=== PATIENT | female | born 1995 | race Caucasian/White ===

== ENCOUNTER 2020-06-01 17:34 | Emergency (ER) | payer OTHER, SELFPAY ==
[2020-06-01 18:10] VITALS: BP 134/75; PULSE 92; RESP 16; TEMP 36.8; O2SAT 99; BMI 36.0
--- NOTE | 2020-06-01 19:58 | ED.GENADULT ---
HPI - General Adult General Chief complaint: General Medical Stated complaint: Sore throat Time Seen by Provider: 06/01/20 19:58 Source: patient Mode of arrival: ambulatory Limitations: no limitations History of Present Illness HPI narrative: States sore/scratchy throat for the past 1 day also mild nasal congestion. Patient is 20 weeks gestation has no -related complaints. No abdominal pain nausea vomiting or diarrhea. No sick contacts recent travel. States she has overall had healthy and no related complaints. Onset (ago): day(s) Location: face Severity: mild Treatments prior to arrival: none Related Data Allergies Allergy/AdvReac Type Severity Reaction Status Date / Time guaifenesin Allergy Intermediate RASH Unverified 04/09/20 16:24 [From ROBITUSSIN A-C] aripiprazole [Abilify] Allergy Unknown extraz Verified 01/23/19 00:00 pyramidal symptoms lorazepam [From ATIVAN] AdvReac Intermediate AGITATION Unverified 04/09/20 16:24 prazosin [PRAZOSIN] AdvReac Intermediate DEPRESSION, Unverified 04/09/20 16:24 hypotension benztropine [Cogentin] AdvReac Unknown extrapyramidal Verified 05/16/19 00:00 symptoms methylprednisolone AdvReac Unknown tctile and Unverified 04/09/20 16:24 [From MEDROL] visual hakkucinations quetiapine [Seroquel] AdvReac Unknown extrapyramidal Verified 05/16/19 00:00 symptoms sertraline [Zoloft] AdvReac Unknown hallucinati Verified 05/16/19 00:00 ons From ROBITUSSIN A-C Allergy Intermediate RASH Uncoded 04/09/20 16:24 Robitussin Chest Congestion Allergy Unknown rash Uncoded 05/16/19 00:00 Robitussin Cold/Congestion Allergy Unknown rash Uncoded 01/23/19 00:00 From COGENTIN AdvReac Intermediate HALLUCINATI Uncoded 04/09/20 16:24 ONS From SEROQUEL AdvReac Intermediate PARANOIA Uncoded 04/09/20 16:24 From ZOLOFT AdvReac Intermediate HALLUCINATI Uncoded 04/09/20 16:24 ONS Medrol (Efrem) AdvReac Unknown hallucinati Uncoded 05/16/19 00:00 ons/depress ion Review of Systems Review of Systems: Constitutional: No Weight loss, No Fever, No Chills, No Night Sweats, No Fatigue, No Malaise ENT/Mouth: No Hearing loss, No Ear Pain, + Nasal Congestion, No Sinus Pain, No Hoarseness, + sore throat, + Rhinorrhea, No Swallowing Difficulty Eyes: No Eye Pain, No Swelling, No Redness, No Foreign Body, No Discharge, No Vision Changes Cardiovascular: No Chest Pain, No SOB, No Dyspnea on Exertion, No Orthopnea, No Edema, No Palpitations Respiratory: No Cough, No Sputum, No Wheezing, No Smoke Exposure, No Dyspnea Gastrointestinal: No Nausea, No Vomiting, No Diarrhea, No Constipation, No abdominal Pain, No Hematochezia, No Melena Genitourinary: no irregular bleeding, No Dysuria, No Urinary Frequency, No Hematuria, No Urinary Incontinence, No Urgency, No Flank Pain, No Urinary Flow Changes, No Hesitancy Musculoskeletal: No joint pain, No Myalgias, No Joint Swelling Skin: No Skin Lesions, No rash Neuro: No Weakness, No Numbness, No Paresthesias, No Loss of Consciousness, No Dizziness, No Headache Psych: No Anxiety Heme/Lymph: No Bruising, No Bleeding,No Lymphadenopathy Endocrine: No Polyuria, No Polydipsia, No Temperature Intolerance Yes all other systems are reviewed and are negative [facility] Past Medical History Attestation statement: The following information was validated with the patient. Social History Social History Advance Directives: No Advance Directives Information Provided: No Physical Exam Vital Signs: Vital Signs: Last Vital Signs Temp 98.3 F 06/01/20 18:10 Pulse 92 06/01/20 18:10 Resp 16 06/01/20 18:10 BP 134/75 06/01/20 18:10 Pulse Ox 99 06/01/20 18:10 Body Mass Index 36.0 Reviewed Const: General: cooperative and healthy appearing; No acute distress or intoxicated appearing Nutritional Appearance: average body habitus Orientation/consciousness: patient oriented x3 HENMT: Head: Yes normal to inspection Ears: hearing grossly normal bilaterally Eyes: General: appearance normal, both eyes and all related structures Visual Kowalski: normal visual kowalski by confrontation Neck: Neck: Yes normal visual inspection and No tender Thyroid: Thyroid normal Chest: Chest palpation & inspection: normal inspection of the chest Resp: Effort & Inspection: normal respiratory effort Cardio: Jugular venous distension: no JVD GI: Inspection: Yes normal to inspection Percussion: Yes normal to percussion Auscultation: normal bowel sounds : General: Yes no CVA tenderness Back/Spine/Pelvis: Back: no CVA tenderness Skin: General skin exam: no rashes or lesions noted Neuro: General: patient oriented x3 Extrem: General: Yes normal to inspection Course Course Course Narrative: AP consistent with mild viral URI rapid strep negative. Sent for culture. COVID-19 done will discharge home with clear precaution return instructions. heart tone 152. No related complaints. Patient will be discharged home with outpatient follow-up. Aware to avoid NSAIDs and cold medicine only acetaminophen for fever. Discharge Plan Discharge Clinical Impression: Acute nasopharyngitis Patient Disposition: Home, Self-Care Instructions: Viral Syndrome (ED) Additional Instructions: Salt water gargle Drink plenty fluids Your rapid strep test was negative COVID-19 is pending Follow home care instructions reviewed Return if any concerns or worsening symptoms otherwise follow up as instructed Thank you Referrals: Physician,None [Primary Care Provider] - 1 week (Your primary care doctor for phone visit)
== END 2020-06-01 20:19 | disposition home or self-care (01) ==
PROVIDERS: Nurse Practitioner Primary Care; Emergency Provider Emergency Medicine
DX: O26.92 Pregnancy related conditions, unspecified, second trimester (principal); J02.9 Acute pharyngitis, unspecified; Z3A.20 20 weeks gestation of pregnancy; Z20.828 Contact with and (suspected) exposure to other viral communicable diseases
CPT/HCPCS: 87071; 87880; 99283; 99284; U0003

== ENCOUNTER 2020-11-16 15:04 | Outpatient (REF) | payer OTHER, SELFPAY ==
--- NOTE | ~2020-11-16 | XR_ITS ---
EXAMINATION: XR FOOT, LEFT CLINICAL INFORMATION: Puncture wound. COMPARISON: None TECHNIQUE: AP, lateral, and oblique views of the left foot. FINDINGS: Marker positioned along the lateral/plantar aspect of the foot at the level of the proximal 5th metatarsal shaft. In this region, in the plantar soft tissues, is a faint tiny density measuring 0.07 cm. A tiny foreign body cannot be excluded. No visible acute fracture or dislocation. XR/XR foot LT min 3V IMPRESSION: Faint tiny density in the plantar soft tissues of the midfoot. This could represent a small foreign body.
== END 2020-11-16 15:05 | disposition home or self-care (01) ==
LOC: HO.HMGCX 15:04
PROVIDERS: PCP Nurse Practitioner Family; Visit Provider Nurse Practitioner Family
DX: S91.332A Puncture wound without foreign body, left foot, initial encounter (principal)
CPT/HCPCS: 73630

== ENCOUNTER 2021-01-25 12:00 | Emergency (ER) | payer OTHER, SELFPAY ==
--- NOTE | ~2021-01-25 | XR_ITS ---
EXAMINATION: XR CHEST CLINICAL INFORMATION: Cough COMPARISON: Chest x-ray on 01/23/2015 TECHNIQUE: 2 views of the chest were obtained. FINDINGS: The cardiac silhouette is normal. There is mild diffuse bronchial wall thickening. There are no areas of consolidation. There are no pleural effusions or pneumothoraces. The bones and soft tissues are unremarkable for the patient's age. XR/XR chest 2V IMPRESSION: Bronchial wall thickening may be infectious and/or inflammatory in etiology.
[2021-01-25 12:18] VITALS: BP 137/70; PULSE 97; RESP 16; TEMP 37.1; O2SAT 97; BMI 37.8
[2021-01-25] MEDS: Albuterol/Iprat 2.5/0.5MG 3 ML AMPUL.NEB INHALE (14:35)
[2021-01-25 14:41] VITALS: PULSE 88
[2021-01-25] MEDS: predniSONE 20 MG TABLET 60 MG PO (14:55)
--- NOTE | 2021-01-25 15:28 | ED_ITS ---
HPI - URI/Sore Throat General Chief Complaint: Upper Respiratory Symptoms Stated Complaint: SOB, Cough Time Seen by Provider: 01/25/21 14:18 History of Present Illness HPI Narrative: patient complains of cough, mild sore throat and chest tightness wheezing and shortness of breath for 3 days, no chest pain no palpitations no fainting no feeling faint Related Data Previous Rx's Medication Instructions Recorded amoxicillin 875 mg-potassium 1 tab PO BID 7 Days #14 tab 11/16/20 clavulanate 125 mg tablet albuterol sulfate 2 inh INHALATION Q4H PRN #1 ea 01/25/21 azithromycin [Zithromax Z-Efrem] See Rx Instructions .ROUTE 01/25/21 .COMPLEX #6 tab prednisone 60 mg PO DAILY 4 Days #12 tab 01/25/21 albuterol sulfate 2 puff INHALATION Q4-6H PRN #8.5 g 01/29/21 dextromethorphan HBr 15 mg PO Q8H PRN #118 ml 01/29/21 doxycycline hyclate 100 mg PO DAILY #14 cap 01/29/21 Allergies Allergy/AdvReac Type Severity Reaction Status Date / Time guaifenesin Allergy Intermediate RASH Verified 09/10/20 13:08 [From ROBITUSSIN A-C] aripiprazole [Abilify] Allergy Unknown extraz Verified 01/23/19 00:00 pyramidal symptoms lorazepam [From ATIVAN] AdvReac Intermediate AGITATION Unverified 04/09/20 16:24 prazosin [PRAZOSIN] AdvReac Intermediate DEPRESSION, Verified 09/10/20 13:08 hypotension benztropine [Cogentin] AdvReac Unknown extrapyramidal Verified 09/10/20 13:08 symptoms methylprednisolone AdvReac Unknown tctile and Verified 09/10/20 13:08 [From MEDROL] visual hakkucinations quetiapine [Seroquel] AdvReac Unknown extrapyramidal Verified 09/10/20 13:08 symptoms sertraline [Zoloft] AdvReac Unknown hallucinati Verified 09/10/20 13:08 ons From SEROQUEL AdvReac Intermediate PARANOIA Uncoded 04/09/20 16:24 From ZOLOFT AdvReac Intermediate HALLUCINATI Uncoded 04/09/20 16:24 ONS Review of Systems Review of Systems: Positive for cough sore throat and chest tightness Negatives are no fever no chills no dizziness no weakness no fainting no feeling faint no headache no difficulty swallowing no chest pain no palpitations no abdominal pain no nausea vomiting or diarrhea no dysuria no skin rash no calf swelling no calf pain no leg swelling PMFSH Past Medical History Source: nursing notes reviewed Medical History Anxiety disorder PMDD (premenstrual dysphoric disorder) Purulent drainage of both ears through ear tube Supraventricular tachycardia Surgical History History of History of placement of ear tubes Hx of prior ablation treatment [place] teeth extracted Family History Family History (Updated 09/07/20 @ 10:57 by CAMERON Watson) Mother Hypertension Diabetes Maternal Grandfather Colon cancer Maternal Grandmother Spinal stenosis Diabetes Hypertension Social History Social History Alcohol intake: unknown Patient Tobacco Use Status: Never used Tobacco Physical Exam Vital Signs: Vital Signs: Last Vital Signs Temp 98.5 F 01/25/21 15:54 Pulse 97 01/25/21 15:54 Resp 16 01/25/21 15:54 BP 126/80 01/25/21 15:54 Pulse Ox 98 01/25/21 15:54 Body Mass Index 37.8 General appearance no acute distress The ears are clear with normal tympanic membranes and no swelling of the canals Sinuses no tenderness The pharynx is clear with moist mucous membranes and no redness swelling or exudate Neck is supple Chest had wheezing bilaterally with good air entry no respiratory distress Abdomen soft nontender Extremities no edema no calf tenderness or swelling Skin no rash Course Course Course Narrative: patient's wheezing was relieved with a treatment here in the ER and lung sounds only showed minimal residual wheezing patient had no shortness of breath with speaking full sentences and felt very improved Patient is treated with prednisone and given a script for inhaler Prescription for antibiotic for bronchitis and is discharged home with negative COVID test and well-appearing MDM - URI/Sore Throat Lab Data Labs: Lab Results 01/25/21 Range/Units 14:30 COVID-19 (VANITA) Negative (Negative) COVID-19 Clin Com See Note Discharge Plan Discharge Clinical Impression: Asthma, Bronchitis Patient Disposition: Home, Self-Care Additional Instructions: COVID test was negative Chest x-ray did not show any obvious pneumonia As her having a bad cough we are treating with antibiotic for bronchitis For asthma we are doing prednisone which reduces inflammation which can cause wheezing and a script for albuterol inhaler to use as needed Follow with primary doctor Return any time for difficulty breathing, any worse condition any concerns Prescriptions: New azithromycin [Zithromax Z-Efrem] 250 mg tablet See Rx Instructions .ROUTE .COMPLEX Qty: 6 RF: 0 albuterol sulfate 90 mcg/actuation aerosol powdr breath activated 2 inh inhalation Q4H PRN (Reason: shortness of breath or wheezing) Qty: 1 RF: 0 prednisone 20 mg tablet 60 mg PO DAILY 4 Days Qty: 12 RF: 0 No Action doxycycline hyclate 100 mg capsule 100 mg PO DAILY Qty: 14 RF: 0 albuterol sulfate 90 mcg/actuation HFA aerosol inhaler 2 puff inhalation Q4-6H PRN (Reason: shortness of breath or wheezing) Qty: 8.5 RF: 1 dextromethorphan HBr 15 mg/5 mL liquid 15 mg PO Q8H PRN (Reason: cough) Qty: 118 RF: 0 amoxicillin-pot clavulanate 875-125 mg tablet 1 tab PO BID 7 Days Qty: 14 RF: 0 Interventions: ED Discharge Assessment Last Done: 01/25/21 15:55 Discharge Date/Time: 01/25/21 15:56
[2021-01-25 15:32] LABS: COVID-19 Test Negative (Negative)
[2021-01-25 15:54] VITALS: BP 126/80; PULSE 97; RESP 16; TEMP 36.9; O2SAT 98
== END 2021-01-25 15:56 | disposition home or self-care (01) ==
PROVIDERS: Physician Assistant Medical; Emergency Provider Emergency Medicine; PCP Nurse Practitioner Family
DX: J40 Bronchitis, not specified as acute or chronic (principal); J45.909 Unspecified asthma, uncomplicated; Z79.899 Other long term (current) drug therapy; Z20.822 Contact with and (suspected) exposure to COVID-19
CPT/HCPCS: 36415; 71046; 87635; 94640; 99284

== ENCOUNTER 2021-01-29 06:30 | Emergency (ER) | payer OTHER, SELFPAY ==
--- NOTE | ~2021-01-29 | XR_ITS ---
EXAMINATION: XR CHEST CLINICAL INFORMATION: Cough, shortness of breath COMPARISON: 01/25/2021, 01/23/2015 TECHNIQUE: Portable upright AP view of the chest was obtained. FINDINGS: The lungs are clear and there is no airspace consolidation or groundglass opacity or effusion. No pneumothorax or pleural reaction. The heart is normal in size. The hilar and mediastinal contours and visualized bony structures are unremarkable. XR/XR chest 1V IMPRESSION: Unremarkable examination.
[2021-01-29 06:49] VITALS: BP 141/102; PULSE 72; RESP 16; TEMP 36.7; O2SAT 97; BMI 37.8
--- NOTE | 2021-01-29 06:55 | ED.URI ---
HPI - URI/Sore Throat General Chief Complaint: Upper Respiratory Symptoms Stated Complaint: Bronchitis Time Seen by Provider: 01/29/21 06:35 Source: patient Mode of arrival: ambulatory Limitations: no limitations History of Present Illness HPI Narrative: Patient comes emergency room complaining of cough and shortness of breath. Patient was seen in the emergency room on January 25, diagnosed with bronchitis. Patient states that she has been wheezing quite a bit. Patient has history of childhood asthma, but has not been wheezing until recently. Patient was given a prescription for Z-Efrem, prednisone and albuterol, but patient is not feeling any better. Patient denies fever but is complaining of chills, and ongoing cough with sputum production. Related Data Previous Rx's Medication Instructions Recorded amoxicillin 875 mg-potassium 1 tab PO BID 7 Days #14 tab 11/16/20 clavulanate 125 mg tablet albuterol sulfate 2 inh INHALATION Q4H PRN #1 ea 01/25/21 azithromycin [Zithromax Z-Efrem] See Rx Instructions .ROUTE 01/25/21 .COMPLEX #6 tab prednisone 60 mg PO DAILY 4 Days #12 tab 01/25/21 albuterol sulfate 2 puff INHALATION Q4-6H PRN #8.5 g 01/29/21 dextromethorphan HBr 15 mg PO Q8H PRN #118 ml 01/29/21 doxycycline hyclate 100 mg PO DAILY #14 cap 01/29/21 Allergies Allergy/AdvReac Type Severity Reaction Status Date / Time guaifenesin Allergy Intermediate RASH Verified 09/10/20 13:08 [From ROBITUSSIN A-C] aripiprazole [Abilify] Allergy Unknown extraz Verified 01/23/19 00:00 pyramidal symptoms lorazepam [From ATIVAN] AdvReac Intermediate AGITATION Unverified 04/09/20 16:24 prazosin [PRAZOSIN] AdvReac Intermediate DEPRESSION, Verified 09/10/20 13:08 hypotension benztropine [Cogentin] AdvReac Unknown extrapyramidal Verified 09/10/20 13:08 symptoms methylprednisolone AdvReac Unknown tctile and Verified 09/10/20 13:08 [From MEDROL] visual hakkucinations quetiapine [Seroquel] AdvReac Unknown extrapyramidal Verified 09/10/20 13:08 symptoms sertraline [Zoloft] AdvReac Unknown hallucinati Verified 09/10/20 13:08 ons From SEROQUEL AdvReac Intermediate PARANOIA Uncoded 04/09/20 16:24 From ZOLOFT AdvReac Intermediate HALLUCINATI Uncoded 04/09/20 16:24 ONS Review of Systems Review of Systems: Constitutional : No Weight loss, No Fever, Complaining of Chills, No Night Sweats, No Fatigue, No Malaise ENT/Mouth : No Hearing loss, No Ear Pain, No Nasal Congestion, No Sinus Pain, No Hoarseness, No sore throat, No Rhinorrhea, No Swallowing Difficulty Eyes: No Eye Pain, No Swelling, No Redness, No Foreign Body, No Discharge, No Vision Changes Cardiovascular : No Chest Pain, No SOB, No Dyspnea on Exertion, No Orthopnea, No Edema, No Palpitations Respiratory : complaining of cough with green sputum production, complaining of wheezing not responding well to albuterol treatments, No Smoke Exposure Gastrointestinal : No Nausea, No Vomiting, No Diarrhea, No Constipation, No abdominal Pain, No Hematochezia, No Melena Genitourinary : no irregular bleeding, No Dysuria, No Urinary Frequency, No Hematuria, No Urinary Incontinence, No Urgency, No Flank Pain, No Urinary Flow Changes, No Hesitancy Musculoskeletal : No joint pain, No Myalgias, No Joint Swelling Skin : No Skin Lesions, No rash Neuro : No Weakness, No Numbness, No Paresthesias, No Loss of Consciousness, No Dizziness, No Headache Psych : No Anxiety/Panic, No Depression, No SI/HI/AH/VH, No Social Issues, Heme/Lymph: No Bruising, No Bleeding,No Lymphadenopathy Endocrine : No Polyuria, No Polydipsia, No Temperature Intolerance [facility] Past Medical History Medical History Anxiety disorder PMDD (premenstrual dysphoric disorder) Purulent drainage of both ears through ear tube Supraventricular tachycardia Surgical History History of History of placement of ear tubes Hx of prior ablation treatment [place] teeth extracted Family History Family History (Updated 09/07/20 @ 10:57 by Erica Martins [facility]) Mother Hypertension Diabetes Maternal Grandfather Colon cancer Maternal Grandmother Spinal stenosis Diabetes Hypertension Social History Social History Alcohol intake: unknown Patient Tobacco Use Status: Never used Tobacco Use of substances other than those prescribed or required for medical reasons: No Advance Directives: No Advance Directives Information Provided: No Patient : No Physical Exam Vital Signs: Vital Signs: Last Vital Signs Temp 98.1 F 01/29/21 06:49 Pulse 72 01/29/21 08:40 Resp 18 01/29/21 08:40 BP 112/65 01/29/21 08:40 Pulse Ox 94 01/29/21 08:40 Body Mass Index 37.8 Appearance: Alert. Oriented X3. No acute distress. Eyes: Pupils equal, round and reactive to light. ENT: Pharynx mildly erythematous, no exudates, no abscess Neck: Normal inspection. Neck supple. No lymph nodes noted. No crepitus CVS: Normal heart rate and rhythm. Pulses normal. Normal S1 and S2 Respiratory: No respiratory distress diffuse rhonchi and wheezing, good air movement, oxygen saturation 98% on room air Abdomen: Soft and nontender. No rigidity. No distention. good BS x4 Skin: Skin warm and dry. Normal skin color. Normal skin turgor. Extremities: No lower extremity edema. No lower extremity edema. No Lacerations. No Rash Neuro: Oriented X 3. No motor deficit. No sensory deficit. Moving all extermities. No slurred speech. Course Course Course Narrative: patient states that she finished a course of antibiotics and prednisone. However, at this time patient is requesting not to be given Solu-Medrol or more prednisone, as it worsens her depression. Patient is agreeable to breathing treatments. patient received 1 treatment with DuoNeb, patient continues wheezing. Patient getting IV magnesium and an hour long nebulization treatment. Chest x-ray pending patient's chest x-ray looks improved when compared to the x-ray of January 25. Patient's leukocytosis is likely secondary to steroid use patient no longer wheezing, patient walked around the emergency room, oxygen saturation remained at 95% on room air. Patient declined prednisone. Patient will be given a 2nd dose of antibiotics and albuterol. I discussed with the patient that the cough may last up to 6 weeks MDM - URI/Sore Throat Lab Data Result diagrams: 01/29/21 07:16 01/29/21 07:16 Labs: Lab Results 01/29/21 01/29/21 Range/Units 07:16 07:16 WBC 11.5 H (4.8-10.8) X10*3/uL RBC 4.39 (4.20-5.50) X10*6/uL Hgb 12.8 (12.0-16.0) g/dl Hct 38.9 (37-47) % MCV 88.6 (80-98) fL MCH 29.2 (27.0-33.0) pg MCHC 32.9 (31.0-35.0) g/dl RDW 13.2 (11.0-16.0) % Plt Count 374 (160-400) X10*3/uL MPV 9.8 (9.4-12.3) fL Immature Gran % (Auto) 0.7 H (0.0-0.4) % Neut % (Auto) 47.4 (45-73) % Lymph % (Auto) 42.0 H (20-40) % [place] % (Auto) 7.1 (2-11) % Eos % (Auto) 1.8 (0-4) % Baso % (Auto) 1.0 (0-2) % Lymph # (Auto) 4.8 (1.2-4.9) X10*3/uL [place] # (Auto) 0.8 (0.1-1.2) X10*3/uL Eos # (Auto) 0.2 (0.0-0.4) X10*3/uL Baso # (Auto) 0.1 (0.0-0.2) X10*3/uL Abs Immat Gran (auto) 0.08 H (0.00-0.03) X10*3/uL Absolute Neuts (auto) 5.4 (2.0-8.3) X10*3/uL Absolute Nucleated RBC 0.000 (0.0-0.012) X10*3/uL Nucleated RBC % (auto) 0.0 (0.0-0.2) /100WBC Sodium 140 (135-145) mmol/L Potassium 3.4 (3.3-5.1) mmol/L Chloride 108 (96-108) mmol/L Carbon Dioxide 23 (22-29) mmol/L Anion Gap 12 (12-20) BUN 12 (9-16) mg/dL Creatinine 1.00 (0.5-1.4) mg/dL Estim Creat Clear Calc 98.7 Estimated GFR > 60 Random Glucose 90 (60-115) mg/dL Calcium 9.0 (8.4-10.2) mg/dL Imaging Data Chest x-ray: Radiologist's impression: FINDINGS: The lungs are clear and there is no airspace consolidation or groundglass opacity or effusion. No pneumothorax or pleural reaction. The heart is normal in size. The hilar and mediastinal contours and visualized bony structures are unremarkable. XR/XR chest 1V IMPRESSION: Unremarkable examination. Discharge Plan Discharge Clinical Impression: Bronchitis Patient Disposition: Home, Self-Care Instructions: Acute Bronchitis (ED) Additional Instructions: Please follow-up with your primary care physician tomorrow. If you have any worsening or new symptoms, please return to the emergency room or call 911 Prescriptions: New doxycycline hyclate 100 mg capsule 100 mg PO DAILY Qty: 14 RF: 0 albuterol sulfate 90 mcg/actuation HFA aerosol inhaler 2 puff inhalation Q4-6H PRN (Reason: shortness of breath or wheezing) Qty: 8.5 RF: 1 dextromethorphan HBr 15 mg/5 mL liquid 15 mg PO Q8H PRN (Reason: cough) Qty: 118 RF: 0 No Action azithromycin [Zithromax Z-Erfem] 250 mg tablet See Rx Instructions .ROUTE .COMPLEX Qty: 6 RF: 0 albuterol sulfate 90 mcg/actuation aerosol powdr breath activated 2 inh inhalation Q4H PRN (Reason: shortness of breath or wheezing) Qty: 1 RF: 0 prednisone 20 mg tablet 60 mg PO DAILY 4 Days Qty: 12 RF: 0 amoxicillin-pot clavulanate 875-125 mg tablet 1 tab PO BID 7 Days Qty: 14 RF: 0
[2021-01-29 07:17] VITALS: PULSE 70; O2SAT 97
[2021-01-29 07:20] LABS: MANUAL DIFF FLAG NO
--- NOTE | 2021-01-29 07:20 | PC.NURSE ---
Unresolved cough and SOB after steroids and ABX. Pt states congested cough for green phelgm and mild 3/10 rib pain. Skin pwd. Speaking full sentences. Sat 97% on RA. LS tight/coarse. Labs drawn by tech, awaiting xray. RT at bedside for updraft
[2021-01-29] MEDS: Albuterol/Iprat 2.5/0.5MG 3 ML AMPUL.NEB INHALE (07:21)
[2021-01-29 07:22] VITALS: PULSE 87; O2SAT 97
[2021-01-29 07:23] LABS: Basophils Absolute Auto 0.1 X10*3/uL (0.0-0.2); Eosinophils Absolute Auto 0.2 X10*3/uL (0.0-0.4); Eosinophils Percent Auto 1.8 % (0-4); Hematocrit 38.9 % (37-47); Hemoglobin 12.8 g/dl (12.0-16.0); Imm Gran Abs Auto 0.08 X10*3/uL (0.00-0.03); Imm Gran Pct Auto 0.7 % (0.0-0.4); Lymphocytes Absolute Auto 4.8 X10*3/uL (1.2-4.9); Mean Corpuscular HGB Conc 32.9 g/dl (31.0-35.0); Mean Corpuscular Hemoglobin 29.2 pg (27.0-33.0); Mean Corpuscular Volume 88.6 fL (80-98); Mean Platelet Volume 9.8 fL (9.4-12.3); Monocytes Absolute Auto 0.8 X10*3/uL (0.1-1.2); Monocytes Percent Auto 7.1 % (2-11); Neutrophils Absolute Auto 5.4 X10*3/uL (2.0-8.3); Neutrophils Percent Auto 47.4 % (45-73); Platelet Count 374 X10*3/uL (160-400); Red Blood Count 4.39 X10*6/uL (4.20-5.50); Red Cell Distribution Width 13.2 % (11.0-16.0); White Blood Count 11.5 X10*3/uL (4.8-10.8)
[2021-01-29 07:47] LABS: Anion Gap 12 (12-20); Blood Urea Nitrogen 12 mg/dL (9-16); Carbon Dioxide 23 mmol/L (22-29); Chloride 108 mmol/L (96-108); Creatinine Clr Calc Pharmacy 98.7; Estimated Glomerular Filt Rate > 60; Glucose Random 90 mg/dL (60-115); Potassium 3.4 mmol/L (3.3-5.1); Sodium 140 mmol/L (135-145)
[2021-01-29] MEDS: Magnesium Sulfate/H2O 2 GM/50 ML PIGGYBACK IV (08:23)
[2021-01-29 08:28] VITALS: PULSE 70; O2SAT 96
[2021-01-29] MEDS: Albuterol Sulfate (0.083%) 2.5 MG/3 ML VIAL.NEB 10 MG INHALE (08:28)
[2021-01-29 08:40] VITALS: BP 112/65; PULSE 72; RESP 18; O2SAT 94
--- NOTE | 2021-01-29 08:40 | PC.NURSE ---
Minimal improvement s/p updraft, IV placed and Mag started. Pt on 1 hour long u/d at this time. Breathing is unlabored and LS improved since initial assessment NSR on tele rate 80s
--- NOTE | 2021-01-29 09:49 | PC.NURSE ---
Ambulatory pulse ox with this RN, sat remained 95-97%, with minimal SOB with exertion that resolved with rest, Dr Fox aware, plan d/c home
== END 2021-01-29 10:02 | disposition home or self-care (01) ==
PROVIDERS: Emergency Provider Emergency Medicine; PCP Nurse Practitioner Family
DX: J40 Bronchitis, not specified as acute or chronic (principal); Z79.899 Other long term (current) drug therapy
CPT/HCPCS: 36415; 71045; 80048; 85025; 94640; 94644; 96360; 99284; 99285; J3475

== ENCOUNTER 2021-02-23 08:14 | Outpatient (REF) | payer OTHER, SELFPAY ==
[2021-02-23 11:20] LABS: Glucose Urine UA NEG (NEG); Leukocyte Esterase Urine NEG (NEG); Nitrite Urine NEG (NEG); Specific Gravity - Urine 1.025 (1.005-1.025); UACC Culture Trigger NO; Urine Blood 2+ (NEG); Urine Ketones NEG (NEG); Urine Protein NEG (NEG-TRACE)
[2021-02-23 11:23] LABS: Appearance Urine CLEAR; Color Urine YELLOW
[2021-02-23 11:29] LABS: Bacteria Urine TRACE /LPF; Squamous Epithelial Cell Urine 1+ /LPF; WBC Urine 0 /HPF (0-4)
[2021-02-23 11:51] LABS: Alanine Aminotransferase 23 U/L (0-31); Albumin Level 4.5 g/dL (3.5-5.0); Alkaline Phosphatase 109 U/L (39-117); Anion Gap 14 (12-20); Aspartate Amino Transferase 26 U/L (5-31); Bilirubin Total 0.3 mg/dL (0.0-1.0); Blood Urea Nitrogen 12 mg/dL (9-16); Calcium 9.8 mg/dL (8.4-10.2); Carbon Dioxide 22 mmol/L (22-29); Chloride 108 mmol/L (96-108); Cholesterol 223 mg/dL; Estimated Glomerular Filt Rate > 60; Glucose Fasting 117 mg/dL (60-99); HDL Cholesterol 33 mg/dL; LDL Cholesterol Calculated 147 mg/dl; Potassium 4.6 mmol/L (3.3-5.1); Sodium 139 mmol/L (135-145); Total Protein 7.4 g/dL (6.5-8.0); Triglycerides 217 mg/dL
== END 2021-02-23 08:15 | disposition home or self-care (01) ==
LOC: HO.HMGCLDS 08:14
PROVIDERS: PCP Nurse Practitioner Family; Visit Provider Nurse Practitioner Family
DX: F32.9 Major depressive disorder, single episode, unspecified (principal); F41.9 Anxiety disorder, unspecified; R06.2 Wheezing
CPT/HCPCS: 36415; 80053; 80061; 81001; 84443

== ENCOUNTER 2021-03-23 09:06 | Outpatient (REF) | payer OTHER, SELFPAY ==
[2021-03-23 10:58] LABS: MANUAL DIFF FLAG NO
[2021-03-23 11:06] LABS: Basophils Absolute Auto 0.1 X10*3/uL (0.0-0.2); Basophils Percent Auto 1.2 % (0-2); Eosinophils Absolute Auto 1.7 X10*3/uL (0.0-0.4); Eosinophils Percent Auto 18.4 % (0-4); Hematocrit 45.1 % (37-47); Hemoglobin 14.9 g/dl (12.0-16.0); Imm Gran Abs Auto 0.02 X10*3/uL (0.00-0.03); Imm Gran Pct Auto 0.2 % (0.0-0.4); Lymphocytes Percent Auto 32.8 % (20-40); Mean Corpuscular Volume 87.9 fL (80-98); Mean Platelet Volume 10.7 fL (9.4-12.3); Monocytes Absolute Auto 0.5 X10*3/uL (0.1-1.2); Monocytes Percent Auto 5.2 % (2-11); Neutrophils Absolute Auto 3.8 X10*3/uL (2.0-8.3); Neutrophils Percent Auto 42.2 % (45-73); Platelet Count 347 X10*3/uL (160-400); Red Blood Count 5.13 X10*6/uL (4.20-5.50); Red Cell Distribution Width 12.3 % (11.0-16.0)
[2021-03-23 12:06] LABS: Erythrocyte Sedimentation Rate 10 MM/HR (0-20)
[2021-03-24 14:07] LABS: IgA 208 mg/dL (47-310); IgG 1107 mg/dL (600-1640); IgM 145 mg/dL (50-300)
== END 2021-03-23 09:07 | disposition home or self-care (01) ==
LOC: HO.LAB 09:06
PROVIDERS: PCP Nurse Practitioner Family; Visit Provider Hospitalist
DX: J45.909 Unspecified asthma, uncomplicated (principal); D72.10 Eosinophilia, unspecified; F41.9 Anxiety disorder, unspecified; F32.9 Major depressive disorder, single episode, unspecified; Z79.899 Other long term (current) drug therapy
CPT/HCPCS: 36415; 82784; 82785; 85025; 85652; 86003; 99202

== ENCOUNTER 2021-04-13 09:57 | Outpatient (REF) | payer OTHER, SELFPAY ==
--- NOTE | 2021-04-13 17:44 | PFT_ITS ---
Forced vital capacity, FEV1, [id number], and MVV are all normal. Post bronchodilator therapy, there is no significant change. Total lung capacity and residual volume are also normal. Diffusion capacity normal. CONCLUSION: Normal pulmonary function test. No evidence of obstructive or restrictive pulmonary disorder. Megan Daly MD MSB/MODL / [id number]
== END 2021-04-13 09:58 | disposition home or self-care (01) ==
LOC: HO.RESP 09:57
PROVIDERS: PCP Nurse Practitioner Family; Visit Provider Hospitalist
DX: J45.909 Unspecified asthma, uncomplicated (principal)
CPT/HCPCS: 94060; 94727; 94729

== ENCOUNTER 2021-06-10 10:13 | Outpatient (REF) | payer OTHER, SELFPAY | END 2021-06-10 10:14 | disposition home or self-care (01) | LOC: HO.LAB 10:13 | PROVIDERS: PCP Nurse Practitioner Family; Visit Provider Internal Medicine | DX: Z20.822 Contact with and (suspected) exposure to COVID-19 (principal) | CPT/HCPCS: C9803; U0003; U0005 ==

== ENCOUNTER 2021-06-30 14:27 | Emergency (ER) | payer OTHER, SELFPAY ==
--- NOTE | 2021-06-30 | ECG_ITS ---
Test Reason : GENERAL MEDICAL Blood Pressure : / mmHG Vent. Rate : 082 BPM Atrial Rate : 082 BPM P-R Int : 164 ms QRS Dur : 088 ms QT Int : 376 ms P-R-T Axes : 050 053 027 degrees QTc Int : 439 ms Normal sinus rhythm Normal ECG When compared with ECG of 05-OCT-2018 14:11, No significant change was found Referred By: Generic ED Physician Electronically Signed By:Vazquez Lacey
--- NOTE | ~2021-06-30 | CT_ITS ---
EXAMINATION: CT ANGIOGRAM OF THE CHEST WITH AND WITHOUT CONTRAST (CT PULMONARY ANGIOGRAM FOR PE) CLINICAL INFORMATION: Reason for Exam Chest pain with hemoptysis, rule out PE COMPARISON: None TECHNIQUE: Prior to contrast administration, noncontrast localization images were obtained. Subsequently, multidetector volumetric imaging was performed from the thoracic inlet to below the diaphragms following the administration of 80 mL Omnipaque 350 intravenous contrast. No contrast reaction reported Sagittal, coronal, and MIP oblique sagittal reformatted images were obtained on the CT workstation, uploaded to PACS, and reviewed. This CT examination was performed using dose optimization techniques as appropriate, variously including the following: *Automated exposure control *Adjustment of mA and/or kV according to patient size (this includes techniques or standardized protocols for targeted exams where dose is matched to indication/reason for exam; i.e. extremities or head) *Use of iterative reconstruction technique Total exam dose-length product 528 mGy-cm FINDINGS: QUALITY OF STUDY/CONTRAST BOLUS: Unsatisfactory. There is nearly equal contrast in the pulmonary artery as the aorta PULMONARY ARTERIES: There is certainly no evidence of a central embolism but given the late acquisition of the bolus I cannot exclude a peripheral thrombus though none is visualized here. THORACIC AORTA: No aneurysm or dissection. LUNG: Right lung; There is no infiltrate or effusion. Left lung; There is no infiltrate or effusion. PLEURA: No pleural effusion or pneumothorax. MEDIASTINUM: No bulky adenopathy. Probable residual thymus. Some mild hilar adenopathy. No evidence of septal bowing or right heart strain. CHEST WALL/AXILLA: No axillary or internal mammary lymphadenopathy. OSSEOUS STRUCTURES: No acute or suspicious osseous abnormality. UPPER ABDOMEN: Unremarkable. No reflux of contrast into the hepatic veins to suggest elevated right heart pressures. CT/CT angio chest PE protocol IMPRESSION: Exam is somewhat indeterminate due to late bolus acquisition. Certainly there is no evidence of central embolism but given the stage of contrast enhancement a peripheral embolism cannot be completely excluded here. Correlation recommended clinically. Consider extremity venous Dopplers and/or VQ scan if clinically indicated There is no significant infiltrate or effusion. VTE: indeterminate
--- NOTE | ~2021-06-30 | CT_ITS ---
EXAMINATION: CT HEAD WITHOUT CONTRAST CLINICAL INFORMATION: Headache for one month. COMPARISON: CT head 04/08/2017 TECHNIQUE: Contiguous axial imaging was performed from the skull base to vertex without intravenous administration of contrast. Coronal and sagittal reformatted images are performed at the CT scanner This CT examination was performed using dose optimization techniques as appropriate, variously including the following: *Automated exposure control *Adjustment of mA and/or kV according to patient size (this includes techniques or standardized protocols for targeted exams where dose is matched to indication/reason for exam; i.e. extremities or head) *Use of iterative reconstruction technique DLP: 1347 mGy-cm FINDINGS: There is no evidence of acute intracranial hemorrhage or territorial infarction. No abnormal mass effect or midline shift is seen. Maurice to white matter differentiation is well preserved. No extra-axial fluid collections are identified. The ventricles are normal in size. There is no abnormal attenuation within the brain parenchyma. The osseous structures and soft tissues are normal. The mastoid air cells and visualized portions of the paranasal sinuses are well aerated. CT/CT head/brain wo con IMPRESSION: No acute intracranial pathology.
--- NOTE | ~2021-06-30 | XR_ITS ---
EXAMINATION: XR CHEST CLINICAL INFORMATION: Chest tightness. Cough. COMPARISON: 01/29/2021 TECHNIQUE: Frontal view of the chest was obtained. FINDINGS: The lungs are well expanded. There is no focal consolidation, edema, or effusion. No pneumothorax. The cardiomediastinal silhouette is within normal limits. No acute osseous abnormality. XR/XR chest 1V IMPRESSION: Clear lungs.
[2021-06-30 14:46] VITALS: BP 135/74; PULSE 86; RESP 17; TEMP 36.8; O2SAT 96; BMI 39.4
--- NOTE | 2021-06-30 15:48 | ED_ITS ---
HPI - General Adult General Chief complaint: General Medical Stated complaint: coughing up blood Time Seen by Provider: 06/30/21 15:26 Source: patient and family (Mother, Iva) Mode of arrival: ambulatory Limitations: no limitations History of Present Illness HPI narrative: 25-year-old female who presents emergency department for evaluation of multiple complaints. The patient states that over the past month she has been coughing up pink thick sputum. She states coughs up this stuff once or twice a day. She states that today, she coughed up a larger amount than usual and the sputum was dark red. She states that she had a similar cough 2 months prior and was diagnosed with asthma and has been treated by our air conditioning specialist . Dr. Osuna she states that the treatment did improve the productive cough but now it has returned and has persisted which is made her concerned. She states that she does have chest tightness with the cough. She has [id number] dyspnea on exertion and shortness of breath. She states that she used her albuterol and her nebulizer today with improvement of her chest tightness and shortness of breath Patient also states that she has a history of migraines but she has had a different headache over the past month. She points to the frontal area of her head when asked to localize the pain. She states the pain is a dull ache which seems to be worse in the morning gets better in the afternoon. She states that the pain will last hours. She states the pain is 5/10 at its worst. She denied numbness, weakness, loss of bowel or bladder control. She states she does have a pins and needle sensation in her hands and feet that are new over the past month. She also states that she has been sweating more over the past month. She also states she is having difficulty with her memory. She states that her can tell her something and she will quickly forget what he said. She has had these symptoms for 1 month and believes that they are getting worse. Sh e states that she has had increased fatigue and increased tiredness and seems to be falling asleep at unusual times. Related Data Home Medications Medication Instructions Recorded Confirmed aripiprazole 2 mg tablet 2 mg PO QAM 02/22/21 02/22/21 bupropion HCl 450 mg 24 hr tablet, 450 mg PO QAM 02/22/21 02/22/21 extended release (Forfivo XL) fluoxetine 10 mg capsule 0 mg PO 02/22/21 02/22/21 fluoxetine 20 mg capsule 40 mg PO QAM 02/22/21 02/22/21 cholecalciferol (vitamin D3) 50 50 mcg PO DAILY 03/23/21 mcg (2,000 unit) capsule trazodone 100 mg tablet 50 mg PO BEDTIME PRN 03/23/21 Previous Rx's Medication Instructions Recorded albuterol sulfate 90 mcg/actuation 2 inh INHALATION Q4H PRN #1 ea 01/25/21 breath activated powder inhaler albuterol sulfate 90 mcg/actuation 2 puff INHALATION Q4-6H PRN #8.5 g 01/29/21 aerosol inhaler albuterol sulfate 2.5 mg (3 mL) INHALATION Q6H PRN 03/23/21 30 Days #360 ml montelukast 10 mg tablet 10 mg PO DAILY 30 Days #30 tab 03/23/21 tiotropium bromide 2.5 2 puff INHALATION DAILY 30 Days #1 03/23/21 mcg/actuation mist for inhalation ea (Spiriva Respimat) sulfamethoxazole 800 1 tab PO BID 3 Days #6 tab 04/16/21 mg-trimethoprim 160 mg tablet (Bactrim DS) fluticasone propionate 115 2 puff INHALATION BID 30 Days #12 g 04/18/21 mcg-salmeterol 21 mcg/actuation HFA inhaler (Advair HFA) Allergies Allergy/AdvReac Type Severity Reaction Status Date / Time aripiprazole [Abilify] Allergy Severe extraz Verified 06/30/21 14:46 pyramidal symptoms guaifenesin Allergy Intermediate RASH Verified 06/30/21 14:46 [From ROBITUSSIN A-C] lorazepam [From ATIVAN] AdvReac Intermediate AGITATION Verified 06/30/21 14:46 prazosin [PRAZOSIN] AdvReac Intermediate DEPRESSION, Verified 06/30/21 14:46 hypotension benztropine [Cogentin] AdvReac Unknown extrapyramidal Verified 06/30/21 14:46 symptoms methylprednisolone AdvReac Unknown tctile and Verified 06/30/21 14:46 [From MEDROL] visual hakkucinations quetiapine [Seroquel] AdvReac Unknown extrapyramidal Verified 06/30/21 14:46 symptoms sertraline [Zoloft] AdvReac Unknown hallucinati Verified 06/30/21 14:46 ons From SEROQUEL AdvReac Intermediate PARANOIA Uncoded 03/23/21 09:19 From ZOLOFT AdvReac Intermediate HALLUCINATI Uncoded 03/23/21 09:19 ONS Review of Systems Review of Systems: Yes all other systems are reviewed and are negative [facility] Past Medical History [facility] Narrative: Social history: She denies tobacco, alcohol use. She states she smokes marijuana 2 to 3 times a week. Medical History Anxiety disorder Asthma Eosinophilia PMDD (premenstrual dysphoric disorder) Purulent drainage of both ears through ear tube Supraventricular tachycardia Surgical History History of History of placement of ear tubes Hx of prior ablation treatment Abell teeth extracted Family History Family History Mother Hypertension Diabetes Maternal Grandfather Colon cancer Maternal Grandmother Spinal stenosis Diabetes Hypertension Other Mental health disorder Substance use disorder Social History Social History Housing: House Alcohol intake: unknown Patient Tobacco Use Status: Never used Tobacco Advance Directives: No Advance Directives Information Provided: No Patient : No Current occupational status: disabled Physical Exam Vital Signs: Vital Signs: Last Vital Signs Temp 98.3 F 06/30/21 14:46 Pulse 86 06/30/21 14:46 Resp 17 06/30/21 14:46 BP 135/74 06/30/21 14:46 Pulse Ox 96 06/30/21 14:46 BMI result Body Mass Index 39.4 Const: Other: Very pleasant and cooperative female patient, she does not appear to be in distress, she answers all questions appropriately. HENMT: Head: Yes normal to inspection, Yes normocephalic and Yes atraumatic Ears: external ears normal General nose exam: Normal external nose present Face and sinus: Yes normal facial exam Mouth: Normal oral and palatal mucos a present Throat: Yes posterior oropharynx normal Eyes: General: appearance normal, both eyes and all related structures Pupils: Equal, round and reactive pupils present Neck: Neck: Yes normal visual inspection, Yes no lymphadenopathy, Yes trachea midline and Yes supple Chest: Chest palpation & inspection: normal inspection of the chest and normal palpation of entire chest wall Resp: Effort & Inspection: normal respiratory effort and able to speak in complete sentences Auscultation: no crackles, no rales, no rhonchi and wheezes (Diffuse wheezing at the end of expiration, good inspiratory/ expiratory glory) Cardio: Rate: regular rate Rhythm: regular rhythm Heart sounds: S1 normal heart sound present, S2 normal heart sound present and no murmurs GI: Inspection: Yes normal to inspection Palpation (GI): Soft to palpation, nontender and no guarding Auscultation: normal bowel sounds : General: Yes no CVA tenderness Back/Spine/Pelvis: Back: no CVA tenderness Skin: General skin exam: no rashes or lesions noted Neuro: Cranial nerves: Yes CN's II-XII intact bilaterally and Yes Equal, round and reactive pupils present Cognition (Neuro): normal cognition Motor exam (neuro): 5/5 motor strength present throughout Extrem: General: Yes normal to inspection Psych: Appearance: grossly normal Speech and movement: Normal speech and movement present Affect: normal affect Attitude: cooperative Thought process: Normal thought process present Thought content: Normal thought content present Course Course Course Narrative: 25-year-old female who presents emergency department for eval uation of multiple complaints over the past month, these complaints include cough productive of pain to red thick sputum, shortness of breath, chest tightness, headache, increased fatigue, diaphoresis and memory deficits. The patient states she was recently diagnosed with asthma 2 months prior and initially she had a similar cough which resolved after treatment of her asthma but then returned over the past month. Initial vital signs were unremarkable. Physical examination did reveal end-expiratory wheezing otherwise was unremarkable. I ordered a CBC, CMP, D-dimer, test, lipase, PT/INR/, PTT, troponin, TSH with reflex T4. I will obtain a CT scan of the patient's head and a CT pulmonary angiogram PE protocol. 1821: Laboratory evaluation: Patient's CT scan of the brain was unremarkable. CT scan of the chest PE protocol revealed no PE and no other significant abnormalities of the patient's lungs. CBC was unremarkable except for eosinophilia at 12%. CMP was unremarkable. TSH was normal. test was negative. COVID-19 was negative. I did discuss these findings with the patient this time I do not have a clear etiology for all of her symptoms but I suspect the cough which is productive is probably cough variant asthma and she does not require ant ibiotics. She was advised to continue taking her asthma medications as prescribed by her air conditioning specialist to follow up with air conditioning specialist for further evaluation and to follow-up with her PCP for further evaluation as well. Medical Decision Making Lab Data Result diagrams: 06/30/21 16:02 06/30/21 16:02 Labs: Lab Results 06/30/21 06/30/21 06/30/21 Range/Units 16:02 16:02 16:02 WBC 11.0 H (4.8-10.8) X10*3/uL RBC 4.71 (4.20-5.50) X10*6/uL Hgb 13.8 (12.0-16.0) g/dl Hct 40.8 (37.0-47.0) % MCV 86.6 (80.0-98.0) fL MCH 29.3 (27.0-33.0) pg MCHC 33.8 (31.0-35.0) g/dl RDW 12.5 (11.0-16.0) % Plt Count 339 (160-400) X10*3/uL MPV 10.2 (9.4-12.3) fL Immature Gran % (Auto) 0.5 H (0.0-0.4) % Neut % (Auto) 56.5 (45-73) % Lymph % (Auto) 23.8 (20-40) % [place] % (Auto) 5.4 (2-11) % Eos % (Auto) 12.8 H (0-4) % Baso % (Auto) 1.0 (0-2) % Lymph # (Auto) 2.6 (1.2-4.9) X10*3/uL [place] # (Auto) 0.6 (0.1-1.2) X10*3/uL Eos # (Auto) 1.4 H (0.0-0.4) X10*3/uL Baso # (Auto) 0.1 (0.0-0.2) X10*3/uL Abs Immat Gran (auto) 0.05 H (0.00-0.03) X10*3/uL Absolute Neuts (auto) 6.2 (2.0-8.3) x10*3/uL Absolute Nucleated RBC 0.000 (0.0-0.012) X10*3/uL Nucleated RBC % (auto) 0.0 (0.0-0.2) /100WBC PT (9.9-13.0) SEC INR (0.9-1.1) APTT (24.1-38.0) SEC D-Dimer High Sensitivty NG/ML Sodium 139 (135-145) mmol/L Potassium 4.1 (3.3-5.1) mmol/L Chloride 107 (96-108) mmol/L Carbon Dioxide 23 (22-29) mmol/L Anion Gap 13 (12-20) BUN 12 (9-16) mg/dL Creatinine 0.86 (0.5-1.4) mg/dL Estim Creat Clear Calc 117.6 Estimated GFR > 60 Random Glucose 112 (60-115) mg/dL Calcium 9.9 (8.4-10.2) mg/dL Total Bilirubin < 0.2 (0.0-1.0) mg/dL AST 28 (5-31) U/L ALT 34 H (0-31) U/L Alkaline Phosphatase 108 (39-117) U/L Troponin I High Sens (<3.5-17.0) ng/L Total Protein 7.4 (6.5-8.0) g/dL Albumin 4.4 (3.5-5.0) g/dL Lipase 40 (8-78) U/L TSH (0.32-4.0) uIU/mL Beta HCG, Quant mIU/mL COVID-19 (VANITA) Negative (Negative) COVID-19 Clin Com See Note 06/30/21 06/30/21 06/30/21 Range/Units 16:02 16:02 16:02 WBC (4.8-10.8) X10*3/uL RBC (4.20-5.50) X10*6/uL Hgb (12.0-16.0) g/dl Hct (37.0-47.0) % MCV (80.0-98.0) fL MCH (27.0-33.0) pg MCHC (31.0-35.0) g/dl RDW (11.0-16.0) % Plt Count (160-400) X10*3/uL MPV (9.4-12.3) fL Immature Gran % (Auto) (0.0-0.4) % Neut % (Auto) (45-73) % Lymph % (Auto) (20-40) % [place] % (Auto) (2-11) % Eos % (Auto) (0-4) % Baso % (Auto) (0-2) % Lymph # (Auto) (1.2-4.9) X10*3/uL [place] # (Auto) (0.1-1.2) X10*3/uL Eos # (Auto) (0.0-0.4) X10*3/uL Baso # (Auto) (0.0-0.2) X10*3/uL Abs Immat Gran (auto) (0.00-0.03) X10*3/uL Absolute Neuts (auto) (2.0-8.3) x10*3/uL Absolute Nucleated RBC (0.0-0.012) X10*3/uL Nucleated RBC % (auto) (0.0-0.2) /100WBC PT 10.5 (9.9-13.0) SEC INR 0.9 (0.9-1.1) APTT 35.8 (24.1-38.0) SEC D-Dimer High Sensitivty < 150 NG/ML Sodium (135-145) mmol/L Potassium (3.3-5.1) mmol/L Chloride (96-108) mmol/L Carbon Dioxide (22-29) mmol/L Anion Gap (12-20) BUN (9-16) mg/dL Creatinine (0.5-1.4) mg/dL Estim Creat Clear Calc Estimated GFR Random Glucose (60-115) mg/dL Calcium (8.4-10.2) mg/dL Total Bilirubin (0.0-1.0) mg/dL AST (5-31) U/L ALT (0-31) U/L Alkaline Phosphatase (39-117) U/L Troponin I High Sens < 3.5 (<3.5-17.0) ng/L Total Protein (6.5-8.0) g/dL Albumin (3.5-5.0) g/dL Lipase (8-78) U/L TSH 1.23 (0.32-4.0) uIU/mL Beta HCG, Quant < 2 mIU/mL COVID-19 (VANITA) (Negative) COVID-19 Clin Com Discharge Plan Discharge Clinical Impression: Fatigue Asthma exacerbation Qualifiers: Asthma severity: moderate Headache Qualifiers: Headache type: unspecified Headache chronicity pattern: acute headache Patient Disposition: Home, Self-Care Instructions: Asthma (ED) Additional Instructions: The CT scan of your brain was normal. The CT pulmonary angiogram of your chest did not reveal any blood clots in your lungs or any other abnormalities of your lungs. Your thyroid test was normal. Your test was negative. Your COVID-19 test was negative. Your blood work was unremarkable except do have a slightly high eosinophil count of 12%. We can sometimes see this in people with asthma therefore I think working on your asthma with your air conditioning specialist should improve your cough and possibly improve your other symptoms. Follow-up with your doctor in 2 days. Please return to the emergency department if your symptoms get worse or if you develop any symptoms that are concerning to you. Prescriptions: No Action Advair HFA 115-21 mcg/actuation HFA aerosol inhaler 2 puff inhalation BID 30 Days Qty: 12 RF: 0 albuterol sulfate 90 mcg/actuation HFA aerosol inhaler 2 puff inhalation Q4-6H PRN (Reason: shortness of breath or wheezing) Qty: 8.5 RF: 1 albuterol sulfate 90 mcg/actuation aerosol powdr breath activated 2 inh inhalation Q4H PRN (Reason: shortness of breath or wheezing) Qty: 1 RF: 0 fluoxetine 20 mg capsule 40 mg PO QAM RF: 0 fluoxetine 10 mg capsule 0 mg PO RF: 0 aripiprazole 2 mg tablet 2 mg PO QAM RF: 0 bupropion HCl [Forfivo XL] 450 mg tablet extended release 24 hr 450 mg PO QAM RF: 0 sulfamethoxazole-trimethoprim [Bactrim DS] 800-160 mg tablet 1 tab PO BID 3 Days Qty: 6 RF: 0 trazodone 100 mg tablet 50 mg PO BEDTIME PRN (Reason: insomnia) RF: 0 cholecalciferol (vitamin D3) 50 mcg (2,000 unit) capsule 50 mcg PO DAILY RF: 0 albuterol sulfate 2.5 mg /3 mL (0.083 %) solution for nebulization 2.5 mg inhalation Q6H PRN (Reason: shortness of breath or wheezing) 30 Days Qty: 360 RF: 11 Spiriva Respimat 2.5 mcg/actuation mist 2 puff inhalation DAILY 30 Days Qty: 1 RF: 11 montelukast 10 mg tablet 10 mg PO DAILY 30 Days Qty: 30 RF: 11
[2021-06-30 16:09] LABS: MANUAL DIFF FLAG NO
[2021-06-30 16:11] LABS: Basophils Absolute Auto 0.1 X10*3/uL (0.0-0.2); Eosinophils Absolute Auto 1.4 X10*3/uL (0.0-0.4); Eosinophils Percent Auto 12.8 % (0-4); Hematocrit 40.8 % (37.0-47.0); Hemoglobin 13.8 g/dl (12.0-16.0); Imm Gran Abs Auto 0.05 X10*3/uL (0.00-0.03); Imm Gran Pct Auto 0.5 % (0.0-0.4); Lymphocytes Absolute Auto 2.6 X10*3/uL (1.2-4.9); Lymphocytes Percent Auto 23.8 % (20-40); Mean Corpuscular HGB Conc 33.8 g/dl (31.0-35.0); Mean Corpuscular Hemoglobin 29.3 pg (27.0-33.0); Mean Corpuscular Volume 86.6 fL (80.0-98.0); Mean Platelet Volume 10.2 fL (9.4-12.3); Monocytes Absolute Auto 0.6 X10*3/uL (0.1-1.2); Monocytes Percent Auto 5.4 % (2-11); Neutrophils Absolute Auto 6.2 x10*3/uL (2.0-8.3); Neutrophils Percent Auto 56.5 % (45-73); Platelet Count 339 X10*3/uL (160-400); Red Blood Count 4.71 X10*6/uL (4.20-5.50); Red Cell Distribution Width 12.5 % (11.0-16.0)
[2021-06-30 16:20] LABS: INTERNATIONAL NORM RATIO 0.9 (0.9-1.1); Prothrombin Time 10.5 SEC (9.9-13.0)
[2021-06-30 16:22] LABS: Partial Thromboplastin Time 35.8 SEC (24.1-38.0)
[2021-06-30 16:23] LABS: D Dimer High Sensitivity < 150 NG/ML
[2021-06-30 16:26] LABS: COVID-19 Test Negative (Negative); IDNOW Serial# 9DD0AD1C
[2021-06-30 16:30] LABS: Troponin-I High Sensitivity < 3.5 ng/L (<3.5-17.0)
[2021-06-30 16:31] LABS: Alanine Aminotransferase 34 U/L (0-31); Albumin Level 4.4 g/dL (3.5-5.0); Alkaline Phosphatase 108 U/L (39-117); Anion Gap 13 (12-20); Aspartate Amino Transferase 28 U/L (5-31); Bilirubin Total < 0.2 mg/dL (0.0-1.0); Blood Urea Nitrogen 12 mg/dL (9-16); Calcium 9.9 mg/dL (8.4-10.2); Carbon Dioxide 23 mmol/L (22-29); Chloride 107 mmol/L (96-108); Creatinine Clr Calc Pharmacy 117.6; Estimated Glomerular Filt Rate > 60; Glucose Random 112 mg/dL (60-115); Lipase 40 U/L (8-78); Potassium 4.1 mmol/L (3.3-5.1); Sodium 139 mmol/L (135-145); Total Protein 7.4 g/dL (6.5-8.0)
[2021-06-30 16:47] LABS: HCG Quantitative < 2 mIU/mL; TSH reflex Free T4 1.23 uIU/mL (0.32-4.0)
[2021-06-30] MEDS: iohexoL 350 MG/ML 100 ML INFUS..BTL IV (17:12)
== END 2021-06-30 18:43 | disposition home or self-care (01) ==
PROVIDERS: Emergency Provider Emergency Medicine Emergency Medical Services; PCP Nurse Practitioner Family
DX: J45.901 Unspecified asthma with (acute) exacerbation (principal); R51.9 Headache, unspecified; R53.83 Other fatigue; Z79.899 Other long term (current) drug therapy; Z20.822 Contact with and (suspected) exposure to COVID-19
CPT/HCPCS: 36415; 70450; 71045; 71275; 80053; 83690; 84443; 84484; 84702; 85025; 85379; 85610; 85730; 87635; 93005; 99284; Q9967

== ENCOUNTER → 2021-07-02 13:09 | Outpatient (BNVA) | payer OTHER, SELFPAY | PROVIDERS: PCP Nurse Practitioner Family; Visit Provider Hospitalist | DX: J45.51 Severe persistent asthma with (acute) exacerbation (principal); D72.10 Eosinophilia, unspecified; F41.9 Anxiety disorder, unspecified; F32.9 Major depressive disorder, single episode, unspecified; Z23 Encounter for immunization | CPT/HCPCS: 90471; 90686; 99212 ==

== ENCOUNTER 2021-08-03 07:36 | Outpatient (REF) | payer OTHER, SELFPAY | END 2021-08-03 07:37 | disposition home or self-care (01) | LOC: HO.MDS 07:36 | PROVIDERS: PCP Nurse Practitioner Family; Visit Provider Hospitalist | DX: J45.50 Severe persistent asthma, uncomplicated (principal) | CPT/HCPCS: 96372; J2182 ==

== ENCOUNTER → 2021-08-10 10:56 | Outpatient (BNVA) | payer OTHER, SELFPAY | PROVIDERS: PCP Nurse Practitioner Family; Visit Provider Hospitalist | DX: J45.50 Severe persistent asthma, uncomplicated (principal); D72.10 Eosinophilia, unspecified; F41.9 Anxiety disorder, unspecified; F32.9 Major depressive disorder, single episode, unspecified | CPT/HCPCS: 99212 ==

== ENCOUNTER 2021-08-31 07:21 | Outpatient (REF) | payer OTHER, SELFPAY | END 2021-08-31 07:22 | disposition home or self-care (01) | LOC: HO.MDS 07:21 | PROVIDERS: PCP Nurse Practitioner Family; Visit Provider Hospitalist | DX: J45.50 Severe persistent asthma, uncomplicated (principal) | CPT/HCPCS: 96372; J2182 ==

== ENCOUNTER 2021-11-22 11:18 | Outpatient (REF) | payer OTHER, SELFPAY ==
[2021-11-22 15:12] LABS: CT PCR NOT DETECTED (Not Detect.); NG PCR NOT DETECTED (Not Detect.)
[2021-11-23 10:51] LABS: BV Int Neg Control Negative (Negative); BV Int Pos Control Positive (Positive)
== END 2021-11-22 11:19 | disposition home or self-care (01) ==
LOC: HO.LNP 11:18
PROVIDERS: Visit Provider Emergency Medicine
DX: N89.8 Other specified noninflammatory disorders of vagina (principal); R30.0 Dysuria; Z11.3 Encounter for screening for infections with a predominantly sexual mode of transmission; Z11.8 Encounter for screening for other infectious and parasitic diseases
CPT/HCPCS: 87480; 87491; 87510; 87591; 87660

== ENCOUNTER 2021-11-22 11:57 | Outpatient (REF) | payer OTHER, SELFPAY | END 2021-11-22 11:58 | disposition home or self-care (01) | LOC: HO.MDS 11:57 | PROVIDERS: Visit Provider Hospitalist | DX: J45.50 Severe persistent asthma, uncomplicated (principal) | CPT/HCPCS: 96372; J2182 ==

== ENCOUNTER 2022-01-28 14:27 | Outpatient (REF) | payer OTHER, SELFPAY ==
[2022-01-28 14:54] LABS: Binax Internal Control QC Valid; Binax Now Covid-19 Ag Negative (Negative)
== END 2022-01-28 14:28 | disposition home or self-care (01) ==
LOC: HO.HMGCLDS 14:27
PROVIDERS: PCP Nurse Practitioner Family
DX: R05.9 Cough, unspecified (principal); Z20.822 Contact with and (suspected) exposure to COVID-19
CPT/HCPCS: 87811; C9803

== ENCOUNTER 2022-02-03 07:51 | Outpatient (REF) | payer OTHER, SELFPAY | END 2022-02-03 07:52 | disposition home or self-care (01) | LOC: HO.MDS 07:51 | PROVIDERS: Visit Provider Hospitalist | DX: J45.50 Severe persistent asthma, uncomplicated (principal) | CPT/HCPCS: 96372; J2182 ==

== ENCOUNTER → 2022-02-14 08:38 | Outpatient (BNVA) | payer OTHER, SELFPAY | PROVIDERS: PCP Nurse Practitioner Family; Visit Provider Hospitalist | DX: J45.50 Severe persistent asthma, uncomplicated (principal); G47.33 Obstructive sleep apnea (adult) (pediatric); J44.9 Chronic obstructive pulmonary disease, unspecified; D72.10 Eosinophilia, unspecified; F41.9 Anxiety disorder, unspecified; F32.9 Major depressive disorder, single episode, unspecified | CPT/HCPCS: 99212 ==

== ENCOUNTER → 2022-03-02 13:35 | Outpatient (REF) | payer OTHER, SELFPAY | LOC: HO.SL 13:35 | PROVIDERS: PCP Nurse Practitioner Family; Visit Provider Hospitalist | DX: Z13.89 Encounter for screening for other disorder (principal) ==

== ENCOUNTER 2022-03-09 15:00 | Outpatient (RCR) | payer OTHER, SELFPAY ==
--- NOTE | 2022-02-23 10:31 | MHC.PT.EP ---
[facility] [place] [facility] [place] [facility] [place] [facility] [address] Greer Blackmon [address] [phone] F: [phone] F: [phone] F: [phone] F: [phone] Physical Therapy Plan of Care Date of Evaluation: Date of Surgery: Diagnosis: This is a 26 yo female presenting to skilled PT with a script for diastasis recti. Assessment: This is a 26 yo female presenting to skilled PT with a script for diastasis recti. Symptoms have been ongoing since she gave to her two children. She has had 2 C-sections and this has been ongoing since the first. She has two children born in 2019 and 2020. In terms of symptoms, patient reporting ongoing numbness at lower abdomen (that is constant, feels like this is incisional). She also reports low back weakness/tightness since giving . She has occasional achiness that runs down BLE laterally to about the knees. Back pain increases with lifting her kids, housework (laundry, cooking and cleaning etc). Sleeping is not disturbed. She is also seeing a urologist next month due to leaking, incontinence. Assessment reveals pain that ranges up to a 3/10. She demos decreased hip ROM, decreased hip and core strength, impaired joint mobility with tenderness to palpation at the sacrum and lower lumbar spine. Functionally, she is limited with lifting, bending and positional changes. She is a good candidate for skilled PT 2x/wk for 5wks. We discussed her urinary weakness and pelvic floor weakness and talked about pelvic floor PT being beneficial as well. Frequency and Duration: The patient will be seen 2x/wk for 5wks Short Term Goals: Demo proper core stab without cues from PT I in HEP Transition to core stab in standing without increase in pain [place] Goals: Demos functional ROM and strength Improve oswestry by at least 3 points Improve pain at the worst to no more than 1/10 Demo proper lifting techniques without increase in pain or radiating symptoms Transition to pelvic floor PT if patient wishes to Treatment Plan: Modalities to reduce pain, spasms and effusion. Manual therapy to restore motion and function. Therapeutic exercise to improve strength and flexibility. Neuromuscular re-education for posture and balance. Therapeutic activities to return to functional activities of daily living. Electronically signed by: Elsie Blandon PT Please sign and return to therapist. Thank you for your referral.
--- NOTE | 2022-04-11 10:57 | MHC.PT.DC ---
[facility] [place] [facility] [place] [facility] [place] [facility] [address] Greer Blackmon [address] [phone] F: [phone] F: [phone] F: [phone] F: [phone] Physical Therapy Discharge Report Diagnosis: This is a 26 yo female presenting to skilled PT with a script for diastasis recti. Date of Surgery: Date of Evaluation: 02/23/22 Date of Discharge: 04/11/22 Treatments to Date: 4 Cancellations to Date: 0 No Shows to Date: 0 Discharge Status: Visit Non-compliance Discharge Summary: Patient DC'd due to poor compliance with scheduled appointments and facility policy. Electronically signed by: Elsie Blandon PT Please sign and return to therapist. Thank you for your referral.
== END 2022-04-11 10:58 | disposition home or self-care (01) ==
LOC: HO.PTCHIC 15:00
PROVIDERS: PCP Nurse Practitioner Family; Visit Provider Nurse Practitioner Family
DX: M62.08 Separation of muscle (nontraumatic), other site (principal)
CPT/HCPCS: 97110; 97162

== ENCOUNTER 2022-05-20 08:10 | Outpatient (REF) | payer OTHER, SELFPAY | END 2022-05-20 08:11 | disposition home or self-care (01) | LOC: HO.MDS 08:10 | PROVIDERS: Visit Provider Hospitalist | DX: J45.50 Severe persistent asthma, uncomplicated (principal) | CPT/HCPCS: 96372; J2182 ==

== ENCOUNTER 2022-07-15 11:19 | Outpatient (REF) | payer OTHER, SELFPAY | END 2022-07-15 11:20 | disposition home or self-care (01) | LOC: HO.MDS 11:19 | PROVIDERS: Visit Provider Hospitalist | DX: Z53.8 Procedure and treatment not carried out for other reasons (principal); J45.50 Severe persistent asthma, uncomplicated | CPT/HCPCS: 96372 ==

== ENCOUNTER → 2022-08-09 15:33 | Outpatient (BNVA) | payer OTHER, SELFPAY | PROVIDERS: PCP Nurse Practitioner Family; Visit Provider Hospitalist | DX: J45.50 Severe persistent asthma, uncomplicated (principal); D72.10 Eosinophilia, unspecified; F41.9 Anxiety disorder, unspecified; F32.9 Major depressive disorder, single episode, unspecified; G47.33 Obstructive sleep apnea (adult) (pediatric) | CPT/HCPCS: 99212 ==

== ENCOUNTER 2022-08-30 11:59 | Outpatient (REF) | payer OTHER, SELFPAY | END 2022-08-30 12:00 | disposition home or self-care (01) | LOC: HO.MDS 11:59 | PROVIDERS: Visit Provider Hospitalist | DX: J45.50 Severe persistent asthma, uncomplicated (principal) | CPT/HCPCS: 96372 ==

== ENCOUNTER 2022-11-17 12:24 | Outpatient (REF) | payer OTHER, SELFPAY | END 2022-11-17 12:25 | disposition home or self-care (01) | LOC: HO.LNP 12:24 | PROVIDERS: Visit Provider Internal Medicine | DX: N30.90 Cystitis, unspecified without hematuria (principal) | CPT/HCPCS: 87086; 87088; 87186 ==

== ENCOUNTER 2022-11-18 08:45 | Outpatient (REF) | payer OTHER, SELFPAY | END 2022-11-18 08:46 | disposition home or self-care (01) | LOC: HO.MDS 08:45 | PROVIDERS: Visit Provider Hospitalist | DX: J45.50 Severe persistent asthma, uncomplicated (principal) | CPT/HCPCS: 96372 ==

== ENCOUNTER 2022-12-16 11:23 | Outpatient (REF) | payer OTHER, SELFPAY | END 2022-12-16 11:24 | disposition home or self-care (01) | LOC: HO.MDS 11:23 | PROVIDERS: Visit Provider Hospitalist | DX: J45.50 Severe persistent asthma, uncomplicated (principal) | CPT/HCPCS: 96372 ==

== ENCOUNTER 2023-01-13 10:39 | Outpatient (REF) | payer OTHER, SELFPAY | END 2023-01-13 10:40 | disposition home or self-care (01) | LOC: HO.MDS 10:39 | PROVIDERS: Visit Provider Hospitalist | DX: J45.50 Severe persistent asthma, uncomplicated (principal) | CPT/HCPCS: 96372 ==

== ENCOUNTER 2023-02-06 08:43 | Outpatient (REF) | payer OTHER, SELFPAY | END 2023-02-06 08:44 | disposition home or self-care (01) | LOC: HO.MDS 08:43 | PROVIDERS: Visit Provider Hospitalist | DX: J45.50 Severe persistent asthma, uncomplicated (principal) | CPT/HCPCS: 96372; J2182 ==

== ENCOUNTER 2023-03-06 08:56 | Outpatient (REF) | payer OTHER, SELFPAY | END 2023-03-06 08:57 | disposition home or self-care (01) | LOC: HO.MDS 08:56 | PROVIDERS: Visit Provider Hospitalist | DX: J45.50 Severe persistent asthma, uncomplicated (principal) | CPT/HCPCS: 96372 ==

== ENCOUNTER 2023-04-04 09:04 | Outpatient (AMB) | payer OTHER, SELFPAY ==
[2023-04-04 10:27] VITALS: BP 120/78; PULSE 80; O2SAT 97; BMI 36.2
--- NOTE | 2023-04-04 10:27 | MHC.OFFWIV ---
Intake Vital Signs 04/04/23 10:27 Height 5 ft 3 in Weight 204 lb 4 oz BMI 36.2 BP 120/78 Blood Pressure Location Rt brachial Position Sitting Pulse 80 Pulse Source Pulse Oximeter Pulse Oximetry (%) 97 Oxygen Delivery Method Room Air Intake Visit Reasons: EP, UTI? STD check? Intake Note: pt is here for c/o possible uti and wants STD check Patient Tobacco Use Status: Never used Tobacco Allergies guaifenesin [From ROBITUSSIN A-C] Allergy (Intermediate, Verified 04/04/23 10:57) RASH lorazepam [From ATIVAN] Adverse Reaction (Intermediate, Verified 04/04/23 10:57) AGITATION prazosin [PRAZOSIN] Adverse Reaction (Intermediate, Verified 04/04/23 10:57) DEPRESSION, hypotension benztropine [Cogentin] Adverse Reaction (Unknown, Verified 04/04/23 10:57) extrapyramidal symptoms methylprednisolone [From MEDROL] Adverse Reaction (Unknown, Verified 04/04/23 10:57) tctile and visual hakkucinations From SEROQUEL Adverse Reaction (Intermediate, Uncoded 04/04/23 10:57) PARANOIA From ZOLOFT Adverse Reaction (Intermediate, Uncoded 04/04/23 10:57) HALLUCINATIONS Medication List - Last Reconciled 04/04/23 by Rohith Segal MD albuterol sulfate 2.5 mg (3 mL) inhalation Q6H PRN 30 days albuterol sulfate 90 mcg/actuation 2 puffs inhalation Q4-6H PRN 30 days budesonide-formoterol 160-4.5 mcg/actuation 2 puffs inhalation BID 30 days NS bupropion HCl (Forfivo XL) 450 mg PO QAM cariprazine (Vraylar) 3 mg PO DAILY cariprazine (Vraylar) 1.5 mg PO QAM clotrimazole 1% 1 appful vaginal BEDTIME clotrimazole-betamethasone 1-0.05 % 1 appl topical ONCE 7 days fluoxetine 60 mg PO QAM ibuprofen 800 mg PO Q8H PRN mepolizumab (Nucala) 100 mg subcut Q4W 30 days methylphenidate HCl ER 18 mg PO QAM montelukast 10 mg PO DAILY Do you need a note to return to daycare/school/sports/work: Yes HPI EP, UTI? STD check? HPI Details Patient presents for a sick visit. Reports symptoms of increased frequency of urination, burning on urination and discomfort in the suprapubic area. Symptoms started in the past few days. No fevers or chills. No nausea or vomiting. Patient would like an STD testing done too. [facility] Medical History Anxiety disorder Asthma Eosinophilia PMDD (premenstrual dysphoric disorder) Purulent drainage of both ears through ear tube Supraventricular tachycardia Surgical History History of History of placement of ear tubes Hx of prior ablation treatment [place] teeth extracted Family History Mother Hypertension Diabetes Maternal Grandfather Colon cancer Maternal Grandmother Spinal stenosis Diabetes Hypertension Other Mental health disorder Substance use disorder Social History Housing: House Alcohol intake: unknown Patient Tobacco Use Status: Never used Tobacco Current occupational status: disabled Physical Exam Vital Signs: Last Vital Signs Pulse 80 04/04/23 10:27 BP 120/78 04/04/23 10:27 Pulse Ox 97 04/04/23 10:27 Oxygen Delivery Method Room Air 04/04/23 10:27 BMI result Body Mass Index 36.2 General: Yes bladder normal to palpation and Yes no CVA tenderness Bimanual exam- vagina & uterus: bladder normal to palpation Back/Spine/Pelvis Back: no CVA tenderness Results AMB Urinalysis, Automated UA Leukoctes 500 Agnieszka/uL Last Edit by Monica Pickering CMA on 04/04/23 10:35 UA Nitrite Positive Last Edit by Monica Pickering CMA on 04/04/23 10:35 UA Urobilinogen 0.2 mg/dL Last Edit by Monica Pickering CMA on 04/04/23 10:35 UA Protein 15 mg/dL Last Edit by Monica Pickering CMA on 04/04/23 10:35 UA pH 6.0 Last Edit by Monica Pickering CMA on 04/04/23 10:35 UA Blood 80 Fuad/uL Last Edit by Monica Pickering CMA on 04/04/23 10:35 UA Specific [place] 1.020 Last Edit by Monica Pickering CMA on 04/04/23 10:35 UA Ketone Negative Last Edit by Monica Pickering CMA on 04/04/23 10:35 UA Bilirubin 0 mg/dL Last Edit by Monica Pickering, SERAFIN on 04/04/23 10:35 UA Glucose 0 mg/dL Last Edit by Monica Pickering CMA on 04/04/23 10:35 Results Reviewed Results Reviewed: Laboratory Last Values Urine pH (Auto) 6.0 04/04/23 10:34 Specific [place] (Auto) 1.020 04/04/23 10:34 Urine Protein (Auto) 15 mg/dL 04/04/23 10:34 Glucose (UA)(Auto) 0 mg/dL 04/04/23 10:34 Urine Ketones (Auto) Negative 04/04/23 10:34 Urine Blood (Auto) 80 Fuad/uL 04/04/23 10:34 Urine Nitrite (Auto) Positive 04/04/23 10:34 Urine Bilirubin (Auto) 0 mg/dL 04/04/23 10:34 Urine Urobilinogen (Auto) 0.2 mg/dL 04/04/23 10:34 Leukocyte Esterase (Auto) 500 Agnieszka/uL 04/04/23 10:34 Assessment & Plan Assessment & Plan (1) STD exposure: Code(s): Z20.2 - Contact with and (suspected) exposure to infections with a predominantly sexual mode of transmission Plan: Urinalysis positive for infection. Antibiotics and Pyridium called in. If symptoms do not improve to follow-up here. Orders: Orders AMB Urinalysis Automated Today Z13.9 - Encounter for screening, unspecified CT NG by PCR Today Z20.2 - Contact with and (suspected) exposure to infections with a predominantly sexual mode of transmission Coding Level of Care Code Est Pt Level 3 (48308) Diagnoses STD exposure Z20.2
== END 2023-04-04 11:33 | disposition home or self-care (01) ==
PROVIDERS: PCP Nurse Practitioner Family; Visit Provider Internal Medicine
DX: R35.0 Frequency of micturition (principal); Z20.2 Contact with and (suspected) exposure to infections with a predominantly sexual mode of transmission
CPT/HCPCS: 81003; 99213

== ENCOUNTER 2023-04-04 14:01 | Outpatient (REF) | payer OTHER, SELFPAY ==
[2023-04-04 16:23] LABS: CT PCR NOT DETECTED (Not Detect.); NG PCR NOT DETECTED (Not Detect.)
== END 2023-04-04 14:02 | disposition home or self-care (01) ==
LOC: HO.LNP 14:01
PROVIDERS: Visit Provider Internal Medicine
DX: Z20.2 Contact with and (suspected) exposure to infections with a predominantly sexual mode of transmission (principal)
CPT/HCPCS: 0353U

== ENCOUNTER 2023-04-11 09:04 | Outpatient (AMB) | payer OTHER, SELFPAY ==
--- NOTE | 2023-04-11 09:08 | AM.OFFWIN_ITS ---
Intake Vital Signs 04/11/23 09:15 Weight 204 lb BP 104/64 Blood Pressure Location Rt brachial Position Sitting Pulse 80 Pulse Source Pulse Oximeter Pulse Oximetry (%) 98 Oxygen Delivery Method Room Air Intake Visit Reasons: EP, UTI? Yeast infection? Intake Note: Patient here because she was here last week for a UTI and never went away. she states none of the sx subsided while taking antibiotics. she also believes she may have a yeast infection from antibiotics. Patient Tobacco Use Status: Never used Tobacco Allergies guaifenesin [From ROBITUSSIN A-C] Allergy (Intermediate, Verified 04/11/23 09:16) RASH lorazepam [From ATIVAN] Adverse Reaction (Intermediate, Verified 04/11/23 09:16) AGITATION prazosin [PRAZOSIN] Adverse Reaction (Intermediate, Verified 04/11/23 09:16) DEPRESSION, hypotension benztropine [Cogentin] Adverse Reaction (Unknown, Verified 04/11/23 09:16) extrapyramidal symptoms methylprednisolone [From MEDROL] Adverse Reaction (Unknown, Verified 04/11/23 09:16) tctile and visual hakkucinations From SEROQUEL Adverse Reaction (Intermediate, Uncoded 04/11/23 09:16) PARANOIA From ZOLOFT Adverse Reaction (Intermediate, Uncoded 04/11/23 09:16) HALLUCINATIONS Do you need a note to return to daycare/school/sports/work: No HPI EP, UTI? Yeast infection? HPI Details 27-year-old female presents to the [facility] for a sick visit. She was seen for urinary tract infection last week. Patient now believes she has yeast infection. Reports symptoms of whitish discharge with itching in the vaginal area. [facility] Medical History Anxiety disorder Asthma Eosinophilia PMDD (premenstrual dysphoric disorder) Purulent drainage of both ears through ear tube Supraventricular tachycardia Surgical History History of History of placement of ear tubes Hx of prior ablation treatment [place] teeth extracted Family History Mother Hypertension Diabetes Maternal Grandfather Colon cancer Maternal Grandmother Spinal stenosis Diabetes Hypertension Other Mental health disorder Substance use disorder Social History Housing: House Alcohol intake: unknown Patient Tobacco Use Status: Never used Tobacco Current occupational status: disabled Physical Exam Vital Signs: Last Vital Signs Pulse 80 04/11/23 09:15 BP 104/64 04/11/23 09:15 Pulse Ox 98 04/11/23 09:15 Oxygen Delivery Method Room Air 04/11/23 09:15 Results AMB Urinalysis, Automated UA Leukoctes 125 Agnieszka/uL Last Edit by Humera Mosquera [facility] on 04/11/23 09: 22 UA Nitrite Negative Last Edit by Humera Mosquera [facility] on 04/11/23 09:22 UA Urobilinogen 0.2 mg/dL Last Edit by Humera Mosquera [facility] on 04/11/23 09:22 UA Protein 30 mg/dL Last Edit by Humera Mosquera [facility] on 04/11/23 09:22 UA pH 6.0 Last Edit by Humera Mosquera [facility] on 04/11/23 09:22 UA Blood 200 Fuad/uL Last Edit by Humera Mosquera [facility] on 04/11/23 09:22 UA Specific [place] 1.030 Last Edit by Humera Mosquera [facility] on 04/11/23 09:22 UA Ketone Negative Last Edit by Humera Mosquera [facility] on 04/11/23 09:22 UA Bilirubin 0 mg/dL Last Edit by Humera Mosquera [facility] on 04/11/23 09:22 UA Glucose 0 mg/dL Last Edit by Humera Mosquera [facility] on 04/11/23 09:22 Results Reviewed Results Reviewed: Laboratory Last Values Urine pH (Auto) 6.0 04/11/23 09:21 Specific [place] (Auto) 1.030 04/11/23 09:21 Urine Protein (Auto) 30 mg/dL 04/11/23 09:21 Glucose (UA)(Auto) 0 mg/dL 04/11/23 09:21 Urine Ketones (Auto) Negative 04/11/23 09:21 Urine Blood (Auto) 200 Fuad/uL 04/11/23 09:21 Urine Nitrite (Auto) Negative 04/11/23 09:21 Urine Bilirubin (Auto) 0 mg/dL 04/11/23 09:21 Urine Urobilinogen (Auto) 0.2 mg/dL 04/11/23 09:21 Leukocyte Esterase (Auto) 125 Agnieszka/uL 04/11/23 09:21 Assessment & Plan Assessment & Plan (1) Vaginal candidiasis: Code(s): B37.31 - Acute candidiasis of vulva and vagina Plan: empiric treatment with Diflucan started. Orders: Orders AMB Urinalysis Automated 04/11/23 Z13.9 - Encounter for screening, unspecified Medications: New fluconazole (Diflucan) 150 mg PO Q3D 2 tabs 0RF 2 doses Refilled sulfamethoxazole-trimethoprim 800-160 mg (Bactrim DS) 1 tab PO BID 5 days 10 tabs 0RF sulfamethoxazole-trimethoprim 800-160 mg (Bactrim DS) 1 tab PO BID 10 tabs 0RF 5 days Coding Level of Care Code Est Pt Level 3 (63021) Diagnoses Vaginal candidiasis B37.31
[2023-04-11 09:15] VITALS: BP 104/64; PULSE 80; O2SAT 98
== END 2023-04-11 10:04 | disposition home or self-care (01) ==
PROVIDERS: PCP Nurse Practitioner Family; Visit Provider Internal Medicine
DX: B37.31 Acute candidiasis of vulva and vagina (principal)
CPT/HCPCS: 81003; 99213

== ENCOUNTER 2023-04-17 08:41 | Outpatient (AMB) | payer OTHER, SELFPAY ==
--- NOTE | 2023-04-17 08:54 | AM.OFFWIN_ITS ---
Intake Vital Signs 04/17/23 08:55 Height 5 ft 3 in Weight 93.61 kg BMI 36.6 BP 110/70 Blood Pressure Location Rt brachial Position Sitting Pulse 80 Pulse Source Pulse Oximeter Temp 97.6 F Temp Source Temporal Artery Scan Pulse Oximetry (%) 98 Intake Visit Reasons: EP, bump on right breast Intake Note: pt is here for c/o 2 bumps on right breast that are paninful 4x days Patient Tobacco Use Status: Never used Tobacco Allergies guaifenesin [From ROBITUSSIN A-C] Allergy (Intermediate, Verified 04/17/23 08:56) RASH lorazepam [From ATIVAN] Adverse Reaction (Intermediate, Verified 04/17/23 08:56) AGITATION prazosin [PRAZOSIN] Adverse Reaction (Intermediate, Verified 04/17/23 08:56) DEPRESSION, hypotension benztropine [Cogentin] Adverse Reaction (Unknown, Verified 04/17/23 08:56) extrapyramidal symptoms methylprednisolone [From MEDROL] Adverse Reaction (Unknown, Verified 04/17/23 08:56) tctile and visual hakkucinations From SEROQUEL Adverse Reaction (Intermediate, Uncoded 04/11/23 09:16) PARANOIA From ZOLOFT Adverse Reaction (Intermediate, Uncoded 04/11/23 09:16) HALLUCINATIONS Do you need a note to return to daycare/school/sports/work: Yes HPI EP, bump on right breast HPI Details Patient presents with bruising and 2 firm tender non mobile masses of the right medial breast. She notes they have been present for 2-3 days. She does have a piercing in place which is not new. She denies drainage or bleeding from piercing site or discharge from either breast. No history of breast masses or family history of breast cancer she is aware of. She does note some body aches and chills. She is not nursing. [facility] Medical History Anxiety disorder Asthma Eosinophilia PMDD (premenstrual dysphoric disorder) Purulent drainage of both ears through ear tube Supraventricular tachycardia Surgical History History of History of placement of ear tubes Hx of prior ablation treatment [place] teeth extracted Family History Mother Hypertension Diabetes Maternal Grandfather Colon cancer Maternal Grandmother Spinal stenosis Diabetes Hypertension Other Mental health disorder Substance use disorder Social History Housing: House Alcohol intake: unknown Patient Tobacco Use Status: Never used Tobacco Current occupational status: disabled Review of Systems Const Reports as per HPI and Reports no additional complaints Card Reports as per HPI and Reports no additional complaints Resp Reports as per HPI and Reports no additional complaints Skin/Breast Denies lesions Physical Exam Vital Signs: Last Vital Signs Temp 97.6 F 04/17/23 08:55 Pulse 80 04/17/23 08:55 BP 110/70 04/17/23 08:55 Pulse Ox 98 04/17/23 08:55 BMI result Body Mass Index 36.6 Const General: cooperative, comfortable and no acute distress Orientation/consciousness: patient oriented x3 Chest Breast/axilla inspection: normal inspection of the axillae and abnormal inspection of the breast right normal nipple (With piercing in place), normal areola and other (Too firm tender mass is at 2 and 3 o'clock position approximately 1-2 cm in size 2-3 cm from areola); no edema (There is resolving ecchymosis encompassing most of the medial breast from the 1 o'clock position down to the 6 o'clock position), no nipple discharge and retraction present Breast/axilla palpation: no axillary lymphadenopathy Resp Effort & Inspection: normal respiratory effort Auscultation: clear to auscultation bilaterally Cardio Rate: regular rate Rhythm: regular rhythm Heart sounds: S1 normal heart sound present and S2 normal heart sound present Neuro General: patient oriented x3 Assessment & Plan Assessment & Plan (1) Breast mass, right: Code(s): N63.10 - Unspecified lump in the right breast, unspecified quadrant Qualifiers: Breast mass location: upper inner quadrant Qualified Code(s): N63.12 - Unspecified lump in the right breast, upper inner quadrant Plan: Will treat for mastitis given piercing in place which could certainly be a nidus for infection. Will also order a diagnostic mammogram to rule out other cause for these masses. Follow-up here with PCP p.r.n.. Orders: Orders MM diagnostic mammo BI Today N63.10 - Unspecified lump in the right breast, unspecified quadrant Medications: New dicloxacillin 500 mg PO QID 7 days 28 caps 0RF Coding Level of Care Code Est Pt Level 4 (43138) Diagnoses Mass of upper inner quadrant of right breast N63.12 Breast mass location: upper inner quadrant
[2023-04-17 08:55] VITALS: BP 110/70; PULSE 80; TEMP 36.4; O2SAT 98; BMI 36.6
== END 2023-04-17 09:41 | disposition home or self-care (01) ==
PROVIDERS: PCP Nurse Practitioner Family; Visit Provider Physician Assistant
DX: N63.12 Unspecified lump in the right breast, upper inner quadrant (principal)
CPT/HCPCS: 99214

== ENCOUNTER 2023-04-18 17:33 | Emergency (ER) | payer OTHER, SELFPAY ==
--- NOTE | ~2023-04-18 | US_ITS ---
EXAMINATION: US DIAGNOSTIC ULTRASOUND BREAST, RIGHT CLINICAL INFORMATION: Painful lump. COMPARISON: None available. TECHNIQUE: Ultrasound of the breast is performed with real-time schmidt scale imaging and color Doppler. FINDINGS: Targeted imaging of the area of pain at the 2:00 to 5:00 position right breast. Slightly hypoechoic/isoechoic area in the right breast Without increased vascularity at the 2:00 position 2 cm from the nipple. Slightly inferior to this area there is edema without abscess or drainable fluid collection. Results are discussed with the patient at time of visit. US/US breast RT limited IMPRESSION: Slightly hypoechoic/isoechoic circumscribed ovoid lesion without increased vascularity at the 2:00 position 2 cm from the nipple. Slightly inferior to this area there is edema without abscess or drainable fluid collection. ASSESSMENT: BI-RADS 2: Benign RECOMMENDATION: 1. Patient should be managed based on the clinical impression. Decision to proceed with biopsy should be based on clinical grounds and degree of clinical concern. 2. Otherwise, routine annual screening mammography beginning at age 40. This patient's information was entered into a reminder system with a target due date for their next mammogram.
[2023-04-18 17:35] VITALS: BP 154/81; PULSE 83; RESP 18; TEMP 36.8; O2SAT 99; BMI 33.7
--- NOTE | 2023-04-18 17:36 | ED.GENADULT ---
HPI - General Adult General Chief complaint: General Medical Stated complaint: Mastitis right breast, antibiotics not helping Time Seen by Provider: 04/18/23 19:22 Source: patient Mode of arrival: ambulatory Limitations: no limitations History of Present Illness HPI narrative: Patient is a 27-year-old female who presents emergency department for evaluation of a painful mass to the right breast. This was first noticed approximately 5-6 days ago while she was showering she felt slight pain that has since become increasingly worse. Patient states that she was seen in urgent care yesterday for evaluation and received prescription for dicloxacillin for treatment of mastitis and was referred for outpatient mammogram which is scheduled but she has not yet received. She reports that she is having increasing pain, subjective chills without known fever, and feels as though the discoloration is enlarging. Denies any personal or family history of breast cancer. Denies any trauma or injury to the breast. There has been no drainage from the nipple, she is not currently lactating nor she been recently. She did have a piercing in place that was not new, this has since been removed. Related Data Home Medications Medication Instructions Recorded Confirmed bupropion HCl 450 mg 24 hr tablet, 450 mg PO QAM 02/22/21 04/04/23 extended release (Forfivo XL) fluoxetine 20 mg capsule 60 mg PO QAM 07/02/21 04/04/23 cariprazine 1.5 mg capsule 1.5 mg PO QAM 08/09/22 04/04/23 (Vraylar) ibuprofen 800 mg tablet 800 mg PO Q8H PRN 08/09/22 04/04/23 cariprazine 3 mg capsule (Vraylar) 3 mg PO DAILY 11/17/22 04/04/23 methylphenidate HCl 18 mg 18 mg PO QAM 04/04/23 04/04/23 tablet,extended release 24 hr Previous Rx's Medication Instructions Recorded clotrimazole 1 % vaginal cream 1 appful vaginal BEDTIME #45 grams 11/22/21 mepolizumab 100 mg/mL subcutaneous 100 mg subcut Q4W 30 days #2 mL 08/03/22 syringe (Nucala) albuterol sulfate 2.5 mg/3 mL 2.5 mg (3 mL) inhalation Q6H PRN 08/09/22 (0.083 %) solution for nebulization shortness of breath or wheezing 30 days #180 mL albuterol sulfate 90 mcg/actuation 2 puff inhalation Q4-6H PRN 08/09/22 aerosol inhaler shortness of breath or wheezing 30 days #8.5 grams budesonide-formoterol HFA 160 2 puff inhalation BID 30 days 08/09/22 mcg-4.5 mcg/actuation aerosol #10.2 grams inhaler montelukast 10 mg tablet 10 mg PO DAILY #90 tabs 08/09/22 clotrimazole-betamethasone 1 1 appl topical ONCE 7 days #15 09/01/22 %-0.05 % topical cream grams phenazopyridine 200 mg tablet 200 mg PO TID 3 days #9 tabs 04/04/23 (Pyridium) fluconazole 150 mg tablet 150 mg PO Q3D 2 doses #2 tabs 04/11/23 (Diflucan) sulfamethoxazole 800 1 tab PO BID 5 days #10 tabs 04/11/23 mg-trimethoprim 160 mg tablet (Bactrim DS) dicloxacillin 500 mg capsule 500 mg PO QID 7 days #28 caps 04/17/23 Allergies Allergy/AdvReac Type Severity Reaction Status Date / Time guaifenesin Allergy Intermediate RASH Verified 04/17/23 08:56 [From ROBITUSSIN A-C] lorazepam [From ATIVAN] AdvReac Intermediate AGITATION Verified 04/17/23 08:56 prazosin [PRAZOSIN] AdvReac Intermediate DEPRESSION, Verified 04/17/23 08:56 hypotension benztropine [Cogentin] AdvReac Unknown extrapyramidal Verified 04/17/23 08:56 symptoms methylprednisolone AdvReac Unknown tctile and Verified 04/17/23 08:56 [From MEDROL] visual hakkucinations From SEROQUEL AdvReac Intermediate PARANOIA Uncoded 04/11/23 09:16 From ZOLOFT AdvReac Intermediate HALLUCINATI Uncoded 04/11/23 09:16 ONS Review of Systems Review of Systems: Yes all other systems are reviewed and are negative [facility] Past Medical History Attestation statement: The following information was validated with the patient. Source: old records reviewed Medical History Eosinophilia Asthma Anxiety disorder Supraventricular tachycardia Purulent drainage of both ears through ear tube PMDD (premenstrual dysphoric disorder) Surgical History History of placement of ear tubes [place] teeth extracted Hx of prior ablation treatment History of Family History Family History Mother Hypertension Diabetes Maternal Grandfather Colon cancer Maternal Grandmother Spinal stenosis Diabetes Hypertension Other Mental health disorder Substance use disorder Social History Social History Housing: House Alcohol intake: unknown Patient Tobacco Use Status: Never used Tobacco Advance Directives: No Advance Directives Information Provided: No Current occupational status: disabled Physical Exam ED Vital Signs: Vital Signs - 24 hr 04/18/23 17:35 04/18/23 20:20 Temperature 98.3 F 98.6 F Pulse Rate 83 70 Respiratory Rate 18 18 Blood Pressure 154/81 H 141/67 H Pulse Oximetry 99 99 Oxygen Delivery Method Room Air Room Air BMI result Body Mass Index 33.7 Appearance: Alert.?Oriented to person, place and time. No acute distress.?Normal affect. Neck: Normal inspection.? Neck supple.?? CVS: Heart sounds normal. Normal heart rate and rhythm.? Pulses normal.?? Breast: Normal left breast. Right breast with discoloration and ecchymosis from 01:00 o'clock-07:00 o'clock and a palpable tender lump at approximately 03:00 o'clock just medial to the nipple/areola. No axillary lymphadenopathy Respiratory: No respiratory distress.? Lung sounds clear to auscultation bilaterally?? Abdomen: Soft and non-tender. Normoactive bowel sounds. Skin: Skin warm and dry.? Normal skin color Neuro: Moves all extremities spontaneously. Sensation intact bilaterally. Ambulates with normal steady gait. Course Course Course Narrative: This is an RME: Additional HPI, ROS, PE not included below will be deferred to primary provider. 27 y o female presenting for evaluation of R breast, seen at an 2 days ago when sxs started and was given 2 antibiotics, dicloxacillin and an unknown abx. States the antibiotics are not helping. Also endorsing chills. Denies chest pain, shortness of breath, dizziness, abdominal pain. Plan -- [facility] Reevaluation(s) Reevaluation #1: Ultrasound revealing a hypoechoic/isoechoic ovoid lesion with increased vascularity without abscess or drainable fluid collection to this region. These results were discussed with patient. Advised outpatient follow-up with primary care provider/possible referral to breast Center for further evaluation and possible biopsy. All questions were answered. Stable for discharge. Time: 22:35 Medical Decision Making Medical Decision Making [facility] Narrative: Patient is a 27-year-old female who presents emergency department for evaluation of a breast lump as per HPI. She is overall well-appearing. Nontoxic and afebrile. Examination reveals a tender mass approximately 1-2 cm in size without over edema or erythema or warmth. No active discharge or retraction of the nipple. Appears to have resolving ecchymosis surrounding the area. Plan to obtain ultrasound to evaluate for possible abscess. Reviewed serum labs obtained prior to my assessment she does have a leukocytosis of 14.5 and unremarkable CMP. Differential Diagnosis Differential Diagnoses: The differential diagnosis associated with the presentation includes (Mastitis, abscess, breast mass) Lab Data [facility] Lab Attestation statement: I reviewed the patient's lab results. (As per narrative above) 04/18/23 18:06 04/18/23 18:06 Labs: Lab Results 04/18/23 Range/Units 18:06 WBC 14.5 H (4.8-10.8) X10*3/uL RBC 4.74 (4.20-5.50) X10*6/uL Hgb 14.0 (12.0-16.0) g/dl Hct 41.3 (37.0-47.0) % MCV 87.1 (80.0-98.0) fL MCH 29.5 (27.0-33.0) pg MCHC 33.9 (31.0-35.0) g/dl RDW 12.1 (11.0-16.0) % Plt Count 363 (160-400) X10*3/uL MPV 9.8 (9.4-12.3) fL Immature Gran % (Auto) 0.3 (0.0-0.4) % Neut % (Auto) 70.3 (45-73) % Lymph % (Auto) 22.4 (20-40) % Crenshaw % (Auto) 5.0 (2-11) % Eos % (Auto) 1.4 (0-4) % Baso % (Auto) 0.6 (0-2) % Lymph # (Auto) 3.2 (1.2-4.9) X10*3/uL [place] # (Auto) 0.7 (0.1-1.2) X10*3/uL Eos # (Auto) 0.2 (0.0-0.4) X10*3/uL Baso # (Auto) 0.1 (0.0-0.2) X10*3/uL Abs Immat Gran (auto) 0.05 H (0.00-0.03) X10*3/uL Absolute Neuts (auto) 10.2 H (2.0-8.3) x10*3/uL Absolute Nucleated RBC 0.000 (0.0-0.012) X10*3/uL Nucleated RBC % (auto) 0.0 (0.0-0.2) /100WBC Sodium 139 (135-145) mmol/L Potassium 4.1 (3.3-5.1) mmol/L Chloride 107 (96-108) mmol/L Carbon Dioxide 23 (22-29) mmol/L Anion Gap 13 (12-20) BUN 10 (9-16) mg/dL Creatinine 1.10 (0.5-1.4) mg/dL Estim Creat Clear Calc 79.9 Estimated GFR 60 Random Glucose 87 (60-115) mg/dL Calcium 9.7 (8.4-10.2) mg/dL Total Bilirubin 0.3 (0.0-1.0) mg/dL AST 18 (5-31) U/L ALT 10 (0-31) U/L Alkaline Phosphatase 97 (39-117) U/L Total Protein 7.8 (6.5-8.0) g/dL Albumin 4.6 (3.5-5.0) g/dL Radiology Impression Discussion of test interpretation with radiology: I have reviewed the radiologist's reading. Radiologist Impression: US/US breast RT limited IMPRESSION: Slightly hypoechoic/isoechoic circumscribed ovoid lesion without increased vascularity at the 2:00 position 2 cm from the nipple. Slightly inferior to this area there is edema without abscess or drainable fluid collection. ASSESSMENT: BI-RADS 2: Benign RECOMMENDATION: 1. Patient should be managed based on the clinical impression. Decision to proceed with biopsy should be based on clinical grounds and degree of clinical concern. 2. Otherwise, routine annual screening mammography beginning at age 40. External Record Review External record reviewed: Outpatient record Discharge Plan Discharge Clinical Impression: Lump of breast, right Patient Disposition: Home, Self-Care Additional Instructions: As discussed, please contact your primary care provider to arrange for a follow-up visit for further evaluation. You may complete the entire course of antibiotics as prescribed, in the event that this is potentially infectious in nature. You can take ibuprofen 200 mg, 3 tablets (600mg) every 6-8 hours as needed for pain, in addition to Tylenol 500 mg, 2 tablets (1,000mg) every 4-6 hours as needed for pain, but not to exceed 3 doses daily (3,000mg).? You may return back to emergency department any new or worsening symptoms or concerns. Prescriptions: No Action Nucala 100 mg/mL syringe 100 mg subcut Q4W 30 Days Qty: 2 11RF bupropion HCl [Forfivo XL] 450 mg tablet extended release 24 hr 450 mg PO QAM fluoxetine 20 mg capsule 60 mg PO QAM clotrimazole 1 % cream 1 appful vaginal BEDTIME Qty: 45 0RF clotrimazole-betamethasone 1-0.05 % cream 1 appl topical ONCE 7 Days Qty: 15 0RF fluconazole [Diflucan] 150 mg tablet 150 mg PO Q3D 0 Days Qty: 2 0RF sulfamethoxazole-trimethoprim [Bactrim DS] 800-160 mg tablet 1 tab PO BID 5 Days Qty: 10 0RF dicloxacillin 500 mg capsule 500 mg PO QID 7 Days Qty: 28 0RF Vraylar 3 mg capsule 3 mg PO DAILY methylphenidate HCl 18 mg tablet extended release 24hr 18 mg PO QAM phenazopyridine [Pyridium] 200 mg tablet 200 mg PO TID 3 Days Qty: 9 0RF Vraylar 1.5 mg capsule 1.5 mg PO QAM budesonide-formoterol 160-4.5 mcg/actuation HFA aerosol inhaler 2 puff inhalation BID 30 Days Qty: 10.2 11RF montelukast 10 mg tablet 10 mg PO DAILY Qty: 90 3RF albuterol sulfate 2.5 mg /3 mL (0.083 %) solution for nebulization 2.5 mg inhalation Q6H PRN (Reason: shortness of breath or wheezing) 30 Days Qty: 180 11RF albuterol sulfate 90 mcg/actuation HFA aerosol inhaler 2 puff inhalation Q4-6H PRN (Reason: shortness of breath or wheezing) 30 Days Qty: 8.5 11RF ibuprofen 800 mg tablet 800 mg PO Q8H PRN Referrals: Israel Antony, [employer] INSTALLER-BC [Primary Care Provider] -
[2023-04-18 18:10] LABS: MANUAL DIFF FLAG NO
[2023-04-18 18:11] LABS: Basophils Absolute Auto 0.1 X10*3/uL (0.0-0.2); Basophils Percent Auto 0.6 % (0-2); Eosinophils Absolute Auto 0.2 X10*3/uL (0.0-0.4); Eosinophils Percent Auto 1.4 % (0-4); Hematocrit 41.3 % (37.0-47.0); Imm Gran Abs Auto 0.05 X10*3/uL (0.00-0.03); Imm Gran Pct Auto 0.3 % (0.0-0.4); Lymphocytes Absolute Auto 3.2 X10*3/uL (1.2-4.9); Lymphocytes Percent Auto 22.4 % (20-40); Mean Corpuscular HGB Conc 33.9 g/dl (31.0-35.0); Mean Corpuscular Hemoglobin 29.5 pg (27.0-33.0); Mean Corpuscular Volume 87.1 fL (80.0-98.0); Mean Platelet Volume 9.8 fL (9.4-12.3); Monocytes Absolute Auto 0.7 X10*3/uL (0.1-1.2); Neutrophils Absolute Auto 10.2 x10*3/uL (2.0-8.3); Neutrophils Percent Auto 70.3 % (45-73); Platelet Count 363 X10*3/uL (160-400); Red Blood Count 4.74 X10*6/uL (4.20-5.50); Red Cell Distribution Width 12.1 % (11.0-16.0); White Blood Count 14.5 X10*3/uL (4.8-10.8)
[2023-04-18 18:25] LABS: Alanine Aminotransferase 10 U/L (0-31); Albumin Level 4.6 g/dL (3.5-5.0); Alkaline Phosphatase 97 U/L (39-117); Anion Gap 13 (12-20); Aspartate Amino Transferase 18 U/L (5-31); Bilirubin Total 0.3 mg/dL (0.0-1.0); Blood Urea Nitrogen 10 mg/dL (9-16); Calcium 9.7 mg/dL (8.4-10.2); Carbon Dioxide 23 mmol/L (22-29); Chloride 107 mmol/L (96-108); Creatinine Clr Calc Pharmacy 79.9; Estimated Glomerular Filt Rate 60; Glucose Random 87 mg/dL (60-115); Potassium 4.1 mmol/L (3.3-5.1); Sodium 139 mmol/L (135-145); Total Protein 7.8 g/dL (6.5-8.0)
[2023-04-18 20:20] VITALS: BP 141/67; PULSE 70; RESP 18; TEMP 37; O2SAT 99
== END 2023-04-18 22:47 | disposition home or self-care (01) ==
PROVIDERS: Physician Assistant; Emergency Provider Emergency Medicine; PCP Nurse Practitioner Family
DX: N63.10 Unspecified lump in the right breast, unspecified quadrant (principal); Z79.899 Other long term (current) drug therapy
CPT/HCPCS: 36415; 76642; 80053; 85025; 99283; 99284

== ENCOUNTER 2023-04-24 07:55 | Outpatient (AMB) | payer OTHER, SELFPAY ==
--- NOTE | 2023-04-24 07:22 | A.OFFPC_ITS ---
Intake Visit Reasons: follow ER/breast issues Allergies guaifenesin [From ROBITUSSIN A-C] Allergy (Intermediate, Verified 04/17/23 08:56) RASH lorazepam [From ATIVAN] Adverse Reaction (Intermediate, Verified 04/17/23 08:56) AGITATION prazosin [PRAZOSIN] Adverse Reaction (Intermediate, Verified 04/17/23 08:56) DEPRESSION, hypotension benztropine [Cogentin] Adverse Reaction (Unknown, Verified 04/17/23 08:56) extrapyramidal symptoms methylprednisolone [From MEDROL] Adverse Reaction (Unknown, Verified 04/17/23 08:56) tctile and visual hakkucinations From SEROQUEL Adverse Reaction (Intermediate, Uncoded 04/11/23 09:16) PARANOIA From ZOLOFT Adverse Reaction (Intermediate, Uncoded 04/11/23 09:16) HALLUCINATIONS Medication List - Last Reconciled 04/24/23 by Israel Antony, COMMUNITY HEALTH SPECIALIST- albuterol sulfate 2.5 mg (3 mL) inhalation Q6H PRN 30 days albuterol sulfate 90 mcg/actuation 2 puffs inhalation Q4-6H PRN 30 days amoxicillin-pot clavulanate 875-125 mg 1 tab PO BID 10 days budesonide-formoterol 160-4.5 mcg/actuation 2 puffs inhalation BID 30 days NS bupropion HCl (Forfivo XL) 450 mg PO QAM cariprazine (Vraylar) 3 mg PO DAILY cariprazine (Vraylar) 1.5 mg PO QAM clotrimazole 1% 1 appful vaginal BEDTIME clotrimazole-betamethasone 1-0.05 % 1 appl topical ONCE 7 days dicloxacillin 500 mg PO QID 7 days fluconazole (Diflucan) 150 mg PO Q3D 2 doses fluoxetine 60 mg PO QAM ibuprofen 800 mg PO Q8H PRN mepolizumab (Nucala) 100 mg subcut Q4W 30 days methylphenidate HCl ER 18 mg PO QAM montelukast 10 mg PO DAILY phenazopyridine (Pyridium) 200 mg PO TID 3 days sulfamethoxazole-trimethoprim 800-160 mg (Bactrim DS) 1 tab PO BID 5 days HPI follow ER/breast issues HPI Details Pt was seen in the ER on 9/26 c/o a painful mass of her right breast. She was seen in the walk-in previously and given antibiotics for ? mastitis which did not help. Mammogram was ordered, this is scheduled for 05/11. US showed hypoechoic/isoechoic ovoid lesion with increased vascularity without abscess or drainable fluid collection to this region. Pt reports that the mass is more tender and she has more induration to the area. She reports that the lesion is close to the surface of her breast and is visible. Will send augmentin. Will also refer to general surgery for possible lancing. I am unable to see the lesion today. Will repeat CBC. Denies fever, chills, and dizziness. [facility] Medical History Eosinophilia Asthma Anxiety disorder Supraventricular tachycardia Purulent drainage of both ears through ear tube PMDD (premenstrual dysphoric disorder) Surgical History History of placement of ear tubes [place] teeth extracted Hx of prior ablation treatment History of Family History Mother Hypertension Diabetes Maternal Grandfather Colon cancer Maternal Grandmother Spinal stenosis Diabetes Hypertension Other Mental health disorder Substance use disorder Social History Housing: House Alcohol intake: unknown Patient Tobacco Use Status: Never used Tobacco Current occupational status: disabled Questionnaire Thrive Questionnaire Date Thrive assessed: 02/22/21 Review of Systems Const Reports as per HPI Physical exam (Primary Care) Tobacco/Smoking Status: Tobacco use Status Patient Tobacco Use Status Never used Tobacco 04/24/23 07:31 Thrive Assessment: Date of Thrive Assessment Date Thrive assessed 02/22/21 04/24/23 07:31 Const General: cooperative Orientation/consciousness: patient oriented x3 Neuro General: patient oriented x3 Psych Appearance: grossly normal Mental Status: mental status grossly normal Speech and movement: Clear speech present Affect: normal affect Attitude: cooperative Thought process: Normal thought process present Thought content: Normal thought content present Insight: Good insight present (Psych) Judgement: Good judgement present (Psych) Assessment and Plan Assessment & Plan (1) Breast abscess: Code(s): N61.1 - Abscess of the breast and nipple Plan: Referred to general surgery, augmentin sent, labs ordered Plan The patient agreed to the use of a medical management trainer for this encounter. Scribed for SHANE Hernandez- by Paty Robert medical management trainer, on 04/24/2023 at 07:25 EST Orders: Orders Complete Blood Count Auto Diff Today N61.1 - Abscess of the breast and nipple Comprehensive Met. Panel Today N61.1 - Abscess of the breast and nipple Referrals General Surgery Referral N61.1 - Abscess of the breast and nipple Medications: New amoxicillin-pot clavulanate 875-125 mg 1 tab PO BID 20 tabs 0RF 10 days Coding Level of Care Code Tele Est Pt Level 3 (58037) Diagnoses Breast abscess N61.1
== END 2023-04-24 13:57 | disposition home or self-care (01) ==
PROVIDERS: PCP Nurse Practitioner Family; Visit Provider Nurse Practitioner Family
DX: N61.1 Abscess of the breast and nipple (principal)
CPT/HCPCS: 99213

== ENCOUNTER 2023-04-24 08:50 | Outpatient (REF) | payer OTHER, SELFPAY ==
[2023-04-24 11:21] LABS: MANUAL DIFF FLAG NO
[2023-04-24 11:30] LABS: Appearance Urine Turbid; Color Urine Yellow; Glucose Urine UA Negative (Negative); Leukocyte Esterase Urine Small (1+) (Negative); Nitrite Urine Positive (Negative); UMIC TRIGGER UACC YES; Urine Blood Negative (Negative); Urine Ketones Trace mg/dL (Negative); Urine Protein Negative (Neg-Trace)
[2023-04-24 11:47] LABS: Bacteria Urine 4+ (None Seen); Calcium Oxalate Crystals Urine Present; Hyaline Casts Urine 0-2 /LPF (0-2); UACC Culture Trigger YES
[2023-04-24 11:51] LABS: Basophils Absolute Auto 0.1 X10*3/uL (0.0-0.2); Basophils Percent Auto 1.5 % (0-2); Eosinophils Absolute Auto 0.2 X10*3/uL (0.0-0.4); Eosinophils Percent Auto 4.4 % (0-4); Hematocrit 39.2 % (37.0-47.0); Hemoglobin 12.7 g/dl (12.0-16.0); Imm Gran Abs Auto 0.01 X10*3/uL (0.00-0.03); Imm Gran Pct Auto 0.2 % (0.0-0.4); Lymphocytes Absolute Auto 2.1 X10*3/uL (1.2-4.9); Lymphocytes Percent Auto 38.3 % (20-40); Mean Corpuscular HGB Conc 32.4 g/dl (31.0-35.0); Mean Corpuscular Hemoglobin 29.5 pg (27.0-33.0); Mean Corpuscular Volume 91.2 fL (80.0-98.0); Mean Platelet Volume 11.2 fL (9.4-12.3); Monocytes Absolute Auto 0.4 X10*3/uL (0.1-1.2); Monocytes Percent Auto 7.8 % (2-11); Neutrophils Absolute Auto 2.6 x10*3/uL (2.0-8.3); Neutrophils Percent Auto 47.8 % (45-73); Platelet Count 335 X10*3/uL (160-400); Red Cell Distribution Width 12.4 % (11.0-16.0); White Blood Count 5.5 X10*3/uL (4.8-10.8)
[2023-04-24 12:19] LABS: Alanine Aminotransferase 12 U/L (0-31); Albumin Level 4.1 g/dL (3.5-5.0); Alkaline Phosphatase 91 U/L (39-117); Anion Gap 11 (12-20); Aspartate Amino Transferase 22 U/L (5-31); Bilirubin Total 0.2 mg/dL (0.0-1.0); Blood Urea Nitrogen 7 mg/dL (9-16); Calcium 8.9 mg/dL (8.4-10.2); Carbon Dioxide 23 mmol/L (22-29); Chloride 108 mmol/L (96-108); Estimated Glomerular Filt Rate > 60; Glucose Random 86 mg/dL (60-115); Sodium 138 mmol/L (135-145); Total Protein 6.9 g/dL (6.5-8.0)
[2023-04-24 12:20] LABS: HBS Num1 0.06 mIU/mL (0-7.99); HIV AB/AG Nonreactive (Nonreactive); HIV Num 1 0.07 S/CO (0.00-0.99); ~HepC Num1 8.14 S/CO (0.00-0.79); ~Hepatitis B Surface Antibody NONREACTIVE (Nonreactive); ~Hepatitis C Antibody Reactive (Nonreactive)
[2023-04-24 12:21] LABS: Syphilis Screen Nonreactive (Nonreactive)
[2023-04-26 02:04] LABS: Herpes Simplex Type 1 IgG <0.90 index; Herpes Simplex Type 2 IgG <0.90 index
== END 2023-04-24 08:51 | disposition home or self-care (01) ==
LOC: HO.HMGCLDS 08:50
PROVIDERS: Internal Medicine; PCP Nurse Practitioner Family; Visit Provider Nurse Practitioner Family
DX: N61.1 Abscess of the breast and nipple (principal); Z20.2 Contact with and (suspected) exposure to infections with a predominantly sexual mode of transmission; N30.90 Cystitis, unspecified without hematuria
CPT/HCPCS: 36415; 80053; 81001; 85025; 86695; 86696; 86706; 86780; 86803; 87086; 87088; 87186; 87389

== ENCOUNTER 2023-04-25 12:37 | Outpatient (AMB) | payer OTHER, SELFPAY ==
--- NOTE | 2023-04-25 12:50 | MHC.OFFVIS ---
Intake Vital Signs 04/25/23 12:53 Height 5 ft 3 in Weight 206 lb BMI 36.5 BP 143/82 H Blood Pressure Location Rt brachial Position Sitting Pulse 104 H Intake Visit Reasons: abscess of breast and nipple *urgent appt req* Intake Note: Patient referred for Rt breast abscess X 2wks. C/o tenderness to touch. Skin around it is discolored. Around nipple gets itchy. Denies oozing. Burr Machine Operator Required: No Accompanied by: sonGriffin Allergies guaifenesin [From ROBITUSSIN A-C] Allergy (Intermediate, Verified 04/25/23 12:55) RASH lorazepam [From ATIVAN] Adverse Reaction (Intermediate, Verified 04/25/23 12:55) AGITATION prazosin [PRAZOSIN] Adverse Reaction (Intermediate, Verified 04/25/23 12:55) DEPRESSION, hypotension benztropine [Cogentin] Adverse Reaction (Unknown, Verified 04/25/23 12:55) extrapyramidal symptoms methylprednisolone [From MEDROL] Adverse Reaction (Unknown, Verified 04/25/23 12:55) tctile and visual hakkucinations From SEROQUEL Adverse Reaction (Intermediate, Uncoded 04/25/23 12:55) PARANOIA From ZOLOFT Adverse Reaction (Intermediate, Uncoded 04/25/23 12:55) HALLUCINATIONS HPI HPI Comments History of Present Illness Details Patient presents for evaluation of a right breast mass. She noticed this approximately 3-4 weeks ago of doing self exam. She has no other masses elsewhere. She has no other symptoms of pain, discharge, or skin changes. No significant family history of breast cancer. Patient had a workup including sonogram which was reviewed, is consistent with a benign process.. Chart was reviewed patient evaluated [facility] Medical History Eosinophilia Asthma Anxiety disorder Supraventricular tachycardia Purulent drainage of both ears through ear tube PMDD (premenstrual dysphoric disorder) Surgical History History of placement of ear tubes [place] teeth extracted Hx of prior ablation treatment History of Family History Mother Hypertension Diabetes Maternal Grandfather Colon cancer Maternal Grandmother Spinal stenosis Diabetes Hypertension Other Mental health disorder Substance use disorder Social History Housing: House Alcohol intake: unknown Patient Tobacco Use Status: Never used Tobacco Current occupational status: disabled Physical Exam Vital Signs: Last Vital Signs Pulse 104 H 04/25/23 12:53 BP 143/82 H 04/25/23 12:53 BMI result Body Mass Index 36.5 Chest Other: Chest breath sounds bilaterally, HS 1 and 2. Breast exam demonstrates approximately 3 x 2 cm right breast 3 o'clock position lobular mass highly suggestive of either fibrocystic disease or fibroadenoma. No evidence of periclavicular cervical or axillary adenopathy bilaterally. Left breast exam negative. No evidence of any mass, discharge, adenopathy or skin changes. GI Other: Abdomen soft, corpulent, benign, nontender. No organomegaly. Assessment & Plan Assessment & Plan (1) Mass of right breast: Code(s): N63.10 - Unspecified lump in the right breast, unspecified quadrant Plan Discussed with the patient therapeutic options which include observation, fine-needle aspiration/biopsy, or excision. Because of the patient's age, it is quite unlikely that this is a neoplastic/malignant process. The patient wishes to undergo excision of this mass. She does not wish to have this inner breast. Risks, benefits, alternatives of excision of this process were reviewed the patient and included but not limited to bleeding, infection, recurrence, numbness, pain, scarring the patient was to proceed. All questions were answered. Arrangements were made for this. Coding Level of Care Code New Pt Level 5 (59934) Diagnoses Mass of right breast N63.10
[2023-04-25 12:53] VITALS: BP 143/82; PULSE 104; BMI 36.5
== END 2023-04-25 13:01 | disposition home or self-care (01) ==
PROVIDERS: PCP Nurse Practitioner Family; Visit Provider Surgery
DX: N63.10 Unspecified lump in the right breast, unspecified quadrant (principal)
CPT/HCPCS: 99204

== ENCOUNTER → 2023-04-25 12:37 | Outpatient (BNVA) | payer OTHER, SELFPAY | PROVIDERS: PCP Nurse Practitioner Family; Visit Provider Surgery ==

== ENCOUNTER 2023-05-11 12:57 | Outpatient (REF) | payer OTHER, SELFPAY ==
--- NOTE | ~2023-05-11 | US_ITS ---
EXAMINATION: US DIAGNOSTIC ULTRASOUND BREAST, RIGHT CLINICAL INFORMATION: Right breast pain x1 month with the area of medial discoloration. Additional history patient seen in the emergency department 03/29/2023 for same complaint, of which paperwork says mastitis with antibiotics not helping. COMPARISON: 04/21/2023 from Emergency Department. TECHNIQUE: Ultrasound of the right breast is performed with real-time schmidt scale imaging and color Doppler. Attention to the medial 2:00 to 5:00 axis was given. FINDINGS: Scanning was performed 2:00 to 5:00 axis. There is no focal suspicious finding. There is no solid mass, architectural abnormality, duct ectasia, or edema in the soft tissue planes. Previously seen mildly hyperechoic and thickened fat lobules in this region have improved significantly, there is no fluid collection. Findings likely represent continued resolution of mastitis. US/US breast RT limited mamm only IMPRESSION: Improvement of findings in the medial right breast, likely related to improving mastitis. No fluid collection or abscess. No edema present. No findings suspicious for malignancy. Recommend continued clinical management. ASSESSMENT: BI-RADS 2: Benign RECOMMENDATION: 1. Patient should be managed based on the clinical impression.
== END 2023-05-11 12:58 | disposition home or self-care (01) ==
LOC: HO.MAMMO 12:57
PROVIDERS: PCP Nurse Practitioner Family; Visit Provider Physician Assistant
DX: N63.15 Unspecified lump in the right breast, overlapping quadrants (principal)
CPT/HCPCS: 76642

== ENCOUNTER → 2023-05-11 13:30 | Outpatient (BNV) | payer OTHER, SELFPAY | PROVIDERS: PCP Nurse Practitioner Family; Visit Provider Radiology Diagnostic Radiology | DX: N61.0 Mastitis without abscess (principal) | CPT/HCPCS: 76642 ==

== ENCOUNTER 2023-05-15 12:07 | Emergency (ER) | payer OTHER, SELFPAY ==
[2023-05-15] VITALS (7 sets, daily range): BP systolic 130–150; BP diastolic 56–99; PULSE 101–115; RESP 14–31; TEMP 36.8–37.4; O2SAT 96–98; BMI 34.3
--- NOTE | ~2023-05-15 | XR_ITS ---
EXAMINATION: XR CHEST CLINICAL INFORMATION: Shortness of breath COMPARISON: 06/30/2021 TECHNIQUE: 2 views of the chest were obtained. FINDINGS: Lungs are well-inflated and clear. Trachea is midline in position. No evidence of interstitial disease, consolidation or mass. No pleural effusion or pneumothorax. Cardiac silhouette and pulmonary vessels are normal in size. The mediastinum and blank have normal contour. The visualized bones and upper abdomen are unremarkable. XR/XR chest 2V IMPRESSION: No acute cardiopulmonary abnormality.
--- NOTE | 2023-05-15 12:08 | ED.GENADULT ---
HPI - General Adult General Chief complaint: Dyspnea Stated complaint: asthma diff breathing Time Seen by Provider: 05/15/23 12:28 Source: patient and RN notes reviewed Mode of arrival: ambulatory Limitations: no limitations History of Present Illness HPI narrative: This is a 27-year-old female, with a past medical history of asthma, SVT (treated with ablation in 2013) and major depression, presenting to the emergency department with complaints of chest tightness, shortness breath since yesterday. Patient states that her son is currently sick home with similar symptoms. Patient states that she sees Dr. Osuna to manage her asthma and states that she gets a monthly injection for management however missed her last injection. She has an appointment with Dr. Osuna on . Patient reports that she also has had some nasal congestion, runny nose, sore throat, and a slight cough which started yesterday. No fevers or chills. No other complaints or concerns at this time. MD complaint: Asthma attack Relieving factors: none Exacerbating factors: none Associated symptoms: denies other symptoms Treatments prior to arrival: other (albuterol inhaler) Related Data Home Medications Medication Instructions Recorded Confirmed bupropion HCl 450 mg 24 hr tablet, 450 mg PO QAM 02/22/21 04/24/23 extended release (Forfivo XL) fluoxetine 20 mg capsule 60 mg PO QAM 07/02/21 04/24/23 cariprazine 1.5 mg capsule 1.5 mg PO QAM 08/09/22 04/24/23 (Vraylar) ibuprofen 800 mg tablet 800 mg PO Q8H PRN 08/09/22 04/24/23 cariprazine 3 mg capsule (Vraylar) 3 mg PO DAILY 11/17/22 04/24/23 methylphenidate HCl 18 mg 18 mg PO QAM 04/04/23 04/24/23 tablet,extended release 24 hr Previous Rx's Medication Instructions Recorded clotrimazole 1 % vaginal cream 1 appful vaginal BEDTIME #45 grams 11/22/21 mepolizumab 100 mg/mL subcutaneous 100 mg subcut Q4W 30 days #2 mL 08/03/22 syringe (Nucala) albuterol sulfate 2.5 mg/3 mL 2.5 mg (3 mL) inhalation Q6H PRN 08/09/22 (0.083 %) solution for nebulization shortness of breath or wheezing 30 days #180 mL albuterol sulfate 90 mcg/actuation 2 puff inhalation Q4-6H PRN 08/09/22 aerosol inhaler shortness of breath or wheezing 30 days #8.5 grams budesonide-formoterol HFA 160 2 puff inhalation BID 30 days 08/09/22 mcg-4.5 mcg/actuation aerosol #10.2 grams inhaler montelukast 10 mg tablet 10 mg PO DAILY #90 tabs 08/09/22 clotrimazole-betamethasone 1 1 appl topical ONCE 7 days #15 09/01/22 %-0.05 % topical cream grams phenazopyridine 200 mg tablet 200 mg PO TID 3 days #9 tabs 04/04/23 (Pyridium) fluconazole 150 mg tablet 150 mg PO Q3D 2 doses #2 tabs 04/11/23 (Diflucan) dicloxacillin 500 mg capsule 500 mg PO QID 7 days #28 caps 04/17/23 amoxicillin 875 mg-potassium 1 tab PO BID 10 days #20 tabs 04/24/23 clavulanate 125 mg tablet nitrofurantoin macrocrystal 100 mg 100 mg PO BID 5 days #10 caps 04/24/23 capsule prednisone 20 mg tablet 40 mg (2 x 20 mg) PO DAILY 3 days 05/15/23 #6 tabs Allergies Allergy/AdvReac Type Severity Reaction Status Date / Time guaifenesin Allergy Intermediate RASH Verified 05/15/23 12:13 [From ROBITUSSIN A-C] lorazepam [From ATIVAN] AdvReac Intermediate AGITATION Verified 05/15/23 12:13 prazosin [PRAZOSIN] AdvReac Intermediate DEPRESSION, Verified 05/15/23 12:13 hypotension benztropine [Cogentin] AdvReac Unknown extrapyramidal Verified 05/15/23 12:13 symptoms methylprednisolone AdvReac Unknown tctile and Verified 05/15/23 12:13 [From MEDROL] visual hakkucinations From SEROQUEL AdvReac Intermediate PARANOIA Uncoded 04/25/23 12:55 From ZOLOFT AdvReac Intermediate HALLUCINATI Uncoded 04/25/23 12:55 ONS Review of Systems Review of Systems: Yes all other systems are reviewed and are negative Constitutional: Constitutional: Reports as per [facility] Past Medical History Attestation statement: The following information was validated with the patient. Medical History Eosinophilia Asthma Anxiety disorder Supraventricular tachycardia Purulent drainage of both ears through ear tube PMDD (premenstrual dysphoric disorder) Surgical History History of placement of ear tubes [place] teeth extracted Hx of prior ablation treatment History of Family History Family History Mother Hypertension Diabetes Maternal Grandfather Colon cancer Maternal Grandmother Spinal stenosis Diabetes Hypertension Other Mental health disorder Substance use disorder Social History Social History Housing: House Alcohol intake: current Alcohol intake frequency: does not drink Patient Tobacco Use Status: Never used Tobacco Smoked in Last 30 Days: No Substance Use Type: Marijuana Substance Use Frequency: Monthly Last Used Substance: Days (ago) Any prior treatment program specific to substance use: No Advance Directives: No Advance Directives Information Provided: No Current occupational status: disabled Physical Exam ED Vital Signs: Vital Signs - 24 hr 05/15/23 12:09 05/15/23 12:27 05/15/23 12:39 Temperature 98.2 F Pulse Rate 115 H 107 H 110 H Respiratory Rate 24 H 31 H 14 Blood Pressure 150/99 H Pulse Oximetry 96 96 Oxygen Delivery Method Room Air Room Air 05/15/23 14:10 05/15/23 14:22 05/15/23 16:05 Temperature 99.3 F Pulse Rate 114 H 101 H 111 H Respiratory Rate 16 24 H 20 Blood Pressure 130/75 134/56 L Pulse Oximetry 97 96 Oxygen Delivery Method Room Air Room Air BMI result Body Mass Index 34.3 Const General: cooperative, comfortable and no acute distress Orientation/consciousness: patient oriented x3 Limitations: no limitations HENMT Other: Oropharynx is mildly erythematous, no tonsillar hypertrophy or exudates. Uvula is midline. No trismus, drooling, or dysphonia. Head: Yes normal to inspection, Yes normocephalic and Yes atraumatic Ears: hearing grossly normal bilaterally General nose exam: Normal external nose present Face and sinus: Yes normal facial exam Mouth: Normal oral and palatal mucosa present, oropharynx normal and moist mucous membranes Throat: Yes posterior oropharynx normal Eyes General: appearance normal, both eyes and all related structures Eyelids: Yes eyelids normal Conjunctivae: conjunctivae normal Sclerae: sclerae normal Pupils: Equal, round and reactive pupils present EOM: EOMs intact bilaterally Neck Neck: Yes normal visual inspection, Yes full ROM and Yes no lymphadenopathy Lymphatic: no lymphadenopathy noted Chest Chest palpation & inspection: normal inspection of the chest Resp Other: Expiratory wheeze noted throughout all lung kowalski. Coarse lung sounds heard at bilateral lung bases Effort & Inspection: normal respiratory effort and able to speak in complete sentences Auscultation: clear to auscultation bilaterally, no crackles, no rales and no rhonchi Cardio Rate: regular rate Rhythm: regular rhythm Heart sounds: S1 normal heart sound present and S2 normal heart sound present GI Inspection: Yes normal to inspection Skin General skin exam: no rashes or lesions noted Trauma: no lacerations or abrasions Wounds: no wounds Neuro General: patient oriented x3 and moves all extremities Cranial nerves: Yes Equal, round and reactive pupils present Extrem General: Yes normal to inspection Right upper extremity: normal to inspection Left upper extremity: normal to inspection Right lower extremity: normal to inspection Left lower extremity: normal to inspection Course Course Course Narrative: RME performed by Jordana Brunson PA-C. Patient is a 27 year old assigned female at presenting to the emergency department with shortness of breath / asthma exacerbation. Labs, imaging, and swabs ordered. Patient placed back in the waiting room pending room availability and results. Reevaluation(s) Reevaluation #1: Patient feeling much better after receiving updraft and muscle prednisolone 60 mg IV push. Patient tested negative for COVID, RSV and flu. Chest x-ray unremarkable. Strep testing still pending. Lung sounds with expiratory wheezes noted throughout, worse in BL lung bases. Oxygen saturation 99% on room air, patient is tachycardic in the 140s. Patient states that she feels as though her heart is racing and does not feel comfortable with discharge at this time. Given tachycardia, will administer 1 L of IV fluids. Time: 13:45 Reevaluation #2: Will try magnesium 2 g IV to see if this helps her symptoms. Patient states that she has received this in the past with good relief. Given sign out to my colleague, DAGOBERTO Hedrick Reevaluation #3: Patient received magnesium IV, she reports significant improvement in her symptoms. She was able to ambulate to the restroom without shortness of breath or difficulty breathing. No hypoxia upon return back to the room. She feels comfortable at this time with discharge home. She speaking clear full sentences. She has albuterol inhaler at home, was provided with spacer from the ED, and a prescription for prednisone was sent to her pharmacy. Reviewed worrisome signs and symptoms that would warrant re-evaluation in the emergency department. All questions answered. Stable for discharge. Time: 17:39 Medications Administered Generic Name Dose Route Start Last Admin Trade Name Freq PRN Reason Stop Dose Admin Magnesium Sulfate 2 gm in 50 mls @ 25 mls/hr 05/15/23 16:05 05/15/23 17:01 Magnesium Sulfate/H2o IV 05/15/23 18:04 25 mls/hr ONCE ONE Administration Discontinued Medications Generic Name Dose Route Start Last Admin Trade Name Freq PRN Reason Stop Dose Admin Albuterol Sulfate 5 mg/ 7.5 mg 05/15/23 12:19 05/15/23 12:24 Albuterol Sulfate 2.5 mg INHALE 05/15/23 12:20 7.5 mg ONCE ONE Administration Albuterol Sulfate 5 mg/ 7.5 mg 05/15/23 14:16 05/15/23 14:21 Albuterol Sulfate 2.5 mg INHALE 05/15/23 14:17 7.5 mg ONCE ONE Administration Sodium Chloride 1,000 mls @ 999 mls/hr 05/15/23 15:12 05/15/23 15:38 Ns IV 05/15/23 16:12 999 mls/hr .Q1H1M ONE Administration Methylprednisolone Sodium Succinate 60 mg 05/15/23 12:09 05/15/23 12:26 Methylprednisolone Sod Succ 125 Mg/2 Ml Vial IVPUSH 05/15/23 12:10 Not Given ONCE ONE Methylprednisolone Sodium Succinate 60 mg 05/15/23 12:34 05/15/23 12:38 Methylprednisolone Sod Succ 125 Mg/2 Ml Vial IVPUSH 05/15/23 12:35 60 mg ONCE ONE Administration Medical Decision Making Medical Decision Making MDM Narrative: This is a 27-year-old female, with a past medical history of asthma, presenting to the emergency department complaints of shortness of breath and chest tightness. On arrival, blood pressure 150/99, pulse tachycardic at 115bpm, respirations 24. Patient is PERC negative. Tachycardia likely due to albuterol updrafts. Oxygen saturation 96 % on room air. E.d. bronch protocol, viral swabs, basic labs, and chest x-ray were ordered out triage. Upon my 1st assessment of patient, patient currently receiving updraft. Patient reporting adverse side effect to prolonged use of steroids however given short term, she does not have side effects. She is agreeable to taking IV steroids in the department today. Differential Diagnosis Differential Diagnoses: The differential diagnosis associated with the presentation includes Asthma exacerbation, viral syndrome, bronchitis, pneumonia Admission/Observation Consideration of admission/observation: Escalation of care including admission/observation considered Patient would have been admitted to the hospital had her work up had any findings where hospital admission was appropriate and her clinical presentation warranted hospital admission. Lab Data MDM Lab Attestation statement: I reviewed the patient's lab results. 05/15/23 12:22 05/15/23 12:22 Labs: Lab Results 05/15/23 05/15/23 Range/Units 12:22 14:43 WBC 11.7 H (4.8-10.8) X10*3/uL RBC 4.94 (4.20-5.50) X10*6/uL Hgb 14.6 (12.0-16.0) g/dl Hct 43.8 (37.0-47.0) % MCV 88.7 (80.0-98.0) fL MCH 29.6 (27.0-33.0) pg MCHC 33.3 (31.0-35.0) g/dl RDW 12.4 (11.0-16.0) % Plt Count 399 (160-400) X10*3/uL MPV 10.3 (9.4-12.3) fL Immature Gran % (Auto) 0.3 (0.0-0.4) % Neut % (Auto) 58.9 (45-73) % Lymph % (Auto) 18.7 L (20-40) % Henderson % (Auto) 8.6 (2-11) % Eos % (Auto) 12.2 H (0-4) % Baso % (Auto) 1.3 (0-2) % Lymph # (Auto) 2.2 (1.2-4.9) X10*3/uL Henderson # (Auto) 1.0 (0.1-1.2) X10*3/uL Eos # (Auto) 1.4 H (0.0-0.4) X10*3/uL Baso # (Auto) 0.2 (0.0-0.2) X10*3/uL Abs Immat Gran (auto) 0.04 H (0.00-0.03) X10*3/uL Absolute Neuts (auto) 6.9 (2.0-8.3) x10*3/uL Absolute Nucleated RBC 0.000 (0.0-0.012) X10*3/uL Nucleated RBC % (auto) 0.0 (0.0-0.2) /100WBC Sodium 141 (135-145) mmol/L Potassium 3.9 (3.3-5.1) mmol/L Chloride 109 H (96-108) mmol/L Carbon Dioxide 22 (22-29) mmol/L Anion Gap 14 (12-20) BUN 10 (9-16) mg/dL Creatinine 0.88 (0.5-1.4) mg/dL Estim Creat Clear Calc 104.7 Estimated GFR > 60 Random Glucose 95 (60-115) mg/dL Calcium 10.0 D (8.4-10.2) mg/dL Magnesium 2.0 (1.6-2.6) mg/dL Total Bilirubin 0.3 (0.0-1.0) mg/dL AST 26 (5-31) U/L ALT 19 (0-31) U/L Alkaline Phosphatase 111 (39-117) U/L Total Protein 8.3 H (6.5-8.0) g/dL Albumin 4.9 (3.5-5.0) g/dL Influenza Type A (PCR) NEGATIVE (Negative) Influenza Type B (PCR) NEGATIVE (Negative) RSV RNA Qual (PCR) NEGATIVE (Negative) SARS-CoV-2 RNA (RT-PCR) NEGATIVE (Negative) S. pyogenes GrpA AGUSTIN Negative (Negative) Radiology Impression Discussion of test interpretation with radiology: I have reviewed the radiologist's reading. Radiologist Impression: EXAMINATION: XR CHEST CLINICAL INFORMATION: Shortness of breath COMPARISON: 06/30/2021 TECHNIQUE: 2 views of the chest were obtained. FINDINGS: Lungs are well-inflated and clear. Trachea is midline in position. No evidence of interstitial disease, consolidation or mass. No pleural effusion or pneumothorax. Cardiac silhouette and pulmonary vessels are normal in size. The mediastinum and blank have normal contour. The visualized bones and upper abdomen are unremarkable. XR/XR chest 2V IMPRESSION: No acute cardiopulmonary abnormality. Dictated By: Dean Huber MD Discharge Plan Discharge Clinical Impression: Asthma exacerbation, URI (upper respiratory infection) Patient Disposition: Home, Self-Care Instructions: Asthma (ED), Upper Respiratory Infection (ED), How Your Lungs Work (ED) Additional Instructions: You presented to the emergency department today for worsening asthma. You received an updraft with methylprednisolone and your symptoms improved afterwards. You also received 1 L of IV fluids and IV magnesium. This provided you with some relief. I am also prescribing you prednisone, take your 1st dose of this medication tomorrow (05/16/2023) as you already received a dose of steroids today. Your chest x-ray did not show pneumonia. Your labs are reassuring. Please continue using albuterol inhalers and nebulizer as directed as needed for symptoms. 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 If any new or worsening symptoms occur, including but not limited to, worsening shortness breath, wheezing, chest pain please return for re-evaluation. Prescriptions: New prednisone 20 mg tablet 40 mg PO DAILY 3 Days Qty: 6 0RF No Action Nucala 100 mg/mL syringe 100 mg subcut Q4W 30 Days Qty: 2 11RF nitrofurantoin macrocrystal 100 mg capsule 100 mg PO BID 5 Days Qty: 10 0RF Rx Instructions: must administer with a meal/food bupropion HCl [Forfivo XL] 450 mg tablet extended release 24 hr 450 mg PO QAM fluoxetine 20 mg capsule 60 mg PO QAM clotrimazole 1 % cream 1 appful vaginal BEDTIME Qty: 45 0RF clotrimazole-betamethasone 1-0.05 % cream 1 appl topical ONCE 7 Days Qty: 15 0RF fluconazole [Diflucan] 150 mg tablet 150 mg PO Q3D 0 Days Qty: 2 0RF dicloxacillin 500 mg capsule 500 mg PO QID 7 Days Qty: 28 0RF amoxicillin-pot clavulanate 875-125 mg tablet 1 tab PO BID 10 Days Qty: 20 0RF Vraylar 3 mg capsule 3 mg PO DAILY methylphenidate HCl 18 mg tablet extended release 24hr 18 mg PO QAM phenazopyridine [Pyridium] 200 mg tablet 200 mg PO TID 3 Days Qty: 9 0RF Vraylar 1.5 mg capsule 1.5 mg PO QAM budesonide-formoterol 160-4.5 mcg/actuation HFA aerosol inhaler 2 puff inhalation BID 30 Days Qty: 10.2 11RF montelukast 10 mg tablet 10 mg PO DAILY Qty: 90 3RF albuterol sulfate 2.5 mg /3 mL (0.083 %) solution for nebulization 2.5 mg inhalation Q6H PRN (Reason: shortness of breath or wheezing) 30 Days Qty: 180 11RF albuterol sulfate 90 mcg/actuation HFA aerosol inhaler 2 puff inhalation Q4-6H PRN (Reason: shortness of breath or wheezing) 30 Days Qty: 8.5 11RF ibuprofen 800 mg tablet 800 mg PO Q8H PRN
[2023-05-15] MEDS: Albuterol Sulfate 5 MG, Albuterol Sulfate (0.083%) 2.5 MG 7.5 MG INHALE ×2 (12:24→14:21)
[2023-05-15 12:26] LABS: MANUAL DIFF FLAG NO
[2023-05-15 12:29] LABS: Basophils Absolute Auto 0.2 X10*3/uL (0.0-0.2); Basophils Percent Auto 1.3 % (0-2); Eosinophils Absolute Auto 1.4 X10*3/uL (0.0-0.4); Eosinophils Percent Auto 12.2 % (0-4); Hematocrit 43.8 % (37.0-47.0); Hemoglobin 14.6 g/dl (12.0-16.0); Imm Gran Abs Auto 0.04 X10*3/uL (0.00-0.03); Imm Gran Pct Auto 0.3 % (0.0-0.4); Lymphocytes Absolute Auto 2.2 X10*3/uL (1.2-4.9); Lymphocytes Percent Auto 18.7 % (20-40); Mean Corpuscular HGB Conc 33.3 g/dl (31.0-35.0); Mean Corpuscular Hemoglobin 29.6 pg (27.0-33.0); Mean Corpuscular Volume 88.7 fL (80.0-98.0); Mean Platelet Volume 10.3 fL (9.4-12.3); Monocytes Percent Auto 8.6 % (2-11); Neutrophils Absolute Auto 6.9 x10*3/uL (2.0-8.3); Neutrophils Percent Auto 58.9 % (45-73); Platelet Count 399 X10*3/uL (160-400); Red Blood Count 4.94 X10*6/uL (4.20-5.50); Red Cell Distribution Width 12.4 % (11.0-16.0); White Blood Count 11.7 X10*3/uL (4.8-10.8)
[2023-05-15] MEDS: methylPREDNISolone Sod Succ 125 MG/2 ML VIAL 60 MG IVPUSH (12:38)
[2023-05-15 12:42] LABS: Alanine Aminotransferase 19 U/L (0-31); Albumin Level 4.9 g/dL (3.5-5.0); Alkaline Phosphatase 111 U/L (39-117); Anion Gap 14 (12-20); Aspartate Amino Transferase 26 U/L (5-31); Bilirubin Total 0.3 mg/dL (0.0-1.0); Blood Urea Nitrogen 10 mg/dL (9-16); Carbon Dioxide 22 mmol/L (22-29); Chloride 109 mmol/L (96-108); Creatinine Clr Calc Pharmacy 104.7; Estimated Glomerular Filt Rate > 60; Glucose Random 95 mg/dL (60-115); Potassium 3.9 mmol/L (3.3-5.1); Sodium 141 mmol/L (135-145); Total Protein 8.3 g/dL (6.5-8.0)
[2023-05-15 13:05] LABS: Influenza A PCR NEGATIVE (Negative); Influenza B PCR NEGATIVE (Negative); Resp Syncy Virus RNA Qual PCR NEGATIVE (Negative); SARS COV2 PCR INHOUSE NEGATIVE (Negative)
[2023-05-15 14:57] LABS: IDNOW Serial# 08D9AD1C; Strep A Nucleic Acid Negative (Negative)
[2023-05-15] MEDS: 0.9 % Sodium Chloride 1,000 ML 999 ML IV (15:38)
[2023-05-15] MEDS: Magnesium Sulfate/H2O 2 GM/50 ML PIGGYBACK IV (17:01)
== END 2023-05-15 18:46 | disposition home or self-care (01) ==
PROVIDERS: Physician Assistant Medical; Emergency Provider Emergency Medicine; PCP Nurse Practitioner Family
DX: J45.901 Unspecified asthma with (acute) exacerbation (principal); J06.9 Acute upper respiratory infection, unspecified; R06.02 Shortness of breath; F33.1 Major depressive disorder, recurrent, moderate; R00.0 Tachycardia, unspecified; R07.89 Other chest pain; Z20.822 Contact with and (suspected) exposure to COVID-19; Z20.828 Contact with and (suspected) exposure to other viral communicable diseases; Z79.899 Other long term (current) drug therapy
CPT/HCPCS: 0241U; 71046; 80053; 83735; 85025; 87651; 94640; 96361; 96365; 96366; 96375; 99284; 99285; J2930; J3475

== ENCOUNTER 2023-05-18 09:59 | Outpatient (REF) | payer OTHER, SELFPAY | END 2023-05-18 10:00 | disposition home or self-care (01) | LOC: HO.MDS 09:59 | PROVIDERS: Visit Provider Hospitalist | DX: J45.50 Severe persistent asthma, uncomplicated (principal) | CPT/HCPCS: 96372 ==

== ENCOUNTER 2023-05-19 12:18 | Outpatient (AMB) | payer OTHER, SELFPAY ==
--- NOTE | 2023-05-19 12:24 | MHC.OFFWIV ---
Intake Vital Signs 05/19/23 12:28 Height 5 ft 3 in Weight 198 lb BMI 35.1 BP 120/70 Blood Pressure Location Rt brachial Position Sitting Pulse 94 Pulse Source Pulse Oximeter Temp 97.1 F Temp Source Temporal Artery Scan Pulse Oximetry (%) 95 Oxygen Delivery Method Room Air Intake Visit Reasons: EP, Right ear pain Intake Note: pt is here today for right ear pain Patient Tobacco Use Status: Never used Tobacco Allergies guaifenesin [From ROBITUSSIN A-C] Allergy (Intermediate, Verified 05/19/23 12:26) RASH lorazepam [From ATIVAN] Adverse Reaction (Intermediate, Verified 05/19/23 12:26) AGITATION prazosin [PRAZOSIN] Adverse Reaction (Intermediate, Verified 05/19/23 12:26) DEPRESSION, hypotension benztropine [Cogentin] Adverse Reaction (Unknown, Verified 05/19/23 12:26) extrapyramidal symptoms methylprednisolone [From MEDROL] Adverse Reaction (Unknown, Verified 05/19/23 12:26) tctile and visual hakkucinations From SEROQUEL Adverse Reaction (Intermediate, Uncoded 04/25/23 12:55) PARANOIA From ZOLOFT Adverse Reaction (Intermediate, Uncoded 04/25/23 12:55) HALLUCINATIONS HPI HPI Comments History of Present Illness Details This is a 27-year-old female who presents to the office today for sick visit. Patient complaining of right ear pain and right-sided sinus congestion x2 days. She denies any fevers or chills. She denies any sore throat. She reports her children are sick with the same symptoms. She is otherwise feeling well. [facility] Medical History Eosinophilia Asthma Anxiety disorder Supraventricular tachycardia Purulent drainage of both ears through ear tube PMDD (premenstrual dysphoric disorder) Surgical History History of placement of ear tubes [place] teeth extracted Hx of prior ablation treatment History of Family History Mother Hypertension Diabetes Maternal Grandfather Colon cancer Maternal Grandmother Spinal stenosis Diabetes Hypertension Other Mental health disorder Substance use disorder Social History (Reviewed 05/15/23 @ 14:12 by JAN Aleman Housing: House Alcohol intake: current Alcohol intake frequency: does not drink Patient Tobacco Use Status: Never used Tobacco Substance Use Type: Marijuana Current occupational status: disabled Review of Systems Const All systems reviewed & are unremarkable except as noted in HPI and below Reports no additional complaints Eyes Reports no additional complaints ENT Reports no additional complaints Card Reports no additional complaints Resp Reports no additional complaints GI Reports no additional complaints Reports no additional complaints Musc Reports no additional complaints Skin/Breast Reports system reviewed and no additional complaints, except as documented Neuro Reports no additional complaints Psych Reports no additional complaints Endo Reports no additional complaints Roderick/Lymph Reports no additional complaints Aller/Immun Reports no additional complaints Physical Exam Const Other: Vital signs reviewed. Constitutional: Non-toxic appearing. No acute distress. Well-developed and well-nourished. HEENT: Normocephalic and atraumatic. Right tympanic membrane is erythematous, edematous, and bulging. Left tympanic membrane is within normal limits. No postauricular tenderness, swelling, or erythema. Moist mucous membranes. Skin: Warm and dry. No rashes or lesions noted. Neck: Full and painless range of motion. No cervical lymphadenopathy. Cardio: Regular rate. No lower extremity edema. No JVD. Pulmonary: No respiratory distress. No accessory muscle usage. Gastrointestinal: Soft, nontender, and nondistended in all 4 quadrants. Normoactive bowel sounds in all 4 quadrants. Genitourinary: No CVA tenderness. Musculoskeletal: Normal range of motion in joints throughout the body. No deformity or other signs of injury. Neuro: Alert and oriented x4. Cranial nerves 2-12 grossly intact. No focal deficits appreciated. Psych: Normal mood and affect. Assessment & Plan Assessment & Plan (1) Acute suppurative otitis media of right ear: Code(s): H66.001 - Acute suppurative otitis media without spontaneous rupture of ear drum, right ear Plan: This is a 27-year-old female presenting to the office complaining of right ear pain and right-sided sinus congestion x2 days. On physical examination, her right tympanic membrane is erythematous, edematous, and bulging. There is no postauricular swelling, tenderness, or erythema to suggest mastoiditis. Her vital signs are stable, her physical exam is otherwise benign, and she is overall nontoxic appearing. History and physical most consistent with acute otitis media of the right ear. Patient sent home on p.o. amoxicillin clavulanate twice daily times 10 days. Recommended symptomatic management including rest, increased fluids, advil/tylenol for pain/fever, and over the counter throat decongestants. Patient advised to follow up here or go to the emergency room for worsening/persistent symptoms. Patient verbalized understanding and is agreeable with the plan. Medications: New amoxicillin-pot clavulanate 875-125 mg 1 tab PO BID 20 tabs 0RF Coding Level of Care Code Est Pt Level 3 (83628) Diagnoses Acute suppurative otitis media of right ear H66.001
[2023-05-19 12:28] VITALS: BP 120/70; PULSE 94; TEMP 36.2; O2SAT 95; BMI 35.1
== END 2023-05-19 12:42 | disposition home or self-care (01) ==
PROVIDERS: PCP Nurse Practitioner Family; Visit Provider Physician Assistant Medical
DX: H66.001 Acute suppurative otitis media without spontaneous rupture of ear drum, right ear (principal)
CPT/HCPCS: 99213

== ENCOUNTER 2023-05-30 07:58 | Outpatient (REF) | payer OTHER, SELFPAY ==
[2023-05-30 11:44] LABS: HCG Quantitative < 2 mIU/mL
== END 2023-05-30 07:59 | disposition home or self-care (01) ==
LOC: HO.HMGCLDS 07:58
PROVIDERS: PCP Nurse Practitioner Family; Visit Provider Nurse Practitioner Family
DX: N92.6 Irregular menstruation, unspecified (principal)
CPT/HCPCS: 36415; 84702

== ENCOUNTER 2023-06-06 09:54 | Outpatient (REF) | payer OTHER, SELFPAY ==
[2023-06-06 14:23] LABS: HCG Quantitative < 2 mIU/mL
== END 2023-06-06 09:55 | disposition home or self-care (01) ==
LOC: HO.HMGCLDS 09:54
PROVIDERS: PCP Nurse Practitioner Family; Visit Provider Nurse Practitioner Family
DX: N92.6 Irregular menstruation, unspecified (principal)
CPT/HCPCS: 36415; 84702

== ENCOUNTER 2023-06-17 09:16 | Outpatient (AMB) | payer OTHER, SELFPAY ==
--- NOTE | 2023-06-17 09:41 | MHC.OFFWIV ---
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 Denies anyone in the home being sick. Patient Tobacco Use Status: Never used Tobacco Allergies guaifenesin [From ROBITUSSIN A-C] Allergy (Intermediate, Verified 06/17/23 09:44) RASH lorazepam [From ATIVAN] Adverse Reaction (Intermediate, Verified 06/17/23 09:44) AGITATION prazosin [PRAZOSIN] Adverse Reaction (Intermediate, Verified 06/17/23 09:44) DEPRESSION, hypotension benztropine [Cogentin] Adverse Reaction (Unknown, Verified 06/17/23 09:44) extrapyramidal symptoms methylprednisolone [From MEDROL] Adverse Reaction (Unknown, Verified 06/17/23 09:44) tctile and visual hakkucinations From SEROQUEL Adverse Reaction (Intermediate, Uncoded 06/17/23 09:44) PARANOIA From ZOLOFT Adverse Reaction (Intermediate, Uncoded 06/17/23 09:44) HALLUCINATIONS Do you need a note to return to daycare/school/sports/work: No HPI HPI Comments History of Present Illness Details 27-year-old female presents for upper respiratory symptoms. [facility] Medical History Eosinophilia Asthma Anxiety disorder Supraventricular tachycardia Purulent drainage of both ears through ear tube PMDD (premenstrual dysphoric disorder) Surgical History History of placement of ear tubes [place] teeth extracted Hx of prior ablation treatment History of Family History Mother Hypertension Diabetes Maternal Grandfather Colon cancer Maternal Grandmother Spinal stenosis Diabetes Hypertension Other Mental health disorder Substance use disorder Housing: House Alcohol intake: current Alcohol intake frequency: does not drink Patient Tobacco Use Status: Never used Tobacco Substance Use Type: Marijuana Current occupational status: disabled Review of Systems Const Details: Constitutional: Positive Fever, positive Chills ENT/Mouth: Positive Ear Pain, positive Hoarseness, positive sore throat Eyes: No Eye Pain, No Swelling, No Redness, No Foreign Body Cardiovascular: No Chest Pain, No SOB Respiratory: Positive Cough, No Dyspnea Gastrointestinal: No Nausea, No Vomiting, No Diarrhea, No abdominal Pain Genitourinary: No Dysuria, No Hematuria Musculoskeletal: No joint pain, No Myalgias, No Joint Swelling Skin: No Skin lacerations, No rash Neuro: No Weakness, No Numbness, No Dizziness, No Headache All systems reviewed & are unremarkable except as noted in HPI and below Physical Exam Vital Signs: Last Vital Signs Temp 96.8 F 06/17/23 09:42 Pulse 87 06/17/23 09:42 BP 110/70 06/17/23 09:42 Pulse Ox 97 06/17/23 09:42 Oxygen Delivery Method Room Air 06/17/23 09:42 BMI result Body Mass Index 36.0 Appearance: Alert. Oriented X3. No acute distress. Eyes: Pupils equal, round and reactive to light. ENT: Pharynx erythematous, bilateral tonsillar swelling. Centor scale 3. bilateral tympanic membranes erythematous bulging with effusions, prior scarring from myringotomy tubes. No mastoid tenderness. Neck: Normal inspection. Neck supple. No cervical lymphadenopathy. No meningeal signs. CVS: Normal heart rate and rhythm. Pulses normal. Respiratory: No respiratory distress. Breath sounds normal. Skin: Skin warm and dry. Normal skin color. Normal skin turgor. Neuro: No motor deficit. No sensory deficit. Assessment & Plan Assessment & Plan (1) Bilateral otitis media: Code(s): H66.93 - Otitis media, unspecified, bilateral (2) Pharyngitis: Code(s): J02.9 - Acute pharyngitis, unspecified Plan 27-year-old female presents with upper respiratory symptoms consistent with bilateral otitis media and pharyngitis. Patient does have a history of asthma, and states that her is well controlled at this. After my physical exam, I feel that antibiotics are warranted for this patient due to bilateral otitis media as well as pharyngitis. Patient has had recurrent ear infections in the past and has had a history of myringotomy tubes, and has significant scarring to the tympanic membranes. Will treat with Augmentin 875 mg every 12 hours for the next 10 days. Patient verbalized understanding of discharge instructions. Verbalized understandings of signs and symptoms indicating need for emergent intervention. Orders: Orders SARS-CoV2/FLU/RSV Today R09.89 - Other specified symptoms and signs involving the circulatory and respiratory systems Medications: New amoxicillin-pot clavulanate 875-125 mg 1 tab PO Q12H 20 tabs 0RF 10 days Patient Instructions: You were evaluated for upper respiratory symptoms consistent with bilateral otitis media and pharyngitis. We are treating you with Augmentin 875 mg every 12 hours for the next 10 days. Drink plenty of fluids. Alternate Tylenol 650 mg every 6 hours and Motrin 600 mg every 6 hours as needed for pain and fever management. Consider taking these medications 3 hours apart so you have pain and fever management every 3 hours. Write down what time you take these medications to prevent accidental overdose. Motrin is the same medication as Advil and ibuprofen. Tylenol is the same medication as acetaminophen. Thank you for choosing this urgent care for evaluation. Please follow-up with primary care physician as needed. Return to the emergency department for any new, concerning, or worsening symptoms. Coding Level of Care Code Est Pt Level 3 (59899) Diagnoses Bilateral otitis media H66.93 Pharyngitis J02.9
[2023-06-17 09:42] VITALS: BP 110/70; PULSE 87; TEMP 36; O2SAT 97; BMI 36.0
== END 2023-06-17 10:14 | disposition home or self-care (01) ==
PROVIDERS: PCP Nurse Practitioner Family; Visit Provider Nurse Practitioner Family
DX: H66.93 Otitis media, unspecified, bilateral (principal); J02.9 Acute pharyngitis, unspecified
CPT/HCPCS: 99213

== ENCOUNTER 2023-06-17 11:08 | Outpatient (REF) | payer OTHER, SELFPAY ==
[2023-06-17 12:01] LABS: Influenza A PCR NEGATIVE (Negative); Influenza B PCR NEGATIVE (Negative); Resp Syncy Virus RNA Qual PCR NEGATIVE (Negative); SARS COV2 PCR INHOUSE NEGATIVE (Negative)
== END 2023-06-17 11:09 | disposition home or self-care (01) ==
LOC: HO.LNP 11:08
PROVIDERS: Visit Provider Nurse Practitioner Family
DX: Z11.52 Encounter for screening for COVID-19 (principal); R09.89 Other specified symptoms and signs involving the circulatory and respiratory systems; Z20.822 Contact with and (suspected) exposure to COVID-19
CPT/HCPCS: 0241U

== ENCOUNTER 2023-08-09 19:00 | Emergency (ER) | payer OTHER, SELFPAY ==
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
[2023-08-09 19:07] VITALS: BP 134/91; PULSE 91; RESP 18; TEMP 36.8; O2SAT 95; BMI 36.5
== END 2023-08-09 20:53 | disposition home or self-care (01) ==
LOC: HO.ED 20:44
PROVIDERS: Emergency Provider Internal Medicine; PCP Nurse Practitioner Family
DX: Z04.3 Encounter for examination and observation following other accident (principal); J34.89 Other specified disorders of nose and nasal sinuses
CPT/HCPCS: 70486; 99283; 99284

== ENCOUNTER 2023-09-12 11:51 | Emergency (ER) | payer OTHER, SELFPAY ==
[2023-09-12 12:31] VITALS: BP 143/100; PULSE 85; RESP 17; TEMP 36.6; O2SAT 99; BMI 33.5
--- NOTE | 2023-09-12 12:35 | ED.GENADULT ---
HPI - General Adult General Chief complaint: GI Bleed Stated complaint: Rectal Bleed History of Present Illness HPI narrative: Left without complete of treatment by ED provider. Related Data Home Medications Medication Instructions Recorded Confirmed bupropion HCl 450 mg 24 hr tablet, 450 mg PO QAM 02/22/21 04/24/23 extended release (Forfivo XL) fluoxetine 20 mg capsule 60 mg PO QAM 07/02/21 04/24/23 ibuprofen 800 mg tablet 800 mg PO Q8H PRN 08/09/22 04/24/23 cariprazine 3 mg capsule (Vraylar) 3 mg PO DAILY 11/17/22 04/24/23 Previous Rx's Medication Instructions Recorded clotrimazole 1 % vaginal cream 1 appful vaginal BEDTIME #45 grams 11/22/21 mepolizumab 100 mg/mL subcutaneous 100 mg subcut Q4W 30 days #2 mL 08/03/22 syringe (Nucala) albuterol sulfate 2.5 mg/3 mL 2.5 mg (3 mL) inhalation Q6H PRN 08/09/22 (0.083 %) solution for nebulization shortness of breath or wheezing 30 days #180 mL montelukast 10 mg tablet 10 mg PO DAILY #90 tabs 08/09/22 clotrimazole-betamethasone 1 1 appl topical ONCE 7 days #15 09/01/22 %-0.05 % topical cream grams amoxicillin 875 mg-potassium 1 tab PO Q12H 10 days #20 tabs 06/17/23 clavulanate 125 mg tablet albuterol sulfate 90 mcg/actuation 2 puff inhalation Q4-6H PRN 08/17/23 aerosol inhaler shortness of breath or wheezing 30 days #8.5 grams Allergies Allergy/AdvReac Type Severity Reaction Status Date / Time guaifenesin Allergy Intermediate RASH Verified 09/12/23 12:31 [From ROBITUSSIN A-C] lorazepam [From ATIVAN] AdvReac Intermediate AGITATION Verified 09/12/23 12:31 prazosin [PRAZOSIN] AdvReac Intermediate DEPRESSION, Verified 09/12/23 12:31 hypotension benztropine [Cogentin] AdvReac Unknown extrapyramidal Verified 09/12/23 12:31 symptoms methylprednisolone AdvReac Unknown tctile and Verified 09/12/23 12:31 [From MEDROL] visual hakkucinations From SEROQUEL AdvReac Intermediate PARANOIA Uncoded 09/12/23 12:31 From ZOLOFT AdvReac Intermediate HALLUCINATI Uncoded 09/12/23 12:31 ONS [facility] Past Medical History Medical History Eosinophilia Asthma Anxiety disorder Supraventricular tachycardia Purulent drainage of both ears through ear tube PMDD (premenstrual dysphoric disorder) Surgical History History of placement of ear tubes [place] teeth extracted Hx of prior ablation treatment History of Family History Family History Mother Hypertension Diabetes Maternal Grandfather Colon cancer Maternal Grandmother Spinal stenosis Diabetes Hypertension Other Mental health disorder Substance use disorder Social History Social History Housing: House Alcohol intake: current Alcohol intake frequency: holidays/special occasions only Patient Tobacco Use Status: Never used Tobacco Substance Use Type: Marijuana Advance Directives: No Advance Directives Information Provided: No Current occupational status: disabled Physical Exam ED Vital Signs: Vital Signs - 24 hr 09/12/23 12:31 Temperature 98 F Pulse Rate 85 Respiratory Rate 17 Blood Pressure 143/100 H Pulse Oximetry 99 BMI result Body Mass Index 33.5 Course Course Course Narrative: RME: 27 yold female with pmh of hemmhroids presents to the ED for 5 days of rectal bleeding during bowels, rectal pain, and abdominal pain with nausea. labs ordereed Medical Decision Making Lab Data 09/12/23 13:26 09/12/23 13:26 Labs: Lab Results 09/12/23 Range/Units 13:26 WBC 12.0 H (4.8-10.8) X10*3/uL RBC 5.48 (4.20-5.50) X10*6/uL Hgb 15.8 (12.0-16.0) g/dl Hct 46.8 (37.0-47.0) % MCV 85.4 (80.0-98.0) fL MCH 28.8 (27.0-33.0) pg MCHC 33.8 (31.0-35.0) g/dl RDW 11.9 (11.0-16.0) % Plt Count 373 (160-400) X10*3/uL MPV 10.1 (9.4-12.3) fL Immature Gran % (Auto) 0.3 (0.0-0.4) % Neut % (Auto) 47.3 (45-73) % Lymph % (Auto) 32.1 (20-40) % [place] % (Auto) 6.4 (2-11) % Eos % (Auto) 12.5 H (0-4) % Baso % (Auto) 1.4 (0-2) % Lymph # (Auto) 3.8 (1.2-4.9) X10*3/uL [place] # (Auto) 0.8 (0.1-1.2) X10*3/uL Eos # (Auto) 1.5 H (0.0-0.4) X10*3/uL Baso # (Auto) 0.2 (0.0-0.2) X10*3/uL Abs Immat Gran (auto) 0.03 (0.00-0.03) X10*3/uL Absolute Neuts (auto) 5.7 (2.0-8.3) x10*3/uL Absolute Nucleated RBC 0.000 (0.0-0.012) X10*3/uL Nucleated RBC % (auto) 0.0 (0.0-0.2) /100WBC PT 11.8 (11.1-13.3) SEC INR 1.0 (0.9-1.1) APTT 35.1 (26.0-36.8) SEC Sodium 140 (135-145) mmol/L Potassium 4.1 (3.3-5.1) mmol/L Chloride 104 (96-108) mmol/L Carbon Dioxide 27 (22-29) mmol/L Anion Gap 13 (12-20) BUN 11 (9-16) mg/dL Creatinine 1.00 (0.5-1.4) mg/dL Estim Creat Clear Calc 91.0 Estimated GFR > 60 Random Glucose 82 (60-115) mg/dL Calcium 10.4 H (8.4-10.2) mg/dL Total Bilirubin 0.4 (0.0-1.0) mg/dL AST 23 (5-31) U/L ALT 16 (0-31) U/L Alkaline Phosphatase 97 (39-117) U/L Total Protein 8.2 H (6.5-8.0) g/dL Albumin 4.8 (3.5-5.0) g/dL Beta HCG, Quant < 2 mIU/mL Discharge Plan Discharge Clinical Impression: Abdominal pain Patient Disposition: Left W/O Completing Treatment Prescriptions: No Action Nucala 100 mg/mL syringe 100 mg subcut Q4W 30 Days Qty: 2 11RF albuterol sulfate 90 mcg/actuation HFA aerosol inhaler 2 puff inhalation Q4-6H PRN (Reason: shortness of breath or wheezing) 30 Days Qty: 8.5 0RF bupropion HCl [Forfivo XL] 450 mg tablet extended release 24 hr 450 mg PO QAM fluoxetine 20 mg capsule 60 mg PO QAM clotrimazole 1 % cream 1 appful vaginal BEDTIME Qty: 45 0RF clotrimazole-betamethasone 1-0.05 % cream 1 appl topical ONCE 7 Days Qty: 15 0RF Vraylar 3 mg capsule 3 mg PO DAILY amoxicillin-pot clavulanate 875-125 mg tablet 1 tab PO Q12H 10 Days Qty: 20 0RF montelukast 10 mg tablet 10 mg PO DAILY Qty: 90 3RF albuterol sulfate 2.5 mg /3 mL (0.083 %) solution for nebulization 2.5 mg inhalation Q6H PRN (Reason: shortness of breath or wheezing) 30 Days Qty: 180 11RF ibuprofen 800 mg tablet 800 mg PO Q8H PRN Discharge Date/Time: 09/12/23 18:24
[2023-09-12 13:30] LABS: MANUAL DIFF FLAG NO
[2023-09-12 13:31] LABS: Basophils Absolute Auto 0.2 X10*3/uL (0.0-0.2); Basophils Percent Auto 1.4 % (0-2); Eosinophils Absolute Auto 1.5 X10*3/uL (0.0-0.4); Eosinophils Percent Auto 12.5 % (0-4); Hematocrit 46.8 % (37.0-47.0); Hemoglobin 15.8 g/dl (12.0-16.0); Imm Gran Abs Auto 0.03 X10*3/uL (0.00-0.03); Imm Gran Pct Auto 0.3 % (0.0-0.4); Lymphocytes Absolute Auto 3.8 X10*3/uL (1.2-4.9); Lymphocytes Percent Auto 32.1 % (20-40); Mean Corpuscular HGB Conc 33.8 g/dl (31.0-35.0); Mean Corpuscular Hemoglobin 28.8 pg (27.0-33.0); Mean Corpuscular Volume 85.4 fL (80.0-98.0); Mean Platelet Volume 10.1 fL (9.4-12.3); Monocytes Absolute Auto 0.8 X10*3/uL (0.1-1.2); Monocytes Percent Auto 6.4 % (2-11); Neutrophils Absolute Auto 5.7 x10*3/uL (2.0-8.3); Neutrophils Percent Auto 47.3 % (45-73); Platelet Count 373 X10*3/uL (160-400); Red Blood Count 5.48 X10*6/uL (4.20-5.50); Red Cell Distribution Width 11.9 % (11.0-16.0)
[2023-09-12 13:38] LABS: Prothrombin Time 11.8 SEC (11.1-13.3)
[2023-09-12 13:41] LABS: Partial Thromboplastin Time 35.1 SEC (26.0-36.8)
[2023-09-12 13:54] LABS: Alanine Aminotransferase 16 U/L (0-31); Albumin Level 4.8 g/dL (3.5-5.0); Alkaline Phosphatase 97 U/L (39-117); Anion Gap 13 (12-20); Aspartate Amino Transferase 23 U/L (5-31); Bilirubin Total 0.4 mg/dL (0.0-1.0); Blood Urea Nitrogen 11 mg/dL (9-16); Calcium 10.4 mg/dL (8.4-10.2); Carbon Dioxide 27 mmol/L (22-29); Chloride 104 mmol/L (96-108); Estimated Glomerular Filt Rate > 60; Glucose Random 82 mg/dL (60-115); Potassium 4.1 mmol/L (3.3-5.1); Sodium 140 mmol/L (135-145); Total Protein 8.2 g/dL (6.5-8.0)
[2023-09-12 13:57] LABS: HCG Quantitative < 2 mIU/mL
--- NOTE | 2023-09-12 17:27 | PC.NURSE ---
called x 3 to triage for imaging. No answer. LWCT
== END 2023-09-12 18:24 | disposition left against medical advice (07) ==
PROVIDERS: Physician Assistant; Emergency Provider Emergency Medicine; PCP Nurse Practitioner Family
DX: K62.5 Hemorrhage of anus and rectum (principal); Z79.899 Other long term (current) drug therapy
CPT/HCPCS: 36415; 80053; 84702; 85025; 85610; 85730; 99281; 99283

== ENCOUNTER 2023-09-18 09:57 | Outpatient (AMB) | payer OTHER, SELFPAY ==
[2023-09-18 10:22] VITALS: PULSE 72; O2SAT 95; BMI 33.5
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
== END 2023-09-18 11:00 | disposition home or self-care (01) ==
PROVIDERS: PCP Nurse Practitioner Family; Visit Provider Hospitalist
DX: J45.50 Severe persistent asthma, uncomplicated (principal); D72.10 Eosinophilia, unspecified; F41.9 Anxiety disorder, unspecified; F32.9 Major depressive disorder, single episode, unspecified; G47.33 Obstructive sleep apnea (adult) (pediatric)
CPT/HCPCS: 99214

== ENCOUNTER → 2023-09-18 09:57 | Outpatient (BNVA) | payer OTHER, SELFPAY | PROVIDERS: PCP Nurse Practitioner Family; Visit Provider Hospitalist | DX: J45.50 Severe persistent asthma, uncomplicated (principal); D72.10 Eosinophilia, unspecified; F41.9 Anxiety disorder, unspecified; F32.9 Major depressive disorder, single episode, unspecified; G47.33 Obstructive sleep apnea (adult) (pediatric) | CPT/HCPCS: 99212 ==

== ENCOUNTER 2023-09-24 09:57 | Emergency (ER) | payer OTHER, SELFPAY ==
--- NOTE | ~2023-09-24 | XR_ITS ---
EXAMINATION: XR WRIST, RIGHT CLINICAL INFORMATION: Wrist pain, injury COMPARISON: None available. TECHNIQUE: PA, lateral, and oblique views of the right wrist. FINDINGS: The bones and soft tissues are normal. No fracture. Alignment is anatomic with normal joint spaces. No erosions or abnormal soft tissue calcifications. XR/XR wrist RT min 3V IMPRESSION: No acute fracture or subluxation of the right wrist.
--- NOTE | ~2023-09-24 | XR_ITS ---
EXAMINATION: XR FOREARM, RIGHT CLINICAL INFORMATION: Pain and trauma COMPARISON: None available. TECHNIQUE: AP and lateral views of the right forearm were obtained. FINDINGS: The bones and soft tissues are normal. No fracture. Imaged portions of the elbow and wrist are unremarkable. XR/XR forearm RT 2V IMPRESSION: Normal right forearm.
[2023-09-24 10:08] VITALS: BP 149/81; PULSE 66; RESP 16; TEMP 37.3; O2SAT 98; BMI 34.3
--- NOTE | 2023-09-24 10:16 | ED_ITS ---
HPI - Extremity Problem General Chief complaint: Extremity Injury, Upper Stated complaint: Fell down stairs - arm injury Time Seen by Provider: 09/24/23 10:16 Source: patient Mode of arrival: ambulatory Limitations: no limitations History of Present Illness HPI Narrative: Patient is a 27 year old assigned female at with a history of asthma presenting to the emergency department today with right forearm pain. Patient states that she tripped and fell down 5 stairs today and used her right arm wrapped around the railing to catch herself. Patient denies any head strike or loss of consciousness, dizziness, lightheadedness, abdominal pain, nausea, vomiting, fever, chills, blurry vision, double vision, loss of vision, chest pain, difficulty breathing, shortness of breath, back pain, night sweats, pain with urination, increased urinary frequency, increased urinary urgency, blood in her urine or stool, syncope or a near syncopal episode, bowel incontinence, bladder incontinence, bowel retention, bladder retention, or any other complaints at this time. MD Complaint: extremity pain Onset (ago): minute(s) Pain Consistency: constant Location: right and upper extremity Severity scale (1-10): 3 Quality: aching and dull Radiation: none Relieving factors: nothing Exacerbating factors: nothing Associated symptoms: denies other symptoms Related Data Home Medications Medication Instructions Recorded Confirmed bupropion HCl 450 mg 24 hr tablet, 450 mg PO QAM 02/22/21 04/24/23 extended release (Forfivo XL) fluoxetine 20 mg capsule 60 mg PO QAM 07/02/21 04/24/23 ibuprofen 800 mg tablet 800 mg PO Q8H PRN 08/09/22 04/24/23 cariprazine 3 mg capsule (Vraylar) 3 mg PO DAILY 11/17/22 04/24/23 nebulizers 09/18/23 Previous Rx's Medication Instructions Recorded clotrimazole 1 % vaginal cream 1 appful vaginal BEDTIME #45 grams 11/22/21 mepolizumab 100 mg/mL subcutaneous 100 mg subcut Q4W 30 days #2 mL 08/03/22 syringe (Nucala) montelukast 10 mg tablet 10 mg PO DAILY #90 tabs 08/09/22 clotrimazole-betamethasone 1 1 appl topical ONCE 7 days #15 09/01/22 %-0.05 % topical cream grams albuterol sulfate 90 mcg/actuation 2 puff inhalation Q4-6H PRN 08/17/23 aerosol inhaler shortness of breath or wheezing 30 days #8.5 grams albuterol sulfate 2.5 mg/3 mL 2.5 mg (3 mL) inhalation Q6H PRN 09/18/23 (0.083 %) solution for nebulization shortness of breath or wheezing 30 days #180 mL tiotropium bromide 2.5 2 puff inhalation DAILY 30 days #1 09/18/23 mcg/actuation mist for inhalation ea (Spiriva Respimat) Allergies Allergy/AdvReac Type Severity Reaction Status Date / Time guaifenesin Allergy Intermediate RASH Verified 09/18/23 10:24 [From ROBITUSSIN A-C] lorazepam [From ATIVAN] AdvReac Intermediate AGITATION Verified 09/18/23 10:24 prazosin [PRAZOSIN] AdvReac Intermediate DEPRESSION, Verified 09/18/23 10:24 hypotension benztropine [Cogentin] AdvReac Unknown extrapyramidal Verified 09/18/23 10:24 symptoms methylprednisolone AdvReac Unknown tctile and Verified 09/18/23 10:24 [From MEDROL] visual hakkucinations From SEROQUEL AdvReac Intermediate PARANOIA Uncoded 09/18/23 10:24 From ZOLOFT AdvReac Intermediate HALLUCINATI Uncoded 09/18/23 10:24 ONS Review of Systems Constitutional: Constitutional: Reports no additional constitutional c omplaints, Denies chills, Denies fever(s) and Denies night sweats Eyes: Eyes: Reports no additional eye complaints, Denies blurry vision, Denies change in vision, Denies diplopia, Denies eye discharge, Denies loss of vision and Denies eye pain ENT: Denies dizziness Cardiovascular: Cardiovascular: Reports no additional cardiovascular complaints, Denies chest pain, Denies lightheadedness, Denies Loss of Consciousness and Denies dyspnea Respiratory: Respiratory: Reports no additional respiratory complaints and Denies dyspnea Gastrointestinal: Gastrointestinal: Reports no additional gastrointestinal complaints, Denies abdominal pain, Denies melena, Denies hematochezia, Denies change in bowel habits and Denies change in stool character Genitourinary: Genitourinary: Denies hematuria, Denies urinary frequency, Denies dysuria, Denies urinary incontinence, Denies urinary hesitancy and Denies urinary urgency Musculoskeletal: Musculoskeletal: Reports no additional musculoskeletal complaints, Denies numbness and Denies tingling Comments: right forearm pain Neurologic: Denies dizziness, Denies loss of vision, Denies numbness and Denies tingling Psychiatric: Psychiatric: Reports no additional psychiatric complaints Endocrine: Endocrine: Reports no additional endocrine complaints Hematologic/Lymphatic: Hematologic/Lymphatic: Reports no additional hematologic/lymphatic complaints Allergic/Immunologic: Allergic/Immunologic: Reports no additional allergic/immunologic complaints [facility] Past Medical History Attestation statement: The following information was validated with the patient. Source: old records reviewed and nursing notes reviewed Medical History Pharyngitis Bilateral otitis media Missed period Breast abscess Vaginal candidiasis Otitis media Sinusitis STD exposure Cystitis Rash Yeast infection Vaginal discharge Sprain of left knee Dysuria Elevated fasting blood sugar Puncture wound of foot Eosinophilia Asthma Anxiety disorder Supraventricular tachycardia Purulent drainage of both ears through ear tube PMDD (premenstrual dysphoric disorder) Surgical History Mass of right breast History of placement of ear tubes [place] teeth extracted Hx of prior ablation treatment History of Family History Family History Mother Hypertension Diabetes Maternal Grandfather Colon cancer Maternal Grandmother Spinal stenosis Diabetes Hypertension Other Mental health disorder Substance use disorder Social History Social History Housing: House Alcohol intake: current Alcohol intake frequency: holidays/special occasions only Patient Tobacco Use Status: Never used Tobacco Smoked in Last 30 Days: No Substance Use Type: Marijuana Substance Use Frequency: Occasionally Advance Directives: No Advance Directives Information Provided: No Patient : Yes Current occupational status: disabled Physical Exam Vital Signs: Vital Signs: Last Vital Signs Temp 97.6 F 09/24/23 11:44 Pulse 69 09/24/23 11:44 Resp 18 09/24/23 11:44 BP 118/82 09/24/23 11:44 Pulse Ox 98 09/24/23 11:44 O2 Del Method Room Air 09/24/23 11:44 BMI result Body Mass Index 34.3 Const: General: cooperative, no acute distress, alert and awake Nutritional Appearance: well nourished Orientation/consciousness: patient oriented x3 Limitations: no limitations HEENT: Head: Yes normal to inspection and Yes atraumatic Ears: hearing grossly normal bilaterally and external ears normal General nose exam: Normal external nose present, no nasal discharge noted and no epistaxis Face and sinus: Yes normal facial exam, No abrasion and No laceration Mouth: Normal oral and palatal mucosa present, no drooling and no muffled voice Eyes: General: appearance normal, both eyes and all related structures Periorbital: periorbital findings normal Eyelids: Yes eyelids normal Conjunctivae: conjunctivae normal Pupils: Equal, round and reactive pupils present EOM: EOMs intact bilaterally Neck: Neck: Yes normal visual inspection, Yes full ROM and Yes no lymphadenop athy Chest: Chest palpation & inspection: normal inspection of the chest Resp: Effort & Inspection: normal respiratory effort and able to speak in complete sentences GI: Inspection: Yes normal to inspection Neuro: General: patient oriented x3 and moves all extremities Cranial nerves: Yes Equal, round and reactive pupils present Cognition (Neuro): normal cognition Motor exam (neuro): 5/5 motor strength present throughout Sensory Exam: Normal double simultaneous stimulation for sensation Coordination: [id number]-[id number] test normal Extrem: General: Yes normal to inspection, Yes full ROM and Yes capillary refill normal Psych: Appearance: grossly normal Mental Status: mental status grossly normal Affect: normal affect Attitude: cooperative Thought process: Normal thought process present Thought content: Normal thought content present Insight: Good insight present (Psych) Medications Administered Discontinued Medications Generic Name Dose Route Start Last Admin Trade Name Mark PRN Reason Stop Dose Admin Acetaminophen 650 mg 09/24/23 10:21 09/24/23 10:25 Acetaminophen 325 Mg Tablet PO 09/24/23 10:22 650 mg ONCE ONE Administration Ketorolac Tromethamine 15 mg 09/24/23 10:20 09/24/23 10:22 Ketorolac Tromethamine 15 Mg/Ml Vial IM 09/24/23 10:21 Not Given ONCE ONE Medical Decision Making Medical Decision Making [facility] Narrative: Patient is a 27 year old assigned female at with a history of asthma presenting to the emergency department today with right forearm pain. Patient's physical exam was unremarkable. Patient's right forearm and right wrist x-rays showed no acute process. I explained my physical exam findings as well as all test results to the patient. I answered all questions asked by the patient. I stressed the importance of the patient taking her medication as prescribed. I stressed the importance of the patient following up with her primary care provider. I stressed the importance of the patient returning to the emergency department immediately if her symptoms were to worsen or if she were to develop any dizziness, shortness of breath, difficulty breathing, chest pain, blurry vision, loss of vision, nausea, vomiting, abdominal pain, fever, chills, back p ain, or any other complaints. Patient verbalized agreement and understanding with this treatment plan and discharge. Differential Diagnosis Differential Diagnoses: The differential diagnosis associated with the presentation includes Right forearm fracture Right forearm pain Right wrist fracture Right wrist pain Admission/Observation Consideration of admission/observation: Escalation of care including admission/observation considered Patient would have been admitted to the hospital had her work up had any findings where hospital admission was appropriate and her clinical presentation warranted hospital admission. Independent Interpretation I performed an independent interpretation of an: Plain X-Ray Interpretation: My interpretation is in agreement with the radiologist's impression of this imaging study. EXAMINATION: XR WRIST, RIGHT CLINICAL INFORMATION: Wrist pain, injury COMPARISON: None available. TECHNIQUE: PA, lateral, and oblique views of the right wrist. FINDINGS: The bones and soft tissues are normal. No fracture. Alignment is anatomic with normal joint spaces. No erosions or abnormal soft tissue calcifications. XR/XR wrist RT min 3V IMPRESSION: No acute fracture or subluxation of the right wrist. Dictated By: Kelechi Johnson MD Signed By: Electronically signed by Kelechi Johnson MD 09/24/23 1122 EXAMINATION: XR FOREARM, RIGHT CLINICAL INFORMATION: Pain and trauma COMPARISON: None available. TECHNIQUE: AP and lateral views of the right forearm were obtained. FINDINGS: The bones and soft tissues are normal. No fracture. Imaged portions of the elbow and wrist are unremarkable. XR/XR forearm RT 2V IMPRESSION: Normal right forearm. Dictated By: Kelechi Johnson MD Signed By: Electronically signed by Kelechi Johnson MD 09/24/23 1122 Radiology Impression Discussion of test interpretation with radiology: I have reviewed the radiologist's reading. Discharge Plan Discharge Clinical Impression: Forearm pain Patient Disposition: Home, Self-Care Instructions: Arm Pain (ED) Additional Instructions: Follow up with your primary care provider. Return to the emergency department immediately if your symptoms worsen or if you develop any dizziness, shortness of breath, difficulty breathing, chest pain, blurry vision, loss of vision, nausea, vomiting, abdominal pain, fever, chills, back pain, or any other complaints. Prescriptions: No Action Nucala 100 mg/mL syringe 100 mg subcut Q4W 30 Days Qty: 2 11RF albuterol sulfate 90 mcg/actuation HFA aerosol inhaler 2 puff inhalation Q4-6H PRN (Reason: shortness of breath or wheezing) 30 Days Qty: 8.5 0RF bupropion HCl [Forfivo XL] 450 mg tablet extended release 24 hr 450 mg PO QAM fluoxetine 20 mg capsule 60 mg PO QAM clotrimazole 1 % cream 1 appful vaginal BEDTIME Qty: 45 0RF clotrimazole-betamethasone 1-0.05 % cream 1 appl topical ONCE 7 Days Qty: 15 0RF Vraylar 3 mg capsule 3 mg PO DAILY montelukast 10 mg tablet 10 mg PO DAILY Qty: 90 3RF ibuprofen 800 mg tablet 800 mg PO Q8H PRN (DME) nebulizers Misc See Rx Instructions .ROUTE Rx Instructions: As directed Spiriva Respimat 2.5 mcg/actuation mist 2 puff inhalation DAILY 30 Days Qty: 1 11RF albuterol sulfate 2.5 mg /3 mL (0.083 %) solution for nebulization 2.5 mg inhalation Q6H PRN (Reason: shortness of breath or wheezing) 30 Days Qty: 180 11RF Referrals: Israel Antony, [employer] [Primary Care Provider] - Interventions: ED Discharge Assessment Last Done: 09/24/23 11:48 Discharge Date/Time: 09/24/23 11:48 Print Language: Luxembourgish
[2023-09-24] MEDS: Acetaminophen 325 MG TABLET 650 MG PO (10:25)
[2023-09-24 11:44] VITALS: BP 118/82; PULSE 69; RESP 18; TEMP 36.4; O2SAT 98
== END 2023-09-24 11:48 | disposition home or self-care (01) ==
PROVIDERS: Emergency Provider Student in an Organized Health Care Education/Training Program; PCP Nurse Practitioner Family
DX: S59.911A Unspecified injury of right forearm, initial encounter (principal); M79.631 Pain in right forearm; W10.9XXA Fall (on) (from) unspecified stairs and steps, initial encounter; Y93.9 Activity, unspecified; Y92.9 Unspecified place or not applicable; Y99.8 Other external cause status; Z79.899 Other long term (current) drug therapy
CPT/HCPCS: 73090; 73110; 99283; 99284

== ENCOUNTER 2023-10-17 07:57 | Outpatient (AMB) | payer OTHER, SELFPAY ==
--- NOTE | 2023-10-17 08:05 | AM.OFFWIN_ITS ---
Intake Vital Signs 10/17/23 08:06 Height 5 ft 4 in Weight 197 lb 6 oz BMI 33.9 BP 110/62 Blood Pressure Location Rt brachial Position Sitting Pulse 113 H Pulse Source Pulse Oximeter Temp 98.5 F Temp Source Oral Pulse Oximetry (%) 96 Oxygen Delivery Method Room Air Intake Visit Reasons: Fever, body aches diarrhea [phone] Intake Note: pt is here for fever and body aches and diarrhea, sore throat for the past 2 days Patient Tobacco Use Status: Never used Tobacco Allergies guaifenesin [From ROBITUSSIN A-C] Allergy (Intermediate, Verified 10/17/23 08:21) RASH lorazepam [From ATIVAN] Adverse Reaction (Intermediate, Verified 10/17/23 08:21) AGITATION prazosin [PRAZOSIN] Adverse Reaction (Intermediate, Verified 10/17/23 08:21) DEPRESSION, hypotension benztropine [Cogentin] Adverse Reaction (Unknown, Verified 10/17/23 08:21) extrapyramidal symptoms methylprednisolone [From MEDROL] Adverse Reaction (Unknown, Verified 10/17/23 08:21) tctile and visual hakkucinations From SEROQUEL Adverse Reaction (Intermediate, Uncoded 10/17/23 08:21) PARANOIA From ZOLOFT Adverse Reaction (Intermediate, Uncoded 10/17/23 08:21) HALLUCINATIONS Medication List - Last Reconciled 10/17/23 by Rohith Segal MD albuterol sulfate 90 mcg/actuation 2 puffs inhalation Q4-6H PRN 30 days albuterol sulfate 2.5 mg (3 mL) inhalation Q6H PRN 30 days bupropion HCl (Forfivo XL) 450 mg PO QAM cariprazine (Vraylar) 3 mg PO DAILY fluoxetine 60 mg PO QAM ibuprofen 800 mg PO Q8H PRN montelukast 10 mg PO DAILY nebulizers As directed Do you need a note to return to daycare/school/sports/work: No HPI Fever, body aches diarrhea [phone] HPI Details Patient presents for a sick visit. Reporting symptoms of sinus congestion, sore throat and difficulty swallowing. Low-grade fever. No family member is sick. No recent travel. Patient reports symptoms of malaise and fatigue. [facility] Medical History Pharyngitis Bilateral otitis media Missed period Breast abscess Vaginal candidiasis Otitis media Sinusitis STD exposure Cystitis Rash Yeast infection Vaginal discharge Sprain of left knee Dysuria Elevated fasting blood sugar Puncture wound of foot Eosinophilia Asthma Anxiety disorder Supraventricular tachycardia Purulent drainage of both ears through ear tube PMDD (premenstrual dysphoric disorder) Surgical History Mass of right breast History of placement of ear tubes [place] teeth extracted Hx of prior ablation treatment History of Family History Mother Hypertension Diabetes Maternal Grandfather Colon cancer Maternal Grandmother Spinal stenosis Diabetes Hypertension Other Mental health disorder Substance use disorder Social History Housing: House Alcohol intake: current Alcohol intake frequency: holidays/special occasions only Patient Tobacco Use Status: Never used Tobacco Substance Use Type: Marijuana Current occupational status: disabled Physical Exam Vital Signs: Last Vital Signs Temp 98.5 F 10/17/23 08:06 Pulse 113 H 10/17/23 08:06 BP 110/62 10/17/23 08:06 Pulse Ox 96 10/17/23 08:06 Oxygen Delivery Method Room Air 10/17/23 08:06 BMI result Body Mass Index 33.9 Const General: cooperative and healthy appearing Nutritional Appearance: well nourished Orientation/consciousness: patient oriented x3 Limitations: no limitations HEENT Other: Throat: Pharyngeal wall congestion. Head: Yes normal to inspection Eyes General: appearance normal, both eyes and all related structures Neck Neck: Yes normal visual inspection Chest Chest palpation & inspection: normal palpation of entire chest wall Resp Effort & Inspection: normal respiratory effort Neuro General: patient oriented x3 Results AMB Rapid Strep AMB Rapid Strep Positive Last Edit by Madina Jack CMA on 10/17/23 08 :23 Assessment & Plan Assessment & Plan (1) Acute pharyngitis: Code(s): J02.9 - Acute pharyngitis, unspecified Plan Antibiotics ordered. Increase fluid intake. Tylenol for aches and pains. If symptoms worsen, follow-up here for a recheck. Orders: Orders AMB Rapid Strep Screen Today Z13.9 - Encounter for screening, unspecified Coding Level of Care Code Est Pt Level 3 (45955) Diagnoses Acute pharyngitis J02.9
[2023-10-17 08:06] VITALS: BP 110/62; PULSE 113; TEMP 36.9; O2SAT 96; BMI 33.9
== END 2023-10-17 09:00 | disposition home or self-care (01) ==
PROVIDERS: PCP Nurse Practitioner Family; Visit Provider Internal Medicine
DX: Z13.9 Encounter for screening, unspecified (principal); J02.9 Acute pharyngitis, unspecified
CPT/HCPCS: 87880; 99213

== ENCOUNTER 2024-01-16 08:39 | Emergency (ER) | payer OTHER, SELFPAY ==
--- NOTE | ~2024-01-16 | XR_ITS ---
EXAMINATION: XR THORACIC SPINE CLINICAL INFORMATION: Pain after head injury COMPARISON: 05/15/2023 chest radiograph and 06/30/[address] TECHNIQUE: 3 views of the thoracic spine were obtained. FINDINGS: Mild anterior wedge deformity of T9, not seen previously. No focal paravertebral soft tissue swelling. Alignment is maintained. Pedicles and visualized ribs are within normal limits. Heart, mediastinum and visualized lung kowalski are unremarkable. XR/XR thoracic spine 3V IMPRESSION: Mild anterior wedging of T9, not previously recognized. Correlate with physical examination, follow-up CT may be warranted.
--- NOTE | ~2024-01-16 | CT_ITS ---
STUDY: Unenhanced CT of the head and cervical spine INDICATION: Headache, neck pain after head strike COMPARISON: 06/30/[address] TECHNIQUE: Continuous helical imaging obtained through the head and cervical spine without IV contrast. Reconstructed images performed in the coronal and sagittal planes. This CT examination was performed using dose optimization techniques as appropriate, variously including the following: *Automated exposure control *Adjustment of mA and/or kV according to patient size (this includes techniques or standardized protocols for targeted exams where dose is matched to indication/reason for exam; i.e. extremities or head) *Use of iterative reconstruction technique TOTAL EXAM DLP: 683+439 mGy-cm, head and neck respectively. FINDINGS: Head: Ventricles and sulci within normal limits. Maurice-white matter differentiation is preserved. No intracranial hemorrhage, extra-axial fluid collections, fractures or soft tissue hematomas identified following trauma. No evolving infarct, mass lesion, mass effect or midline shift seen. Intraorbital structures are unremarkable. Sinuses and mastoids are free of disease. Cervical spine: Reversal of cervical lordosis. Vertebral bodies and disc spaces are maintained in height. Odontoid is intact, posterior elements are aligned and no prevertebral soft tissue swelling, fracture or traumatic subluxation recognized. No spinal canal or neuroforaminal narrowings. Left sided facet hypertrophic changes. Soft tissues without focal abnormality. Parotid, submandibular and thyroid glands are unremarkable. Nonspecific cervical lymph nodes. Lung apices are clear. CT/CT cervical spine wo IV con IMPRESSION: No acute intracranial or cervical spine pathology following trauma. Cervical lordotic reversal likely related to spasm.
--- NOTE | ~2024-01-16 | CT_ITS ---
STUDY: Unenhanced CT of the head and cervical spine INDICATION: Headache, neck pain after head strike COMPARISON: 06/30/[address] TECHNIQUE: Continuous helical imaging obtained through the head and cervical spine without IV contrast. Reconstructed images performed in the coronal and sagittal planes. This CT examination was performed using dose optimization techniques as appropriate, variously including the following: *Automated exposure control *Adjustment of mA and/or kV according to patient size (this includes techniques or standardized protocols for targeted exams where dose is matched to indication/reason for exam; i.e. extremities or head) *Use of iterative reconstruction technique TOTAL EXAM DLP: 683+439 mGy-cm, head and neck respectively. FINDINGS: Head: Ventricles and sulci within normal limits. Maurice-white matter differentiation is preserved. No intracranial hemorrhage, extra-axial fluid collections, fractures or soft tissue hematomas identified following trauma. No evolving infarct, mass lesion, mass effect or midline shift seen. Intraorbital structures are unremarkable. Sinuses and mastoids are free of disease. Cervical spine: Reversal of cervical lordosis. Vertebral bodies and disc spaces are maintained in height. Odontoid is intact, posterior elements are aligned and no prevertebral soft tissue swelling, fracture or traumatic subluxation recognized. No spinal canal or neuroforaminal narrowings. Left sided facet hypertrophic changes. Soft tissues without focal abnormality. Parotid, submandibular and thyroid glands are unremarkable. Nonspecific cervical lymph nodes. Lung apices are clear. CT/CT head/brain wo IV con IMPRESSION: No acute intracranial or cervical spine pathology following trauma. Cervical lordotic reversal likely related to spasm.
[2024-01-16 08:55] VITALS: BP 130/84; PULSE 92; RESP 20; TEMP 36.6; O2SAT 95; BMI 35.4
--- NOTE | 2024-01-16 09:11 | ED_ITS ---
HPI - Neuro Symptoms/Deficit General Chief Complaint: Neuro Symptoms/Deficit Stated Complaint: Head/neck injury 01/14/24 Time Seen by Provider: 01/16/24 09:11 Source: patient and RN notes reviewed Mode of arrival: ambulatory Limitations: no limitations History of Present Illness ED Provider: Ariela Manley PA-C HPI Narrative: This is a 28-year-old female, with a history of asthma, SUPA, and depression, who presents emergency department with complaints of headache, nausea, vomiting, photophobia, and phonophobia status post head injury which occurred 2 days ago. Patient states that while she was cleaning at her home when she accidentally walked into a part of her deck. She denies loss of consciousness. She states that she has had a severe headache ever since. She has been taking ibuprofen and Tylenol without any relief. She denies any numbness, tingling or weakness. Denies any chest pain or shortness of breath. No other complaints or concerns at this time. Relieving factors: none Exacerbating factors: none Context: sudden onset On Anticoagulants: No Related Data Home Medications ?Medication ?Instructions ?Recorded ?Confirmed bupropion HCl 450 mg 24 hr tablet, 450 mg PO QAM 02/22/21 10/17/23 extended release (Forfivo XL) fluoxetine 20 mg capsule 60 mg PO QAM 07/02/21 10/17/23 ibuprofen 800 mg tablet 800 mg PO Q8H PRN 08/09/22 10/17/23 cariprazine 3 mg capsule (Vraylar) 3 mg PO DAILY 11/17/22 10/17/23 nebulizers 09/18/23 10/17/23 Previous Rx's ?Medication ?Instructions ?Recorded albuterol sulfate 2.5 mg/3 mL 2.5 mg (3 mL) inhalation Q6H PRN 09/18/23 (0.083 %) solution for nebulization shortness of breath or wheezing 30 days #180 mL azithromycin 250 mg tablet See Rx Instructions PO .COMPLEX #6 10/17/23 tabs montelukast 10 mg tablet 10 mg PO DAILY #90 tabs 10/30/23 albuterol sulfate 90 mcg/actuation 2 puff PO Q4-6H PRN for wheezing 11/13/23 aerosol inhaler #8.5 grams ondansetron 4 mg disintegrating 4 mg PO Q6H #10 tabs 01/16/24 tablet Allergies Allergy/AdvReac Type Severity Reaction Status Date / Time guaifenesin Allergy Intermediate RASH Verified 01/16/24 09:05 [From ROBITUSSIN A-C] lorazepam [From ATIVAN] AdvReac Intermediate AGITATION Verified 01/16/24 09:05 prazosin [PRAZOSIN] AdvReac Intermediate DEPRESSION, Verified 01/16/24 09:05 hypotension benztropine [Cogentin] AdvReac Unknown extrapyramidal Verified 01/16/24 09:05 symptoms methylprednisolone AdvReac Unknown tctile and Verified 01/16/24 09:05 [From MEDROL] visual hakkucinations From SEROQUEL AdvReac Intermediate PARANOIA Uncoded 10/17/23 08:21 From ZOLOFT AdvReac Intermediate HALLUCINATI Uncoded 10/17/23 08:21 ONS Review of Systems Review of Systems: Yes all other systems are reviewed and are negative Constitutional: Constitutional: Reports as per HPI [facility] Past Medical History Medical History Pharyngitis Bilateral otitis media Missed period Breast abscess Vaginal candidiasis Otitis media Sinusitis STD exposure Cystitis Rash Yeast infection Vaginal discharge Sprain of left knee Dysuria Elevated fasting blood sugar Puncture wound of foot Eosinophilia Asthma Anxiety disorder Supraventricular tachycardia Purulent drainage of both ears through ear tube PMDD (premenstrual dysphoric disorder) Surgical History Mass of right breast History of placement of ear tubes [place] teeth extracted Hx of prior ablation treatment History of Family History Family History Mother Hypertension Diabetes Maternal Grandfather Colon cancer Maternal Grandmother Spinal stenosis Diabetes Hypertension Other Mental health disorder Substance use disorder Social History Social History Housing: House Alcohol intake: current Alcohol intake frequency: holidays/special occasions only Patient Tobacco Use Status: Never used Tobacco Smoked in Last 30 Days: No Use of substances other than those prescribed or required for medical reasons: Yes Substance Use Type: Marijuana Advance Directives: No Advance Directives Information Provided: Yes Do you have a plan to hurt others: No Plan Patient : No Current occupational status: disabled Physical Exam Vital Signs: Vital Signs: Last Vital Signs Temp 98 F 01/16/24 08:55 Pulse 90 01/16/24 10:37 Resp 16 01/16/24 10:37 BP 126/73 01/16/24 10:37 Pulse Ox 92 01/16/24 10:37 O2 Del Method Room Air 01/16/24 10:37 BMI result Body Mass Index 35.4 Const: General: cooperative, comfortable and no acute distress Orientation/consciousness: patient oriented x3 Limitations: no limitations HEENT: Head: Yes normal to inspection, Yes normocephalic and Yes atraumatic Ears: hearing grossly normal bilaterally General nose exam: Normal external nose present Face and sinus: Yes normal facial exam Mouth: Normal oral and palatal mucosa present, oropharynx normal and moist mucous membranes Throat: Yes posterior oropharynx normal Eyes: General: appearance normal, both eyes and all related structures Eyelids: Yes eyelids normal Conjunctivae: conjunctivae normal Sclerae: sclerae normal Pupils: Equal, round and reactive pupils present EOM: EOMs intact bilaterally Neck: Neck: Yes normal visual inspection, Yes full ROM and Yes no lymphadenopathy Lymphatic: no lymphadenopathy noted Chest: Chest palpation & inspection: normal inspection of the chest Resp: Effort & Inspection: normal respiratory effort and able to speak in complete sentences Auscultation: clear to auscultation bilaterally, no crackles, no rales, no rhonchi and no wheezes Cardio: Rate: regular rate Rhythm: regular rhythm Heart sounds: S1 normal heart sound present and S2 normal heart sound present GI: Inspection: Yes normal to inspection Back/Spine/Pelvis: Other: Mild tenderness palpation along the midline cervical spine, as well as paraspinous muscles with spasm noted. Decreased range of motion secondary to pain. Skin: General skin exam: no rashes or lesions noted Trauma: no lacerations or abrasions Wounds: no wounds Neuro: General: patient oriented x3 and moves all extremities Cranial nerves: Yes CN's II-XII intact bilaterally and Yes Equal, round and reactive pupils present Motor exam (neuro): 5/5 motor strength present throughout and Pronator motor function not present Extrem: General: Yes normal to inspection Right upper extremity: normal to inspection Left upper extremity: normal to inspection Right lower extremity: normal to inspection Left lower extremity: normal to inspection Course Reevaluation(s) Reevaluation #1: Patient feeling much better after receiving morphine 15 mg, she no longer has a headache. Her nausea has improved. Discussed negative CT head and neck with patient. She does have evidence of a cervical muscle spasm. She also has a T9 anterior wedge, mild, unlikely due to mechanism of injury, given spine referral as well as follow-up with PCP. Discussed the importance of drinking plenty of fluids, getting plenty of rest, and given strict return precautions. She understands and agrees with plan. Patient stable for discharge. Time: 11:40 Medications Administered Discontinued Medications Generic Name Dose Route Start Last Admin Trade Name Kunq PRN Reason Stop Dose Admin Morphine Sulfate 15 mg 01/16/24 10:34 01/16/24 10:44 Morphine Sulfate Immed Release 15 Mg Tablet PO 01/16/24 10:35 15 mg ONCE ONE Administration Ondansetron HCl 4 mg 01/16/24 09:44 01/16/24 09:49 Ondansetron Odt 4 Mg Tab.Rapdis TRANSLINGU 01/16/24 09:45 4 mg ONCE ONE Administration Medical Decision Making Medical Decision Making [facility] Narrative: This is a 20-year-old female who presents emergency department with complaints photophobia, phonophobia, headaches, nausea and vomiting status post head strike 2 days ago. On arrival, vital signs within normal limits. She is alert and oriented x4. She has no neurologic focal deficits on examination. Given head strike with symptoms x2 days, will obtain CT head and neck to rule out intracranial process as well as fracture. Will treat nausea with Zofran 4 mg and pain with morphine 15 mg p.o. as she already took Tylenol this morning. Differential Diagnosis Differential Diagnoses: The differential diagnosis associated with the presentation includes ICH, SDH, intracranial mass-unlikely, cervical sprain, strain, fracture Admission/Observation Consideration of admission/observation: Escalation of care including admission/observation considered Lab Data [facility] Lab Attestation statement: I reviewed the patient's lab results. Radiology Impression Discussion of test interpretation with radiology: I have reviewed the radiologist's reading. Radiologist Impression: XR/XR thoracic spine 3V IMPRESSION: Mild anterior wedging of T9, not previously recognized. Correlate with physical examination, follow-up CT may be warranted. Dictated By: Mercy Swan MD CT/CT head/brain wo IV con IMPRESSION: No acute intracranial or cervical spine pathology following trauma. Cervical lordotic reversal likely related to spasm. Dictated By: Mercy Swan MD CT/CT cervical spine wo IV con IMPRESSION: No acute intracranial or cervical spine pathology following trauma. Cervical lordotic reversal likely related to spasm. Dictated By: Mercy Swan MD External Record Review External record reviewed: Inpatient record, Office record, Outpatient record, Prior outpatient labs, Prior outpatient radiology, Primary care record and Outside ED record Discharge Plan Discharge Clinical Impression: Headache Closed head injury Qualifiers: Encounter type: initial encounter Qualified Code(s): S09.90XA - Unspecified injury of head, initial encounter Patient Disposition: Home, Self-Care Instructions: Head Injury (ED), Acute Headache (ED) Additional Instructions: You were seen in the emergency department after hitting your head. Your CT scan of your head and neck show evidence of a muscle spasm in your neck otherwise is normal. Drink plenty of fluids and get plenty of rest. Take Zofran as needed for nausea. Quiet dark rooms, avoid prolonged screen time. Mental and physical rest can help heal your brain faster. If any new or worsening symptoms occur including but not limited to severe headache, dizziness, chest pain, shortness of breath, weakness, numbness, tingling, please return for re-evaluation. You do have a T9 anterior wedge, this could be chronic for you however I am giving your referral to the personal injury law specialist, you may also follow-up with the primary care physician regarding this finding. Prescriptions: New ondansetron 4 mg tablet,disintegrating 4 mg PO Q6H Qty: 10 0RF No Action montelukast 10 mg tablet 10 mg PO DAILY Qty: 90 3RF albuterol sulfate 90 mcg/actuation HFA aerosol inhaler 2 puff PO Q4-6H PRN (Reason: for wheezing) Qty: 8.5 0RF bupropion HCl [Forfivo XL] 450 mg tablet extended release 24 hr 450 mg PO QAM fluoxetine 20 mg capsule 60 mg PO QAM azithromycin 250 mg tablet See Rx Instructions PO .COMPLEX Qty: 6 0RF Rx Instructions: take 500 mg today (day 1), then 250 mg for 4 days (days 2-5) PO Vraylar 3 mg capsule 3 mg PO DAILY ibuprofen 800 mg tablet 800 mg PO Q8H PRN (DME) nebulizers Misc See Rx Instructions .Route Rx Instructions: As directed albuterol sulfate 2.5 mg /3 mL (0.083 %) solution for nebulization 2.5 mg inhalation Q6H PRN (Reason: shortness of breath or wheezing) 30 Days Qty: 180 11RF Referrals: [facility] [Provider Group] Print Language: Portuguese
[2024-01-16] MEDS: Ondansetron ODT 4 MG TAB.RAPDIS TRANSLINGU (09:49)
[2024-01-16 10:37] VITALS: BP 126/73; PULSE 90; RESP 16; O2SAT 92
[2024-01-16] MEDS: Morphine Sulfate Immed Release 15 MG TABLET PO (10:44)
--- NOTE | 2024-01-16 10:45 | PC.NURSE ---
patient medicated for pain per order
[2024-01-16 12:22] VITALS: BP 126/73; PULSE 90; RESP 16; TEMP -17.7; TEMP 0; O2SAT 92
== END 2024-01-16 12:23 | disposition home or self-care (01) ==
PROVIDERS: Emergency Provider Emergency Medicine; PCP Nurse Practitioner Family
DX: S09.90XA Unspecified injury of head, initial encounter (principal); R51.9 Headache, unspecified; M54.6 Pain in thoracic spine; M54.2 Cervicalgia; R11.0 Nausea; W01.10XA Fall on same level from slipping, tripping and stumbling with subsequent striking against unspecified object, initial encounter; Y93.9 Activity, unspecified; Y92.007 Garden or yard of unspecified non-institutional (private) residence as the place of occurrence of the external cause; Y99.8 Other external cause status
CPT/HCPCS: 70450; 72072; 72125; 99284

== ENCOUNTER 2024-01-19 10:10 | Outpatient (AMB) | payer OTHER, SELFPAY ==
--- NOTE | 2024-01-19 10:57 | MHC.OFFWIV ---
Intake Vital Signs 01/19/24 11:02 Height 5 ft 3 in Weight 198 lb BMI 35.1 BP 142/90 H Blood Pressure Location Lt brachial Position Sitting Pulse 100 Pulse Source Pulse Oximeter Temp 99.2 F Temp Source Oral Pulse Oximetry (%) 94 Oxygen Delivery Method Room Air Intake Visit Reasons: EP cough, fever, Sore throat Intake Note: pt is here c/o fever,cough,sore throat. Started Monday Patient Tobacco Use Status: Never used Tobacco Allergies guaifenesin [From ROBITUSSIN A-C] Allergy (Intermediate, Verified 01/19/24 10:57) RASH lorazepam [From ATIVAN] Adverse Reaction (Intermediate, Verified 01/19/24 10:57) AGITATION prazosin [PRAZOSIN] Adverse Reaction (Intermediate, Verified 01/19/24 10:57) DEPRESSION, hypotension benztropine [Cogentin] Adverse Reaction (Unknown, Verified 01/19/24 10:57) extrapyramidal symptoms methylprednisolone [From MEDROL] Adverse Reaction (Unknown, Verified 01/19/24 10:57) tctile and visual hakkucinations From SEROQUEL Adverse Reaction (Intermediate, Uncoded 01/19/24 10:57) PARANOIA From ZOLOFT Adverse Reaction (Intermediate, Uncoded 01/19/24 10:57) HALLUCINATIONS Do you need a note to return to daycare/school/sports/work: Yes HPI HPI Comments History of Present Illness Details Patient is a 28-year-old female complaining of 5 days a junky cough with green sputum, head congestion, bilateral ear pain and fevers up to 102 degrees F. She states the fevers do come down when she takes Tylenol, she last took Tylenol 3 hours ago. She states that her son is in daycare and strep just transfer his daycare. She states he was not symptomatic. Her other son was sick and continues to be sick but has not been tested for strep. She denies any shortness of breath, chest pain, nausea vomiting or diarrhea. She states she does have a history of tubes in her ears twice when she was younger. [facility] Medical History Pharyngitis Bilateral otitis media Missed period Breast abscess Vaginal candidiasis Otitis media Sinusitis STD exposure Cystitis Rash Yeast infection Vaginal discharge Sprain of left knee Dysuria Elevated fasting blood sugar Puncture wound of foot Eosinophilia Asthma Anxiety disorder Supraventricular tachycardia Purulent drainage of both ears through ear tube PMDD (premenstrual dysphoric disorder) Surgical History Mass of right breast History of placement of ear tubes [place] teeth extracted Hx of prior ablation treatment History of Family History Mother Hypertension Diabetes Maternal Grandfather Colon cancer Maternal Grandmother Spinal stenosis Diabetes Hypertension Other Mental health disorder Substance use disorder Social History Housing: House Alcohol intake: current Alcohol intake frequency: holidays/special occasions only Patient Tobacco Use Status: Never used Tobacco Substance Use Type: Marijuana Current occupational status: disabled Review of Systems Const All systems reviewed & are unremarkable except as noted in HPI and below Physical Exam Vital Signs: Last Vital Signs Temp 99.2 F 01/19/24 11:02 Pulse 100 01/19/24 11:02 BP 142/90 H 01/19/24 11:02 Pulse Ox 94 01/19/24 11:02 Oxygen Delivery Method Room Air 01/19/24 11:02 BMI result Body Mass Index 35.1 Const General: cooperative, healthy appearing, comfortable and no acute distress Orientation/consciousness: patient oriented x3 Limitations: no limitations HEENT Head: Yes normal to inspection Ears: external ears normal and TM abnormal (bilateral) wth effusion, erythematous and scarred bilateral General nose exam: Normal external nose present, Normal nares present and No nasal discharge present Face and sinus: Yes normal facial exam and Yes sinuses nontender Mouth: Normal oral and palatal mucosa present and moist mucous membranes Throat: Yes uvula midline, Yes abnormal tonsil (Enlarged and erythematous) and Yes posterior oropharynx abnormal (Erythematous) Eyes General: appearance normal, both eyes and all related structures Neck Neck: Yes normal visual inspection Resp Effort & Inspection: normal respiratory effort, able to speak in complete sentences, Actively coughing, no respiratory distress and not tachypneic Skin General skin exam: no rashes or lesions noted Neuro General: patient oriented x3 Extrem General: Yes normal to inspection and Yes no clubbing, cyanosis or edema Results AMB Rapid Strep AMB Rapid Strep Negative Last Edit by Jai Malcolm CMA on 01/19/24 11:14 Results Reviewed Results Reviewed: strep - Assessment & Plan Assessment & Plan (1) Strep pharyngitis: Code(s): J02.0 - Streptococcal pharyngitis Plan Rapid strep negative however patient son to have brought strep home to her, with all of her symptoms, will treat for strep throat, [facility] Criteria 3. Orders: Orders AMB Rapid Strep Screen Today Z13.9 - Encounter for screening, unspecified Medications: New amoxicillin-pot clavulanate 875-125 mg 1 tab PO Q12H 10 tabs 0RF Coding Level of Care Code Est Pt Level 3 (20541) Diagnoses Strep pharyngitis J02.0
[2024-01-19 11:02] VITALS: BP 142/90; PULSE 100; TEMP 37.3; O2SAT 94; BMI 35.1
== END 2024-01-19 11:24 | disposition home or self-care (01) ==
PROVIDERS: PCP Nurse Practitioner Family; Visit Provider Physician Assistant
DX: J02.0 Streptococcal pharyngitis (principal)
CPT/HCPCS: 87880; 99213

== ENCOUNTER 2024-01-20 15:37 | Inpatient (IN) | payer OTHER, SELFPAY ==
[2024-01-20] VITALS (9 sets, daily range): BP systolic 110–138; BP diastolic 63–77; PULSE 91–122; RESP 17–26; TEMP 36.5–36.9; O2SAT 95–98; BMI 35.0
--- NOTE | ~2024-01-20 | XR_ITS ---
EXAMINATION: XR chest 2V CLINICAL INFORMATION: Reason for Exam wheezing COMPARISON: Prior chest x-ray 05/15/2023 TECHNIQUE: XR chest 2V, 2 Views Lungs and [place]: Both lungs are clear. Pleura: Normal. Costophrenic angles are sharp. No pneumothorax. Heart: The heart is normal in size. Mediastinum: The mediastinum is within normal limits.. Bones: Skeletal structures included are normal for patient's age. XR/XR chest 2V IMPRESSION: No radiographic evidence of acute cardiopulmonary disease
--- NOTE | 2024-01-20 15:42 | ED_ITS ---
HPI - General Adult General Chief complaint: Upper Respiratory Symptoms Stated complaint: Asthma Time Seen by Provider: 01/20/24 16:14 Source: patient and RN notes reviewed Mode of arrival: ambulatory Limitations: no limitations History of Present Illness ED Provider: Ariela Manley PA-C HPI narrative: This is a 28-year-old female, with a history of asthma, who presents emergency department with complaints of wheezing, and shortness breath x2 days. Patient was seen at a walk-in clinic 2 days ago where she was diagnosed with a double ear infection and tonsillitis. She was started on Augmentin at that time. She states that since then she has had worsening asthma. She has been using updrafts at home without any relief. She denies any fevers, chills, chest pain, abdominal pain, nausea, vomiting or diarrhea. Endorses decreased appetite secondary to her symptoms. No sick contacts. She states that she was previously on Nucala injections which managed her asthma, however has not been on this for several months. She has been managed by Dr. Osuna in the past for asthma. Has had 1 prior hospital admission due to asthma. No history of intubation. No other complaints or concerns at this time MD complaint: Wheezing, shortness for breath Onset (ago): day(s) Radiation: non-radiation Quality: aching Pain Consistency: constant Relieving factors: none Exacerbating factors: none Associated symptoms: cough and shortness of breath Treatments prior to arrival: none Related Data Home Medications ?Medication ?Instructions ?Recorded ?Confirmed bupropion HCl 450 mg 24 hr tablet, 450 mg PO QAM 02/22/21 10/17/23 extended release (Forfivo XL) fluoxetine 20 mg capsule 60 mg PO QAM 07/02/21 10/17/23 ibuprofen 800 mg tablet 800 mg PO Q8H PRN 08/09/22 10/17/23 cariprazine 3 mg capsule (Vraylar) 3 mg PO DAILY 11/17/22 10/17/23 nebulizers 09/18/23 10/17/23 Previous Rx's ?Medication ?Instructions ?Recorded albuterol sulfate 2.5 mg/3 mL 2.5 mg (3 mL) inhalation Q6H PRN 09/18/23 (0.083 %) solution for nebulization shortness of breath or wheezing 30 days #180 mL montelukast 10 mg tablet 10 mg PO DAILY #90 tabs 04/08/24 albuterol sulfate 90 mcg/actuation 2 puff PO Q4-6H PRN for wheezing 11/13/23 aerosol inhaler #8.5 grams ondansetron 4 mg disintegrating 4 mg PO Q6H #10 tabs 01/16/24 tablet amoxicillin 875 mg-potassium 1 tab PO Q12H #10 tabs 01/19/24 clavulanate 125 mg tablet Allergies Allergy/AdvReac Type Severity Reaction Status Date / Time guaifenesin Allergy Intermediate RASH Verified 01/20/24 15:42 [From ROBITUSSIN A-C] benztropine [Cogentin] AdvReac Intermediate extrapyramidal Verified 01/20/24 15:43 symptoms lorazepam [From ATIVAN] AdvReac Intermediate AGITATION Verified 01/20/24 15:42 methylprednisolone AdvReac Intermediate tctile and Verified 01/20/24 16:25 [From MEDROL] visual hallucinations prazosin [PRAZOSIN] AdvReac Intermediate DEPRESSION, Verified 01/20/24 15:42 hypotension From SEROQUEL AdvReac Intermediate PARANOIA Uncoded 01/19/24 10:57 From ZOLOFT AdvReac Intermediate HALLUCINATI Uncoded 01/19/24 10:57 ONS Review of Systems 2 Review of Systems: Yes all other systems are reviewed and are negative Constitutional: Constitutional: Reports as per HPI [facility] Past Medical History Medical History Pharyngitis Bilateral otitis media Missed period Breast abscess Vaginal candidiasis Otitis media Sinusitis STD exposure Cystitis Rash Yeast infection Vaginal discharge Sprain of left knee Dysuria Elevated fasting blood sugar Puncture wound of foot Eosinophilia Asthma Anxiety disorder Supraventricular tachycardia Purulent drainage of both ears through ear tube PMDD (premenstrual dysphoric disorder) Surgical History Mass of right breast History of placement of ear tubes [place] teeth extracted Hx of prior ablation treatment History of Family History Family History Mother Hypertension Diabetes Maternal Grandfather Colon cancer Maternal Grandmother Spinal stenosis Diabetes Hypertension Other Mental health disorder Substance use disorder Social History Social History Housing: House Alcohol intake: current Alcohol intake frequency: holidays/special occasions only Patient Tobacco Use Status: Never used Tobacco Smoked in Last 30 Days: No Use of substances other than those prescribed or required for medical reasons: No Substance Use Type: Marijuana Advance Directives: No Advance Directives Information Provided: No Do you have a plan to hurt others: No Plan Current occupational status: disabled Physical Exam ED Vital Signs: Vital Signs - 24 hr 01/20/24 15:42 01/20/24 15:56 01/20/24 16:26 Temperature 98.2 F 98.3 F Pulse Rate 119 H 111 H 122 H Respiratory Rate 22 H 26 H 26 H Blood Pressure 110/77 138/76 Pulse Oximetry 96 98 Oxygen Delivery Method Room Air Room Air 01/20/24 17:41 01/20/24 17:44 01/20/24 18:03 Temperature Pulse Rate 91 100 Respiratory Rate 20 24 H Blood Pressure 119/66 Pulse Oximetry 96 96 Oxygen Delivery Method Room Air Room Air 01/20/24 18:55 Temperature 97.8 F Pulse Rate 120 H Respiratory Rate 24 H Blood Pressure 124/63 Pulse Oximetry 96 Oxygen Delivery Method Room Air BMI result Body Mass Index 35.0 Const General: cooperative, comfortable and no acute distress Orientation/consciousness: patient oriented x3 Limitations: no limitations [facility] Head: Yes normal to inspection, Yes normocephalic and Yes atraumatic Ears: hearing grossly normal bilaterally General nose exam: Normal external nose present Face and sinus: Yes normal facial exam Mouth: Normal oral and palatal mucosa present, oropharynx normal and moist mucous membranes Throat: Yes posterior oropharynx normal Eyes General: appearance normal, both eyes and all related structures Eyelids: Yes eyelids normal Conjunctivae: conjunctivae normal Sclerae: sclerae normal Pupils: Equal, round and reactive pupils present EOM: EOMs intact bilaterally Neck Neck: Yes normal visual inspection, Yes full ROM and Yes no lymphadenopathy Lymphatic: no lymphadenopathy noted Chest Chest palpation & inspection: normal inspection of the chest Resp Other: Inspiratory and expiratory coarse wheezes noted throughout all lung kowalski Effort & Inspection: normal respiratory effort and able to speak in complete sentences Cardio Rate: regular rate Rhythm: regular rhythm Heart sounds: S1 normal heart sound present and S2 normal heart sound present GI Inspection: Yes normal to inspection Skin General skin exam: no rashes or lesions noted Trauma: no lacerations or abrasions Wounds: no wounds Neuro General: patient oriented x3 and moves all extremities Cranial nerves: Yes Equal, round and reactive pupils present Extrem General: Yes normal to inspection Right upper extremity: normal to inspection Left upper extremity: normal to inspection Right lower extremity: normal to inspection Left lower extremity: normal to inspection Course Course Course Narrative: This is a Rapid Medical Examination (RME) performed by Iron Dozier PA-C in triage. Full HPI, ROS, assessment and treatment plan per primary provider in the Main ED. 28 yo female hx of asthma here for eval of shortness of breath / wheezing x24 hours. reports multiple breathing treatments at home yesterday and today with minimal improvement. diagnosed w/ strep throat 2 days ago. reports worsening throat pain and difficulty breathing. diffuse expiratory wheezes. coughing on exam. Plan: viral swabs, labs, cxr, and bronch protocol ordered Reevaluation(s) Reevaluation #1: Patient re-evaluated, lungs with coarse inspiratory and expiratory wheezes noted throughout all lung kowalski despite IV meds, will continue to closely monitor. Critical lab of potassium of 2.9, will administer potassium orally. Time: 17:25 Reevaluation #2: Patient re-evaluated after receiving 2 updrafts, IV medications. She has not had any relief. Given no improvement despite medications and multiple updrafts, patient should be admitted for further management and observation. Discussed with patient who is agreeable. Time: 18:47 Reevaluation #3: Discussed with Dr. Lorenzo, transfer of care initiated to hospital service. Time: 19:05 Medications Administered Discontinued Medications Generic Name Dose Route Start Last Admin Trade Name Mark PRN Reason Stop Dose Admin Albuterol Sulfate 5 mg/ 7.5 mg 01/20/24 15:49 01/20/24 15:55 Albuterol Sulfate 2.5 mg INHALE 01/20/24 15:50 7.5 mg ONCE ONE Administration Magnesium Sulfate 2 gm in 50 mls @ 25 mls/hr 01/20/24 16:08 01/20/24 17:00 Magnesium Sulfate/H2o IV 01/20/24 18:07 Infused ONCE ONE Infusion Levalbuterol HCl 3.75 mg 01/20/24 18:02 01/20/24 18:03 Levalbuterol Hcl 1.25 Mg/3 Ml Vial.Neb INHALE 01/20/24 18:03 3.75 mg ONCE ONE Administration Methylprednisolone Sodium Succinate 125 mg 01/20/24 16:14 01/20/24 16:36 Methylprednisolone Sod Succ 125 Mg/2 Ml Vial IVPUSH 01/20/24 16:15 125 mg ONCE ONE Administration Potassium Chloride 40 meq 01/20/24 17:25 01/20/24 17:42 Potassium Chloride Packet 20 Meq Packet PO 01/20/24 17:26 40 meq ONCE ONE Administration Medical Decision Making Medical Decision Making [facility] Narrative: This is a 28-year-old female, with a history of asthma, who presents emergency department with complaints of shortness of breath x 2 days. On arrival, patient tachycardic at 119 respirations 22, oxygen saturation 96% on room air. She has coarse inspiratory and expiratory wheezes noted throughout all lung kowalski. She has been treated for bilateral ear infection and pharyngitis over the last 2 days however has noted worsening asthma. Has been using inhaler at home without any relief. Plan: Labs, chest x-ray, viral swabs, updrafts, IV Solu-Medrol and Mag Differential Diagnosis Differential Diagnoses: The differential diagnosis associated with the presentation includes Asthma exacerbation, reactive airway disease, pneumonia, bronchitis Admission/Observation Consideration of admission/observation: Escalation of care including admission/observation considered Patient requiring hospitalization secondary to no improvement despite IV medications and multiple updrafts. Lab Data [facility] Lab Attestation statement: I reviewed the patient's lab results. No leukocytosis, stable H&H, hypokalemia 2.9. negative viral swabs 01/20/24 16:31 01/20/24 16:31 Labs: Lab Results 01/20/24 Range/Units 16:31 WBC 8.1 (4.8-10.8) X10*3/uL RBC 4.57 (4.20-5.50) X10*6/uL Hgb 13.5 (12.0-16.0) g/dl Hct 39.0 (37.0-47.0) % MCV 85.3 (80.0-98.0) fL MCH 29.5 (27.0-33.0) pg MCHC 34.6 (31.0-35.0) g/dl RDW 12.4 (11.0-16.0) % Plt Count 322 (160-400) X10*3/uL MPV 10.0 (9.4-12.3) fL Immature Gran % (Auto) 0.4 (0.0-0.4) % Neut % (Auto) 45.2 (45-73) % Lymph % (Auto) 37.2 (20-40) % [place] % (Auto) 10.7 (2-11) % Eos % (Auto) 5.8 H (0-4) % Baso % (Auto) 0.7 (0-2) % Lymph # (Auto) 3.0 (1.2-4.9) X10*3/uL [place] # (Auto) 0.9 (0.1-1.2) X10*3/uL Eos # (Auto) 0.5 H (0.0-0.4) X10*3/uL Baso # (Auto) 0.1 (0.0-0.2) X10*3/uL Abs Immat Gran (auto) 0.03 (0.00-0.03) X10*3/uL Absolute Neuts (auto) 3.6 (2.0-8.3) x10*3/uL Absolute Nucleated RBC 0.000 (0.0-0.012) X10*3/uL Nucleated RBC % (auto) 0.0 (0.0-0.2) /100WBC Sodium 141 (135-145) mmol/L Potassium 2.9 L* D (3.3-5.1) mmol/L Chloride 106 (96-108) mmol/L Carbon Dioxide 23 (22-29) mmol/L Anion Gap 15 (12-20) BUN 11 (9-16) mg/dL Creatinine 0.87 (0.5-1.4) mg/dL Estim Creat Clear Calc 102.2 Estimated GFR > 60 Random Glucose 120 H (60-115) mg/dL Calcium 9.5 D (8.4-10.2) mg/dL Magnesium 1.9 (1.6-2.6) mg/dL Total Bilirubin 0.3 (0.0-1.0) mg/dL AST 25 (5-31) U/L ALT 17 (0-31) U/L Alkaline Phosphatase 76 (39-117) U/L Total Protein 7.8 (6.5-8.0) g/dL Albumin 4.3 (3.5-5.0) g/dL Influenza Type A (PCR) NEGATIVE (Negative) Influenza Type B (PCR) NEGATIVE (Negative) RSV RNA Qual (PCR) NEGATIVE (Negative) SARS-CoV-2 RNA (RT-PCR) NEGATIVE (Negative) Radiology Impression Discussion of test interpretation with radiology: I have reviewed the radiologist's reading. Radiologist Impression: XR/XR chest 2V IMPRESSION: No radiographic evidence of acute cardiopulmonary disease Dictated By: Hansel Poole MD Critical Care Time Critical Care Time Critical Care Time: Yes Total Critical Care Time: 35 Attestation: I have personally provided critical care time exclusive of time spent on separately billable procedures. Time includes review of lab data, radiology results, discussion with consultants, and monitoring for potential decompensation. Intervention performed as documented. Discharge Plan Discharge Clinical Impression: Asthma exacerbation Patient Disposition: Admitted As Inpatient Print Language: Bulgarian
[2024-01-20] MEDS: Albuterol Sulfate 5 MG, Albuterol Sulfate (0.083%) 2.5 MG 7.5 MG INHALE (15:55)
--- NOTE | 2024-01-20 16:31 | PC.NURSE ---
pt is alert and oriented, skin pwd, respirations even and unlabored, but ls wheezing through out and diminished with a dry cough, sinus tach on the monitor in the 110's
[2024-01-20 16:35] LABS: MANUAL DIFF FLAG NO
[2024-01-20] MEDS: methylPREDNISolone Sod Succ 125 MG/2 ML VIAL IVPUSH (16:36)
[2024-01-20] MEDS: Magnesium Sulfate/H2O 2 GM/50 ML PIGGYBACK IV (16:37)
[2024-01-20 16:39] LABS: Basophils Absolute Auto 0.1 X10*3/uL (0.0-0.2); Basophils Percent Auto 0.7 % (0-2); Eosinophils Absolute Auto 0.5 X10*3/uL (0.0-0.4); Eosinophils Percent Auto 5.8 % (0-4); Hemoglobin 13.5 g/dl (12.0-16.0); Imm Gran Abs Auto 0.03 X10*3/uL (0.00-0.03); Imm Gran Pct Auto 0.4 % (0.0-0.4); Lymphocytes Percent Auto 37.2 % (20-40); Mean Corpuscular HGB Conc 34.6 g/dl (31.0-35.0); Mean Corpuscular Hemoglobin 29.5 pg (27.0-33.0); Mean Corpuscular Volume 85.3 fL (80.0-98.0); Monocytes Absolute Auto 0.9 X10*3/uL (0.1-1.2); Monocytes Percent Auto 10.7 % (2-11); Neutrophils Absolute Auto 3.6 x10*3/uL (2.0-8.3); Neutrophils Percent Auto 45.2 % (45-73); Platelet Count 322 X10*3/uL (160-400); Red Blood Count 4.57 X10*6/uL (4.20-5.50); Red Cell Distribution Width 12.4 % (11.0-16.0); White Blood Count 8.1 X10*3/uL (4.8-10.8)
[2024-01-20 17:07] LABS: Alanine Aminotransferase 17 U/L (0-31); Albumin Level 4.3 g/dL (3.5-5.0); Alkaline Phosphatase 76 U/L (39-117); Anion Gap 15 (12-20); Aspartate Amino Transferase 25 U/L (5-31); Bilirubin Total 0.3 mg/dL (0.0-1.0); Blood Urea Nitrogen 11 mg/dL (9-16); Calcium 9.5 mg/dL (8.4-10.2); Carbon Dioxide 23 mmol/L (22-29); Chloride 106 mmol/L (96-108); Creatinine Clr Calc Pharmacy 102.2; Estimated Glomerular Filt Rate > 60; Glucose Random 120 mg/dL (60-115); Magnesium 1.9 mg/dL (1.6-2.6); Potassium 2.9 mmol/L (3.3-5.1); Sodium 141 mmol/L (135-145); Total Protein 7.8 g/dL (6.5-8.0)
[2024-01-20 17:19] LABS: Influenza A PCR NEGATIVE (Negative); Influenza B PCR NEGATIVE (Negative); Resp Syncy Virus RNA Qual PCR NEGATIVE (Negative); SARS COV2 PCR INHOUSE NEGATIVE (Negative)
[2024-01-20] MEDS: Potassium Chloride Packet 20 MEQ PACKET 40 MEQ PO (17:42)
--- NOTE | 2024-01-20 17:45 | PC.NURSE ---
pt reports not feeling all that better, still wheezing through out but moving air better
[2024-01-20] MEDS: levalbuterol HCL 1.25 MG/3 ML VIAL.NEB 3.75 MG INHALE (18:03)
--- NOTE | 2024-01-20 18:49 | ECG_ITS ---
Test Reason : LOW POT Blood Pressure : / mmHG Vent. Rate : 117 BPM Atrial Rate : 117 BPM P-R Int : 126 ms QRS Dur : 084 ms QT Int : 362 ms P-R-T Axes : 061 065 046 degrees QTc Int : 504 ms Sinus tachycardia Otherwise normal ECG When compared with ECG of 30-JUN-2021 15:12, No significant change was found Referred By: Ariela Manley Electronically Signed By:HERNANDEZ DEVINE MD
--- NOTE | 2024-01-20 19:09 | PM.IMHP ---
History of Present Illness Date of Service: 01/20/24 Attending physician on admission: Aileen Lorenzo Chief Complaint: Wheezing, shortness of breath Pt is a 28-year-old female with a PMH significant for?asthma, anxiety, and depression who presents to the ED with?wheezing, difficulty breathing, and shortness of breath times 2 days. 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 On Monday patient hit her head on her deck while moving items and experienced a concussion. Had headache, lightheadedness, dizziness, and nausea and vomiting. Nausea and vomiting subsided on Monday, and headache has improved some over the course of the week. Patient then developed sore throat, cough productive of yellowish sputum, and nasal congestion. Strep throat head apparently been rampant in her son's daycare. She then presented to urgent care two days ago and was prescribed Augmentin for possible strep throat. Patient's respiratory symptoms worsened to where she was experiencing audible wheezing and had difficulty breathing and significant SOB which limited her daily activities. Home nebulizers and inhalers offered little to no relief. Denies chest pain/pressure, palpitations. No fever, chills. Currently no nausea, vomiting, abdominal pain. No acute vision changes. In the ED pt was afebrile but tachycardic up to 122, tachypneic up to 26, and satting at 96% on RA. Labs were significant for potassium of 2.9, otherwise grossly unremarkable. No leukocytosis. Stable H&H. Hepatic and renal function baseline. Tested negative for flu, RSV, COVID. CXR showed negative for acute cardiopulmonary disease. EKG demonstrated sinus tachycardia of 117 without significant evidence of ischemic changes. Pt was treated with DuoNebs x2, Solu-Medrol 125 mg, Mag sulfate, IVF, and potassium chloride 40 mEq p.o.. Pt will be admitted to the hospital under observation for treatment and further evaluation of acute asthma exacerbation that has failed multiple treatments in the ED. Review of Systems Review of Systems: Negative except for that stated in the [facility] Medical History Pharyngitis Bilateral otitis media Missed period Breast abscess Vaginal candidiasis Otitis media Sinusitis STD exposure Cystitis Rash Yeast infection Vaginal discharge Sprain of left knee Dysuria Elevated fasting blood sugar Puncture wound of foot Eosinophilia Asthma Anxiety disorder Supraventricular tachycardia Purulent drainage of both ears through ear tube PMDD (premenstrual dysphoric disorder) Family History Mother Hypertension Diabetes Maternal Grandfather Colon cancer Maternal Grandmother Spinal stenosis Diabetes Hypertension Other Mental health disorder Substance use disorder Surgical History Mass of right breast History of placement of ear tubes [place] teeth extracted Hx of prior ablation treatment History of Social History Housing: House Alcohol intake: current Alcohol intake frequency: holidays/special occasions only Patient Tobacco Use Status: Never used Tobacco Smoked in Last 30 Days: No Use of substances other than those prescribed or required for medical reasons: No Substance Use Type: Marijuana Advance Directives: No Advance Directives Information Provided: No Do you have a plan to hurt others: No Plan Current occupational status: disabled Meds Allergies Allergy/AdvReac Type Severity Reaction Status Date / Time guaifenesin Allergy Intermediate RASH Verified 01/20/24 15:42 [From ROBITUSSIN A-C] benztropine [Cogentin] AdvReac Intermediate extrapyramidal Verified 01/20/24 15:43 symptoms lorazepam [From ATIVAN] AdvReac Intermediate AGITATION Verified 01/20/24 15:42 methylprednisolone AdvReac Intermediate tctile and Verified 01/20/24 16:25 [From MEDROL] visual hallucinations prazosin [PRAZOSIN] AdvReac Intermediate DEPRESSION, Verified 01/20/24 15:42 hypotension From SEROQUEL AdvReac Intermediate PARANOIA Uncoded 01/19/24 10:57 From ZOLOFT AdvReac Intermediate HALLUCINATI Uncoded 01/19/24 10:57 ONS Active Medications: Current Medications Sodium Chloride (Ns) 1,000 mls @ 999 mls/hr IV .Q1H1M ONE Stop: 01/20/24 19:56 Home Medications ?Medication ?Instructions ?Recorded ?Confirmed ?Last Taken ?Type bupropion HCl 450 mg 24 hr tablet, 450 mg PO QAM 02/22/21 10/17/23 Unknown History extended release (Forfivo XL) fluoxetine 20 mg capsule 60 mg PO QAM 07/02/21 10/17/23 Unknown History ibuprofen 800 mg tablet 800 mg PO Q8H PRN 08/09/22 10/17/23 Unknown History cariprazine 3 mg capsule (Vraylar) 3 mg PO DAILY 11/17/22 10/17/23 Unknown History nebulizers 09/18/23 10/17/23 Unknown History Physical Exam Vital Signs and Narrative: Vital Signs: Last Vital Signs Temp 97.8 F 01/20/24 18:55 Pulse 120 H 01/20/24 18:55 Resp 24 H 01/20/24 18:55 BP 124/63 01/20/24 18:55 Pulse Ox 96 01/20/24 18:55 O2 Del Method Room Air 01/20/24 18:55 BMI result Body Mass Index 35.0 Constitutional: Alert, in no acute distress. Mental Status: Oriented to person, place and time. Eyes: Pupils are equal, round, and reactive to light. Ear, Nose, and Throat: Oropharynx clear, mucous membranes moist. Ears and nose without deformities. Trachea midline. Respiratory: Significant diffuse coarse. Cardiovascular: S1, S2 regular. No murmurs, rubs, or gallops. Gastrointestinal: Abdomen soft, non-tender, non-distended. Normal bowel sounds. Neurologic: Cranial nerves II-XII are grossly intact bilaterally. No focal neurological deficits. Moves all extremities spontaneously. Skin: Warm, dry. Musculoskeletal: No cyanosis or clubbing. Extremities: No edema. Psychiatric: Normal mood and affect. Results Labs 01/20/24 16:31 01/20/24 16:31 Labs: Laboratory Results - last 24 hr 01/20/24 16:31 MCV 85.3 MCH 29.5 MCHC 34.6 RDW 12.4 Plt Count 322 MPV 10.0 Immature Gran % (Auto) 0.4 Neut % (Auto) 45.2 Lymph % (Auto) 37.2 [place] % (Auto) 10.7 Eos % (Auto) 5.8 H Baso % (Auto) 0.7 Lymph # (Auto) 3.0 [place] # (Auto) 0.9 Eos # (Auto) 0.5 H Baso # (Auto) 0.1 Abs Immat Gran (auto) 0.03 Absolute Neuts (auto) 3.6 Absolute Nucleated RBC 0.000 Nucleated RBC % (auto) 0.0 Anion Gap 15 Estim Creat Clear Calc 102.2 Estimated GFR > 60 Random Glucose 120 H Calcium 9.5 D Magnesium 1.9 Total Bilirubin 0.3 AST 25 ALT 17 Alkaline Phosphatase 76 Total Protein 7.8 Albumin 4.3 Influenza Type A (PCR) NEGATIVE Influenza Type B (PCR) NEGATIVE RSV RNA Qual (PCR) NEGATIVE SARS-CoV-2 RNA (RT-PCR) NEGATIVE Imaging Radiologist's Impressions: Impressions Chest X-Ray 01/20/24 15:50 IMPRESSION: No radiographic evidence of acute cardiopulmonary disease Assessment and Plan (1) Asthma exacerbation: Status: Acute Plan Pt is a 28-year-old female with a PMH significant for?asthma, anxiety, and depression who presents to the ED with?wheezing, difficulty breathing, and shortness of breath times 2 days. Pt will be admitted to the hospital under observation for treatment and further evaluation of acute asthma exacerbation that has failed multiple treatments in the ED. Acute asthma exacerbation Patient with SOB and MARTINEZ limiting daily activities x2 days Significant diffuse inspiratory and expiratory wheezing upon auscultation despite multiple treatments in the ED Possibly secondary to URI/strep throat Will check respiratory panel, rapid strep Will treat with Xopenex due to tachycardia, Solu-Medrol Patient already received Mag sulfate in the ED Patient does not meet sepsis criteria: Tachycardia secondary to albuterol use; no fever or leukocytosis Will empirically treat with azithromycin for pleiotropic effect, started 01/20/2024 Patient not hypoxic, not on supplemental O2 Monitor respiratory status Hypokalemia Patient's potassium 2.9 at time of presentation Likely secondary to nausea and vomiting from earlier in the week with continued reduced p.o. intake Patient received potassium chloride 40 mEq p.o. in the ED Follow up potassium Mood disorder Continue home mood stabilizers Full Code Attending:?Dr. Camilo DVT Prophylaxis: Lovenox Patient will be admitted to the hospital under observation for treatment and further evaluation acute asthma exacerbation that has failed multiple treatments in the ED. Pt will receive IV steroids, breathing treatments, and close monitoring of labs and respiratory status. Quality Stroke Does the patient have a stroke diagnosis?: No VTE Prior VTE?: No VTE Risk Level:: Medical - moderate - high VTE Device Contraindication: Treatment Not Indicated VTE Drug Contraindication: N/A - Med Ordered
[2024-01-20] MEDS: 0.9 % Sodium Chloride 1,000 ML 999 ML IV (19:10)
[2024-01-20] MEDS: Azithromycin 500 MG in 0.9 % Sodium Chloride 250 ML 125 MG IV (22:24)
[2024-01-20] MEDS: hydrOXYzine HCL 25 MG TABLET PO (22:27)
[2024-01-21] VITALS (9 sets, daily range): BP systolic 108–142; BP diastolic 60–75; PULSE 69–103; RESP 15–20; TEMP 36.4–36.6; O2SAT 92–98; BMI 35.0
[2024-01-21] MEDS: 0.9 % Sodium Chloride Flush 3 ML SYRINGE IVFLUSH ×3 (01:10→15:46)
[2024-01-21 07:00] LABS: Anion Gap 15 (12-20); Blood Urea Nitrogen 9 mg/dL (9-16); Calcium 10.2 mg/dL (8.4-10.2); Carbon Dioxide 21 mmol/L (22-29); Chloride 109 mmol/L (96-108); Creatinine Clr Calc Pharmacy 120.2; Estimated Glomerular Filt Rate > 60; Glucose Random 138 mg/dL (60-115); Potassium 4.4 mmol/L (3.3-5.1); Sodium 141 mmol/L (135-145)
[2024-01-21] MEDS: levalbuterol HCL 1.25 MG/3 ML VIAL.NEB INHALE (07:42)
--- NOTE | 2024-01-21 09:00 | MHC.CM.PN ---
IMM 01/20. Pt self-care, lives at home with her 2 sons (ages 3 and 5) and her boyfriend. Pts boyfriend or mother will transport her home at discharge. Education provided on HCP, pt declined at this time. PCP: Israel LYNN
--- NOTE | 2024-01-21 09:17 | PHA.MEDREC ---
Pharmacy Consult ? Medication Reconciliation Pharmacy has completed the medication reconciliation.
[2024-01-21] MEDS: methylPREDNISolone Sod Succ 40 MG/ML VIAL IVPUSH ×2 (09:34→20:24)
[2024-01-21] MEDS: buPROPion HCl XL 300 MG TAB.ER.24H PO (09:34)
[2024-01-21] MEDS: Cariprazine HCl 3 MG CAPSULE PO (09:34)
[2024-01-21] MEDS: buPROPion HCl XL 150 MG TAB.ER.24H PO (09:34)
[2024-01-21] MEDS: Multivitamin TABLET 1 TAB PO (09:34)
[2024-01-21] MEDS: FLUoxetine HCl 20 MG CAPSULE 40 MG PO (09:35)
--- NOTE | 2024-01-21 09:54 | HO.PM.IMPN ---
Subjective Subjective Date of Service: 01/21/24 Interval History: Being followed for acute asthma exacerbation/hypokalemia with history of mood disorder and recent head injury with normal workup on January 15. Patient feeling better this morning, shortness of breath is improving, no headache, no dizziness, no fevers, no chills, no other acute issues overnight denies chest pain or palpitations. Review of Systems All other system reviewed and negative. Physical Exam Vital Signs: Vital Signs: Last Vital Signs Temp 97.8 F 01/21/24 08:00 Pulse 96 01/21/24 08:00 Resp 18 01/21/24 08:00 BP 118/75 01/21/24 08:00 Pulse Ox 93 01/21/24 08:00 O2 Del Method Room Air 01/21/24 08:00 BMI result Body Mass Index 35.0 Const: Other: General in no acute distress. Anicteric sclera Neck no JVD. CVS regular rate rhythm, Respiratory bilateral expiratory wheeze, no use of accessory muscles Gastrointestinal abdomen soft, nontender, bowel sounds audible Extremities no edema. Neuro non focal Skin no rash Psych appropriate affect Objective Data Active Medications Acetaminophen (Acetaminophen 325 Mg Tablet) 650 mg PO Q6H PRN PRN Reason: Pain, Mild (Pain Scale 1-3), fever or headache Albuterol/Ipratropium (Albuterol/Iprat 2.5/0.5mg 3 Ml Ampul.Neb) 3 ml INHALE RQ4H WHILE AWAKE [facility] Last Admin: 01/21/24 08:20 Dose: Not Given Documented By: ROBERTO Non-Admin Reason: Duplicate Order Benzonatate (Benzonatate 100 Mg Capsule) 100 mg PO TID PRN PRN Reason: Cough Bupropion HCl (Bupropion Hcl Xl 150 Mg Tab.Er.24h) 150 mg PO DAILY [facility] Last Admin: 01/21/24 09:34 Dose: 150 mg Documented By: NEDA Bupropion HCl (Bupropion Hcl Xl 300 Mg Tab.Er.24h) 300 mg PO DAILY [facility] Last Admin: 01/21/24 09:34 Dose: 300 mg Documented By: NEDA Calcium Carbonate (Calcium Carbonate 750 Mg Tab.Chew) 750 mg PO Q4H PRN PRN Reason: Heartburn Cariprazine (Cariprazine Hcl 3 Mg Capsule) 3 mg PO DAILY [facility] Last Admin: 01/21/24 09:34 Dose: 3 mg Documented By: NEDA Enoxaparin Sodium (Enoxaparin Sodium 40 Mg/0.4 Ml Syringe) 40 mg SUBCUT Q24H [facility] Last Admin: 01/20/24 22:03 Dose: Not Given Documented By: DASIA Non-Admin Reason: Patient Condition Contraindication Fluoxetine HCl (Fluoxetine Hcl 20 Mg Capsule) 40 mg PO DAILY [facility] Last Admin: 01/21/24 09:35 Dose: 40 mg Documented By: NEDA Hydroxyzine HCl (Hydroxyzine Hcl 25 Mg Tablet) 25 mg PO Q6H PRN PRN Reason: Anxiety Last Admin: 01/20/24 22:27 Dose: 25 mg Documented By: DASIA Azithromycin 500 mg/ Sodium (Chloride) 250 mls @ 125 mls/hr IV Q24H [facility] Last Infusion: 01/21/24 01:10 Dose: Infused Documented By: EVELYN Lorazepam (Lorazepam 0.5 Mg Tablet) 0.25 mg PO DAILY PRN PRN Reason: Anxiety Magnesium Hydroxide (Milk Of Magnesia 30 Ml Oral.Susp) 30 ml PO DAILY PRN PRN Reason: Constipation Melatonin (Melatonin 3 Mg Tablet) 6 mg PO BEDTIME PRN PRN Reason: Insomnia Methylprednisolone Sodium Succinate (Methylprednisolone Sod Succ 40 Mg/Ml Vial) 40 mg IVPUSH Q12H [facility] Last Admin: 01/21/24 09:34 Dose: 40 mg Documented By: NEDA Multivitamins/Vitamin C (Multivitamin Tablet) 1 tab PO DAILY [facility] Last Admin: 01/21/24 09:34 Dose: 1 tab Documented By: NEDA Non-Formulary Medication (Methylphenidate Hcl) 27 mg PO DAILY [facility] Ondansetron HCl (Ondansetron Hcl 4 Mg/2 Ml Vial) 4 mg IVPUSH Q8H PRN PRN Reason: Nausea and Vomiting Sodium Chloride (0.9 % Sodium Chloride Flush 3 Ml Syringe) 3 ml IVFLUSH QSHIFT [facility] Last Admin: 01/21/24 09:35 Dose: 3 ml Documented By: NEDA Labs 01/20/24 16:31 01/21/24 06:17 Labs: Laboratory Results - last 24 hr 01/20/24 01/21/24 16:31 06:17 MCV 85.3 MCH 29.5 MCHC 34.6 RDW 12.4 Plt Count 322 MPV 10.0 Immature Gran % (Auto) 0.4 Neut % (Auto) 45.2 Lymph % (Auto) 37.2 [place] % (Auto) 10.7 Eos % (Auto) 5.8 H Baso % (Auto) 0.7 Lymph # (Auto) 3.0 [place] # (Auto) 0.9 Eos # (Auto) 0.5 H Baso # (Auto) 0.1 Abs Immat Gran (auto) 0.03 Absolute Neuts (auto) 3.6 Absolute Nucleated RBC 0.000 Nucleated RBC % (auto) 0.0 Hold Purple Top SEE NOTE Anion Gap 15 15 Estim Creat Clear Calc 102.2 120.2 Estimated GFR > 60 > 60 Random Glucose 120 H 138 H Calcium 9.5 D 10.2 D Magnesium 1.9 Total Bilirubin 0.3 AST 25 ALT 17 Alkaline Phosphatase 76 Total Protein 7.8 Albumin 4.3 Influenza Type A (PCR) NEGATIVE Influenza Type B (PCR) NEGATIVE RSV RNA Qual (PCR) NEGATIVE SARS-CoV-2 RNA (RT-PCR) NEGATIVE Assessment and Plan (1) Asthma exacerbation: Status: Acute (2) Hypokalemia: Status: Acute Plan 28-year-old female with a PMH significant for?asthma, anxiety, and depression who presents to the ED with?wheezing, difficulty breathing, and shortness of breath times 2 days. Pt will be admitted to the hospital under observation for treatment and further evaluation of acute asthma exacerbation that has failed multiple treatments in the ED. Acute asthma exacerbation Shortness of breath improving,tachycardia resolved, chest x-ray negative, COVID influenza negative , no hypoxia respiratory panel, rapid strep not collected. Continue IV Solu-Medrol 40 mg b.i.d., tachycardia resolved change Xopenex to DuoNeb q.4 hours while awake and as needed, transition to oral steroids at a.m. if continue to show progress. iv azithromycin for pleiotropic effect, started 01/20/2024 Monitor respiratory status Acute Hypokalemia repleted potassium improved from 2.9-4.4 Mood disorder Continue home mood stabilizers Class 2 obesity recommend low-calorie diet and exercise Full Code DVT Prophylaxis: Lovenox Patient will need continued inpatient hospitalization for further evaluation acute asthma exacerbation that has failed multiple treatments in the ED. Pt will receive IV steroids, breathing treatments, and close monitoring of labs and respiratory status. Quality Stroke Does the patient have a stroke diagnosis?: No VTE Prior VTE?: No VTE Risk Level:: Medical - moderate - high VTE Device Contraindication: Treatment Not Indicated VTE Drug Contraindication: N/A - Med Ordered
[2024-01-21] MEDS: Albuterol/Iprat 2.5/0.5MG 3 ML AMPUL.NEB INHALE ×3 (11:46→20:03)
[2024-01-21] MEDS: Benzonatate 100 MG CAPSULE PO ×2 (14:38→20:25)
[2024-01-21] MEDS: Azithromycin 500 MG in 0.9 % Sodium Chloride 250 ML 125 MG IV (22:03)
[2024-01-22] VITALS: BP 119/62; PULSE 92; RESP 20; TEMP 36.1
[2024-01-22] MEDS: 0.9 % Sodium Chloride Flush 3 ML SYRINGE IVFLUSH ×2 (01:05→07:39)
[2024-01-22 04:00] VITALS: BP 115/58; PULSE 84; RESP 20; TEMP 36.1; O2SAT 92
[2024-01-22] MEDS: Albuterol/Iprat 2.5/0.5MG 3 ML AMPUL.NEB INHALE ×2 (07:24→11:21)
[2024-01-22 07:25] VITALS: PULSE 84; RESP 20
[2024-01-22] MEDS: Cariprazine HCl 3 MG CAPSULE PO (07:37)
[2024-01-22] MEDS: methylPREDNISolone Sod Succ 40 MG/ML VIAL IVPUSH (07:37)
[2024-01-22] MEDS: buPROPion HCl XL 300 MG TAB.ER.24H PO (07:37)
[2024-01-22] MEDS: FLUoxetine HCl 20 MG CAPSULE 40 MG PO (07:37)
[2024-01-22] MEDS: buPROPion HCl XL 150 MG TAB.ER.24H PO (07:37)
[2024-01-22] MEDS: Multivitamin TABLET 1 TAB PO (07:38)
[2024-01-22] MEDS: Benzonatate 100 MG CAPSULE PO (07:38)
[2024-01-22 08:00] VITALS: BP 131/62; PULSE 75; RESP 17; TEMP 36.4; O2SAT 96
--- NOTE | 2024-01-22 10:43 | MHC.CM.PN ---
Addendum entered by Geno Matthews 01/22/24 11:48: Patient is discharged today to home self care. She will arrange for a ride home. Original Note: Per MD rounds discharge is anticipated tomorrow. DP home no services. Outpatient follow up with Pulmonary for Nucala injections. Patient will arrange for a ride home from S.O. or Mother.
[2024-01-22 11:20] VITALS: BP 130/74; PULSE 91; RESP 18; TEMP 36.3; O2SAT 96
[2024-01-22 11:23] VITALS: PULSE 91; RESP 18
--- NOTE | 2024-01-22 11:45 | PM.DS ---
DS: Providers Provider Date of Service: 01/22/24 Date of admission: 01/20/24 21:26 Date of discharge: 01/22/24 Primary care physician: MARLYS Hernandez DS: Diagnosis Discharge Diagnosis (1) Hypokalemia: Status: Acute (2) Exacerbation of allergic asthma: Status: Acute DS: Summary Hospital Course Hospital Course: From the history and physical by the admitting hospitalist, DAGOBERTO Honeycutt, 01/20/24: Pt is a 28-year-old female with a PMH significant for?asthma, anxiety, and depression who presents to the ED with?wheezing, difficulty breathing, and shortness of breath times 2 days. 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 On Monday patient hit her head on her deck while moving items and experienced a concussion. Had headache, lightheadedness, dizziness, and nausea and vomiting. Nausea and vomiting subsided on Monday, and headache has improved some over the course of the week. Patient then developed sore throat, cough productive of yellowish sputum, and nasal congestion. Strep throat head apparently been rampant in her son's daycare. She then presented to urgent care two days ago and was prescribed Augmentin for possible strep throat. Patient's respiratory symptoms worsened to where she was experiencing audible wheezing and had difficulty breathing and significant SOB which limited her daily activities. Home nebulizers and inhalers offered little to no relief. Denies chest pain/pressure, palpitations. No fever, chills. Currently no nausea, vomiting, abdominal pain. No acute vision changes. In the ED pt was afebrile but tachycardic up to 122, tachypneic up to 26, and satting at 96% on RA. Labs were significant for potassium of 2.9, otherwise grossly unremarkable. No leukocytosis. Stable H&H. Hepatic and renal function baseline. Tested negative for flu, RSV, COVID. CXR showed negative for acute cardiopulmonary disease. EKG demonstrated sinus tachycardia of 117 without significant evidence of ischemic changes. Pt was treated with DuoNebs x2, Solu-Medrol 125 mg, Mag sulfate, IVF, and potassium chloride 40 mEq p.o.. Pt will be admitted to the hospital under observation for treatment and further evaluation of acute asthma exacerbation that has failed multiple treatments in the ED. She was admitted to the medical-surgical unit and treated with iV steroids and nebulzied bronchodilators along with azithromycin. She improved and was discharged on an 8-day prednisone taper along with 3 more days of azithromycin. 28-year-old female with a PMH significant for?asthma, anxiety, and depression who presents to the ED with?wheezing, difficulty breathing, and shortness of breath times 2 days. Pt will be admitted to the hospital under observation for treatment and further evaluation of acute asthma exacerbation that has failed multiple treatments in the ED. Hypokalemia was likely albuterol effect and was repleted to normal. 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 Time Attestation Discharge Coordination Time (in mins): 35 Quality: Safe Use of Opioids Does Pt have an Active Cancer Diagnosis on the Problem List?: No Quality: Stroke Does the patient have a stroke diagnosis?: No Physical Exam Vital Signs: Vital Signs: Last Vital Signs Temp 97.4 F 01/22/24 11:20 Pulse 91 01/22/24 11:23 Resp 18 01/22/24 11:23 BP 130/74 01/22/24 11:20 Pulse Ox 96 01/22/24 11:20 O2 Del Method Room Air 01/22/24 11:20 BMI result Body Mass Index 35.0 Gen: in no acute distress HEENT: sclera anicteric, moist mucus membranes Neck: supple Lungs: clear to auscultation bilaterally Heart: regular rate and rhythm, no murmurs Abd: soft, non-tender, non-distended Ext: no edema Skin: warm/well-perfused Neuro: alert and oriented x3, no focal findings Psych: appropriate affect DS: Data Data Completed and Pending Completed studies during hospitalization [Text1]: Laboratory Results WBC 8.1 X10*3/uL (4.8-10.8) 01/20/24 16:31 RBC 4.57 X10*6/uL (4.20-5.50) 01/20/24 16:31 Hgb 13.5 g/dl (12.0-16.0) 01/20/24 16:31 Hct 39.0 % (37.0-47.0) 01/20/24 16:31 MCV 85.3 fL (80.0-98.0) 01/20/24 16:31 MCH 29.5 pg (27.0-33.0) 01/20/24 16:31 MCHC 34.6 g/dl (31.0-35.0) 01/20/24 16:31 RDW 12.4 % (11.0-16.0) 01/20/24 16:31 Plt Count 322 X10*3/uL (160-400) 01/20/24 16:31 MPV 10.0 fL (9.4-12.3) 01/20/24 16:31 Immature Gran % (Auto) 0.4 % (0.0-0.4) 01/20/24 16: Neut % (Auto) 45.2 % (45-73) 01/20/24 16:31 Lymph % (Auto) 37.2 % (20-40) 01/20/24 16:31 [place] % (Auto) 10.7 % (2-11) 01/20/24 16:31 Eos % (Auto) 5.8 % (0-4) H 01/20/24 16:31 Baso % (Auto) 0.7 % (0-2) 01/20/24 16:31 Lymph # (Auto) 3.0 X10*3/uL (1.2-4.9) 01/20/24 16:31 [place] # (Auto) 0.9 X10*3/uL (0.1-1.2) 01/20/24 16:31 Eos # (Auto) 0.5 X10*3/uL (0.0-0.4) H 01/20/24 16:31 Baso # (Auto) 0.1 X10*3/uL (0.0-0.2) 01/20/24 16:31 Abs Immat Gran (auto) 0.03 X10*3/uL (0.00-0.03) 01/20/24 16:31 Absolute Neuts (auto) 3.6 x10*3/uL (2.0-8.3) 01/20/24 16:31 Absolute Nucleated RBC 0.000 X10*3/uL (0.0-0.012) 01/20/24 16:31 Nucleated RBC % (auto) 0.0 /100WBC (0.0-0.2) 01/20/24 16:31 Hold Purple Top SEE NOTE 01/21/24 06:17 Sodium 141 mmol/L (135-145) 01/21/24 06:17 Potassium 4.4 mmol/L (3.3-5.1) D 01/21/24 06:17 Chloride 109 mmol/L (96-108) H 01/21/24 06:17 Carbon Dioxide 21 mmol/L (22-29) L 01/21/24 06:17 Anion Gap 15 (12-20) 01/21/24 06:17 BUN 9 mg/dL (9-16) 01/21/24 06:17 Creatinine 0.74 mg/dL (0.5-1.4) 01/21/24 06:17 Estim Creat Clear Calc 120.2 01/21/24 06:17 Estimated GFR > 60 01/21/24 06:17 Random Glucose 138 mg/dL (60-115) H 01/21/24 06:17 Calcium 10.2 mg/dL (8.4-10.2) D 01/21/24 06:17 Magnesium 1.9 mg/dL (1.6-2.6) 01/20/24 16:31 Total Bilirubin 0.3 mg/dL (0.0-1.0) 01/20/24 16:31 AST 25 U/L (5-31) 01/20/24 16:31 ALT 17 U/L (0-31) 01/20/24 16:31 Alkaline Phosphatase 76 U/L (39-117) 01/20/24 16:31 Total Protein 7.8 g/dL (6.5-8.0) 01/20/24 16:31 Albumin 4.3 g/dL (3.5-5.0) 01/20/24 16:31 Influenza Type A (PCR) NEGATIVE (Negative) 01/20/24 16:31 Influenza Type B (PCR) NEGATIVE (Negative) 01/20/24 16:31 RSV RNA Qual (PCR) NEGATIVE (Negative) 01/20/24 16:31 SARS-CoV-2 RNA (RT-PCR) NEGATIVE (Negative) 01/20/24 16:31 Impressions Chest X-Ray 01/20/24 15:50 IMPRESSION: No radiographic evidence of acute cardiopulmonary disease Discharge Plan Discharge Anticipated Discharge Date/Time: 01/22/24 11:17 Patient Disposition: Home, Self-Care Discharge Diagnosis: allergic asthma exacerbation Referrals: Israel Antony FNP- [Primary Care Provider] - 1 Week Luis Manuel Osuna MD [Physician] - 1 Week Discharge Medications: New prednisone 10 mg tablet See Rx Instructions .ROUTE .COMPLEX Qty: 20 0RF Rx Instructions: 4 tabs daily x 2 days, then 3 tabs daily x 2 days, then 2 tabs daily x 2 days, then 1 tab daily x 2 days, then stop azithromycin 250 mg tablet 250 mg PO DAILY 3 Days Qty: 3 0RF Rx Instructions: start on day 2 of therapy Continued fluoxetine 20 mg capsule 40 mg PO DAILY methylphenidate HCl 27 mg tablet extended release 24hr 27 mg PO DAILY bupropion HCl 300 mg tablet extended release 24 hr 300 mg PO DAILY Rx Instructions: with 150 mg bupropion HCl 150 mg tablet extended release 24 hr 150 mg PO DAILY Rx Instructions: with 300 mg PNV cmb#[id number]-ferrous fumarate-FA [] 28 mg iron- 800 mcg tablet 1 tab PO DAILY Vraylar 3 mg capsule 3 mg PO DAILY lorazepam 0.5 mg tablet 0.25 mg PO DAILY PRN (Reason: Anxiety) albuterol sulfate 2.5 mg /3 mL (0.083 %) solution for nebulization 2.5 mg inhalation Q6H PRN (Reason: wheezing) albuterol sulfate 90 mcg/actuation HFA aerosol inhaler 2 puff INHALATION Q4-6H PRN (Reason: wheezing) acetaminophen [Tylenol] 325 mg Tablet 650 mg PO Q6H PRN (Reason: Pain) (DME) nebulizers Misc See Rx Instructions .Route Rx Instructions: As directed Discharge Orders: Discharge Order (Routine); Ordered 01/22/24 Ordered By: Claude Wise Diet: Advance to usual diet Activity on Discharge: As tolerated Stand Alone Forms: Patient Portal Discharge page Print Language: Eritrean Care Plan Goals: respiratory health Health Concerns: allergic asthma exacerbation Plan of Treatment: prednisone 10 mg tabs, taper as follows: 40 mg (4 tabs) daily x 2 days, then 30 mg (3 tabs) daily x 2 days, then 20 mg (2 tabs) daily x 2 days, then 10 mg (1 tab) daily x 2 days prednisone 250 mg daily for 3 more days follow up with Dr Osuna from [facility] Pulmonology to resume Nucala Please follow up with your primary care doctor within 1 week. Return to the hospital if you experience recurrent or worsening symptoms. Assessment: See Discharge Summary.
== END 2024-01-22 13:22 | disposition home or self-care (01) | DRG 203 ==
LOC: HO.ED 18:55 → HO.EDOVER 22:06 → HO.IMC 23:54
PROVIDERS: Physician Assistant Medical; Admitting Provider Student in an Organized Health Care Education/Training Program; Emergency Provider Emergency Medicine; PCP Nurse Practitioner Family; Visit Provider Family Medicine
DX: J45.901 Unspecified asthma with (acute) exacerbation (principal); E87.6 Hypokalemia; E66.8 Other obesity; Z68.35 Body mass index [BMI] 35.0-35.9, adult; Z20.822 Contact with and (suspected) exposure to COVID-19; Z79.899 Other long term (current) drug therapy
CPT/HCPCS: 0241U; 36415; 71046; 80048; 80053; 83735; 85025; 93005; 94640; 99222; 99285; J0456; J2919; J3475

== ENCOUNTER → 2024-01-20 18:49 | Outpatient (BNV) | payer OTHER, SELFPAY | PROVIDERS: Admitting Provider Student in an Organized Health Care Education/Training Program; Emergency Provider Emergency Medicine; PCP Nurse Practitioner Family; Visit Provider Internal Medicine Cardiovascular Disease | DX: R00.0 Tachycardia, unspecified (principal) | CPT/HCPCS: 93010 ==

== ENCOUNTER → 2024-01-20 21:26 | Outpatient (BNV) | payer OTHER, SELFPAY | PROVIDERS: Admitting Provider Student in an Organized Health Care Education/Training Program; Emergency Provider Emergency Medicine; PCP Nurse Practitioner Family; Visit Provider Hospitalist | DX: J45.901 Unspecified asthma with (acute) exacerbation (principal); E87.6 Hypokalemia | CPT/HCPCS: 99222; 99232; 99239 ==

== ENCOUNTER 2024-01-31 10:30 | Outpatient (AMB) | payer OTHER, SELFPAY ==
--- NOTE | 2024-01-31 11:10 | MHC.OFFVIS ---
Vital Signs 01/31/24 11:11 Height 5 ft 3 in Weight 200 lb 4 oz BMI 35.5 BP 118/70 Blood Pressure Location Rt brachial Position Sitting Pulse 90 Pulse Source Pulse Oximeter Pulse Oximetry (%) 97 Oxygen Delivery Method Room Air Intake Visit Reasons: Asthma Allergies guaifenesin [From ROBITUSSIN A-C] Allergy (Intermediate, Verified 01/31/24 11:15) RASH benztropine [Cogentin] Adverse Reaction (Intermediate, Verified 01/31/24 11:15) extrapyramidal symptoms lorazepam [From ATIVAN] Adverse Reaction (Intermediate, Verified 01/31/24 11:15) AGITATION methylprednisolone [From MEDROL] Adverse Reaction (Intermediate, Verified 01/31/24 11:15) tctile and visual hallucinations prazosin [PRAZOSIN] Adverse Reaction (Intermediate, Verified 01/31/24 11:15) DEPRESSION, hypotension From SEROQUEL Adverse Reaction (Intermediate, Uncoded 01/31/24 11:15) PARANOIA From ZOLOFT Adverse Reaction (Intermediate, Uncoded 01/31/24 11:15) HALLUCINATIONS HPI HPI Asthma: Details: Teresita is a pleasant 28 year old female, former smoker, with underlying asthma, anxiety and depression. She is followed by Dr. Osuna and presents today for a hospital follow up. She was recently evaluated in the ED for an asthma exacerbation, admitted 01/19-01/21. She presented with two day h/o worsening respiratory symptoms. In the ED she was afebrile but tachycardic up to 122, tachypneic up to 26, and satting at 96% on RA. No leukocytosis. Tested negative for flu, RSV, COVID. CXR negative. EKG demonstrated sinus tachycardia of 117 without significant evidence of ischemic changes. She was treated with DuoNebs x2, Solu-Medrol 125 mg, Mag sulfate, IVF, and potassium chloride 40 mEq p.o. In patient she was treated with duonebs, IV steroids and azithromycin. Ultimately she was discharged with an 8-day prednisone taper along with 3 more days of azithromycin. Of note, she did state she has been without symbicort for quite some time and restarted last week. Since discharge she reports feeling back to baseline, minimally requiring albuterol. 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 [facility] Medical History Pharyngitis Bilateral otitis media Missed period Breast abscess Vaginal candidiasis Otitis media Sinusitis STD exposure Cystitis Rash Yeast infection Vaginal discharge Sprain of left knee Dysuria Elevated fasting blood sugar Puncture wound of foot Eosinophilia Asthma Anxiety disorder Supraventricular tachycardia Purulent drainage of both ears through ear tube PMDD (premenstrual dysphoric disorder) Surgical History Mass of right breast History of placement of ear tubes [place] teeth extracted Hx of prior ablation treatment History of Family History Mother Hypertension Diabetes Maternal Grandfather Colon cancer Maternal Grandmother Spinal stenosis Diabetes Hypertension Other Mental health disorder Substance use disorder Social History Household Members: Significant Other and Children Housing: House Do you presently have visiting nurse or other home services: No Alcohol intake: current Alcohol intake frequency: holidays/special occasions only Patient Tobacco Use Status: Former Tobacco user e-Cigarette/Vaping Use: Former Use Second Hand Smoke Exposure: Yes Substance Use Type: Marijuana service: No Current occupational status: disabled Review of Systems Const Denies chills, Denies excessive sweating, Denies fever(s), Denies headache(s) and Denies night sweats Eyes Denies dry eyes, Denies irritation and Denies itchy eyes ENT Reports Normal hearing present, Denies headache(s), Denies nasal congestion, Denies nasal discharge, Denies post nasal drip and Denies sore throat Card Denies chest pain, Denies chest pain at rest, Denies chest pain with activity, Denies claudication, Denies leg edema, Denies dyspnea, Denies dyspnea on exertion, Denies orthopnea and Denies paroxysmal nocturnal dyspnea Resp Denies chest congestion, Denies cough, Denies excessive phlegm production, Denies pain on inspiration, Denies pain with cough, Denies dyspnea, Denies dyspnea on exertion, Denies stridor and Denies wheezing Musc Denies myalgias Neuro Reports Normal hearing present and Denies headache(s) Endo Denies excessive sweating Roderick/Lymph Denies lymphadenopathy Aller/Immun Denies itchy eyes, Denies seasonal rhinorrhea and Denies wheezing Physical Exam Vital Signs: Last Vital Signs Pulse 90 01/31/24 11:11 BP 118/70 01/31/24 11:11 Pulse Ox 97 01/31/24 11:11 Oxygen Delivery Method Room Air 01/31/24 11:11 BMI result Body Mass Index 35.5 Const General: cooperative, healthy appearing, comfortable, no acute distress, well developed and alert Nutritional Appearance: obese Orientation/consciousness: patient oriented x3 Limitations: no limitations HEENT Head: Yes normal to inspection, Yes normocephalic and Yes atraumatic Ears: hearing grossly normal bilaterally and external ears normal Eyes General: appearance normal, both eyes and all related structures Eyelids: Yes eyelids normal Sclerae: sclerae normal EOM: EOMs intact bilaterally Neck Neck: Yes normal visual inspection and Yes no lymphadenopathy Lymphatic: no lymphadenopathy noted Chest Chest palpation & inspection: normal inspection of the chest Resp Effort & Inspection: normal respiratory effort, able to speak in complete sentences, no audible wheezes, no cough, no stridor, not tachypneic, no tripod positioning and no use of accessory muscles Auscultation: clear to auscultation bilaterally and diminished lung sounds Cardio Jugular venous distension: no JVD Rate: regular rate Rhythm: regular rhythm Skin Other: warm, dry General skin exam: no rashes or lesions noted Neuro General: patient oriented x3 Cranial nerves: Yes Normal hearing present Cognition (Neuro): normal cognition Gait exam (Neuro): Normal gait present Extrem General: Yes normal to inspection, Yes capillary refill normal, Yes no clubbing, cyanosis or edema and Yes no pedal edema Psych Appearance: grossly normal and well kempt Speech and movement: Normal speech and movement present and Clear speech present Affect: normal affect Attitude: cooperative Thought process: Normal thought process present Thought content: Normal thought content present Insight: Good insight present (Psych) Judgement: Good judgement present (Psych) Assessment & Plan Assessment & Plan (1) Asthma: Code(s): J45.909 - Unspecified asthma, uncomplicated Category: Medical Qualifiers: Asthma severity: severe Asthma persistence: persistent Asthma complication type: uncomplicated Qualified Code(s): J45.50 - Severe persistent asthma, uncomplicated Plan Teresita presents after hospital discharge 01/19-01/21 for an acute asthma exacerbation. After prednisone and azithromycin patient feels symptoms are back to baseline and feels controlled on current regimen. She did state that she had been without singulair and symbicort, requesting refills. Will enter this. Of note, she denies any psychiatric side effects with prednisone and singulair. At this time, she would like to hold off on Nucala, as she is attempting a third , but once able is interested in restarting. All questions were answered and patient is in agreement of plan. Will follow up for regularly scheduled appointment with Dr. Osuna. Medications: New albuterol sulfate 2.5 mg (3 mL) inhalation Q6H PRN 90 mL 3RF wheezing albuterol sulfate 90 mcg/actuation 2 puffs inhalation Q4-6H PRN 1 ea 3RF wheezing Refilled budesonide-formoterol 160-4.5 mcg/actuation 2 puffs inhalation BID 10.2 grams 11RF 30 days NS J44.9 - Chronic obstructive pulmonary disease, unspecified montelukast 10 mg PO DAILY 90 tabs 3RF J45.909 - Unspecified asthma, uncomplicated Coding Level of Care Code Est Pt Level 4 (16492) Diagnoses Severe persistent asthma without complication J45.50 Asthma severity: severe Asthma persistence: persistent Asthma complication type: uncomplicated
[2024-01-31 11:11] VITALS: BP 118/70; PULSE 90; O2SAT 97; BMI 35.5
== END 2024-01-31 11:52 | disposition home or self-care (01) ==
PROVIDERS: PCP Nurse Practitioner Family; Visit Provider Nurse Practitioner Family
DX: J45.50 Severe persistent asthma, uncomplicated (principal)
CPT/HCPCS: 99214

== ENCOUNTER → 2024-01-31 10:30 | Outpatient (BNVA) | payer OTHER, SELFPAY | PROVIDERS: PCP Nurse Practitioner Family; Visit Provider Nurse Practitioner Family | DX: J45.50 Severe persistent asthma, uncomplicated (principal) | CPT/HCPCS: 99212 ==

== ENCOUNTER 2024-05-23 08:08 | Outpatient (AMB) | payer OTHER, SELFPAY ==
[2024-05-23 08:10] VITALS: BP 110/64; PULSE 86; O2SAT 98
--- NOTE | 2024-05-23 08:10 | MHC.OFFWIV ---
Intake Vital Signs 05/23/24 08:10 Weight 206 lb BP 110/64 Blood Pressure Location Rt brachial Position Sitting Pulse 86 Pulse Source Pulse Oximeter Pulse Oximetry (%) 98 Oxygen Delivery Method Room Air Intake Visit Reasons: EP LT Knee swelling, pain, injured Intake Note: Patient here because she injured her knee on Monday and has been just trying to use it normally but she has been feeling pain and swelling of left knee. Patient Tobacco Use Status: Former Tobacco user Allergies guaifenesin [From ROBITUSSIN A-C] Allergy (Intermediate, Verified 05/23/24 08:12) RASH benztropine [Cogentin] Adverse Reaction (Intermediate, Verified 05/23/24 08:12) extrapyramidal symptoms lorazepam [From ATIVAN] Adverse Reaction (Intermediate, Verified 05/23/24 08:12) AGITATION methylprednisolone [From MEDROL] Adverse Reaction (Intermediate, Verified 05/23/24 08:12) tctile and visual hallucinations prazosin [PRAZOSIN] Adverse Reaction (Intermediate, Verified 05/23/24 08:12) DEPRESSION, hypotension From SEROQUEL Adverse Reaction (Intermediate, Uncoded 05/23/24 08:12) PARANOIA From ZOLOFT Adverse Reaction (Intermediate, Uncoded 05/23/24 08:12) HALLUCINATIONS Do you need a note to return to daycare/school/sports/work: No HPI HPI Comments History of Present Illness Details Patient is a 28-year-old female complaining of 5 days of left knee pain. She states she was cleaning her kitchen and was on her knees and when she went to stand up she has felt a pop in her left knee and it has been painful ever since. She has been limping around on it and using Tylenol and ice with no improvement in her symptoms. Patient tells me she has also 20 weeks . [facility] Medical History Pharyngitis Bilateral otitis media Missed period Breast abscess Vaginal candidiasis Otitis media Sinusitis STD exposure Cystitis Rash Yeast infection Vaginal discharge Sprain of left knee Dysuria Elevated fasting blood sugar Puncture wound of foot Eosinophilia Asthma Anxiety disorder Supraventricular tachycardia Purulent drainage of both ears through ear tube PMDD (premenstrual dysphoric disorder) Surgical History Mass of right breast History of placement of ear tubes [place] teeth extracted Hx of prior ablation treatment History of Family History Mother Hypertension Diabetes Maternal Grandfather Colon cancer Maternal Grandmother Spinal stenosis Diabetes Hypertension Other Mental health disorder Substance use disorder Social History Household Members: Significant Other and Children Housing: House Do you presently have visiting nurse or other home services: No Alcohol intake: current Alcohol intake frequency: holidays/special occasions only Patient Tobacco Use Status: Former Tobacco user e-Cigarette/Vaping Use: Former Use Second Hand Smoke Exposure: Yes Substance Use Type: Marijuana service: No Current occupational status: disabled Review of Systems Const All systems reviewed & are unremarkable except as noted in HPI and below Physical Exam Vital Signs: Last Vital Signs Pulse 86 05/23/24 08:10 BP 110/64 05/23/24 08:10 Pulse Ox 98 05/23/24 08:10 Oxygen Delivery Method Room Air 05/23/24 08:10 Const General: cooperative, healthy appearing, comfortable and no acute distress Orientation/consciousness: patient oriented x3 Limitations: no limitations HEENT Head: Yes normal to inspection Resp Effort & Inspection: normal respiratory effort and able to speak in complete sentences Neuro General: patient oriented x3 Extrem Left lower extremity: knee Details: tenderness Location: of the patella Details: medially, of the medial joint line, of the pre-patellar area and of the infrapatellar area, swelling (medial knee) Location: of the pre-patellar area, normal ROM and knee ligament exam normal; no abrasions, no lacerations, no ecchymosis, no deformity and no unusual warmth Assessment & Plan Assessment & Plan (1) Pain of left knee after injury: Code(s): M25.562 - Pain in left knee Plan: likely joint effusion, no trauma, as patient is 20 weeks , I will not get an x-ray today. I Roberto wrapped her knee advised her to rest it use ice and Aleve ATC. Sent referral to Orthopedics if her pain persists, if it resolves, she can cancel the appointment. Plan See above Orders: Referrals Orthopedics Referral M25.562 - Pain in left knee Coding Level of Care Code Est Pt Level 4 (33006) Diagnoses Pain of left knee after injury M25.562
== END 2024-05-23 08:56 | disposition home or self-care (01) ==
PROVIDERS: PCP Nurse Practitioner Family; Visit Provider Physician Assistant
DX: M25.562 Pain in left knee (principal)

== ENCOUNTER → 2024-05-23 08:08 | Outpatient (BNVA) | payer OTHER, SELFPAY | PROVIDERS: PCP Nurse Practitioner Family; Visit Provider Physician Assistant | DX: M25.562 Pain in left knee (principal) | CPT/HCPCS: 99212 ==

== ENCOUNTER 2024-05-24 09:54 | Outpatient (AMB) | payer OTHER, SELFPAY ==
[2024-05-24 10:51] VITALS: BP 112/68; PULSE 89; O2SAT 97; BMI 36.3
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
== END 2024-05-24 11:12 | disposition home or self-care (01) ==
LOC: HO.HPS 09:55
PROVIDERS: PCP Nurse Practitioner Family; Visit Provider Hospitalist
DX: J45.50 Severe persistent asthma, uncomplicated (principal); D72.10 Eosinophilia, unspecified; F41.9 Anxiety disorder, unspecified; F32.9 Major depressive disorder, single episode, unspecified; G47.33 Obstructive sleep apnea (adult) (pediatric)
CPT/HCPCS: 99214

== ENCOUNTER → 2024-05-24 09:54 | Outpatient (BNVA) | payer OTHER, SELFPAY | PROVIDERS: PCP Nurse Practitioner Family; Visit Provider Hospitalist | DX: O99.512 Diseases of the respiratory system complicating pregnancy, second trimester (principal); J45.50 Severe persistent asthma, uncomplicated; J82.83 Eosinophilic asthma; O99.342 Other mental disorders complicating pregnancy, second trimester; F32.9 Major depressive disorder, single episode, unspecified; F41.9 Anxiety disorder, unspecified; G47.33 Obstructive sleep apnea (adult) (pediatric); Z3A.20 20 weeks gestation of pregnancy | CPT/HCPCS: 99212 ==

== ENCOUNTER 2024-06-17 10:07 | Outpatient (REF) | payer OTHER, SELFPAY | END 2024-06-17 10:08 | disposition home or self-care (01) | LOC: HO.HOSX 10:07 | PROVIDERS: Visit Provider Orthopaedic Surgery | DX: Z13.89 Encounter for screening for other disorder (principal) ==

== ENCOUNTER 2024-08-16 09:25 | Emergency (ER) | payer OTHER, SELFPAY ==
[2024-08-16 10:04] VITALS: BP 124/70; PULSE 100; RESP 16; TEMP 36.8; O2SAT 97; BMI 35.4
--- NOTE | 2024-08-16 12:07 | ED_ITS ---
HPI - General Adult General Chief complaint: General Medical Stated complaint: Flu+ , ear infection, not feeling better Time Seen by Provider: 08/16/24 12:07 Source: patient Mode of arrival: ambulatory Limitations: no limitations History of Present Illness ED Provider: Jordana Brunson PA-C Related Data Home Medications ?Medication ?Instructions ?Recorded ?Confirmed nebulizers 09/18/23 10/17/23 bupropion HCl 150 mg 24 hr tablet, 150 mg PO DAILY 01/20/24 05/24/24 extended release bupropion HCl 300 mg 24 hr tablet, 300 mg PO DAILY 01/20/24 05/24/24 extended release cariprazine 3 mg capsule (Vraylar) 3 mg PO DAILY 01/20/24 05/24/24 fluoxetine 20 mg capsule 40 mg PO DAILY 01/20/24 05/24/24 lorazepam 0.5 mg tablet 0.25 mg PO DAILY PRN Anxiety 01/20/24 01/21/24 methylphenidate HCl 27 mg 27 mg PO DAILY 01/20/24 01/21/24 tablet,extended release 24 hr vit no.95-ferrous 1 tab PO DAILY 01/20/24 05/24/24 fumarate 28 mg-folic acid 800 mcg tablet () acetaminophen 325 mg tablet 650 mg PO Q6H PRN Pain 01/21/24 01/21/24 (Tylenol) Previous Rx's ?Medication ?Instructions ?Recorded montelukast 10 mg tablet 10 mg PO DAILY #90 tabs 01/31/24 albuterol sulfate 2.5 mg/3 mL 2.5 mg (3 mL) inhalation Q6H PRN 05/24/24 (0.083 %) solution for nebulization wheezing #180 mL albuterol sulfate 90 mcg/actuation 2 puff inhalation Q4-6H PRN 05/24/24 aerosol inhaler wheezing #1 ea budesonide-formoterol HFA 160 2 puff inhalation BID 30 days 05/24/24 mcg-4.5 mcg/actuation aerosol #10.2 grams inhaler tiotropium bromide 2.5 2 puff inhalation DAILY 30 days #1 05/24/24 mcg/actuation mist for inhalation ea (Spiriva Respimat) tiotropium bromide 1.25 2 puff inhalation DAILY #4 grams 06/17/24 mcg/actuation mist for inhalation (Spiriva Respimat) Allergies Allergy/AdvReac Type Severity Reaction Status Date / Time guaifenesin Allergy Intermediate RASH Verified 08/16/24 10:07 [From ROBITUSSIN A-C] benztropine [Cogentin] AdvReac Intermediate extrapyramidal Verified 08/16/24 10:07 symptoms lorazepam [From ATIVAN] AdvReac Intermediate AGITATION Verified 08/16/24 10:07 methylprednisolone AdvReac Intermediate tctile and Verified 08/16/24 10:07 [From MEDROL] visual hallucinations prazosin [PRAZOSIN] AdvReac Intermediate DEPRESSION, Verified 08/16/24 10:07 hypotension From SEROQUEL AdvReac Intermediate PARANOIA Uncoded 08/16/24 10:07 From ZOLOFT AdvReac Intermediate HALLUCINATI Uncoded 08/16/24 10:07 [facility] Past Medical History Medical History Pharyngitis Bilateral otitis media Missed period Breast abscess Vaginal candidiasis Otitis media Sinusitis STD exposure Cystitis Rash Yeast infection Vaginal discharge Sprain of left knee Dysuria Elevated fasting blood sugar Puncture wound of foot Eosinophilia Asthma Anxiety disorder Supraventricular tachycardia Purulent drainage of both ears through ear tube PMDD (premenstrual dysphoric disorder) Surgical History Mass of right breast History of placement of ear tubes [place] teeth extracted Hx of prior ablation treatment History of Family History Family History Mother Hypertension Diabetes Maternal Grandfather Colon cancer Maternal Grandmother Spinal stenosis Diabetes Hypertension Other Mental health disorder Substance use disorder Social History Social History (Updated 05/24/24 @ 10:56 by Samara Campbell LPN) Household Members: Significant Other and Children Housing: House Do you presently have visiting nurse or other home services: No Alcohol intake: current Alcohol intake frequency: holidays/special occasions only Patient Tobacco Use Status: Former Tobacco user e-Cigarette/Vaping Use: Former Use Second Hand Smoke Exposure: Yes Substance Use Type: Marijuana Do you have a plan to hurt others: No Plan service: No Current occupational status: disabled Physical Exam ED Vital Signs: Vital Signs - 24 hr 08/16/24 10:04 Temperature 98.3 F Pulse Rate 100 Respiratory Rate 16 Blood Pressure 124/70 Pulse Oximetry 97 Oxygen Delivery Method Room Air BMI result Body Mass Index 35.4 Discharge Plan Discharge Prescriptions: No Action Spiriva Respimat 1.25 mcg/actuation mist 2 puff inhalation DAILY Qty: 4 11RF fluoxetine 20 mg capsule 40 mg PO DAILY methylphenidate HCl 27 mg tablet extended release 24hr 27 mg PO DAILY bupropion HCl 300 mg tablet extended release 24 hr 300 mg PO DAILY Rx Instructions: with 150 mg bupropion HCl 150 mg tablet extended release 24 hr 150 mg PO DAILY Rx Instructions: with 300 mg PNV cmb#95-ferrous fumarate-FA [] 28 mg iron- 800 mcg tablet 1 tab PO DAILY Vraylar 3 mg capsule 3 mg PO DAILY lorazepam 0.5 mg tablet 0.25 mg PO DAILY PRN (Reason: Anxiety) acetaminophen [Tylenol] 325 mg Tablet 650 mg PO Q6H PRN (Reason: Pain) (DME) nebulizers Misc See Rx Instructions .Route Rx Instructions: As directed montelukast 10 mg tablet 10 mg PO DAILY Qty: 90 3RF Spiriva Respimat 2.5 mcg/actuation mist 2 puff inhalation DAILY 30 Days Qty: 1 11RF albuterol sulfate 2.5 mg /3 mL (0.083 %) solution for nebulization 2.5 mg inhalation Q6H PRN (Reason: wheezing) Qty: 180 3RF albuterol sulfate 90 mcg/actuation HFA aerosol inhaler 2 puff INHALATION Q4-6H PRN (Reason: wheezing) Qty: 1 11RF budesonide-formoterol 160-4.5 mcg/actuation HFA aerosol inhaler 2 puff inhalation BID 30 Days Qty: 10.2 11RF Print Language: Macanese
--- NOTE | 2024-08-16 14:40 | PC.NURSE ---
PT WAS CALLED FOR ROOM ASSIGNMENT X 3 @1210,1230,1357 WITH NO ANSWER.
--- OUTSIDE RECORDS SUMMARY | 2024-08-16 16:36 | XMS_ITS | Patient Health Record ---
Author Organization [facility] Address [address] [place] [id number] Care Team Providers Care Street Sweeper Operator Name Role Phone Gil Coffman MD Primary Care Provider Kyle Mendez Jr Unavailable ALLERGIES Allergen (clinical drug ingredient) Drug/Non Drug Allergy documented on EMR Reaction Allergy Type Onset Date Status Robitussin DM Unknown Drug Allergy Act joanne prazosin Prazosin HCl Unknown Drug Allergy Acti ve methylprednisolone Medrol Unknown Drug Allergy Active Cogentin Unknown Drug Allergy Active aripiprazole Abilify Unknown Drug Allergy Acti ve sertraline Zoloft Unknown Drug Allergy Active quetiapine Seroquel Unknown Drug Allergy Active REASON FOR REFERRAL No Information MEDICATIONS Medication SIG (Take, Route, Frequency, Duration) Notes Start Date End Date Status Omeprazole 20 MG 1 capsule Orally Onc e a day for 30 day(s) 01/15/2020 Active ARIPiprazole 2 MG 1 tablet Orally Once a day Active Wellbutrin SR 150 MG 1 tablet Orally Twi ce a day Active MiraLax (colon prep) 8.3 ounce ((238) grams mixed with Gatorade or Crystal Light orally begin at 5:00 p.m. the day before the procedure for 1 day 01/15/2020 Active PROzac 50 1 capsule in the mor arnie Orally Once a day Active traZODone HCl 50 MG 1 tablet at bedtime as needed Orally Once a day Active SOCIAL HISTORY Sex Assigned At : Social History Observation Description Sex Assigned At Unknown PROBLEMS Problem Type ICD Code Onset Dates Problem Status W/U Status Risk SNOMED Code Notes Problem Rectal bleeding (K62.5) Active confirmed 54274523 Problem Gastroesophageal reflux disease without esophagitis (K21.9) Active confirmed 645895668 Problem Constipation, unspecified constipation type (K59.00) Active confirmed 85414914 Encounters Encounter Location Date Provider Diagnosis [facility] [address] [place] [address] 12/08/2023 Kyle Hernandez Jr [facility] [address] [place] [address] 12/08/2023 Kyle Hernandez Jr PLAN OF TREATMENT Future Test Test Name Order Date UPPER GI ENDOSCOPY 01/15/2020 COLONOSCOPY 01/15/2020 Insurance Providers Payer Name Payer Address Payer Phone Subscriber Number Group Number Insured Name Patient Relationship to Insured Coverage Start Date Coverage End Date [facility] [address] [place] [address] [id number] KLAUDIA BRANHAM Self - patient is the insured MEDICAL (GENERAL) HISTORY Medical History History ICD Code SVT status post ablation anxiety/depression substance abuse currently in remission hepatitis C treated with Mavyret PTSD hypertension Surgical History Surgery Date(Month/Year) MYRINGOTOMY 1997 CARDIAC ABLATION 2016 2019
--- OUTSIDE RECORDS SUMMARY | 2024-08-16 16:36 | XMS_ITS ---
Author Organization [facility] Address [address] [place] [address] Care Team Providers Care Chief Counsel Name Role Phone Gil Coffman MD Primary Care Provider Kyle Mendez Jr REASON FOR VISIT Pt no show Encounters Encounter Location Date Provider Diagnosis [facility] [address] [place] [id number] 12/08/2023 Kyle Hernandez Jr PLAN OF TREATMENT No Information
--- OUTSIDE RECORDS SUMMARY | 2024-08-16 16:36 | XMS_ITS | Clinical Summary ---
Author Organization [facility] Address [address] [place] [address] Care Team Providers Care Kelly Machine Operator Name Role Phone Unavailable Primary Care Provider Unavailabl e Social History Tobacco Use Types Packs/Day Years Used Date Smoking Tobacco: Never Assessed Sex and Gender Information Value Date Recorded Sex Assigned at Not on file Gender Identity Not on file Sexual Orientation Not on file Plan of Treatment Health Maintenance Due Date Last Done Comments DTaP,Tdap,and Td Vaccines (1 - Tdap) 12/15/2014 Hepatitis B Vaccines (1 of 3 - 19+ 3-dose series) 12/15/2014 Cervical Cancer Screening: P ap Smear 12/15/2016 COVID-19 Vaccine ( - 2023-2 5 season) 2024 Influenza Vaccine (#1) 2024 HIB Vaccines Aged Out No longer eligi ble based on patient's age to complete this topic HPV Vaccines Aged Out No longer eligi ble based on patient's age to complete this topic Hepatitis A Vaccines Aged Out No long er eligible based on patient's age to complete this topic IPV Vaccines Aged Out No longer eligi ble based on patient's age to complete this topic MMR Vaccines Aged Out No longer eligi ble based on patient's age to complete this topic Meningococcal ACWY Vaccine Aged Out N o longer eligible based on patient's age to complete this topic Pneumococcal Vaccine: Pediat rics (0 to 5 Years) and At-Risk Patients (6 to 64 Years) Aged Out No longer eligible b ased on patient's age to complete this topic RSV Immunization Patients Un daryl 20 months Aged Out No longer eligible b ased on patient's age to complete this topic Varicella Vaccines Aged Out No longer eligible based on patient's age to complete this topic
--- OUTSIDE RECORDS SUMMARY | 2024-08-16 16:36 | XMS_ITS ---
Author Organization [facility] Address [address] [place] [phone] Care Team Providers Care Media Assistant Name Role Phone Gil Coffman MD Primary Care Provider Kyle Mendez Jr [phone] REASON FOR VISIT Patient presents today for abdominal pain,rectal bleeding Encounters Encounter Location Date Provider Diagnosis [facility] [address] [place] [phone] 12/08/2023 Kyle Hernandez Jr PLAN OF TREATMENT No Information
== END 2024-08-16 16:00 | disposition left against medical advice (07) ==
LOC: HO.ED 15:50
PROVIDERS: Emergency Provider Emergency Medicine; PCP Nurse Practitioner Family
DX: H92.01 Otalgia, right ear (principal)
CPT/HCPCS: 99281

== ENCOUNTER → 2024-08-17 09:05 | Outpatient (BNVA) | payer OTHER, SELFPAY | PROVIDERS: PCP Nurse Practitioner Family | DX: H66.001 Acute suppurative otitis media without spontaneous rupture of ear drum, right ear (principal); J10.1 Influenza due to other identified influenza virus with other respiratory manifestations ==

== ENCOUNTER 2024-11-29 09:35 | Outpatient (AMB) | payer OTHER, SELFPAY ==
[2024-11-29 09:54] VITALS: BP 118/76; PULSE 82; O2SAT 96; BMI 36.3
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
--- OUTSIDE RECORDS SUMMARY | 2024-11-29 09:54 | XMS_ITS | Clinical Summary ---
Author Organization [facility] ity Address [address] [place] [address] Care Team Providers Care Incubator Tender Name Role Phone Unavailable Primary Care Provider Unavailabl e Social History Tobacco Use Types Packs/Day Years Used Date Smoking Tobacco: Never Assessed Comments Unknown Sex and Gender Information Value Date Recorded Sex Assigned at Not on file Legal Sex Female 3:40 PM EST Gender Identity Not on file Sexual Orientation Not on file Plan of Treatment Health Maintenance Due Date Last Done Comments DTaP,Tdap,and Td Vaccines (1 - Tdap) 12/15/2014 Hepatitis B Vaccines (1 of 3 - 19+ 3-dose series) 12/15/2014 Cervical Cancer Screening: P ap Smear 12/15/2016 COVID-19 Vaccine (2023-2 5 season) 2024 Influenza Vaccine (Season Ended) 2025 HIB Vaccines Aged Out No longer eligi [...] patient's age to complete this topic Meningococcal B Vaccine Aged Out No l onger eligible based on patient's age to complete [...]
--- OUTSIDE RECORDS SUMMARY | 2024-11-29 09:55 | XMS_ITS | Patient Health Record ---
Author Organization [facility] Address [address] [place] [phone] Care Team Providers Care Credit Risk Analyst Name Role Phone Gil Coffman MD Primary Care Provider Kyle Mendez Jr Unavailable [phone] Allergies Allergen (clinical drug ingredient) Drug/Non Drug Allergy documented on EMR Reaction Allergy Type Onset Date Status Robitussin DM Unknown Drug Allergy Act joanne prazosin Prazosin HCl Unknown Drug Allergy Acti ve methylprednisolone Medrol Unknown Drug Allergy Active Cogentin Unknown Drug Allergy Active aripiprazole Abilify Unknown Drug Allergy Acti ve sertraline Zoloft Unknown Drug Allergy Active quetiapine Seroquel Unknown Drug Allergy Active Reason For Referral No Information Medications Medication SIG (Take, Route, Frequency, Duration) Notes [...] as needed Orally Once a day Active Problems Problem Type SNOMED Code ICD Code Onset Dates Problem Status W/U Status Risk Notes Problem 48407105 Rectal bleeding (K62.5) Active confirmed Problem 433677295 Gastroesophageal reflux disease without esophagitis (K21.9) Active confirmed Problem 82264145 Constipation, unspecified constipation type (K59.00) Active confirmed Encounters Encounter Location Date Provider Diagnosis [facility] [address] [place] [address] 12/08/2023 Kyle Hernandez Jr Plan Of Treatment Future Test Test Name Order Date UPPER GI ENDOSCOPY 01/15/2020 COLONOSCOPY 01/15/2020 Insurance Providers Payer Name Payer Address Payer Phone Subscriber Number Group Number Insured Name Patient Relationship to Insured Coverage Start Date Coverage End Date [facility] [address] [place] [address] [id number] KLAUDIA BRANHAM Self - patient is the insured Medical (General) History Medical History History ICD Code SVT status post ablation anxiety/depression substance abuse currently in remission hepatitis C treated with Mavyret PTSD hypertension Surgical History Surgery Date(Month/Year) MYRINGOTOMY 1997 CARDIAC ABLATION 2016 2019
--- OUTSIDE RECORDS SUMMARY | 2024-11-29 09:55 | XMS_ITS ---
Author Organization [facility] Address [address] [place] [phone] Care Team Providers Care Program Supervisor Name Role Phone Gil Coffman MD Primary Care Provider Kyle Mendez Jr REASON FOR VISIT Patient presents today for abdominal pain,rectal bleeding Encounters Encounter Location Date Provider Diagnosis [facility] [address] [facility] [address] [place] [phone] 12/08/2023 Kyle Hernandez Jr Plan Of Treatment No Information Progress Notes * YONASKLAUDIA ADOB:1995 (28 yo F)Acc No.[id number]:12/08/2023 Progress Notes Patient:?KLAUDIA BRANHAM Provider:?Kyle Hernandez MD :1995???Age:27 Y???Sex:Female D ate:12/08/2023 Address:[address] [facility] [id number] Pcp:Gil Coffman MD Subjective: * Chief Complaints: * ???1. Patient presents today for abdominal pain,rectal bleeding. * Medical History:? Objective: * Vitals:? Assessment: Plan: * Treatment: * * The named appointment provid er may or may not be the originator of this progress note, and it is not deemed complete until electronically signed by the appointment provider. Sign off status: Pending * Provider:?Kyle Hernandez MD Date:?0 12/08/2023 Generated for Teodora duff/Obdulio/Andrea on:?11/29/2024 09:54 AM EDT
--- OUTSIDE RECORDS SUMMARY | 2024-11-29 09:55 | XMS_ITS ---
Author Organization [facility] Address [address] [place] [address] Care Team Providers Care Briquette Maker Name Role Phone Gil Coffman MD Primary Care Provider Kyle Mendez Jr REASON FOR VISIT Pt no show Encounters Encounter Location Date Provider Diagnosis [facility] [address] [place] [phone] 12/08/2023 Kyle Hernandez Jr Plan Of Treatment No Information Progress Notes * KLAUDIA BRANHAM ADOB:1995 (27 yo F)Acc No.[id number]:12/08/2023 Patient:?YONAS KLAUDIA Stratton :1995???Age:27 Y???Sex:Female Address:[address] [facility] [place], [address] * true * Date:? Generated for Mikii sherin/Obdulio/eTransmitting on:?11/29/2024 09:54 AM EDT
== END 2024-11-29 10:14 | disposition home or self-care (01) ==
LOC: HO.HPS 09:36
PROVIDERS: PCP Nurse Practitioner Family; Visit Provider Hospitalist
DX: J45.51 Severe persistent asthma with (acute) exacerbation (principal); D72.10 Eosinophilia, unspecified; F41.9 Anxiety disorder, unspecified; F32.9 Major depressive disorder, single episode, unspecified; G47.33 Obstructive sleep apnea (adult) (pediatric)
CPT/HCPCS: 99214

== ENCOUNTER → 2024-11-29 09:35 | Outpatient (BNVA) | payer OTHER, SELFPAY | PROVIDERS: PCP Nurse Practitioner Family; Visit Provider Hospitalist | DX: J44.9 Chronic obstructive pulmonary disease, unspecified (principal); J45.51 Severe persistent asthma with (acute) exacerbation; F41.9 Anxiety disorder, unspecified; F32.9 Major depressive disorder, single episode, unspecified; D72.10 Eosinophilia, unspecified; G47.33 Obstructive sleep apnea (adult) (pediatric); Z87.891 Personal history of nicotine dependence | CPT/HCPCS: 99212 ==

== ENCOUNTER 2025-01-03 08:19 | Outpatient (REF) | payer OTHER, SELFPAY ==
[2025-01-03 08:33] LABS: MANUAL DIFF FLAG NO
[2025-01-03 08:46] LABS: Basophils Absolute Auto 0.1 X10*3/uL (0.0-0.2); Basophils Percent Auto 1.5 % (0-2); Eosinophils Absolute Auto 1.4 X10*3/uL (0.0-0.4); Eosinophils Percent Auto 17.2 % (0-4); Hematocrit 43.8 % (37.0-47.0); Hemoglobin 14.4 g/dl (12.0-16.0); Imm Gran Abs Auto 0.02 X10*3/uL (0.00-0.03); Imm Gran Pct Auto 0.2 % (0.0-0.4); Lymphocytes Absolute Auto 2.2 X10*3/uL (1.2-4.9); Lymphocytes Percent Auto 26.6 % (20-40); Mean Corpuscular HGB Conc 32.9 g/dl (31.0-35.0); Mean Corpuscular Hemoglobin 27.9 pg (27.0-33.0); Mean Corpuscular Volume 84.9 fL (80.0-98.0); Mean Platelet Volume 10.4 fL (9.4-12.3); Monocytes Absolute Auto 0.4 X10*3/uL (0.1-1.2); Monocytes Percent Auto 5.1 % (2-11); Neutrophils Percent Auto 49.4 % (45-73); Platelet Count 345 X10*3/uL (160-400); Red Blood Count 5.16 X10*6/uL (4.20-5.50); Red Cell Distribution Width 13.6 % (11.0-16.0); White Blood Count 8.2 X10*3/uL (4.8-10.8)
[2025-01-03 08:55] LABS: Appearance Urine Clear; Color Urine Yellow; Glucose Urine UA Negative (Negative); Leukocyte Esterase Urine Trace (Negative); Nitrite Urine Negative (Negative); Specific Gravity - Urine 1.025 (1.005-1.025); UMIC TRIGGER UACC YES; Urine Blood Negative (Negative); Urine Ketones Trace mg/dL (Negative); Urine Protein Trace mg/dL (Neg-Trace)
[2025-01-03 09:00] LABS: Bacteria Urine None Seen (None Seen); Hyaline Casts Urine 0-2 /LPF (0-2); RBC Urine 0-2 /HPF (0-2); WBC Urine 0-5 /HPF (0-5)
[2025-01-03 09:17] LABS: Alanine Aminotransferase 22 U/L (0-31); Albumin Level 4.7 g/dL (3.5-5.0); Alkaline Phosphatase 101 U/L (39-117); Anion Gap 11 (12-20); Aspartate Amino Transferase 24 U/L (5-31); Bilirubin Total 0.3 mg/dL (0.0-1.0); Blood Urea Nitrogen 10 mg/dL (9-16); Calcium 9.3 mg/dL (8.4-10.2); Carbon Dioxide 24 mmol/L (22-29); Chloride 108 mmol/L (96-108); Cholesterol 201 mg/dL (<200); Estimated Glomerular Filt Rate > 60; Glucose Fasting 88 mg/dL (60-99); HDL Cholesterol 36 mg/dL (>40); LDL Cholesterol Calculated 141 mg/dL (<100); Potassium 4.4 mmol/L (3.3-5.1); Sodium 139 mmol/L (135-145); Total Protein 7.7 g/dL (6.5-8.0); Triglycerides 123 mg/dL (<150)
[2025-01-03 09:25] LABS: Erythrocyte Sedimentation Rate 8 MM/HR (0-20)
[2025-01-03 09:37] LABS: TSH reflex Free T4 0.85 uIU/mL (0.32-4.0)
[2025-01-04 05:08] LABS: Alpha 1 Anti-trypsin 124 mg/dL (83-199)
[2025-01-06 23:03] LABS: Immunoglobulin E <2 kU/L (<OR=114)
== END 2025-01-03 08:20 | disposition home or self-care (01) ==
LOC: HO.LAB 08:19
PROVIDERS: Absent Provider Nurse Practitioner Family; PCP Nurse Practitioner Family; Visit Provider Hospitalist
DX: Z00.00 Encounter for general adult medical examination without abnormal findings (principal); Z13.6 Encounter for screening for cardiovascular disorders; J45.50 Severe persistent asthma, uncomplicated
CPT/HCPCS: 36415; 80053; 80061; 81001; 82103; 82785; 84443; 85025; 85652

== ENCOUNTER 2025-01-07 07:15 | Outpatient (AMB) | payer OTHER, SELFPAY ==
--- OUTSIDE RECORDS SUMMARY | 2025-01-07 07:18 | XMS_ITS | Clinical Summary ---
Author Organization [facility] ity Address [address] [place] [address] Care Team Providers Care Manager Portable Name Role Phone Unavailable Primary Care Provider [...]
--- NOTE | 2025-01-07 07:32 | MHC.PC.OV ---
Intake Visit Reasons: Discuss symptoms/lab results iPhone Allergies guaifenesin [From ROBITUSSIN A-C] Allergy (Intermediate, Verified 11/29/24 09:57) RASH benztropine [Cogentin] Adverse Reaction (Intermediate, Verified 11/29/24 09:57) extrapyramidal symptoms lorazepam [From ATIVAN] Adverse Reaction (Intermediate, Verified 11/29/24 09:57) AGITATION methylprednisolone [From MEDROL] Adverse Reaction (Intermediate, Verified 11/29/24 09:57) tctile and visual hallucinations prazosin [PRAZOSIN] Adverse Reaction (Intermediate, Verified 11/29/24 09:57) DEPRESSION, hypotension From SEROQUEL Adverse Reaction (Intermediate, Uncoded 08/17/24 09:15) PARANOIA From ZOLOFT Adverse Reaction (Intermediate, Uncoded 08/17/24 09:15) HALLUCINATIONS HPI Discuss symptoms/lab results iPhone HPI Details History of Present Illness The patient is a 29-year-old female presenting with mood swings, hot flashes, and hair loss following an emergency hysterectomy. Approximately three months ago, the patient underwent a rough delivery which resulted in an emergency hysterectomy due to aggressive placental issues (placenta accreta), although her ovaries were preserved. Since the surgery, she has experienced severe mood swings, hot flashes, changes in appetite, and excessive hair loss. She reports not feeling like herself and attributes these symptoms to the hysterectomy. The patient denies any suicidal or homicidal ideation and has been consistent with her psychiatric medications, which have not changed recently. She is currently under the care of a psychiatrist and a therapist. There is no current vaginal bleeding, fever, or chills, and she reports doing well otherwise. Review of Systems - General: Reports severe mood swings, hot flashes, changes in appetite, and excessive hair loss. - Psychiatric: Denies suicidal ideation, denies homicidal ideation. - Gynecological: No vaginal bleeding. - Constitutional: Denies fever, denies chills. Plan The patient is advised to follow up with her OBGYN for potential hormone replacement therapy and further hormone testing due to symptoms suggestive of surgical menopause. Efforts will be made to expedite her appointment, currently scheduled for three months from now, to address her symptoms sooner. Additional laboratory tests will be conducted to further evaluate her condition. The patient is encouraged to maintain her current psychiatric care and medication regimen, as there have been no recent changes in her psychiatric medications. Discussion Notes I discussed with the patient the likelihood that her symptoms are related to surgical menopause following her hysterectomy. We talked about the importance of hormone replacement therapy and the need for hormone testing, and I emphasized the need to expedite her OBGYN appointment. I reassured her about her current psychiatric care and encouraged her to continue with her current medications and therapy sessions. Patient Instructions - Follow up with your OBGYN as soon as possible for hormone testing and potential hormone replacement therapy. - Continue taking your current psychiatric medications and attend therapy sessions regularly. - Report any new or worsening symptoms to your healthcare provider immediately. [facility] Medical History Pharyngitis Bilateral otitis media Missed period Breast abscess Vaginal candidiasis Otitis media Sinusitis STD exposure Cystitis Rash Yeast infection Vaginal discharge Sprain of left knee Dysuria Elevated fasting blood sugar Puncture wound of foot Eosinophilia Asthma Anxiety disorder Supraventricular tachycardia Purulent drainage of both ears through ear tube PMDD (premenstrual dysphoric disorder) Surgical History Mass of right breast History of placement of ear tubes [place] teeth extracted Hx of prior ablation treatment History of Family History Mother Hypertension Diabetes Maternal Grandfather Colon cancer Maternal Grandmother Spinal stenosis Diabetes Hypertension Other Mental health disorder Substance use disorder Social History Household Members: Significant Other and Children Housing: House Do you presently have visiting nurse or other home services: No Alcohol intake: current Alcohol intake frequency: holidays/special occasions only Patient Tobacco Use Status: Former Tobacco user e-Cigarette/Vaping Use: Former Use Second Hand Smoke Exposure: Yes Substance Use Type: Marijuana service: No Current occupational status: disabled Questionnaire Thrive Questionnaire Date Thrive assessed: 01/21/24 AUDIT C Alcohol Use Questionnaire (AUDIT-C) 2. How many drinks containing alcohol do you have on a typical day when you are drinking?: 1 or 2 3. How often do you have six or more drinks on one occasion?: Never Total Score: 0 Physical exam (Primary Care) Tobacco/Smoking Status: Tobacco use Status Patient Tobacco Use Status Former Tobacco user 01/02/25 16:42 e-Cigarette/Vaping Use Former Use 01/02/25 16:42 Thrive Assessment: Date of Thrive Assessment Date Thrive assessed 01/21/24 01/02/25 16:42 Telehealth Telehealth Telehealth Platform: [facility] Location of provider rendering services: practice address Location of patient: address on file Patient Identification confirmed using: Name, : Yes Telehealth method: video Patient verbally consented to treatment: Yes Patient verbally consented to billing insurance company: Yes Patient informed of any privacy concerns related to visit: Yes Minutes spent on Phone/Video with Pt.: 12 Coding Level of Care Code Tele Est Pt Level 3 (31315) Diagnoses Placenta accreta O43.219 Mood swings R45.86 Alopecia L65.9 Assessment & Plan Assessment & Plan (1) Placenta accreta: Code(s): O43.219 - Placenta accreta, unspecified trimester Category: Medical (2) Mood swings: Code(s): R45.86 - Emotional lability Category: Medical (3) Alopecia: Code(s): L65.9 - Nonscarring hair loss, unspecified Category: Medical Plan . Orders: Orders Vitamin B6 Today L65.9 - Nonscarring hair loss, unspecified, R45.86 - Emotional lability Complete Blood Count Auto Diff Today L65.9 - Nonscarring hair loss, unspecified, R45.86 - Emotional lability Follicle Stimulating Hormone Today L65.9 - Nonscarring hair loss, unspecified, R45.86 - Emotional lability Estrogen Today L65.9 - Nonscarring hair loss, unspecified, R45.86 - Emotional lability Comprehensive Met. Panel Today L65.9 - Nonscarring hair loss, unspecified, O43.219 - Placenta accreta, unspecified trimester, R45.86 - Emotional lability Vitamin B12 and Folate Today L65.9 - Nonscarring hair loss, unspecified, R45.86 - Emotional lability Lutenizing Hormone Today L65.9 - Nonscarring hair loss, unspecified, R45.86 - Emotional lability TSH reflex Free T4 Today L65.9 - Nonscarring hair loss, unspecified, O43.219 - Placenta accreta, unspecified trimester, R45.86 - Emotional lability
== END 2025-01-07 08:59 | disposition home or self-care (01) ==
LOC: HO.HMCC 07:15
PROVIDERS: PCP Nurse Practitioner Family; Visit Provider Nurse Practitioner Family
DX: R45.86 Emotional lability (principal); L65.9 Nonscarring hair loss, unspecified; O43.219 Placenta accreta, unspecified trimester

== ENCOUNTER 2025-01-07 07:15 | Outpatient (REF) | payer OTHER, SELFPAY ==
[2025-01-07 13:16] LABS: MANUAL DIFF FLAG NO
[2025-01-07 13:35] LABS: Basophils Absolute Auto 0.1 X10*3/uL (0.0-0.2); Basophils Percent Auto 1.2 % (0-2); Eosinophils Absolute Auto 0.2 X10*3/uL (0.0-0.4); Eosinophils Percent Auto 2.2 % (0-4); Hematocrit 43.7 % (37.0-47.0); Hemoglobin 14.4 g/dl (12.0-16.0); Imm Gran Abs Auto 0.03 X10*3/uL (0.00-0.03); Imm Gran Pct Auto 0.4 % (0.0-0.4); Lymphocytes Absolute Auto 2.8 X10*3/uL (1.2-4.9); Lymphocytes Percent Auto 34.4 % (20-40); Mean Corpuscular Hemoglobin 27.5 pg (27.0-33.0); Mean Corpuscular Volume 83.6 fL (80.0-98.0); Mean Platelet Volume 10.9 fL (9.4-12.3); Monocytes Absolute Auto 0.5 X10*3/uL (0.1-1.2); Monocytes Percent Auto 6.6 % (2-11); Neutrophils Absolute Auto 4.4 x10*3/uL (2.0-8.3); Neutrophils Percent Auto 55.2 % (45-73); Platelet Count 372 X10*3/uL (160-400); Red Blood Count 5.23 X10*6/uL (4.20-5.50); Red Cell Distribution Width 13.5 % (11.0-16.0); White Blood Count 8.1 X10*3/uL (4.8-10.8)
[2025-01-07 13:50] LABS: Alanine Aminotransferase 21 U/L (0-31); Albumin Level 4.9 g/dL (3.5-5.0); Alkaline Phosphatase 109 U/L (39-117); Anion Gap 10 (12-20); Aspartate Amino Transferase 30 U/L (5-31); Bilirubin Total 0.3 mg/dL (0.0-1.0); Blood Urea Nitrogen 11 mg/dL (9-16); Calcium 9.9 mg/dL (8.4-10.2); Carbon Dioxide 27 mmol/L (22-29); Chloride 108 mmol/L (96-108); Estimated Glomerular Filt Rate > 60; Glucose Random 88 mg/dL (60-115); Potassium 4.3 mmol/L (3.3-5.1); Sodium 141 mmol/L (135-145); Total Protein 7.9 g/dL (6.5-8.0)
[2025-01-07 14:08] LABS: TSH reflex Free T4 1.22 uIU/mL (0.32-4.0)
[2025-01-07 14:15] LABS: Vitamin B12 542 pg/mL (200-900)
[2025-01-08 06:18] LABS: Follicle Stimulating Hormone 7.6 mIU/mL; Lutenizing Hormone 4.2 mIU/mL
[2025-01-11 18:58] LABS: Estrogen 131 pg/mL
[2025-01-12 14:48] LABS: Vitamin B6 26.2 ng/mL (2.1-21.7)
== END 2025-01-07 07:16 | disposition home or self-care (01) ==
LOC: HO.HMGCLDS 07:15
PROVIDERS: PCP Nurse Practitioner Family; Visit Provider Nurse Practitioner Family
DX: R45.86 Emotional lability (principal); O43.219 Placenta accreta, unspecified trimester; L65.9 Nonscarring hair loss, unspecified
CPT/HCPCS: 36415; 80053; 82607; 82672; 82746; 83001; 83002; 84207; 84443; 85025

== ENCOUNTER 2025-02-17 08:40 | Outpatient (AMB) | payer OTHER, SELFPAY ==
--- OUTSIDE RECORDS SUMMARY | 2025-02-17 09:03 | XMS_ITS | Patient Health Record ---
Author Organization [facility] Address [address] [place] [address] Care Team Providers Care Meat Smoker Name Role Phone Imelda Santiago NP Primary Care Provider Jennifer Jj Unavailable [phone] Allergies Allergen (clinical drug ingredient) Drug/Non Drug Allergy documented on EMR Reaction Allergy Type Onset Date Status aripiprazole Abilify Unknown Drug Allergy Acti ve methylprednisolone Medrol (Efrem) Unknown Drug Allergy Active Robitussin DM Unknown Drug Allergy Act joanne sertraline zoloft Unknown Drug Allergy Active Reason For Referral No Information Medications Medication SIG (Take, Route, Fr equency, Duration) Notes Start Date End Date Status traZODone HCl 150 MG Orally Active Jolivette Active Cephalexin 500 MG 1 tablet Orally Twic e a day; Duration: 07 days Active Vitamin B-2 Active Fish Oil Active Wellbutrin 150 mg Ac tive Topamax 150 mg Active risperiDONE 0.25 MG 2 tablets Orally Once a day Active Prozac 40 mg Active Social History Alcohol Screen Question Answer Notes Did you have a drink containing alcohol in the p ast year? No Points 0 Interpretation Negative Tobacco use other than smoking: Question Answer Notes Are you an other tobacco user? No Problems No Known Problems Plan Of Treatment Pending Test Test Name Order Date 49915-[id number] Plate 05/16/2017 [id number] Plate Each Additional Medical (General) History Medical History History ICD Code Anxiety Depression Headaches ptsd eating disorder Surgical History Surgery Date(Month/Year) cardiac ablasion myomectomy wisdom teeth extraction Ingrown Toe Nails - PRADEEP 05/16/17
--- OUTSIDE RECORDS SUMMARY | 2025-02-17 09:03 | XMS_ITS | Clinical Summary ---
Author Organization [facility] Address [address] [place] [address] Care Team Providers Care Track And Field Coach Name Role Phone Unavailable Primary Care Provider [...] 12/15/2016 COVID-19 Vaccine (2023-2 5 season) 2024 Depression Screening 07/24/2024 Influenza Vaccine (#1) 2025 HIB Vaccines Aged Out No longer [...] 5 Years) and At-Risk Patients (6 to 49 Years) Aged Out No longer eligible b ased on patient's age to complete this topic RSV Immunization Patients Un daryl 20 months Aged Out No longer eligible b ased on patient's age to complete this topic Varicella Vaccines Aged Out No longer eligible based on patient's age to complete this topic
--- OUTSIDE RECORDS SUMMARY | 2025-02-17 09:03 | XMS_ITS | Patient Health Record ---
Author Organization [facility] Address [address] [place] [id number] Care Team Providers Care Religious Assistant Name Role Phone Gil Coffman MD Primary Care Provider Kyle Mendez Jr Unavailable Allergies Allergen (clinical drug ingredient) Drug/Non Drug Allergy documented on EMR Reaction Allergy Type Onset Date Status sertraline Zoloft Unknown Drug Allergy Active quetiapine Seroquel Unknown Drug Allergy Active Robitussin DM Unknown Drug Allergy Act joanne prazosin Prazosin HCl Unknown Drug Allergy Acti ve methylprednisolone Medrol Unknown Drug Allergy Active Cogentin Unknown Drug Allergy Active aripiprazole Abilify Unknown Drug Allergy Acti ve Reason For Referral No Information Medications Medication [...] Problem Status W/U Status Risk Notes Problem 72702051 Rectal bleeding (K62.5) Active confirmed Problem 776680049 Gastroesophageal reflux disease without esophagitis (K21.9) Active confirmed Problem 61736161 Constipation, unspecified constipation type (K59.00) Active confirmed Plan Of Treatment Future Test Test Name Order Date UPPER GI ENDOSCOPY 01/15/2020 COLONOSCOPY 01/15/2020 Insurance Providers Payer Name Payer Address Payer Phone Subscriber Number Group Number Insured Name Patient Relationship to Insured Coverage Start Date Coverage End Date [facility] [address] [place] [phone] [id number] KLAUDIA BRANHAM Self - patient is the insured Medical (General) History Medical History History ICD Code SVT status post ablation anxiety/depression substance abuse currently in remission hepatitis C treated with Mavyret PTSD hypertension Surgical History Surgery Date(Month/Year) MYRINGOTOMY 1997 CARDIAC ABLATION 2016 2019
[2025-02-17 09:11] VITALS: BP 126/82; PULSE 68; TEMP 36.9; O2SAT 98; BMI 35.1
--- NOTE | 2025-02-17 09:11 | AM.OFFWIN_ITS ---
Intake Vital Signs 3 02/17/25 09:11 Height 5 ft 4 in Weight 204 lb 4 oz BMI 35.1 BP 126/82 Blood Pressure Location Lt brachial Position Sitting Pulse 68 Pulse Source Pulse Oximeter Temp 98.5 F Temp Source Oral Pulse Oximetry (%) 98 Oxygen Delivery Method Room Air Intake Visit Reasons: EP Lump in armpit Intake Note: Patient present with right lump under armpit times 3-4 weeks. Not painful Patient Tobacco Use Status: Former Tobacco user [employer] Required: No Is last menstrual period known: No Post menopausal: No Patient : No Allergies guaifenesin (From ROBITUSSIN A-C) Allergy (Intermediate, Verified 02/17/25 09:17) RASH benztropine (Cogentin) Adverse Reaction (Intermediate, Verified 02/17/25 09:17) extrapyramidal symptoms lorazepam (From ATIVAN) Adverse Reaction (Intermediate, Verified 02/17/25 09:17) AGITATION methylprednisolone (From MEDROL) Adverse Reaction (Intermediate, Verified 02/17/25 09:17) tctile and visual hallucinations prazosin (PRAZOSIN) Adverse Reaction (Intermediate, Verified 02/17/25 09:17) DEPRESSION, hypotension From SEROQUEL Adverse Reaction (Intermediate, Uncoded 08/17/24 09:15) PARANOIA From ZOLOFT Adverse Reaction (Intermediate, Uncoded 08/17/24 09:15) HALLUCINATIONS Do you need a note to return to daycare/school/sports/work: No HPI HPI Comments 2 History of Present Illness0 Details 29 y/o Female patient [facility] with c/o Small non Tender Lump under left Armpit for 3-4 weeks. Denies any recent URI symptoms. She does admit to recent Shaving her Armpits. [facility] Medical History (Updated 02/17/25 @ 09:52 by Mell Vivar NP) Axillary lymphadenopathy Pharyngitis Bilateral otitis media Missed period Breast abscess Vaginal candidiasis Otitis media Sinusitis STD exposure Cystitis Rash Yeast infection Vaginal discharge Sprain of left knee Dysuria Elevated fasting blood sugar Puncture wound of foot Eosinophilia Asthma Anxiety disorder Supraventricular tachycardia Purulent drainage of both ears through ear tube PMDD (premenstrual dysphoric disorder) Surgical History Mass of right breast History of placement of ear tubes [place] teeth extracted Hx of prior ablation treatment History of Family History Mother Hypertension Diabetes Maternal Grandfather Colon cancer Maternal Grandmother Spinal stenosis Diabetes Hypertension Other Mental health disorder Substance use disorder Social History Household Members: Significant Other and Children Housing: House Do you presently have visiting nurse or other home services: No Alcohol intake: current Alcohol intake frequency: holidays/special occasions only Patient Tobacco Use Status: Former Tobacco user e-Cigarette/Vaping Use: Former Use Second Hand Smoke Exposure: Yes Substance Use Type: Marijuana Patient : No service: No Current occupational status: disabled Review of Systems Const All systems reviewed & are unremarkable except as noted in HPI and below Physical Exam Vital Signs: Last Vital Signs Temp 98.5 F 02/17/25 09:11 Pulse 68 02/17/25 09:11 BP 126/82 02/17/25 09:11 Pulse Ox 98 02/17/25 09:11 Oxygen Delivery Method Room Air 02/17/25 09:11 BMI result Body Mass Index 35.1 Const General: no acute distress Nutritional Appearance: obese Orientation/consciousness: patient oriented x3 Chest Chest palpation & inspection: no crepitus Breast/axilla palpation: axillary lymphadenopathy (Left Axilla) Chest/axillae images: 2 1. Shaved Skin, Small swollen Lymph node, Non TTP. No redness, skin Dry and clean. Resp Effort & Inspection: normal respiratory effort Cardio Heart sounds: S1 normal heart sound present and S2 normal heart sound present Neuro General: patient oriented x3, gait normal and moves all extremities Psych Speech and movement: Normal speech and movement present Assessment & Plan Assessment & Plan (1) Axillary lymphadenopathy: Code(s): R59.0 - Localized enlarged lymph nodes Plan: Advised to wet skin before shaving and to use clean/new razor. Advised to use mild Deodorants. Advised to shave in the direction of Hair growth. Watch out for Fevers or chills, and RTC. Coding Level of Care Code Est Pt Level 4 (40908) Diagnoses Axillary lymphadenopathy R59.0 Time Spent (min) 20
== END 2025-02-17 09:50 | disposition home or self-care (01) ==
PROVIDERS: PCP Nurse Practitioner Family; Visit Provider Nurse Practitioner Family
DX: R59.0 Localized enlarged lymph nodes (principal)

== ENCOUNTER → 2025-02-17 08:40 | Outpatient (BNVA) | payer OTHER, SELFPAY | PROVIDERS: PCP Nurse Practitioner Family; Visit Provider Nurse Practitioner Family | DX: R59.0 Localized enlarged lymph nodes (principal) | CPT/HCPCS: 99212 ==

== ENCOUNTER 2025-03-01 11:49 | Emergency (ER) | payer OTHER, SELFPAY ==
--- NOTE | ~2025-03-01 | XR_ITS ---
CLINICAL HISTORY: pain s p crush 3 view right foot Comparison: None provided Findings: Bones intact. No dislocations. No significant loss of joint space, osteophytes, or erosions. No ankle effusion. No radiopaque foreign body. IMPRESSION: 1. No acute findings. This document has been electronically signed by: Mamie Soni MD on 03/01/2025 13:44:25
--- NOTE | ~2025-03-01 | XR_ITS ---
CLINICAL HISTORY: pain s p cruch injury 3 view right ankle Comparison: None provided Findings: Bones intact. No dislocations. No significant loss of joint space, osteophytes, or erosions. No ankle effusion. No radiopaque foreign body. IMPRESSION: 1. No acute findings. This document has been electronically signed by: Mamie Soni MD on 03/01/2025 13:43:50
[2025-03-01 12:21] VITALS: BP 162/74; PULSE 82; RESP 18; O2SAT 97; BMI 35.4
--- NOTE | 2025-03-01 12:21 | ED.LOWEXIN ---
HPI - Extremity Injury (Lower) General Chief Complaint: Extremity Injury, Lower Stated Complaint: dropped metal object on foot Time Seen by Provider: 03/01/25 14:52 Source: patient and RN notes reviewed Mode of arrival: ambulatory Limitations: no limitations History of Present Illness ED Provider: Ariela Capps PA-C HPI Narrative: This is a 29-year-old female who presents emergency department with complaints of right foot pain since today. Patient states that a large metal power tool fell on top of her right foot. She reports pain with weight-bearing. No previous injury or trauma to her foot in the past. Denies taking any medications prior to arrival. No other complaints or concerns at this time. MD complaint: foot injury Onset (ago): hour(s) Type of Injury: blunt Place: home Severity: moderate Relieving factors: cold therapy, immobilization and rest Exacerbating factors: weight bearing, movement and palpation Context: direct blow Associated symptoms: unable to bear weight Other symptoms: none Related Data Home Medications ?Medication ?Instructions ?Recorded ?Confirmed nebulizers 09/18/23 08/17/24 bupropion HCl 150 mg 24 hr tablet, 150 mg PO DAILY 01/20/24 08/17/24 extended release bupropion HCl 300 mg 24 hr tablet, 300 mg PO DAILY 01/20/24 08/17/24 extended release cariprazine 3 mg capsule (Vraylar) 3 mg PO DAILY 01/20/24 08/17/24 fluoxetine 20 mg capsule 40 mg PO DAILY 01/20/24 08/17/24 lorazepam 0.5 mg tablet 0.25 mg PO DAILY PRN Anxiety 01/20/24 08/17/24 acetaminophen 325 mg tablet 650 mg PO Q6H PRN Pain 01/21/24 08/17/24 (Tylenol) Previous Rx's ?Medication ?Instructions ?Recorded montelukast 10 mg tablet 10 mg PO DAILY #90 tabs 01/31/24 budesonide-formoterol HFA 160 2 puff inhalation BID 30 days 05/24/24 mcg-4.5 mcg/actuation aerosol #10.2 grams inhaler tiotropium bromide 1.25 2 puff inhalation DAILY #4 grams 06/17/24 mcg/actuation mist for inhalation (Spiriva Respimat) albuterol sulfate 2.5 mg/3 mL 2.5 mg (3 mL) inhalation Q6H PRN 11/29/24 (0.083 %) solution for nebulization wheezing #180 mL albuterol sulfate 90 mcg/actuation 2 puff inhalation Q4-6H PRN 11/29/24 aerosol inhaler wheezing #1 ea budesonide 0.5 mg/2 mL suspension 0.5 mg (2 mL) inhalation BID 30 11/29/24 for nebulization days #120 mL budesonide 160 mcg-glycopyr 9 2 inh inhalation BID 30 days #10.7 01/28/25 mcg-formot 4.8 mcg/actuation HFA grams inhaler (Breztri Aerosphere) acetaminophen 500 mg tablet 500 mg PO Q6H PRN pain #30 tabs 03/01/25 (Tylenol Extra Strength) ibuprofen 600 mg tablet 600 mg PO Q6H PRN pain #30 tabs 03/01/25 Allergies Allergy/AdvReac Type Severity Reaction Status Date / Time guaifenesin (From ROBITUSSIN Allergy Intermediate RASH Verified 03/01/25 12:22 A-C) benztropine (Cogentin) AdvReac Intermediate extrapyramidal Verified 03/01/25 12:22 symptoms lorazepam (From ATIVAN) AdvReac Intermediate AGITATION Verified 03/01/25 12:22 methylprednisolone (From AdvReac Intermediate tctile and Verified 03/01/25 12:22 MEDROL) visual hallucinations prazosin (PRAZOSIN) AdvReac Intermediate DEPRESSION, Verified 03/01/25 12:22 hypotension From SEROQUEL AdvReac Intermediate PARANOIA Uncoded 03/01/25 12:22 From ZOLOFT AdvReac Intermediate HALLUCINATI Uncoded 03/01/25 12:22 ONS Review of Systems Review of Systems: Yes all other systems are reviewed and are negative Constitutional: Constitutional: Reports as per HPI [facility] Past Medical History Medical History (Updated 03/01/25 @ 14:57 by DAGOBERTO Dai) Axillary lymphadenopathy Pharyngitis Bilateral otitis media Missed period Breast abscess Vaginal candidiasis Otitis media Sinusitis STD exposure Cystitis Rash Yeast infection Vaginal discharge Sprain of left knee Dysuria Elevated fasting blood sugar Puncture wound of foot Eosinophilia Asthma Anxiety disorder Supraventricular tachycardia Purulent drainage of both ears through ear tube PMDD (premenstrual dysphoric disorder) Surgical History Mass of right breast History of placement of ear tubes [place] teeth extracted Hx of prior ablation treatment History of Family History Family History Mother Hypertension Diabetes Maternal Grandfather Colon cancer Maternal Grandmother Spinal stenosis Diabetes Hypertension Other Mental health disorder Substance use disorder Social History Social History Household Members: Significant Other and Children Housing: House Do you presently have visiting nurse or other home services: No Alcohol intake: current Alcohol intake frequency: holidays/special occasions only Patient Tobacco Use Status: Former Tobacco user e-Cigarette/Vaping Use: Former Use Second Hand Smoke Exposure: Yes Substance Use Type: Marijuana Advance Directives: No Advance Directives Information Provided: No service: No Current occupational status: disabled Physical Exam Vital Signs: Vital Signs: Last Vital Signs Temp 98 F 03/01/25 15:27 Pulse 78 03/01/25 15:27 Resp 18 03/01/25 15:27 BP 132/78 03/01/25 15:27 Pulse Ox 98 03/01/25 15:27 O2 Del Method Room Air 03/01/25 15:27 BMI result Body Mass Index 35.4 Const: General: cooperative, comfortable and no acute distress Orientation/consciousness: patient oriented x3 Limitations: no limitations HEENT: Head: Yes normal to inspection, Yes normocephalic and Yes atraumatic Ears: hearing grossly normal bilaterally General nose exam: Normal external nose present Face and sinus: Yes normal facial exam Mouth: Normal oral and palatal mucosa present, oropharynx normal and moist mucous membranes Throat: Yes posterior oropharynx normal Eyes: General: appearance normal, both eyes and all related structures Eyelids: Yes eyelids normal Conjunctivae: conjunctivae normal Sclerae: sclerae normal Pupils: Equal, round and reactive pupils present EOM: EOMs intact bilaterally Neck: Neck: Yes normal visual inspection, Yes full ROM and Yes no lymphadenopathy Lymphatic: no lymphadenopathy noted Chest: Chest palpation & inspection: normal inspection of the chest Resp: Effort & Inspection: normal respiratory effort and able to speak in complete sentences Auscultation: clear to auscultation bilaterally, no crackles, no rales, no rhonchi and no wheezes Cardio: Rate: regular rate Rhythm: regular rhythm Heart sounds: S1 normal heart sound present and S2 normal heart sound present GI: Inspection: Yes normal to inspection Skin: General skin exam: no rashes or lesions noted Trauma: no lacerations or abrasions Wounds: no wounds Neuro: General: patient oriented x3 and moves all extremities Cranial nerves: Yes Equal, round and reactive pupils present Extrem: Other: Right foot with no obvious bony deformity or swelling. She has tenderness to palpation diffusely throughout the dorsum of the foot, no open wounds or lacerations. Achilles tendon is intact, nontender. Strong DP pulse. Mild tenderness palpation along the medial and lateral malleolus, no edema noted. General: Yes normal to inspection Right upper extremity: normal to inspection Left upper extremity: normal to inspection Left lower extremity: normal to inspection Medical Decision Making Medical Decision Making MDM Narrative: This is a 29-year-old female who presents emergency department for evaluation of right foot pain status post blunt injury which occurred prior to arrival. On arrival, patient was mildly hypertensive at 162/74, all other vitals within normal limits. Patient has diffuse tenderness throughout the dorsum of her right foot. Strong DP pulse. Differential diagnoses include fracture, contusion, sprain, strain. X-rays were obtained revealing no acute bony abnormalities. Discussed findings with patient. Discharged with crutches and postop shoe. Given orthopedic referral should her symptoms persist. Given strict return precautions, please return for re-evaluation. Differential Diagnosis Differential Diagnoses: The differential diagnosis associated with the presentation includes See above Radiology Impression Discussion of test interpretation with radiology: I have reviewed the radiologist's reading. Radiologist Impression: Comparison: None provided Findings: Bones intact. No dislocations. No significant loss of joint space, osteophytes, or erosions. No ankle effusion. No radiopaque foreign body. IMPRESSION: 1. No acute findings. This document has been electronically signed by: Mamie Soni MD on 03/01/2025 13:44:25 Dictated By: Mamie Soni MD Findings: Bones intact. No dislocations. No significant loss of joint space, osteophytes, or erosions. No ankle effusion. No radiopaque foreign body. IMPRESSION: 1. No acute findings. This document has been electronically signed by: Mamie Soni MD on 03/01/2025 13:43:50 Dictated By: Mamie Soni MD Discharge Plan Discharge Clinical Impression: Contusion of foot, right Patient Disposition: Home, Self-Care Instructions: Foot Contusion (ED) Additional Instructions: You were seen in the emergency department after injuring your right foot. Your xrays that were performed today do not show any broken bones. Please rest, ice, elevate your foot. Taking ibuprofen and or Tylenol as needed for pain and symptoms can be helpful. If any new or worsening symptoms occur including but not limited to decreased sensation in your foot, discoloration in your foot, severe chest pain, shortness of breath, please seek emergent care. If you continue to have pain in your foot, you may follow-up with the critical care clinical nurse specialist, call to make an appointment. Prescriptions: New ibuprofen 600 mg tablet 600 mg PO Q6H PRN (Reason: pain) Qty: 30 0RF acetaminophen [Tylenol Extra Strength] 500 mg tablet 500 mg PO Q6H PRN (Reason: pain) Qty: 30 0RF No Action Spiriva Respimat 1.25 mcg/actuation mist 2 puff inhalation DAILY Qty: 4 11RF Breztri Aerosphere 160-9-4.8 mcg/actuation HFA aerosol inhaler 2 inh inhalation BID 30 Days Qty: 10.7 0RF fluoxetine 20 mg capsule 40 mg PO DAILY bupropion HCl 300 mg tablet extended release 24 hr 300 mg PO DAILY Rx Instructions: with 150 mg bupropion HCl 150 mg tablet extended release 24 hr 150 mg PO DAILY Rx Instructions: with 300 mg Vraylar 3 mg capsule 3 mg PO DAILY lorazepam 0.5 mg tablet 0.25 mg PO DAILY PRN (Reason: Anxiety) acetaminophen [Tylenol] 325 mg Tablet 650 mg PO Q6H PRN (Reason: Pain) (DME) nebulizers Misc See Rx Instructions .Route Rx Instructions: As directed montelukast 10 mg tablet 10 mg PO DAILY Qty: 90 3RF budesonide-formoterol 160-4.5 mcg/actuation HFA aerosol inhaler 2 puff inhalation BID 30 Days Qty: 10.2 11RF budesonide 0.5 mg/2 mL suspension for nebulization 0.5 mg inhalation BID 30 Days Qty: 120 1RF albuterol sulfate 2.5 mg /3 mL (0.083 %) solution for nebulization 2.5 mg inhalation Q6H PRN (Reason: wheezing) Qty: 180 11RF albuterol sulfate 90 mcg/actuation HFA aerosol inhaler 2 puff INHALATION Q4-6H PRN (Reason: wheezing) Qty: 1 11RF Referrals: [facility] Orthopedic Surgeons [Provider Group] Interventions: ED Discharge Assessment Last Done: 03/01/25 15:27 Discharge Date/Time: 03/01/25 15:28 Print Language: Czech
[2025-03-01 12:23] VITALS: TEMP 36.6
--- OUTSIDE RECORDS SUMMARY | 2025-03-01 15:13 | XMS_ITS | Encounter Summary ---
Author Organization [facility] Address [address] [place] [address] Phone Care Team Providers Care Tree Deadener Name Role Phone Leanne Gu CNM Unavailable Echo Payton [address] WORKER Unavailable [phone] Gil Coffman MD Unavailable Loretta Qureshi [address] WORKER Unavailable [phone] WORKER Unavailable [phone] WORKER Primary Care Provider Gil Coffman MD Unavailable Nati Arguello RN Unavailable [phone] Susan Haas MD Unavailable Pcp, Unknown Primary Care Provider Unavailabl e Reason for Visit * Reason Onset Date Comments Post Discharge Follow Up Call 10/24/2018 ED visit at [facility] on 10.22.18 for Headache Encounter Details Date Type Department Care Team (Late st Contact Info) Description 10/24/2018 Telephone [facility] [place] [address] [place] [address] Imelda Santiago, SKID [address] WORKER [address] [place] [address] [email or web address] Post Discharge Follow Up Call (ED visit at [facility] on 10.22.18 for Headache) Social History Tobacco Use Types Packs/Day Years Used Date Smoking Tobacco: Never Smokeless Tobacco: Never Alcohol Use Standard Drinks/Week Comments Yes 0 (1 standard drink = 0.6 oz pur e alcohol) SOCIALLY Comments Yes Sex and Gender Information Value Date Recorded Sex Assigned at Not on file Legal Sex Female 8:51 PM EDT Gender Identity Not on file Sexual Orientation Not on file documented as of this encounter Plan of Treatment Not on file documented as of this encounter Visit Diagnoses Not on filedocumented in this encounter Additional Health Concerns Assessment Noted Time PHQ-2 Depression Total Score: 0 08/10/19 18 2:20 PM EST documented as of this encounter Care Teams Tree Deadener Relationship Specialty Start Date End Date Imelda Santiago, SKID RO[address] WORKER [address] [place] [id number] [email or web address] PCP - General Family Medicine 09/20/17 03/28/22 Pcp, Unknown PCP - General 03/29/22 Leanne Gu CNM [address] [place] [id number] Historical LMR Provider 05/10/17 2 Echo Payton NP [address] [place] [id number] [email or web address] Historical LMR Provider 05/10/17 07/31/21 Gil Coffman MD [address] [place] [id number] Historical LMR Provider 05/10/17 07/31/21 Loretta Qureshi, DEVIN [address] [place] [id number] Historical LMR Provider 05/10/17 2 Imelda Santiago, SKID [address] WORKER [address] [facility] [address] [place] [address] [email or web address] Historical LMR Provider 05/10/17 03/28/22 Gil Coffman MD [address] [place] [address] [email or web address] Insurance Assigned Provider 11/25/17 02/23/19 Nati Arguello RN [address] [place] [address] [email or web address] Track Maintainer 11/23/18 01/03/19 Susan Haas MD [address] [place] [phone] [email or web address] Insurance Assigned Provider 11/27/19 02/27/20 documented as of this encounter Additional Source Comments The information contained in this document represents components of the legal health record. It is not the complete legal health record.[facility]
--- OUTSIDE RECORDS SUMMARY | 2025-03-01 15:13 | XMS_ITS | Patient Health Record ---
Author Organization [facility] Address [address] [place] [address] Care Team Providers Care Extractions Technologist Name Role Phone Imelda Santiago NP Primary Care Provider Jennifer Jj Unavailable [phone] Allergies Allergen (clinical drug ingredient) Drug/Non Drug [...] Treatment Pending Test Test Name Order Date [id number] Plate 05/16/2017 [id number] Plate Each Additional Medical (General) History Medical History History ICD Code Anxiety Depression Headaches ptsd eating disorder Surgical History Surgery Date(Month/Year) cardiac ablasion myomectomy wisdom teeth extraction Ingrown Toe Nails - PRADEEP 05/16/17
--- OUTSIDE RECORDS SUMMARY | 2025-03-01 15:13 | XMS_ITS | Patient Health Record ---
Author Organization [facility] Address [address] [place] [id number] Care Team Providers Care Plastic Battery Assembler Name Role Phone Gil Coffman MD Primary [...] Problem Status W/U Status Risk Notes Problem 10411445 Rectal bleeding (K62.5) Active confirmed Problem 667206606 Gastroesophageal reflux disease without esophagitis (K21.9) Active confirmed Problem 58518310 Constipation, unspecified constipation type (K59.00) Active confirmed Plan Of Treatment Future Test Test Name Order Date UPPER GI ENDOSCOPY 01/15/2020 COLONOSCOPY 01/15/2020 Insurance Providers Payer Name Payer Address Payer Phone Subscriber Number Group Number Insured Name Patient Relationship to Insured Coverage Start Date Coverage End Date [facility] [address] [place] [phone] [id number] KLAUDIA BRANHAM Self - patient is the insured Medical (General) History Medical History History ICD Code SVT status post ablation anxiety/depression substance abuse currently in remission hepatitis C treated with Mavyret PTSD hypertension Surgical History Surgery Date(Month/Year) MYRINGOTOMY 1997 CARDIAC ABLATION 2016 2019
--- OUTSIDE RECORDS SUMMARY | 2025-03-01 15:13 | XMS_ITS | Clinical Summary ---
Author Organization [facility] Address [address] [place] [id number] Care Team Providers Care Heating And Blending Supervisor Name Role Phone Unavailable Primary Care Provider [...]
[2025-03-01 15:27] VITALS: BP 132/78; PULSE 78; RESP 18; TEMP 36.6; O2SAT 98
== END 2025-03-01 15:28 | disposition home or self-care (01) ==
PROVIDERS: Emergency Provider Emergency Medicine Emergency Medical Services; PCP Nurse Practitioner Family
DX: S90.31XA Contusion of right foot, initial encounter (principal); W20.8XXA Other cause of strike by thrown, projected or falling object, initial encounter; M79.671 Pain in right foot; Y93.E9 Activity, other interior property and clothing maintenance; Y92.018 Other place in single-family (private) house as the place of occurrence of the external cause; Y99.8 Other external cause status
CPT/HCPCS: 73610; 73630; 99283

== ENCOUNTER → 2025-03-01 12:22 | Outpatient (BNV) | payer OTHER, SELFPAY | PROVIDERS: PCP Nurse Practitioner Family; Visit Provider Radiology Diagnostic Radiology | DX: M25.561 Pain in right knee (principal); M79.671 Pain in right foot | CPT/HCPCS: 73610; 73630 ==

== ENCOUNTER 2025-03-27 09:06 | Outpatient (AMB) | payer OTHER, SELFPAY ==
--- OUTSIDE RECORDS SUMMARY | 2023-12-08 06:40 | XMS_ITS ---
Author Organization [facility] Address [address] [place] [phone] Care Team Providers Care Technology Solutions Architect Name Role Phone Gil Coffman MD Primary Care Provider Kyle Mendez Jr REASON FOR VISIT Patient presents today for abdominal pain,rectal bleeding Encounters Encounter Location Date Provider Diagnosis [facility] [address] [facility] [address] [place] [phone] 12/08/2023 Kyle Hernandez Jr Plan Of Treatment No Information Progress Notes * YONAS, KLAUDIA ADOB:1995 (29 yo F)Acc No.[id number]:12/08/2023 Progress Notes Patient: KLAUDIA GUAJARDO Provider: Benito Hernandez MD :1995 A ge:27 Y S ex:Female Date:12/08/2023 [facility] [facility] [facility] Pcp:Gil Coffman MD Subjective: * Chief Complaints: [...] 12/08/2023 Generated for Printi ng/Famarijag/eTransmitting on: 0 03/27/2025 09:36 AM EDT
[2025-03-27 09:17] VITALS: BP 108/70; PULSE 80; O2SAT 96; BMI 36.7
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
--- OUTSIDE RECORDS SUMMARY | 2025-03-27 09:36 | XMS_ITS | Patient Health Record ---
Author Organization [facility] Address [address] [place] [id number] Care Team Providers Care Production Checker Name Role Phone Gil Coffman MD Primary [...] Problem Status W/U Status Risk Notes Problem [id number] Rectal bleeding (K62.5) Active confirmed Problem [id number] Gastroesophageal reflux disease without esophagitis (K21.9) Active confirmed Problem [id number] Constipation, unspecified constipation type (K59.00) Active confirmed Plan Of Treatment Future Test Test Name Order Date UPPER GI ENDOSCOPY 01/15/2020 COLONOSCOPY 01/15/2020 Insurance Providers Payer Name Payer Address Payer Phone Subscriber Number Group Number Insured Name Patient Relationship to Insured Coverage Start Date Coverage End Date [facility] [address] [place] [phone] [id number] KLAUDIA BRANHAM Self - patient is the insured Medical (General) History Medical History History ICD Code SVT status post ablation anxiety/depression substance abuse currently in remission hepatitis C treated with Mavyret PTSD hypertension Surgical History Surgery Date(Month/Year) MYRINGOTOMY 1997 CARDIAC ABLATION 2016 2019
--- OUTSIDE RECORDS SUMMARY | 2025-03-27 09:36 | XMS_ITS | Encounter Summary ---
Author Organization [facility] Address [address] [place] [address] Phone Care Team Providers Care Launch Steward Name Role Phone Leanne Gu CNM Unavailable Echo Payton ELEMENTARY EDUCATION TEACHER Unavailable [phone] Gil Coffman MD Unavailable Loretta Qureshi ELEMENTARY EDUCATION TEACHER Unavailable [phone] Imelda Santiago ELEMENTARY EDUCATION TEACHER Unavailable [phone] Imelda Santiago ELEMENTARY EDUCATION TEACHER Primary Care Provider Gil Coffman MD Unavailable Nati Arguello RN Unavailable [phone] Susan Haas MD Unavailable Pcp, Unknown Primary Care Provider Unavailabl e Reason for Visit * Reason Onset Date Comments Post Discharge Follow Up Call 10/24/2018 ED visit at [facility] on 10.22.18 for Headache Encounter Details Date Type Department Care Team (Late st Contact Info) Description 10/24/2018 Telephone [facility] [address] [place] [address] Imelda Santiago, ELEMENTARY EDUCATION TEACHER [address] [place] [address] [email or web address] Post Discharge Follow Up Call (ED visit at [facility] on 10.22.18 for Headache) Social History Tobacco [...] documented as of this encounter Care Teams Launch Steward Relationship Specialty Start Date End Date Imelda Santiago, ELEMENTARY EDUCATION TEACHER [address] [place] [phone] [email or web address] PCP - General Family Medicine 09/20/17 03/28/22 Pcp, Unknown PCP - General 03/29/22 Leanne Gu CNM [address] [place] [id number] Historical LMR Provider 05/10/17 2 Echo Payton NP [address] [place] [phone] [email or web address] Historical LMR Provider 05/10/17 07/31/21 Gil Coffman MD [address] [place] [id number] Historical LMR Provider 05/10/17 07/31/21 Loretta Qureshi, DEVIN [address] [place] [id number] Historical LMR Provider 05/10/17 2 Imelda Santiago, ELEMENTARY EDUCATION TEACHER [address] [facility] [address] [place] [address] [email or web address] Historical LMR Provider 05/10/17 03/28/22 Gil Coffman MD [address] [place] [address] [email or web address] Insurance Assigned Provider 11/25/17 02/23/19 Nati Arguello RN [address] [place] [address] [email or web address] Piece [employer] 11/23/18 01/03/19 Susan Haas MD [address] [place] [phone] [email or web address] Insurance Assigned Provider 11/27/19 02/27/20 documented as of this encounter Additional Source Comments The information contained in this document represents components of the legal health record. It is not the complete legal health record.[facility]
--- OUTSIDE RECORDS SUMMARY | 2025-03-27 09:36 | XMS_ITS | Patient Health Record ---
Author Organization [facility] Address [address] [place] [address] Care Team Providers Care Italian Tutor Name Role Phone Imelda Santiago NP Primary Care Provider Jennifer Jj Unavailable [phone] Allergies Allergen (clinical drug ingredient) Drug/Non Drug Allergy documented on EMR Reaction Allergy Type Onset Date Status aripiprazole Abilify Unknown Drug Allergy Acti ve methylprednisolone Medrol (Efrem) Unknown Drug Allergy Active Robitussin DM Unknown Drug Allergy Act joanne zoloft Unknown Drug Allergy Active Reason For [...] Treatment Pending Test Test Name Order Date [id number] Plate 05/16/2017 [id number] Plate Each Additional Medical (General) History Medical History History ICD Code Anxiety Depression Headaches ptsd eating disorder Surgical History Surgery Date(Month/Year) cardiac ablasion myomectomy wisdom teeth extraction Ingrown Toe Nails - PRADEEP 05/16/17
--- OUTSIDE RECORDS SUMMARY | 2025-03-27 09:36 | XMS_ITS | Encounter Summary ---
Author Organization [facility] Address [address] [facility] [address] [place] [address] Phone Care Team Providers Care Field Collector Name Role Phone GuLeanne Shazia CNM Unavailable Echo Payton AGRONOMY ADVISOR Unavailable [phone] Gil Coffman MD Unavailable Loretta Qureshi AGRONOMY ADVISOR Unavailable Imelda Santiago AGRONOMY ADVISOR Unavailable [phone] Imelda Santiago AGRONOMY ADVISOR Primary Care Provider Gil Coffman MD Unavailable Nati Arguello RN Unavailable [phone] Susan Haas MD Unavailable Pcp, Unknown Primary Care Provider Unavailabl e Encounter Details Date Type Department Care Team (Latest Contact Info) Description 03/01/2018 Transcribe Orders [facility] [address] [place] [address] [place] [address] Shannen Franklin, AGRONOMY ADVISOR [address] [place] [address] Eating disorder, unspecified (Primary Dx) Social History Tobacco Use Types Packs/Day Years Used Date Smoking Tobacco: Never Smokeless Tobacco: Never Alcohol Use Standard Drinks/Week Comments Yes 0 (1 standard drink = 0.6 oz pur e alcohol) SOCIALLY Comments Unknown Sex and Gender Information Value Date Recorded Sex Assigned at Not on file Legal Sex Female 8:51 PM EDT Gender Identity Not on file Sexual Orientation Not on file documented as of this encounter Plan of Treatment Not on file documented as of this encounter Results * Iron (03/01/2018 9:32 AM EDT) IRON 95 30 - 160 ug/dL [facility] Blood 03/01/2018 9:32 AM EDT 03/01/2018 9:38 AM EDT Shannen Franklin NP LAB BLOOD ORDERABLES Final Result [address] [address] * (ABNORMAL) Carbon dioxide (Bicarbonate) (03/01/2018 9:32 AM EDT) CO2 20(L) 21 - 35 mmol/L [facility] Blood 03/01/2018 9:32 AM EDT 03/01/2018 9:38 AM EDT Shannen Franklin NP LAB BLOOD ORDERABLES Final Result Performing Organization Address City/[facility]/ZIP Co de Phone Number [address] [address] * Chloride (03/01/2018 9:32 AM EDT) CHLORIDE 104 96 - 108 mmol/L [facility] Blood 03/01/2018 9:32 AM EDT 03/01/2018 9:38 AM EDT Shannen Franklin NP LAB BLOOD ORDERABLES Final Result Performing Organization Address City/[facility]/ZIP Co de Phone Number [address] [address] * 25-OH vitamin D (03/01/2018 9:32 AM EDT) 25 OH VIT D (TOTAL) 34 30 - 60 ng/mL [facility] Blood 03/01/2018 9:32 AM EDT 03/01/2018 9:38 AM EDT Shannen Franklin NP LAB BLOOD ORDERABLES Final Result Performing Organization Address [facility]/ZIP Co de Phone Number [address] [address] * (ABNORMAL) Zinc (03/01/2018 9:32 AM EDT) Pathologist [facility] ZINC 0.59(L) 0.66 - 1.10 mcg/mL [facility] Comment: (NOTE) ADDITIONAL INFORMATION This test was developed and its performance characteristics determined by [facility] in a manner consistent with CLIA requirements. This test has not been cleared or approved by the U.S. Food and Drug Administration. Blood 03/01/2018 9:32 AM EDT 03/01/2018 9:39 AM EDT Shannen Franklin NP LAB BLOOD ORDERABLES Final Result Performing Organization Address [facility] Co de Phone Number [facility] [address] [place] [address] * Vitamin B12 (03/01/2018 9:32 AM EDT) Pathologist [facility] VITAMIN B12 982 232 - 1,245 pg/mL [facility] Blood 03/01/2018 9:32 AM EDT 03/01/2018 9:38 AM EDT Shannen Franklin NP LAB BLOOD ORDERABLES Final Result Performing Organization Address [facility]/ZIP Co de Phone Number [address] [address] * Urine culture (03/01/2018 9:32 AM EDT) Specimen Source/ Description URINE CLEAN CATCH URINE [facility] Special Requests None [facility] GRAM STAIN Rare GRAM POSITIVE RODS , Rare GRAM NEGATIVE RODS [facility] Culture/Test >100,000 colony forming units per ml PROBABLE CORYNEBACTERIUM SPECIES [facility] Report Status 03/03/2018 FINAL [facility] Urine (Urine) 03/01/2018 9:3 2 AM EDT 03/01/2018 9:39 AM EDT Shannen Franklin NP MICROBIOLOGY - GENERA L ORDERABLES Final Result Performing Organization Address City/[facility] Co de Phone Number [address] [address] * Toxicology screen, urine (03/01/2018 9:32 AM EDT) URINE CANNABINOIDS NONE DETECTED NONE DETECTED [facility] Comment:Cutoff: 50 ng/mL URINE COCAINE METAB NONE DETECTED NONE DETECTED [facility] Comment:Cutoff: 300 ng/mL URINE AMPHETAMINES NONE DETECTED NONE DETECTED [facility] Comment:Cutoff: 1000 ng/mL URINE METHADONE NONE DETECTED NONE DETECTED [facility] Comment:Cutoff: 300 ng/mL URINE OPIATES NONE DETECTED NONE DETECTED [facility] Comment:Cutoff: 300 ng/mL URINE PHENCYCLIDINE NONE DETECTED NONE DETECTED [facility] Comment:Cutoff: 25 ng/mL URINE OXYCODONE NONE DETECTED NONE DETECTED [facility] Comment:Cutoff: 300 ng/ml URINE BARBITURATES NONE DETECTED NONE DETECTED [facility] Comment:Cutoff: 200 ng/mL URINE BENZODIAZEPINE NONE DETECTED NONE DETECTED [facility] Comment: Cutoff: 200 ng/mL INTERPRETATION FOR TOXICOLOGY PANEL: These results are unconfirmed and should be used for Medical Treatment purposes only. Urine (Urine) 03/01/2018 9:3 2 AM EDT 03/01/2018 9:39 AM EDT Shannen Franklin NP URINE ORDERABLES Cintia l Result Performing Organization Address City/[facility]/ZIP Co de Phone Number [address] [address] * (ABNORMAL) Lipid panel (03/01/2018 9:32 AM EDT) Pathologist [facility] HDL 72 mg/dL [facility] Comment: Interpretation: Risk Level Females Decreased >55mg/dL Average 50-55 mg/dL Increased <50 mg/dL CHOLESTEROL 157 0 - 240 mg/dL [facility] TRIGLYCERIDES 130 30 - 160 mg/dL [facility] LDL 59 50 - 129 mg/dL [facility] Comment: LDL levels in terms of risk for coronary heart disease: <100 mg/dL: Optimal 100-129 mg/dL: Near or above optimal 130-159 mg/dL: Borderline high 160-189 mg/dL: High >190 mg/dL: Very High CARDIAC RISK RATIO 2.2(L) 3.3 - 4.4 C [facility] Blood 03/01/2018 9:32 AM EDT 03/01/2018 9:38 AM EDT Shannen Franklin NP LAB BLOOD ORDERABLES Final Result [address] [address] * Lipase (03/01/2018 9:32 AM EDT) [facility] LIPASE 22 16 - 63 U/L [facility] Blood 03/01/2018 9:32 AM EDT 03/01/2018 9:38 AM EDT Shannen Franklin AGRONOMY ADVISOR LAB BLOOD ORDERABLES Final Result Performing Organization Address [facility]/State/ZIP Co de Phone Number [address] [address] * HCG (quantitative blood), (03/01/2018 9:32 AM EDT) [facility] HCG BETA <0.1 mIU/mL [facility] Comment: Interpretation: FEMALE: Negative Result: Less than 5 mIU/ml. 1 Week Post Conception: 0 - 50 mIU/ml. 4 Weeks Post Conception: 3,000 - 19,000 mIU/ml. 12 Weeks Post Conception: 16,000 - 160,000 mIU/ml. Blood 03/01/2018 9:32 AM EDT 03/01/2018 9:38 AM EDT Shannen Franklin AGRONOMY ADVISOR LAB BLOOD ORDERABLES Final Result Performing Organization Address [facility] Co de Phone Number [address] [address] * Folate (03/01/2018 9:32 AM EDT) FOLIC ACID 18.8 4.2 - 19.9 ng/mL [facility] Blood 03/01/2018 9:32 AM EDT 03/01/2018 9:38 AM EDT Shannen Franklin NP LAB BLOOD ORDERABLES Final Result Performing Organization Address [facility] Co de Phone Number [address] [address] * Ferritin (03/01/2018 9:32 AM EDT) FERRITIN 91 13 - 150 ug/L [facility] Blood 03/01/2018 9:32 AM EDT 03/01/2018 9:38 AM EDT Shannen Franklin AGRONOMY ADVISOR LAB BLOOD ORDERABLES Final Result Performing Organization Address [facility]/RUST de Phone Number [address] [address] * Amylase (03/01/2018 9:32 AM EDT) AMYLASE 35 28 - 100 U/L [facility] Blood 03/01/2018 9:32 AM EDT 03/01/2018 9:38 AM EDT Shannen Franklin NP LAB BLOOD ORDERABLES Final Result [facility] [address] [place] [address] * (ABNORMAL) CBC and differential (03/01/2018 9:32 AM EDT) WBC 5.84 3.40 - 11.20 K/uL [facility] RBC 4.82(H) 3.80 - 4.80 M/uL [facility] HGB 13.9 12.0 - 15.0 g/dL [facility] HCT 42.7 36.0 - 46.0 % [facility] PLT 296 130 - 400 K/uL [facility] MCV 88.6 79.0 - 98.0 fL [facility] MCH 28.8 27.0 - 34.8 pg [facility] MCHC 32.6 31.5 - 36.0 g/dL [facility] RDW 12.2 10.8 - 14.6 % [facility] MPV 10.1 9.4 - 12.4 fl [facility] NRBC 0.00 /100 WBCs [facility] ABSOLUTE NRBC 0.00 K/uL [facility] DIFF METHOD Auto [facility] NEUTS 54.2 45.30 - 77.70 % [facility] LYMPHS 29.3 12.30 - 39.70 % [facility] MONOS 12.7 4.10 - 12.80 % [facility] EOS 2.6 0 - 7.2 % [facility] BASOS 1.0 0 - 2.80 % [facility] Granulocytes, immature (%) 0.2 0.0 - 0.9 % [facility] ABSOLUTE NEUTS 3.17 1.40 - 7.70 K/uL [facility] ABSOLUTE LYMPHS 1.71 0.60 - 3.20 K/uL [facility] ABSOLUTE MONOS 0.74(H) 0.11 - 0.59 K/uL [facility] ABSOLUTE EOS 0.15 0.01 - 0.50 K/uL [facility] ABSOLUTE BASOS 0.06 0.00 - 0.08 K/uL [facility] Granulocytes, immature 0.01 0.00 - 0.05 K/uL [facility] Blood 03/01/2018 9:32 AM EDT 03/01/2018 9:38 AM EDT us Shannen Franklin NP LAB BLOOD ORDERABLES Final Result Performing Organization Address City/[facility]/ZIP Co de Phone Number [address] [address] * Potassium (03/01/2018 9:32 AM EDT) POTASSIUM 4.6 3.3 - 5.1 mmol/L [facility] Blood 03/01/2018 9:32 AM EDT 03/01/2018 9:38 AM EDT us Shannen Franklin NP LAB BLOOD ORDERABLES Final Result Performing Organization Address [facility] Co de Phone Number [address] [address] * Sodium (03/01/2018 9:32 AM EDT) SODIUM 137 133 - 146 mmol/L [facility] Blood 03/01/2018 9:32 AM EDT 03/01/2018 9:38 AM EDT us Shannen Franklin NP LAB BLOOD ORDERABLES Final Result Performing Organization Address City/[facility]/ZIP Co de Phone Number [address] [address] * Glucose (03/01/2018 9:32 AM EDT) GLUCOSE 96 70 - 99 mg/dL [facility] Blood 03/01/2018 9:32 AM EDT 03/01/2018 9:38 AM EDT us Shannen Franklin NP LAB BLOOD ORDERABLES Final Result [address] [address] * TSH (03/01/2018 9:32 AM EDT) TSH 1.98 0.27 - 4.20 uIU/mL [facility] Blood 03/01/2018 9:32 AM EDT 03/01/2018 9:38 AM EDT us Shannen Franklin AGRONOMY ADVISOR LAB BLOOD ORDERABLES Final Result [address] [address] * Magnesium (03/01/2018 9:32 AM EDT) MAGNESIUM 1.8 1.6 - 2.6 mg/dL [facility] Blood 03/01/2018 9:32 AM EDT 03/01/2018 9:38 AM EDT us Shannen Franklin AGRONOMY ADVISOR LAB BLOOD ORDERABLES Final Result [address] [address] * Phosphorus (03/01/2018 9:32 AM EDT) PHOSPHORUS 3.5 2.7 - 4.5 mg/dL [facility] Blood 03/01/2018 9:32 AM EDT 03/01/2018 9:38 AM EDT Shannen Franklin AGRONOMY ADVISOR LAB BLOOD ORDERABLES Final Result [address] [address] * Calcium (03/01/2018 9:32 AM EDT) CALCIUM 9.2 8.4 - 10.3 mg/dL [facility] Blood 03/01/2018 9:32 AM EDT 03/01/2018 9:38 AM EDT Shannen Franklin NP LAB BLOOD ORDERABLES Final Result Performing Organization Address [facility]/ZIP Co de Phone Number [address] [address] * (ABNORMAL) LFTs (hepatic panel) (03/01/2018 9:32 AM EDT) ALKALINE PHOSPHATASE 115 39 - 117 U/L [facility] TOTAL BILIRUBIN 0.3 0.0 - 1.2 mg/dL [facility] DIRECT BILIRUBIN <0.2 0 - 0.3 mg/dL [facility] Bilirubin (Indirect) NOT CALCULATED 0 - 1.5 mg/dL [facility] AST 277(H) 0 - 37 U/L [facility] ALT 278(H) 0 - 40 U/L [facility] TOTAL PROTEIN 7.1 6.5 - 8.0 g/dL [facility] ALBUMIN 3.5(L) 3.9 - 4.8 g/dL [facility] GLOBULIN 3.6 1 - 4.8 g/dL [facility] A/G Ratio 0.97(L) 1.00 - 4.80 RATIO [facility] Blood 03/01/2018 9:32 AM EDT 03/01/2018 9:38 AM EDT Shannen Franklin NP LAB BLOOD ORDERABLES Final Result [address] [address] * Creatinine/eGFR (03/01/2018 9:32 AM EDT) CREATININE 0.90 0.5 - 1.5 mg/dL [facility] EGFR 91 >59 mL/min/1.7 3m2 [facility] Comment:If patient is black, multiply result by 1.159. Estimated glomerular filtration rate calculated using the CKD-EPI equation. Blood 03/01/2018 9:32 AM EDT 03/01/2018 9:38 AM EDT us Shannen Franklin AGRONOMY ADVISOR LAB BLOOD ORDERABLES Final Result Performing Organization Address City/[facility]/ZIP Co de Phone Number [address] [address] * BUN (03/01/2018 9:32 AM EDT) BUN 7 6 - 19 mg/dL [facility] Blood 03/01/2018 9:32 AM EDT 03/01/2018 9:38 AM EDT Shannen Shonashazia Franklin AGRONOMY ADVISOR LAB BLOOD ORDERABLES Final Result Performing Organization Address [facility] Co de Phone Number [address] [address] documented in this encounter Visit Diagnoses Diagnosis Eating disorder, unspecified- Primary documented in this encounter Additional Health Concerns Assessment Noted Time PHQ-2 Depression Total Score: 0 08/10/19 18 2:20 PM EST documented as of this encounter Care Teams Field Collector Relationship Specialty Start Date End Date Imelda Santiago NP [address] [place] [address] [email or web address] PCP - General Family Medicine 09/20/17 03/28/22 Pcp, Unknown PCP - General 03/29/22 Leanne Gu CNM [address] [place] [id number] Historical LMR Provider 05/10/17 2 Echo Payton NP [address] [place] [phone] [email or web address] Historical LMR Provider 05/10/17 07/31/21 Gil Coffman MD [address] [place] [address] [email or web address] Historical LMR Provider 05/10/17 07/31/21 Loretta Qureshi, AGRONOMY ADVISOR [address] [place] [address] Historical LMR Provider 05/10/17 2 Imelda Santiago NP [address] [place] [address] [email or web address] Historical LMR Provider 05/10/17 03/28/22 Gil Coffman MD [address] [place] [address] [email or web address] Insurance Assigned Provider 11/25/17 02/23/19 Nati Arguello, DARREN [address] [place] [address] [email or web address] Director Labor Standards 11/23/18 01/03/19 Susan Haas MD [address] [place] [address] [email or web address] Insurance Assigned Provider 11/27/19 02/27/20 documented as of this encounter Additional Source Comments The information contained in this document represents components of the legal health record. It is not the complete legal health record.[facility]
--- OUTSIDE RECORDS SUMMARY | 2025-03-27 09:36 | XMS_ITS | Clinical Summary ---
Author Organization [facility] Address [address] [place] [phone] Care Team Providers Care Motor And Generator Brush Cutter Name Role Phone Unavailable Primary Care Provider [...]
--- OUTSIDE RECORDS SUMMARY | 2025-03-27 09:36 | XMS_ITS | Clinical Summary ---
Author Organization [facility] Address [address] [address] Phone Care Team Providers Care Director Process Engineering Name Role Phone Pcp, Unknown Primary Care Provider Unavailabl e Allergies Active Allergy Reactions Criticality Noted Date Comments Benztropine 03/14/2017 Other reaction(s): auditory hallucinations HALLUCINATIONS Guaifenesin 03/14/2017 Other reaction(s): ecchymosis Other 08/10/2017 ROBITTUSSIN-RED Sertraline 08/10/2017 HALLUCINATIONS Medications FLUoxetine (PROZAC) 40 MG capsule Take 40 mg by mouth daily. Active magnesium oxide (MAG-OX) 400 mg (240 mg elemental) tablet Take 400 mg by mouth daily. 7 Active polyethylene glycol (MIRALAX) 17 gram packet as directed 6 Active omega-3 fatty acids-fish oil (ONE-PER-DAY OMEGA-3) 684-1,200 mg CpDR Take 1,200 mg by mouth daily. Active riboflavin, vitamin B2, (VITAMIN B-2) 100 mg Tab Take 100 mg by mouth daily. Active traZODone (DESYREL) 100 MG tablet Take 100 mg by mouth nightly. Active buPROPion (WELLBUTRIN XL) 300 MG ER 24 hr tabletIndicatio ns:450MG DAILY Take 300 mg by mouth daily. Indications: 450MG DAILY Active ARIPiprazole (ABILIFY) 2 MG tablet Take 2 mg by mouth daily. Active norethindrone (MICRONOR) 0.35 mg tablet Take 1 tablet by mouth daily. Active topiramate (TOPAMAX) 100 MG tablet Take 1 tablet (100 mg total) by mouth daily. 30 tablet 6 8 Active Additional Information Patient not taking.Reported on 08/27/2018 topiramate (TOPAMAX) 50 MG tablet Take 1 tablet (50 mg total) by mouth daily. 30 tablet 6 8 Active Additional Information Patient not taking.Reported on 08/27/2018 SUMAtriptan (IMITREX) 6 mg/0.5 mL Soln Inject 0.5 mL (6 mg total) under the skin once as needed. 8 vial 5 8 Active Additional Information Patient not taking.Reported on 08/27/2018 ondansetron (ZOFRAN, HYDROCHLORIDE,) 4 MG tablet Daily PRN nausea 25 tablet 2 8 Active Additional Information Patient not taking.Reported on 08/27/2018 vit 85-iron-FA 1-dha 10 mg iron- 1 mg-200 mg Cap Take 1 tablet by mouth daily. 30 capsule 11 8 Active Active Problems Problem Noted Date Diagnosed Date Chronic headaches 08/10/2017 Eating disorder 08/10/2017 Generalized anxiety disorder 08/10/2017 History of migraine headaches 08/10/2017 Low HDL (under 40) 08/10/2017 Major depressive disorder 08/10/2017 PMDD (premenstrual dysphoric disorder) 8 Psychophysiological insomnia 08/10/2017 PTSD (post-traumatic stress disorder) 08/10/2017 Slow transit constipation 08/10/2017 Social anxiety disorder 08/10/2017 Immunizations Immunization Administration Dates Next Due DTaP 11/22/2000, 7,06/18/1996,04/13,02/10/1996 HPV,quadrivalent 09/02/2011,02/24/2011, 1 Hepatitis A, ped/adol, 2 dose 12/25/2010 Hepatitis B Adult 06/18/1996,01/16/1996,12/19/18 96 Hib, unspecified formulation 01/04/1997, 06/18/1996,04/13/1996,01/30 INFLUENZA, SPLIT VIRUS, TRIVALENT PF 03/14/2017, 05/03/2016 INFLUENZA, SPLIT VIRUS, TRIV ALENT W/ PRESERVATIVE IM 04/25/2015,04/29/2014 Influenza Quadrivalent Prese rvative Free IM 05/07/2018 Influenza, Unspecified Formulation 06/15/2019 MMR 11/19/1999,03/15/1997 Meningococcal MCV4P 05/24/2013,01/30/2008 PPD Test 02/23/2016 Polio - OPV 11/22/2000, 6,04/13/1996,02/09 Td (adult),2 Lf Tetanus Toxo id, PF, Adsorbed 12/28/2007 Tdap 02/18/2010 Varicella 02/19/2009,01/04/1997 Family History Medical History Relation Comments Cancer Maternal Grandfather 2 Diabetes mellitus Maternal Grandfather 2 Diabetes mellitus Maternal Grandmother 2 Diabetes mellitus Mother 2 Hypertension Mother 2 Relation Status Comments Maternal Grandfather 1 Maternal Grandfather 2 Maternal Grandmother 1 Maternal Grandmother 2 Mother 1 Alive Mother 2 Social History Tobacco Use Types Packs/Day Years Used Date Smoking Tobacco: Never Smokeless Tobacco: Never Alcohol Use Standard Drinks/Week Comments Yes 0 (1 standard drink = 0.6 oz pur e alcohol) SOCIALLY Education Answer Date Recorded Are you interested in more education? Not on serena e 01/02/2024 Are you concerned about learning? Not on file 01/02/2024 No 01/02/2024 No 01/02/2024 Digital Access Answer Date Recorded No 01/02/2024 No 01/02/2024 Reliable internet access at home? Not on file 01/02/2024 Device with a working camera? Not on file Comments No Sex and Gender Information Value Date Recorded Sex Assigned at Not on file Legal Sex Female 8:51 PM EDT Gender Identity Not on file Sexual Orientation Not on file Last Filed Vital Signs Vital Sign Reading Time Taken Comments Blood Pressure 110/62 08/27/2018 10:11 AM EST Pulse 101 08/27/2018 10:11 AM EST Temperature 36.9 C (98.4 F) 08/27/2018 10:11 AM EST Respiratory Rate 18 08/27/2018 10:11 AM EST Oxygen Saturation 96% 08/27/2018 10:11 AM EST Inhaled Oxygen Concentration - - Weight 95.3 kg (210 lb) 08/27/2018 10:11 AM EST Height 165.1 cm (5' 5 ) 08/27/2018 10:11 AM EST Body Mass Index 34.95 08/27/2018 10:11 AM EST Plan of Treatment Health Maintenance Due Date Last Done Comments HEPATITIS A VACCINES (2 of 2 - 2-dose series) 06/26/2011 12/25/2010 DEPRESSION SCREENING 08/10/2018 08/10/2017 PAP SMEAR 02/17/2019 02/18/2016 SMOKING STATUS SCREENING (Once After 26 Yrs) 12/15/2021 INFLUENZA VACCINE (#1) 2025 , 06/15/2019, 05/07/2018, Additional history exists COVID-19 VACCINE ( - 2024- season) 2025 2020, 11/25/2020 Adult Td,Tdap Booster 11/16/2030 11/16/2020 , 02/18/2010, 12/28/2007 HIB VACCINES Completed 01/04/1997, 05/25, 04/13/1996, Additional history exists MENINGOCOCCAL VACCINES (ACWY) Completed 05/24/2013, 01/30/2008 HEPATITIS C SCREENING Completed 05/26/2018 HIV ONE-TIME SCREENING (18-65 YEARS) Completed 05/26/2018 MENINGOCOCCAL VACCINES (B) Aged Out N o longer eligible based on patient's age to complete this topic PNEUMOCOCCAL VACCINES (0-49 years) Aged Out No longer eligible based on patient's age to complete this topic Medical Devices Not on file Procedures Procedure Name Priority Date/Time Associated Diagnosis Comments OUTSIDE HIV Routine 05/26/2018 from Last 3 Months or Most Recently Relevant to Health Maintenance Results * OUTSIDE HIV TEST (05/26/2018) HIV - External Neg us Historical Provider LAB BLOOD ORDERABLES Cintia l Result from Last 3 Months or Most Recently Relevant to Health Maintenance Insurance [facility] ONE CARE MEDICARE REPLACEMENT [facility] CARE MEDICARE [place] [address] [place] [address] ONE CARE MEDICARE REPLACEMENT Care Teams Director Process Engineering Relationship Specialty Start Date End Date Pcp, Unknown PCP - General 03/29/22 Additional Source Comments The information contained in this document represents components of the legal health record. It is not the complete legal health record.[facility]
== END 2025-03-27 09:59 | disposition home or self-care (01) ==
LOC: HO.HPS 09:06
PROVIDERS: PCP Nurse Practitioner Family; Visit Provider Hospitalist
DX: J45.51 Severe persistent asthma with (acute) exacerbation (principal); D72.10 Eosinophilia, unspecified; F41.9 Anxiety disorder, unspecified; F32.9 Major depressive disorder, single episode, unspecified; G47.33 Obstructive sleep apnea (adult) (pediatric)
CPT/HCPCS: 99214; G2211

== ENCOUNTER → 2025-03-27 09:06 | Outpatient (BNVA) | payer OTHER, SELFPAY | PROVIDERS: PCP Nurse Practitioner Family; Visit Provider Hospitalist | DX: J45.51 Severe persistent asthma with (acute) exacerbation (principal); D72.10 Eosinophilia, unspecified; F41.9 Anxiety disorder, unspecified; F32.9 Major depressive disorder, single episode, unspecified; G47.33 Obstructive sleep apnea (adult) (pediatric) | CPT/HCPCS: 99212 ==

== ENCOUNTER 2025-04-07 08:07 | Outpatient (AMB) | payer OTHER, SELFPAY ==
[2025-04-07 08:13] VITALS: BP 124/86; PULSE 108; RESP 16; TEMP 36.9; O2SAT 97; BMI 37.7
--- NOTE | 2025-04-07 08:13 | AM.OFFWIN_ITS ---
Intake Vital Signs 3 04/07/25 08:13 Height 5 ft 3 in Weight 213 lb BMI 37.7 BP 124/86 Blood Pressure Location Lt brachial Position Sitting Respiration 16 Pulse 108 H Pulse Source Pulse Oximeter Temp 98.4 F Temp Source Oral Pulse Oximetry (%) 97 Intake Visit Reasons: EP Blistering rash on hands, itchy, painful Patient Tobacco Use Status: Former Tobacco user Allergies guaifenesin (From ROBITUSSIN A-C) Allergy (Intermediate, Verified 03/27/25 09:20) RASH benztropine (Cogentin) Adverse Reaction (Intermediate, Verified 03/27/25 09:20) extrapyramidal symptoms lorazepam (From ATIVAN) Adverse Reaction (Intermediate, Verified 03/27/25 09:20) AGITATION methylprednisolone (From MEDROL) Adverse Reaction (Intermediate, Verified 03/27/25 09:20) tctile and visual hallucinations prazosin (PRAZOSIN) Adverse Reaction (Intermediate, Verified 03/27/25 09:20) DEPRESSION, hypotension From SEROQUEL Adverse Reaction (Intermediate, Uncoded 03/01/25 12:22) PARANOIA From ZOLOFT Adverse Reaction (Intermediate, Uncoded 03/01/25 12:22) HALLUCINATIONS HPI HPI Comments 2 History of Present Illness0 Details 29 y/o Female patient who presents to [facility] walk in clinic with c/o Rash on B/L Digits that is very itchy and burning since yesterday evening. Reports prior to Rash she had Burning sensation and itchiness to her fingers. Reports that the Rash usually goes away but recurring. Reports Being under alot of Stress lately and she has noticed the rash appears when she is stressed. Rash is vesicular with filled with clear fluid - usually opens up and turns into yellow/Rad crusting. Denies any other symptoms. COUNT INCLUDES THE [facility] Medical History (Updated 04/07/25 @ 08:34 by Mell Vivar NP) Rash Axillary lymphadenopathy Pharyngitis Bilateral otitis media Missed period Breast abscess Vaginal candidiasis Otitis media Sinusitis STD exposure Cystitis Yeast infection Vaginal discharge Sprain of left knee Dysuria Elevated fasting blood sugar Puncture wound of foot Eosinophilia Asthma Anxiety disorder Supraventricular tachycardia Purulent drainage of both ears through ear tube PMDD (premenstrual dysphoric disorder) Surgical History Mass of right breast History of placement of ear tubes [place] teeth extracted Hx of prior ablation treatment History of Family History Mother Hypertension Diabetes Maternal Grandfather Colon cancer Maternal Grandmother Spinal stenosis Diabetes Hypertension Other Mental health disorder Substance use disorder Social History Household Members: Significant Other and Children Housing: House Do you presently have visiting nurse or other home services: No Alcohol intake: current Alcohol intake frequency: holidays/special occasions only Patient Tobacco Use Status: Former Tobacco user e-Cigarette/Vaping Use: Former Use Second Hand Smoke Exposure: Yes Substance Use Type: Marijuana service: No Current occupational status: disabled Review of Systems Const All systems reviewed & are unremarkable except as noted in HPI and below Physical Exam Vital Signs: Last Vital Signs Temp 98.4 F 04/07/25 08:13 Pulse 108 H 04/07/25 08:13 Resp 16 04/07/25 08:13 BP 124/86 04/07/25 08:13 Pulse Ox 97 04/07/25 08:13 BMI result Body Mass Index 37.7 Const General: no acute distress Nutritional Appearance: overweight Orientation/consciousness: patient oriented x3 Skin Other: Painful, fluid-filled blisters on the fingertips and nail bed. Neuro General: patient oriented x3, gait normal and moves all extremities Extrem Right upper extremity: Extremity exam: right hand Hand/finger images: 2 1. Painful, fluid-filled blisters on the fingertips and nail bed. 2. Painful, fluid-filled blisters on the fingertips and nail bed. Psych Speech and movement: Normal speech and movement present Assessment & Plan Assessment & Plan (1) Rash: Code(s): R21 - Rash and other nonspecific skin eruption Plan: DDx's: Contact Dermatitis vs Eczema vs Herpetic Sharifa. Will treat with Valtrex - rash consistent with Herpes infection. Medications: New 2 valacyclovir (Valtrex) 1,000 mg PO BID 14 tabs 0RF 7 days R21 - Rash and other nonspecific skin eruption Coding Level of Care Code Est Pt Level 4 (47108) Diagnoses Rash R21 Time Spent (min) 20
== END 2025-04-07 08:53 | disposition home or self-care (01) ==
PROVIDERS: PCP Nurse Practitioner Family; Visit Provider Nurse Practitioner Family
DX: R21 Rash and other nonspecific skin eruption (principal)

== ENCOUNTER → 2025-04-07 08:07 | Outpatient (BNVA) | payer OTHER, SELFPAY | PROVIDERS: PCP Nurse Practitioner Family; Visit Provider Nurse Practitioner Family | DX: R21 Rash and other nonspecific skin eruption (principal) | CPT/HCPCS: 99212 ==

== ENCOUNTER 2025-04-09 08:08 | Outpatient (REF) | payer OTHER, SELFPAY ==
[2025-04-09 14:02] LABS: Chlamydia pneumoniae PCR Not Detected (Not Detect.); Coronavirus 229E PCR Not Detected (Not Detect.); Coronavirus HKU1 PCR Not Detected (Not Detect.); Coronavirus NL63 PCR Not Detected (Not Detect.); Coronavirus OC43 PCR Not Detected (Not Detect.); RSV PCR Not Detected (Not Detect.); Rhino/Enterovirus PCR Not Detected (Not Detect.)
[2025-04-09 14:08] LABS: SARS-CoV-2 PCR Not Detected (Not Detect.)
[2025-04-09 14:09] LABS: Influenza A H1 PCR Not Detected (Not Detect.); Influenza A H1-2009 PCR Not Detected (Not Detect.); Influenza A H3 PCR Not Detected (Not Detect.)
== END 2025-04-09 08:09 | disposition home or self-care (01) ==
LOC: HO.LAB 08:08
PROVIDERS: PCP Nurse Practitioner Family; Visit Provider Physician Assistant
DX: J06.9 Acute upper respiratory infection, unspecified (principal); B34.9 Viral infection, unspecified; R21 Rash and other nonspecific skin eruption
CPT/HCPCS: 87633; 99212

== ENCOUNTER 2025-04-09 08:08 | Outpatient (AMB) | payer OTHER, SELFPAY ==
--- OUTSIDE RECORDS SUMMARY | 2023-12-08 06:40 | XMS_ITS ---
Author Organization [facility] Address [address] [place] [phone] Care Team Providers Care Animal Care Worker Name Role Phone Gil Coffman MD Primary Care Provider Kyle Mendez Jr [phone] REASON FOR VISIT Patient presents today for abdominal pain,rectal bleeding Encounters Encounter Location Date Provider Diagnosis [facility] [address] [facility] [address] [place] [phone] 12/08/2023 Kyle Hernandez Jr Plan Of Treatment No Information Progress Notes * YONAS, KLAUDIA ADOB:1995 (29 yo F)Acc No.[id number]:12/08/2023 Progress Notes Patient: KLAUDIA GUAJARDO Provider: Benito Hernandez MD :1995 A ge:27 Y S ex:Female Date:12/08/2023 Address[facility] [facility] Pcp:Gil Coffman MD Subjective: * Chief Complaints: [...] 12/08/2023 Generated for Printi ng/Famarijag/eTransmitting on: 0 04/09/2025 08:57 AM EDT
[2025-04-09 08:11] VITALS: BP 120/82; PULSE 84; RESP 16; TEMP 37.1; BMI 37.9
--- NOTE | 2025-04-09 08:11 | AM.OFFWIN_ITS ---
Intake Vital Signs 04/09/25 08:11 Height 5 ft 3 in Weight 214 lb BMI 37.9 BP 120/82 Blood Pressure Location Lt brachial Position Sitting Respiration 16 Pulse 84 Pulse Source Pulse Oximeter Temp 98.7 F Temp Source Oral Oxygen Delivery Method Room Air Oxygen Flow Rate 98 Intake Visit Reasons: ep migraine dizzy Patient Tobacco Use Status: Former Tobacco user Allergies guaifenesin (From ROBITUSSIN A-C) Allergy (Intermediate, Verified 03/27/25 09:20) RASH benztropine (Cogentin) Adverse Reaction (Intermediate, Verified 03/27/25 09:20) extrapyramidal symptoms lorazepam (From ATIVAN) Adverse Reaction (Intermediate, Verified 03/27/25 09:20) AGITATION methylprednisolone (From MEDROL) Adverse Reaction (Intermediate, Verified 03/27/25 09:20) tctile and visual hallucinations prazosin (PRAZOSIN) Adverse Reaction (Intermediate, Verified 03/27/25 09:20) DEPRESSION, hypotension From SEROQUEL Adverse Reaction (Intermediate, Uncoded 03/01/25 12:22) PARANOIA From ZOLOFT Adverse Reaction (Intermediate, Uncoded 03/01/25 12:22) HALLUCINATIONS HPI HPI Comments History of Present Illness Details History - The patient is a 29-year-old female pr esenting with a rash on her hands and subsequent symptoms including migraine, nausea, vomiting, and diarrhea. - Initially treated with Valacyclovir fo r suspected herpes simplex infection, but symptoms persisted despite discontinuation of the medication more than 24 hours ago. - Symptoms of migraine, nausea, vomiting , diarrhea, and body aches led to the suspicion of a viral infection, her kids are in school so exposures there and when she came to this clinic. - the patient reported feeling cold but denies fevers. Physical Exam General: Cooperative, healthy appearing, comfortable and no acute distress Orientation/consciousness: Patient oriented x3 Limitations: No limitations Head: Normal to inspection Ears: Hearing grossly normal bilaterally, external ears normal Nose: Normal external nose present, Normal nares present and No nasal discharge present Face and sinus: Normal facial exam and Yes sinuses nontender Mouth: Normal oral and palatal mucosa present and moist mucous membranes Throat: Yes tonsils normal, Yes uvula midline. Posterior oropharynx erythema, no exudates Eyes: Appearance normal, both eyes and all related structures Neck: Normal visual inspection, full ROM Respiratory: Clear to auscultation bilaterally. Normal respiratory effort, able to speak in complete sentences, no respiratory distress, not tachypneic, no tripod positioning and no use of accessory muscles Cardiovascular: Regular rate and rhythm. Normal S1 and S2 Skin: warm skin noted on exam, no other rashes or lesions noted Neuro: Patient oriented x3 Extremities: Normal to inspection and Yes no clubbing, cyanosis or edema PFSH Medical History (Updated 04/09/25 @ 08:39 by Loren Feng PA-C) Rash Axillary lymphadenopathy Pharyngitis Bilateral otitis media Missed period Breast abscess Vaginal candidiasis Otitis media Sinusitis STD exposure Cystitis Yeast infection Vaginal discharge Sprain of left knee Dysuria Elevated fasting blood sugar Puncture wound of foot Eosinophilia Asthma Anxiety disorder Supraventricular tachycardia Purulent drainage of both ears through ear tube PMDD (premenstrual dysphoric disorder) Surgical History Mass of right breast History of placement of ear tubes [place] teeth extracted Hx of prior ablation treatment History of Family History Mother Hypertension Diabetes Maternal Grandfather Colon cancer Maternal Grandmother Spinal stenosis Diabetes Hypertension Other Mental health disorder Substance use disorder Social History Household Members: Significant Other and Children Housing: House Do you presently have visiting nurse or other home services: No Alcohol intake: current Alcohol intake frequency: holidays/special occasions only Patient Tobacco Use Status: Former Tobacco user e-Cigarette/Vaping Use: Former Use Second Hand Smoke Exposure: Yes Substance Use Type: Marijuana service: No Current occupational status: disabled Review of Systems Const All systems reviewed & are unremarkable except as noted in HPI and below Physical Exam Vital Signs: Last Vital Signs Temp 98.7 F 04/09/25 08:11 Pulse 84 04/09/25 08:11 Resp 16 04/09/25 08:11 BP 120/82 04/09/25 08:11 Oxygen Delivery Method Room Air 04/09/25 08:11 Oxygen Flow Rate 98 04/09/25 08:11 BMI result Body Mass Index 37.9 Assessment & Plan Assessment & Plan (1) Acute viral syndrome: Code(s): B34.9 - Viral infection, unspecified Plan: Patient was informed and verbally consented to the use of an ambient scribe for clinic note documentation during this visit. - VSS, pt well appearing and PE unremarkable - The patient was advised to discontinue Valacyclovir as the rash resolved and symptoms persisted, half life of the medication is 3 hours so it would be out of her system by now as last dose was >24 hours ago. - A viral swab was conducted to rule out viral infections. - Symptomatic treatment was recommended, including Zofran for nausea (RX sent) and Tylenol and ibuprofen for fever and body aches. Orders: Orders Resp Pathogen Panel - [facility] Today J06.9 - Acute upper respiratory infection, unspecified Medications: New ondansetron 4 mg PO Q8H PRN 10 tabs 0RF nausea and vomiting Coding Level of Care Code Est Pt Level 3 (21704) Diagnoses Acute viral syndrome B34.9
--- OUTSIDE RECORDS SUMMARY | 2025-04-09 08:55 | XMS_ITS | Clinical Summary ---
Author Organization [facility] Address [address] [place] [address] Care Team Providers Care Conference Center Manager Name Role Phone Unavailable Primary Care Provider [...] Cervical Cancer Screening: P ap Smear 12/15/2016 Depression Screening 07/24/2024 COVID-19 Vaccine (1 - 2023-2 5 season) 2025 Influenza Vaccine (#1) 2025 HIB Vaccines Aged [...]
--- OUTSIDE RECORDS SUMMARY | 2025-04-09 08:55 | XMS_ITS | Patient Health Record ---
Author Organization [facility] Address [address] [place] [id number] Care Team Providers Care Photogravure Press Operator Name Role Phone Gil Coffman MD [...] Problem Status W/U Status Risk Notes Problem 55810093 Rectal bleeding (K62.5) Active confirmed Problem 247859297 Gastroesophageal reflux disease without esophagitis (K21.9) Active confirmed Problem [id number] Constipation, unspecified constipation type (K59.00) Active confirmed Plan Of Treatment Future Test Test Name Order Date UPPER GI ENDOSCOPY 01/15/2020 COLONOSCOPY 01/15/2020 Insurance Providers Payer Name Payer Address Payer Phone Subscriber Number Group Number Insured Name Patient Relationship to Insured Coverage Start Date Coverage End Date [facility] [address] [place] [phone] [id number] KLAUDIA BRANHAM Self - patient is the insured Medical (General) History Medical History History ICD Code SVT status post ablation anxiety/depression substance abuse currently in remission hepatitis C treated with Mavyret PTSD hypertension Surgical History Surgery Date(Month/Year) MYRINGOTOMY 1997 CARDIAC ABLATION 2016 2019
--- OUTSIDE RECORDS SUMMARY | 2025-04-09 08:55 | XMS_ITS | Patient Health Record ---
Author Organization [facility] Address [address] [place] [address] Care Team Providers Care Show Host Name Role Phone Imelda Santiago NP Primary Care Provider Jennifer Jj Unavailable [phone] Allergies Allergen (clinical drug ingredient) Drug/Non Drug [...] Treatment Pending Test Test Name Order Date 44553-Lbtvozyy Plate 05/16/2017 34232-Otuymybe Plate Each Additional Medical (General) History Medical History History ICD Code Anxiety Depression Headaches ptsd eating disorder Surgical History Surgery Date(Month/Year) cardiac ablasion myomectomy wisdom teeth extraction Ingrown Toe Nails - PRADEEP 05/16/17
--- OUTSIDE RECORDS SUMMARY | 2025-04-09 08:57 | XMS_ITS | Clinical Summary ---
Author Organization [facility] Address [address] [address] Phone Care Team Providers Care Knot Cutter Name Role Phone Pcp, Unknown Primary Care [...] Most Recently Relevant to Health Maintenance Insurance [facility] ONE CARE MEDICARE REPLACEMENT [facility] MEDICARE [place] [address] [place] [address] ONE CARE MEDICARE REPLACEMENT Care Teams Knot Cutter Relationship Specialty Start Date End Date Pcp, Unknown PCP - General 03/29/22 Additional Source Comments The information contained in this document represents components of the legal health record. It is not the complete legal health record.[facility]
== END 2025-04-09 08:42 | disposition home or self-care (01) ==
PROVIDERS: PCP Nurse Practitioner Family; Visit Provider Physician Assistant
DX: B34.9 Viral infection, unspecified (principal)

== ENCOUNTER 2025-04-14 17:19 | Emergency (ER) | payer OTHER, SELFPAY ==
--- OUTSIDE RECORDS SUMMARY | 2023-12-08 06:40 | XMS_ITS ---
Author Organization [facility] Address [address] [place] [phone] Care Team Providers Care Clinical Coordinator Name Role Phone Gil Coffman MD Primary Care Provider Kyle Mendez Jr [phone] REASON FOR VISIT Patient presents today for abdominal pain,rectal bleeding Encounters Encounter Location Date Provider Diagnosis [facility] [address] [facility] [address] [place] [phone] 12/08/2023 Kyle Hernandez Jr Plan Of Treatment No Information Progress Notes * YONAS, KLAUDIA ADOB:1995 (29 yo F)Acc No.[id number]:12/08/2023 Progress Notes Patient: KLAUDIA GUAJARDO Provider: Benito Hernandez MD :1995 A ge:27 Y S ex:Female Date:12/08/2023 [facility] [facility] [address] Pcp:Gil Coffman MD Subjective: * Chief Complaints: [...] 0 12/08/2023 Generated for Printi ng/Famarijag/eTransmitting on: 0 04/14/2025 08:50 PM EDT
--- NOTE | ~2025-04-14 | CT_ITS ---
CLINICAL HISTORY: bump head on [facility] CT head without contrast Comparison: CT/SR - CT HEAD WITHOUT IV CONTRAST - 01/16/24 09:49 EDT Findings: No intra-axial mass, midline shift, hydrocephalus, or acute hemorrhage. Maurice-white matter differentiation is preserved. There is no sinus or mastoid fluid. The orbits are unremarkable. No skull fracture. IMPRESSION: 1. No acute intracranial findings. This document has been electronically signed by: Flako De Jesus MD on 04/14/2025 19:33:15
--- NOTE | ~2025-04-14 | CT_ITS ---
CLINICAL HISTORY: bumped head on [place], b l neck pain --- Additional Notes or Special Instructions: NEEDS CT cervical spine without contrast Comparison: CT/SR - CT CERVICAL SPINE WITHOUT IV CONTRAST - 01/16/24 09:49 EDT Findings: Straightening of the cervical spine is likely positional. Disc osteophyte complex at C5-C6 without spinal canal stenosis. No acute fractures or dislocations. Visualized intracranial contents are unremarkable. No cervical fluid collections or masses. No consolidation or effusion at the lung apices. IMPRESSION: No acute findings. This document has been electronically signed by: Flako De Jesus MD on 04/14/2025 19:28:44
[2025-04-14 17:38] VITALS: BP 157/73; PULSE 72; RESP 16; TEMP 36.1; O2SAT 98; BMI 31.8
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
--- OUTSIDE RECORDS SUMMARY | 2025-04-14 20:51 | XMS_ITS | Patient Health Record ---
Author Organization [facility] Address [address] [place] [address] Care Team Providers Care Life Specialist Name Role Phone Imelda Santiago NP Primary Care Provider Jennifer Jj Unavailable [phone] Allergies Allergen (clinical drug ingredient) Drug/Non Drug [...] Treatment Pending Test Test Name Order Date [id number] Plate 05/16/2017 [id number] Plate Each Additional Medical (General) History Medical History History ICD Code Anxiety Depression Headaches ptsd eating disorder Surgical History Surgery Date(Month/Year) cardiac ablasion myomectomy wisdom teeth extraction Ingrown Toe Nails - PRADEEP 05/16/17
--- OUTSIDE RECORDS SUMMARY | 2025-04-14 20:51 | XMS_ITS | Encounter Summary ---
Author Organization [facility] Address [address] [facility] [address] [place] [address] Phone Care Team Providers Care Admittance Attendant Name Role Phone Leanne Gu CNM Unavailable Echo Payton DRAWER IN DOBBY LOOM Unavailable [phone] Gil Coffman MD Unavailable Loretta Qureshi DRAWER IN DOBBY LOOM Unavailable Imelda Santiago DRAWER IN DOBBY LOOM Unavailable [phone] Imelda Santiago DRAWER IN DOBBY LOOM Primary Care Provider Gil Coffman MD Unavailable Nati Arguello RN Unavailable [phone] Susan Haas MD Unavailable Pcp, Unknown Primary Care Provider Unavailabl e Reason for Visit * Reason Onset Date Comments Post Discharge Follow Up Call 10/24/2018 ED visit at [facility] on 10.22.18 for Headache Encounter Details Date Type Department Care Team (Late st Contact Info) Description 10/24/2018 Telephone [facility] [place] [facility] [address] [place] [address] Imelda Santiago, DRAWER IN DOBBY LOOM [address] [facility] [address] [place] [address] [email or web address] Post Discharge Follow Up Call (ED visit at [facility] on 10.22.18 for Headache) Social History [...] documented as of this encounter Care Teams Admittance Attendant Relationship Specialty Start Date End Date Imelda Santiago, DRAWER IN DOBBY LOOM [address] [place] [address] [email or web address] PCP - General Family Medicine 09/20/17 03/28/22 Pcp, Unknown PCP - General 03/29/22 Leanne Gu CNM [address] [place] [address] Historical LMR Provider 05/10/17 2 Echo Payton NP [address] [place] [address] [email or web address] Historical LMR Provider 05/10/17 07/31/21 Gil Coffman MD [address] [place] [address] Historical LMR Provider 05/10/17 07/31/21 Loretta Qureshi, DEVIN [address] [place] [address] Historical LMR Provider 05/10/17 2 Imelda Santiago, DRAWER IN DOBBY LOOM [address] [facility] [address] [place] [address] [email or web address] Historical LMR Provider 05/10/17 03/28/22 Gil Coffman MD [address] [place] [address] [email or web address] Insurance Assigned Provider 11/25/17 02/23/19 Nati Arguello RN [address] [place] [address] [email or web address] Glue Drier Operator 11/23/18 01/03/19 Susan Haas MD [address] [place] [address] [email or web address] Insurance Assigned Provider 11/27/19 02/27/20 documented as of this encounter Additional Source Comments The information contained in this document represents components of the legal health record. It is not the complete legal health record.[facility]
--- OUTSIDE RECORDS SUMMARY | 2025-04-14 20:51 | XMS_ITS | Encounter Summary ---
Author Organization [facility] Address [address] [facility] [address] [place] [address] Phone Care Team Providers Care Emergency Medicine Physician Name Role Phone GuLeanne Shazia CNM Unavailable Echo Payton STONE RIGGER Unavailable [phone] Gil Coffman MD Unavailable Loretta Qureshi STONE RIGGER Unavailable [phone] Imelda Santiago STONE RIGGER Unavailable [phone] Imelda Santiago STONE RIGGER Primary Care Provider Gil Coffman MD Unavailable Nati Arguello RN Unavailable [phone] Susan Haas MD Unavailable Pcp, Unknown Primary Care Provider Unavailabl e Encounter Details Date Type Department Care Team (Latest Contact Info) Description 03/01/2018 Transcribe Orders [facility] [address] [place] [address] [place] [address] Shannen Franklin, STONE RIGGER [address] [place] [address] Eating disorder, unspecified (Primary Dx) Social [...] EDT) IRON 95 30 - 160 ug/dL [facility] Blood 03/01/2018 9:32 AM EDT 03/01/2018 9:38 AM EDT Shannen Franklin NP LAB BLOOD ORDERABLES Final Result [address] [address] * (ABNORMAL) Carbon dioxide (Bicarbonate) (03/01/2018 9:32 AM EDT) CO2 20(L) 21 - 35 mmol/L [facility] Blood 03/01/2018 9:32 AM EDT 03/01/2018 9:38 AM EDT Shannen Franklin NP LAB BLOOD ORDERABLES Final Result Performing Organization Address City/[facility]/ZIP Co de Phone Number [address] [address] * Chloride (03/01/2018 9:32 AM EDT) CHLORIDE 104 96 - 108 mmol/L [facility] Blood 03/01/2018 9:32 AM EDT 03/01/2018 9:38 AM EDT Shannen Franklin NP LAB BLOOD ORDERABLES Final Result Performing Organization Address City/[facility]/ZIP Co de Phone Number [address] [address] * 25-OH vitamin D (03/01/2018 9:32 AM EDT) 25 [place] VIT D (TOTAL) 34 30 - 60 ng/mL [facility] Blood 03/01/2018 9:32 AM EDT 03/01/2018 9:38 AM EDT Shannen Franklin NP LAB BLOOD ORDERABLES Final Result Performing Organization Address [facility]/ZIP Co de Phone Number [address] [address] * (ABNORMAL) Zinc (03/01/2018 9:32 AM EDT) Pathologist [facility] ZINC 0.59(L) 0.66 - 1.10 mcg/mL [facility]PATH SUPERIOR Comment: (NOTE) ADDITIONAL INFORMATION This test was developed and its performance characteristics determined by [facility] in a manner consistent with CLIA requirements. This test has not been cleared or approved by the U.S. Food and Drug Administration. Blood 03/01/2018 9:32 AM EDT 03/01/2018 9:39 AM EDT Shannen Franklin NP LAB BLOOD ORDERABLES Final Result Performing Organization Address [facility] Co de Phone Number [facility] [address] [place] [address] * Vitamin B12 (03/01/2018 9:32 AM EDT) Pathologist [facility] VITAMIN B12 982 232 - 1,245 pg/mL [facility] Blood 03/01/2018 9:32 AM EDT 03/01/2018 9:38 AM EDT Shannen Franklin NP LAB BLOOD ORDERABLES Final Result Performing Organization Address [facility]/ZIP Co de Phone Number [address] [address] * Urine culture (03/01/2018 9:32 AM EDT) Specimen Source/ Description URINE CLEAN CATCH URINE [facility] Special Requests None [facility] GRAM STAIN Rare GRAM POSITIVE RODS , Rare GRAM NEGATIVE RODS [facility] Culture/Test >100,000 colony forming units per ml PROBABLE CORYNEBACTERIUM SPECIES [facility] Report Status 03/03/2018 FINAL [facility] Urine (Urine) 03/01/2018 9:3 2 AM EDT 03/01/2018 9:39 AM EDT Shannen Franklin NP MICROBIOLOGY - GENERA L ORDERABLES Final Result Performing Organization Address City/[facility] Co de Phone Number [address] [address] * Toxicology screen, urine (03/01/2018 9:32 AM EDT) URINE CANNABINOIDS NONE DETECTED NONE DETECTED [facility] Comment:Cutoff: 50 ng/mL URINE COCAINE METAB NONE DETECTED NONE DETECTED [facility] Comment:Cutoff: 300 ng/mL URINE AMPHETAMINES NONE DETECTED NONE DETECTED [facility] Comment:Cutoff: 1000 ng/mL URINE METHADONE NONE DETECTED NONE DETECTED [facility] Comment:Cutoff: 300 ng/mL URINE OPIATES NONE DETECTED NONE DETECTED [facility] Comment:Cutoff: 300 ng/mL URINE PHENCYCLIDINE NONE DETECTED NONE DETECTED [facility] Comment:Cutoff: 25 ng/mL URINE OXYCODONE NONE DETECTED NONE DETECTED [facility] Comment:Cutoff: 300 ng/ml URINE BARBITURATES NONE DETECTED NONE DETECTED [facility] Comment:Cutoff: 200 ng/mL URINE BENZODIAZEPINE NONE DETECTED NONE DETECTED [facility] Comment: Cutoff: 200 ng/mL INTERPRETATION FOR TOXICOLOGY PANEL: These results are unconfirmed and should be used for Medical Treatment purposes only. Urine (Urine) 03/01/2018 9:3 2 AM EDT 03/01/2018 9:39 AM EDT Shannen Franklin NP URINE ORDERABLES Cintia l Result Performing Organization Address City/[facility]/ZIP Co de Phone Number [address] [address] * (ABNORMAL) Lipid panel (03/01/2018 9:32 AM EDT) Pathologist [facility] HDL 72 mg/dL [facility] Comment: Interpretation: Risk Level Females Decreased >55mg/dL Average 50-55 mg/dL Increased <50 mg/dL CHOLESTEROL 157 0 - 240 mg/dL [facility] TRIGLYCERIDES 130 30 - 160 mg/dL [facility] LDL 59 50 - 129 mg/dL [facility] Comment: LDL levels in terms of risk for coronary heart disease: <100 mg/dL: Optimal 100-129 mg/dL: Near or above optimal 130-159 mg/dL: Borderline high 160-189 mg/dL: High >190 mg/dL: Very High CARDIAC RISK RATIO 2.2(L) 3.3 - 4.4 C [facility] Blood 03/01/2018 9:32 AM EDT 03/01/2018 9:38 AM EDT Shannen Franklin NP LAB BLOOD ORDERABLES Final Result [address] [address] * Lipase (03/01/2018 9:32 AM EDT) [facility] LIPASE 22 16 - 63 U/L [facility] Blood 03/01/2018 9:32 AM EDT 03/01/2018 9:38 AM EDT Shannen Franklin STONE RIGGER LAB BLOOD ORDERABLES Final Result Performing Organization Address [facility]/State/ZIP Co de Phone Number [address] [address] * HCG (quantitative blood), (03/01/2018 9:32 AM EDT) [facility] HCG BETA <0.1 mIU/mL [facility] Comment: Interpretation: FEMALE: Negative Result: Less than 5 mIU/ml. 1 Week Post Conception: 0 - 50 mIU/ml. 4 Weeks Post Conception: 3,000 - 19,000 mIU/ml. 12 Weeks Post Conception: 16,000 - 160,000 mIU/ml. Blood 03/01/2018 9:32 AM EDT 03/01/2018 9:38 AM EDT Shannen Franklin STONE RIGGER LAB BLOOD ORDERABLES Final Result Performing Organization Address [facility] Co de Phone Number [address] [address] * Folate (03/01/2018 9:32 AM EDT) FOLIC ACID 18.8 4.2 - 19.9 ng/mL [facility] Blood 03/01/2018 9:32 AM EDT 03/01/2018 9:38 AM EDT Shannen Franklin NP LAB BLOOD ORDERABLES Final Result Performing Organization Address [facility] Co de Phone Number [address] [address] * Ferritin (03/01/2018 9:32 AM EDT) FERRITIN 91 13 - 150 ug/L [facility] Blood 03/01/2018 9:32 AM EDT 03/01/2018 9:38 AM EDT Shannen Franklin STONE RIGGER LAB BLOOD ORDERABLES Final Result Performing Organization Address [facility] de Phone Number [address] [address] * Amylase (03/01/2018 9:32 AM EDT) AMYLASE 35 28 - 100 U/L [facility] Blood 03/01/2018 9:32 AM EDT 03/01/2018 9:38 AM EDT Shannen Franklin NP LAB BLOOD ORDERABLES Final Result [facility] [address] [place] [address] * (ABNORMAL) CBC and differential (03/01/2018 9:32 AM EDT) WBC 5.84 3.40 - 11.20 K/uL [facility] RBC 4.82(H) 3.80 - 4.80 M/uL [facility] HGB 13.9 12.0 - 15.0 g/dL [facility] HCT 42.7 36.0 - 46.0 % [facility] PLT 296 130 - 400 K/uL [facility] MCV 88.6 79.0 - 98.0 fL [facility] MCH 28.8 27.0 - 34.8 pg [facility] MCHC 32.6 31.5 - 36.0 g/dL [facility] RDW 12.2 10.8 - 14.6 % [facility] MPV 10.1 9.4 - 12.4 fl [facility] NRBC 0.00 /100 WBCs [facility] ABSOLUTE NRBC 0.00 K/uL [facility] DIFF METHOD Auto [facility] NEUTS 54.2 45.30 - 77.70 % [facility] LYMPHS 29.3 12.30 - 39.70 % [facility] MONOS 12.7 4.10 - 12.80 % [facility] EOS 2.6 0 - 7.2 % [facility] BASOS 1.0 0 - 2.80 % [facility] Granulocytes, immature (%) 0.2 0.0 - 0.9 % [facility] ABSOLUTE NEUTS 3.17 1.40 - 7.70 K/uL [facility] ABSOLUTE LYMPHS 1.71 0.60 - 3.20 K/uL [facility] ABSOLUTE MONOS 0.74(H) 0.11 - 0.59 K/uL [facility] ABSOLUTE EOS 0.15 0.01 - 0.50 K/uL [facility] ABSOLUTE BASOS 0.06 0.00 - 0.08 K/uL [facility] Granulocytes, immature 0.01 0.00 - 0.05 K/uL [facility] Blood 03/01/2018 9:32 AM EDT 03/01/2018 9:38 AM EDT us Shannen Franklin NP LAB BLOOD ORDERABLES Final Result Performing Organization Address City/[facility]/ZIP Co de Phone Number [address] [address] * Potassium (03/01/2018 9:32 AM EDT) POTASSIUM 4.6 3.3 - 5.1 mmol/L [facility] Blood 03/01/2018 9:32 AM EDT 03/01/2018 9:38 AM EDT us Shannen Franklin NP LAB BLOOD ORDERABLES Final Result Performing Organization Address [facility] Co de Phone Number [address] [address] * Sodium (03/01/2018 9:32 AM EDT) SODIUM 137 133 - 146 mmol/L [facility] Blood 03/01/2018 9:32 AM EDT 03/01/2018 9:38 AM EDT us Shannen Franklin NP LAB BLOOD ORDERABLES Final Result Performing Organization Address City/[facility]/ZIP Co de Phone Number [address] [address] * Glucose (03/01/2018 9:32 AM EDT) GLUCOSE 96 70 - 99 mg/dL [facility] Blood 03/01/2018 9:32 AM EDT 03/01/2018 9:38 AM EDT us Shannen Franklin NP LAB BLOOD ORDERABLES Final Result [address] [address] * TSH (03/01/2018 9:32 AM EDT) TSH 1.98 0.27 - 4.20 uIU/mL [facility] Blood 03/01/2018 9:32 AM EDT 03/01/2018 9:38 AM EDT us Shannen Franklin STONE RIGGER LAB BLOOD ORDERABLES Final Result [address] [address] * Magnesium (03/01/2018 9:32 AM EDT) MAGNESIUM 1.8 1.6 - 2.6 mg/dL [facility] Blood 03/01/2018 9:32 AM EDT 03/01/2018 9:38 AM EDT us Shannen Franklin STONE RIGGER LAB BLOOD ORDERABLES Final Result [address] [address] * Phosphorus (03/01/2018 9:32 AM EDT) PHOSPHORUS 3.5 2.7 - 4.5 mg/dL [facility] Blood 03/01/2018 9:32 AM EDT 03/01/2018 9:38 AM EDT Shannen Franklin STONE RIGGER LAB BLOOD ORDERABLES Final Result [address] [address] * Calcium (03/01/2018 9:32 AM EDT) CALCIUM 9.2 8.4 - 10.3 mg/dL [facility] Blood 03/01/2018 9:32 AM EDT 03/01/2018 9:38 AM EDT Shannen Franklin NP LAB BLOOD ORDERABLES Final Result Performing Organization Address [facility]/ZIP Co de Phone Number [address] [address] * (ABNORMAL) LFTs (hepatic panel) (03/01/2018 9:32 AM EDT) ALKALINE PHOSPHATASE 115 39 - 117 U/L [facility] TOTAL BILIRUBIN 0.3 0.0 - 1.2 mg/dL [facility] DIRECT BILIRUBIN <0.2 0 - 0.3 mg/dL [facility] Bilirubin (Indirect) NOT CALCULATED 0 - 1.5 mg/dL [facility] AST 277(H) 0 - 37 U/L [facility] ALT 278(H) 0 - 40 U/L [facility] TOTAL PROTEIN 7.1 6.5 - 8.0 g/dL [facility] ALBUMIN 3.5(L) 3.9 - 4.8 g/dL [facility] GLOBULIN 3.6 1 - 4.8 g/dL [facility] A/G Ratio 0.97(L) 1.00 - 4.80 RATIO [facility] Blood 03/01/2018 9:32 AM EDT 03/01/2018 9:38 AM EDT Shannen Franklin NP LAB BLOOD ORDERABLES Final Result [address] [address] * Creatinine/eGFR (03/01/2018 9:32 AM EDT) CREATININE 0.90 0.5 - 1.5 mg/dL [facility] EGFR 91 >59 mL/min/1.7 3m2 [facility] Comment:If patient is black, multiply result by 1.159. Estimated glomerular filtration rate calculated using the CKD-EPI equation. Blood 03/01/2018 9:32 AM EDT 03/01/2018 9:38 AM EDT us Shannen Franklin STONE RIGGER LAB BLOOD ORDERABLES Final Result Performing Organization Address City/[facility]/ZIP Co de Phone Number [address] [address] * BUN (03/01/2018 9:32 AM EDT) BUN 7 6 - 19 mg/dL [facility] Blood 03/01/2018 9:32 AM EDT 03/01/2018 9:38 AM EDT Shannen Shonashazia Franklin STONE RIGGER LAB BLOOD ORDERABLES Final Result Performing Organization Address [facility] Co de Phone Number [address] [address] documented in this encounter Visit Diagnoses Diagnosis Eating disorder, unspecified- Primary documented in this encounter Additional Health Concerns Assessment Noted Time PHQ-2 Depression Total Score: 0 08/10/19 18 2:20 PM EST documented as of this encounter Care Teams Emergency Medicine Physician Relationship Specialty Start Date End Date Imelda Santiago NP [address] [place] [address] [email or web address] PCP - General Family Medicine 09/20/17 03/28/22 Pcp, Unknown PCP - General 03/29/22 Leanne Gu CNM [address] [place] [address] Historical LMR Provider 05/10/17 2 Echo Payton NP [address] [place] [address] [email or web address] Historical LMR Provider 05/10/17 07/31/21 Gil Coffman MD [address] [place] [address] [email or web address] Historical LMR Provider 05/10/17 07/31/21 Loretta Qureshi, STONE RIGGER [address] [place] [address] Historical LMR Provider 05/10/17 2 Imelda Santiago NP [address] [place] [address] [email or web address] Historical LMR Provider 05/10/17 03/28/22 Gil Coffman MD [address] [place] [address] [email or web address] Insurance Assigned Provider 11/25/17 02/23/19 Nati Arguello, DARREN [address] [place] [address] [email or web address] [email or web address] Copy Chaser 11/23/18 01/03/19 Susan Haas MD [address] [place] [address] [email or web address] Insurance Assigned Provider 11/27/19 02/27/20 documented as of this encounter Additional Source Comments The information contained in this document represents components of the legal health record. It is not the complete legal health record.[facility]
--- OUTSIDE RECORDS SUMMARY | 2025-04-14 20:51 | XMS_ITS | Patient Health Record ---
Author Organization [facility] Address [address] [place] [phone] Care Team Providers Care Lay Out And Detail Drafter Name Role Phone Gil Coffman MD Primary [...] Problem Status W/U Status Risk Notes Problem [id number] Rectal bleeding (K62.5) Active confirmed Problem [id number] Gastroesophageal reflux disease without esophagitis (K21.9) Active confirmed Problem [id number] Constipation, unspecified constipation type (K59.00) Active confirmed Plan Of Treatment Future Test Test Name Order Date UPPER GI ENDOSCOPY 01/15/2020 COLONOSCOPY 01/15/2020 Insurance Providers Payer Name Payer Address Payer Phone Subscriber Number Group Number Insured Name Patient Relationship to Insured Coverage Start Date Coverage End Date [facility] [address] [place] [address] [id number] KLAUDIA BRANHAM Self - patient is the insured Medical (General) History Medical History History ICD Code SVT status post ablation anxiety/depression substance abuse currently in remission hepatitis C treated with Mavyret PTSD hypertension Surgical History Surgery Date(Month/Year) MYRINGOTOMY 1997 CARDIAC ABLATION 2016 2019
--- OUTSIDE RECORDS SUMMARY | 2025-04-14 20:51 | XMS_ITS | Clinical Summary ---
Author Organization [facility] Address [address] [place] [address] Care Team Providers Care Mining Engineering Technologist Name Role Phone Unavailable Primary Care Provider [...]
--- OUTSIDE RECORDS SUMMARY | 2025-04-14 20:51 | XMS_ITS | Clinical Summary ---
Author Organization [facility] Address [address] [address] Phone Care Team Providers Care Yard Manager Name Role Phone Pcp, Unknown Primary Care [...] Most Recently Relevant to Health Maintenance Insurance [facility] ONE CARE MEDICARE REPLACEMENT [facility] CARE MEDICARE [place] [address] [place] [address] ONE C[employer] MEDICARE REPLACEMENT Care Teams Yard Manager Relationship Specialty Start Date End Date Pcp, Unknown PCP - General 03/29/22 Additional Source Comments The information contained in this document represents components of the legal health record. It is not the complete legal health record.[facility]
== END 2025-04-14 20:58 | disposition left against medical advice (07) ==
PROVIDERS: Physician Assistant Medical; Emergency Provider Emergency Medicine; PCP Nurse Practitioner Family
DX: R51.9 Headache, unspecified (principal); Z53.21 Procedure and treatment not carried out due to patient leaving prior to being seen by health care provider
CPT/HCPCS: 36415; 70450; 72125; 84702; 99281; 99284

== ENCOUNTER → 2025-04-14 17:44 | Outpatient (BNV) | payer OTHER, SELFPAY | PROVIDERS: PCP Nurse Practitioner Family; Visit Provider Radiology Diagnostic Radiology | DX: M54.2 Cervicalgia (principal); S09.90XA Unspecified injury of head, initial encounter | CPT/HCPCS: 70450; 72125 ==

== ENCOUNTER 2025-05-26 07:58 | Outpatient (AMB) | payer OTHER, SELFPAY ==
--- OUTSIDE RECORDS SUMMARY | 2023-12-08 05:40 | XMS_ITS ---
Author Organization [facility] Address [address] [place] [phone] Care Team Providers Care Non Destructive Evaluation Specialist Name Role Phone Gil Coffman MD Primary Care Provider Kyle Mendez Jr REASON FOR VISIT Patient presents today for abdominal pain,rectal bleeding Encounters Encounter Location Date Provider Diagnosis [facility] [address] [place] [phone] 12/08/2023 Kyle Hernandez Jr Plan Of Treatment No Information Progress Notes * YONAS, KLAUDIA ADOB:1995 (29 yo F)Acc No.[id number]:12/08/2023 Progress Notes Patient: KLAUDIA GUAJARDO Provider: Benito Hernandez MD :1995 A ge:27 Y S ex:Female Date:12/08/2023 [facility] [facility] Pcp:Gil Coffman MD Subjective: * Chief Complaints: * 1 . Patient presents today for abdominal pain,rectal bleeding. * Medical History: Objective: * Vitals: Assessment: Plan: * Treatment: * * The named appointment provid er may or may not be the originator of this progress note, and it is not deemed complete until electronically signed by the appointment provider. Sign off status: Pending * Provider: Benito Hernandez MD Date: 0 12/08/2023 Generated for Printi ng/Famarijag/eTransmitting on: 1 07/26/2024 08:01 AM EST
--- NOTE | 2025-05-26 07:59 | A.OFFPC_ITS ---
Vital Signs 05/26/25 08:01 Height 5 ft 4 in Weight 205 lb BMI 35.2 BP 130/80 Blood Pressure Location Lt brachial Position Sitting Respiration 16 Pulse 67 Pulse Source Pulse Oximeter Temp 98.3 F Temp Source Oral Pulse Oximetry (%) 98 Oxygen Delivery Method Room Air Intake Visit Reasons: PE Product Line Manager Required: No Accompanied by: Self / Same As Patient Allergies guaifenesin (From ROBITUSSIN A-C) Allergy (Intermediate, Verified 05/26/25 08:04) RASH benztropine (Cogentin) Adverse Reaction (Intermediate, Verified 05/26/25 08:04) extrapyramidal symptoms lorazepam (From ATIVAN) Adverse Reaction (Intermediate, Verified 05/26/25 08:04) AGITATION methylprednisolone (From MEDROL) Adverse Reaction (Intermediate, Verified 05/26/25 08:04) tctile and visual hallucinations prazosin (PRAZOSIN) Adverse Reaction (Intermediate, Verified 05/26/25 08:04) DEPRESSION, hypotension From SEROQUEL Adverse Reaction (Intermediate, Uncoded 03/01/25 12:22) PARANOIA From ZOLOFT Adverse Reaction (Intermediate, Uncoded 03/01/25 12:22) HALLUCINATIONS Medication List - Last Reconciled 05/26/25 by Israel Antony, SHANE-BC acetaminophen (Tylenol Extra Strength) 500 mg PO Q6H PRN acetaminophen (Tylenol) 650 mg PO Q6H PRN albuterol sulfate 2.5 mg (3 mL) inhalation Q6H PRN albuterol sulfate 90 mcg/actuation 2 puffs inhalation Q4-6H PRN budesonide 0.5 mg (2 mL) inhalation BID 30 days budesonide-formoterol 160-4.5 mcg/actuation 2 puffs inhalation BID 30 days NS biwzakycbg-vmakifvn-ihytgfxpfd 160-9-4.8 mcg/actuation (Breztri Aerosphere) 2 inhalations inhalation BID 30 days bupropion HCl XL 300 mg PO DAILY bupropion HCl XL 150 mg PO DAILY cariprazine (Vraylar) 3 mg PO DAILY fluoxetine 40 mg PO DAILY ibuprofen 600 mg PO Q6H PRN lorazepam 0.25 mg PO DAILY PRN Magic Mouthwash Diphen/Lido/Antacid 1:1:1 5 mL PO Q8H PRN 30 days montelukast 10 mg PO DAILY nebulizers As directed ondansetron 4 mg PO Q8H PRN prednisone PO daily; Take 6 tabs daily x 3 days, then 5 tabs x 3 days, then 4 tabs x 3 days, then 3 tabs x 3 days, then 2 tabs daily x 3 days, then 1 tab x 3 days to complete. 18 days tiotropium bromide 1.25 mcg/actuation (Spiriva Respimat) 2 puffs inhalation DAILY valacyclovir (Valtrex) 1,000 mg PO BID 7 days Tobacco use date assessed: 05/26/25 Dental Screening Dental Screen Date: 05/26/25 Did you have a dental visit in the last 12 months?: No Did you have a dental problem in the last 6 months where you did not have access to dental care?: No Was dental information given to patient?: Patient declined HPI PE HPI Details History of Present Illness The patient is a 29-year-old female presenting for a follow-up physical examination. She has a history of severe asthma, for which she sees a laborer electroplating, and also receives regular care from a psychiatrist. Past surgical history is notable for a hysterectomy last August following a complicated , though her fallopian tubes remain. She reports her child is doing well. The patient reports occasionally developing vesicles on her fingers in various spots, which are suspected to be related to herpetic dermatitis. Health Maintenance - Patient is here for a follow-up physic al exam. Social History Review of Systems - Integumentary: Reports vesicles on her fingers. - Cardiovascular: Denies chest pain. - Respiratory: Denies shortness of breat h. - Gastrointestinal: Denies abdominal theo n, hematochezia, constipation, and diarrhea. - Psychiatric: Denies suicidal or homici temi ideation. Physical Exam General: Cooperative, healthy appearing, comfortable, no acute distress and well developed Orientation: Patient oriented x3 Limitations: No limitations Head: Normal to inspection Ears: Hearing grossly normal bilaterally Nose: Normal external nose present Face and sinus: Normal facial exam Eyes: Appearance normal, both eyes and all related structures Neck: Normal visual inspection and Yes full ROM Respiratory: Normal respiratory effort and able to speak in complete sentences. Clear to auscultation bilaterally Cardiovascular: Regular rate and rhythm. Normal S1 and S2 GI: Normal to inspection. 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 Referred to dermatology for evaluation. Neuro: Patient oriented x3 Extremities: Normal to inspection Results Plan 1. Dermatitis The patient reports vesicles on her fingers, suspected to be herpes-related dermatitis. There are no current lesions. A referral will be made to dermatology for further evaluation. 2. Severe Asthma The patient will continue to follow up with her laborer electroplating for management of her severe asthma. 3. Psychiatric Disorder The patient will continue to see her psychiatrist on a regular basis for her mental health care. 4. General Adult Medical Examination The patient presented for a follow-up physical examination. Discussion Notes I saw the patient for a physical exam follow-up. We discussed the vesicles she gets on her fingers, which may be related to herpetic dermatitis. As there were no active lesions to assess, I am referring her to dermatology for a full evaluation. We also reviewed that she is under the care of a laborer electroplating for severe asthma and a psychiatrist for mental health, and she will continue with their care. Patient Instructions - We will refer you to a fire prevention specialist (vamp strap ironer) to evaluate the blisters on your fingers. - Continue to see your lung doctor (pulm onologist) for your severe asthma. - Continue your regular appointments wit h your psychiatrist for your mental health. [facility] Medical History Rash Axillary lymphadenopathy Pharyngitis Bilateral otitis media Missed period Breast abscess Vaginal candidiasis Otitis media Sinusitis STD exposure Cystitis Yeast infection Vaginal discharge Sprain of left knee Dysuria Elevated fasting blood sugar Puncture wound of foot Eosinophilia Asthma Anxiety disorder Supraventricular tachycardia Purulent drainage of both ears through ear tube PMDD (premenstrual dysphoric disorder) Surgical History Mass of right breast History of placement of ear tubes [place] teeth extracted Hx of prior ablation treatment History of Family History Mother Hypertension Diabetes Maternal Grandfather Colon cancer Maternal Grandmother Spinal stenosis Diabetes Hypertension Other Mental health disorder Substance use disorder Social History Household Members: Significant Other and Children Housing: House Do you presently have visiting nurse or other home services: No Alcohol intake: current Alcohol intake frequency: holidays/special occasions only Patient Tobacco Use Status: Former Tobacco user e-Cigarette/Vaping Use: Former Use Second Hand Smoke Exposure: Yes Substance Use Type: Marijuana service: No Current occupational status: disabled Questionnaire PHQ-9 Over the last 2 weeks, how often have you been bothered by any of the following problems? 1. Little interest or pleasure in doing things: not at all 2. Feeling down, depressed, or hopeless: several days 3. Trouble falling or staying asleep, or sleeping too much: several days 4. Feeling tired or having little energy: several days 5. Poor appetite or overeating: several days 6. Feeling bad about yourself - or that you are a failure or have let yourself or your family down: several days 7. Trouble concentrating on things, such as reading the newspaper or watching television: several days 8. Moving or speaking so slowly that other people could have noticed. Or the opposite - being so fidgety or restless that you have been moving around a lot more than usual: not at all 9. Thoughts that you would be better off or of hurting yourself in some way: not at all Total score: 6 Depression Screening Interpretation: Negative Depression Screening Done: Yes 43926 - PHQ-9 Billing: Yes Source: Developed by Drs. Andriy Huizar, Carole Ceron, Lukasz Khan and colleagues, with an educational savanah from [employer]. Thrive Questionnaire Date Thrive assessed: 01/21/24 I am a: Patient What is your living situation today?: I have a steady place to live Within the past 12 months, did the food you bought not last and you didn't have the money to get more?: Never true Within the past 12 months, did you worry whether your food would run out before you got money to buy more?: Never true Do you have trouble paying for medicines?: No Do you have trouble getting transportation to medical appointments?: No Do you have trouble paying your heating and electricity bill?: No Do you have trouble taking care of your child, family member or friend?: No Do you have trouble with day-to-day activities such as bathing, preparing meals, shopping, managing finances, etc.?: No Are you currently unemployed and looking for a job?: No Are you interested in more education?: No Please select the resources that you would like help with: None Currently or been in a relationship where the following occur: No concerns reported THRIVE Score: 0 AUDIT C Alcohol Use Questionnaire (AUDIT-C) 1. How often do you have a drink containing alcohol?: Monthly or less Total Score: 1 DIANA-7 AMB Questionnaire DIANA-7 Date DIANA - 7 assessed: 05/26/25 Feeling nervous, anxious, or on edge: 0 = Not at all Not being able to stop or control worryin = Several days Worrying too much about different things: 1 = Several days Trouble relaxin = Several days Being so restless that it is hard to sit still: 1 = Several days Becoming easily annoyed or irritable: 1 = Several days Feeling afraid as if something awful might happen: 1 = Several days Total DIANA-7 score (0-4 normal; 5-9 mild; 10-14 moderate; 15-21 severe): 6 Source: Developed by Drs. Andriy Huizar, Carole Ceron, Lukasz Khan and colleagues, with an educational savanah from [employer]. DIANA-7 Assessment Billing DIANA-7 Assessment Tool: DIANA-7 Assessment 46285 Physical exam (Primary Care) Vital Signs: Last Vital Signs Temp 98.3 F 05/26/25 08:01 Pulse 67 05/26/25 08:01 Resp 16 05/26/25 08:01 BP 130/80 05/26/25 08:01 Pulse Ox 98 05/26/25 08:01 Oxygen Delivery Method Room Air 05/26/25 08:01 BMI result Body Mass Index 35.2 Tobacco/Smoking Status: Tobacco use Status Tobacco use date assessed 05/26/25 05/26/25 08:10 Patient Tobacco Use Status Former Tobacco user 05/26/25 08:01 e-Cigarette/Vaping Use Former Use 05/26/25 08:01 PHQ-9: PHQ-9 Score PHQ-9: Total score 6 05/26/25 08:10 Depression Screening Interpretation: Negative Thrive Assessment: Date of Thrive Assessment Date Thrive assessed 01/21/24 05/26/25 08:01 Currently or been in a relationship where the following occur: No concerns reported Coding Level of Care Code Est Pt Prev Care 18-39y(46797) Diagnoses Physical exam Z00.00 Vesicles R23.8 Additional Codes DIANA-7 Assessment Billing - DIANA-7 Assessment Tool: DIANA-7 Assessment 62030 ([id number]) PHQ-9 - 27955 - PHQ-9 Billing: Yes ([id number]) Assessment & Plan Assessment & Plan (1) Physical exam: Code(s): Z00.00 - Encounter for general adult medical examination without abnormal findings Category: Medical (2) Vesicles: Code(s): R23.8 - Other skin changes Category: Medical Plan . Orders: Orders Comprehensive Reagan. Panel Fast Today Z00.00 - Encounter for general adult medical examination without abnormal findings UA CC w/rflx Micro + Cult Today Z00.00 - Encounter for general adult medical examination without abnormal findings Lipid Panel Today Z00.00 - Encounter for general adult medical examination without abnormal findings Complete Blood Count Auto Diff Today Z00.00 - Encounter for general adult medical examination without abnormal findings TSH reflex Free T4 Today Z00.00 - Encounter for general adult medical examination without abnormal findings Referrals Dermatology Referral R23.8 - Other skin changes
[2025-05-26 08:01] VITALS: BP 130/80; PULSE 67; RESP 16; TEMP 36.8; O2SAT 98; BMI 35.2
--- OUTSIDE RECORDS SUMMARY | 2025-05-26 08:01 | XMS_ITS | Clinical Summary ---
Author Organization [facility] Address [address] [place] [address] Care Team Providers Care Screen Tacker Name Role Phone Unavailable Primary Care Provider [...] Cervical Cancer Screening: P ap Smear 12/15/2016 HPV Vaccines (1 - 3-dose SCD M series) 12/15/2022 Depression Screening 07/24/2024 COVID-19 Vaccine ( - 2023-2 5 season) 2025 Influenza Vaccine (#1) 2025 RSV Immunization Adult Patie nts (1 - 1-dose 75+ series) 12/15/2070 HIB Vaccines Aged Out No longer eligi [...]
--- OUTSIDE RECORDS SUMMARY | 2025-05-26 08:01 | XMS_ITS | Patient Health Record ---
Author Organization [facility] Address [address] [place] [address] Care Team Providers Care Hogshead Dumper Name Role Phone Imelda Santiago NP Primary Care Provider Jennifer Jj Unavailable [phone] Allergies Allergen (clinical drug ingredient) Drug/Non Drug [...] Treatment Pending Test Test Name Order Date [id number] Plate 05/16/2017 [id number]-Rqnunrdt Plate Each Additional Medical (General) History Medical History History ICD Code Anxiety Depression Headaches ptsd eating disorder Surgical History Surgery Date(Month/Year) cardiac ablasion myomectomy wisdom teeth extraction Ingrown Toe Nails - PRADEEP 05/16/17
--- OUTSIDE RECORDS SUMMARY | 2025-05-26 08:01 | XMS_ITS | Encounter Summary ---
Author Organization [facility] Address [address] [place] [address] Phone Care Team Providers Care Compress Engineer Name Role Phone Leanne Gu CNM Unavailable Echo Payton CORPORATE TRAVEL COORDINATOR Unavailable [phone] Gil Coffman MD Unavailable Loretta Qureshi CORPORATE TRAVEL COORDINATOR Unavailable Imelda Santiago CORPORATE TRAVEL COORDINATOR Unavailable [phone] Imelda Santiago CORPORATE TRAVEL COORDINATOR Primary Care Provider Gil Coffman MD Unavailable Nati Arguello RN Unavailable [phone] Susan Haas MD Unavailable Pcp, Unknown Primary Care Provider Unavailabl e Reason for Visit * Reason Onset Date Comments Post Discharge Follow Up Call 10/24/2018 ED visit at [facility] on 10.22.18 for Headache Encounter Details Date Type Department Care Team (Late st Contact Info) Description 10/24/2018 Telephone [facility] [address] [place] [address] Imelda Santiago, CORPORATE TRAVEL COORDINATOR [address] [facility] [address] [place] [address] [email or web address] Post Discharge Follow Up Call (ED visit at [facility] on 10.22.18 for Headache) Social History [...] documented as of this encounter Care Teams Compress Engineer Relationship Specialty Start Date End Date Imelda Santiago, CORPORATE TRAVEL COORDINATOR [address] [place] [phone] [email or web address] PCP - General Family Medicine 09/20/17 03/28/22 Pcp, Unknown PCP - General 03/29/22 Leanne Gu CNM [address] [place] [phone] Historical LMR Provider 05/10/17 2 Echo Payton NP [address] [place] [address] [email or web address] Historical LMR Provider 05/10/17 07/31/21 Gli Coffman MD [address] [place] [address] Historical LMR Provider 05/10/17 07/31/21 Loretta Qureshi, DEVIN [address] [place] [address] Historical LMR Provider 05/10/17 2 Imelda Santiago, CORPORATE TRAVEL COORDINATOR [address] [facility] [address] [place] [address] [email or web address] Historical LMR Provider 05/10/17 03/28/22 Gil Coffman MD [address] [place] [address] Insurance Assigned Provider 11/25/17 02/23/19 Nati Arguello RN [address] [place] [address] [email or web address] [facility] Tank Processor 11/23/18 01/03/19 Susan Haas MD [address] [place] [phone] [email or web address] Insurance Assigned Provider 11/27/19 02/27/20 documented as of this encounter Additional Source Comments The information contained in this document represents components of the legal health record. It is not the complete legal health record.[facility]
--- OUTSIDE RECORDS SUMMARY | 2025-05-26 08:01 | XMS_ITS | Clinical Summary ---
Author Organization [facility] Address [address] [address] Phone Care Team Providers Care Manager Mechanical Name Role Phone Pcp, Unknown Primary Care [...] Recently Relevant to Health Maintenance Insurance [facility] ONE C[employer] MEDICARE REPLACEMENT [facility] CARE MEDICARE REPLACEMENT [address] [address] [employer] MEDICARE REPLACEMENT Care Teams Manager Mechanical Relationship Specialty Start Date End Date Pcp, Unknown PCP - General 03/29/22 Additional Source Comments The information contained in this document represents components of the legal health record. It is not the complete legal health record.[facility]
--- OUTSIDE RECORDS SUMMARY | 2025-05-26 08:01 | XMS_ITS | Encounter Summary ---
Author Organization [facility] Address [address] [facility] [address] [place] [address] Phone Care Team Providers Care Bread Wrapper Operator Name Role Phone RiccardoLeanne Sheng CNM Unavailable Echo Payton REHABILITATION CASEWORKER Unavailable [phone] Gil Coffman MD Unavailable Loretta Qureshi REHABILITATION CASEWORKER Unavailable Imelda Santiago REHABILITATION CASEWORKER Unavailable [phone] Imelda Santiago REHABILITATION CASEWORKER Primary Care Provider Gil Coffman MD Unavailable Nati Arguello RN Unavailable [phone] Susan Haas MD Unavailable Pcp, Unknown Primary Care Provider Unavailabl e Encounter Details Date Type Department Care Team (Latest Contact Info) Description 03/01/2018 Transcribe Orders [address] [place] [address] Shannen Franklin, REHABILITATION CASEWORKER [address] [place] [address] Eating disorder, unspecified (Primary Dx) Social [...] EDT) IRON 95 30 - 160 ug/dL [facility] Blood 03/01/2018 9:32 AM EDT 03/01/2018 9:38 AM EDT Shannen Franklin NP LAB BLOOD ORDERABLES Final Result [address] [address] * (ABNORMAL) Carbon dioxide (Bicarbonate) (03/01/2018 9:32 AM EDT) CO2 20(L) 21 - 35 mmol/L [facility] Blood 03/01/2018 9:32 AM EDT 03/01/2018 9:38 AM EDT Shannen Franklin NP LAB BLOOD ORDERABLES Final Result Performing Organization Address City/[facility]/ZIP Co de Phone Number [address] [address] * Chloride (03/01/2018 9:32 AM EDT) CHLORIDE 104 96 - 108 mmol/L [facility] Blood 03/01/2018 9:32 AM EDT 03/01/2018 9:38 AM EDT Shannen Franklin NP LAB BLOOD ORDERABLES Final Result Performing Organization Address City/[facility]/ZIP Co de Phone Number [address] [address] * 25-OH vitamin D (03/01/2018 9:32 AM EDT) 25 [place] VIT D (TOTAL) 34 30 - 60 ng/mL [facility] Blood 03/01/2018 9:32 AM EDT 03/01/2018 9:38 AM EDT Shannen Franklin REHABILITATION CASEWORKER LAB BLOOD BKR ORDERAB LES Final Result Performing Organization Address [facility] Co de Phone Number [address] [address] * (ABNORMAL) Zinc (03/01/2018 9:32 AM EDT) ZINC 0.59(L) 0.66 - 1.10 mcg/mL [facility] MED/PATH SUPERIOR Comment: (NOTE) ADDITIONAL INFORMATION This test was developed and its performance characteristics determined by [facility] in a manner consistent with CLIA requirements. This test has not been cleared or approved by the U.S. Food and Drug Administration. Blood 03/01/2018 9:32 AM EDT 03/01/2018 9:39 AM EDT Shannen Franklin NP LAB BLOOD ORDERABLES Final Result Performing Organization Address [facility] Co de Phone Number [facility]/PATH SUPER[facility] [address] [place] [address] * Vitamin B12 (03/01/2018 9:32 AM EDT) VITAMIN B12 982 232 - 1,245 pg/mL [facility] Blood 03/01/2018 9:32 AM EDT 03/01/2018 9:38 AM EDT Shannen Franklin REHABILITATION CASEWORKER LAB BLOOD BKR ORDERAB LES Final Result Performing Organization Address [facility] Co de Phone Number [address] [address] * Urine culture (03/01/2018 9:32 AM EDT) Specimen Source/ Description URINE CLEAN CATCH URINE [facility] Special Requests None [facility] GRAM STAIN Rare GRAM POSITIVE RODS , Rare GRAM NEGATIVE RODS [facility] Culture/Test >100,000 colony forming units per ml PROBABLE CORYNEBACTERIUM SPECIES [facility] Report Status 03/03/2018 FINAL [facility] Urine (Urine) 03/01/2018 9:3 2 AM EDT 03/01/2018 9:39 AM EDT Shannen Franklin NP LAB MICROBIOLOGY CULT URE ORDERABLES Final Result Performing Organization Address [facility] Co de Phone Number [address] [address] * Toxicology screen, urine (03/01/2018 9:32 AM EDT) URINE CANNABINOIDS NONE DETECTED NONE DETECTED [facility] Comment:Cutoff: 50 ng/mL URINE COCAINE METAB NONE DETECTED NONE DETECTED [facility] Comment:Cutoff: 300 ng/mL URINE AMPHETAMINES NONE DETECTED NONE DETECTED [facility] Comment:Cutoff: 1000 ng/mL URINE METHADONE NONE DETECTED NONE DETECTED [facility] Comment:Cutoff: 300 ng/mL URINE OPIATES NONE DETECTED NONE DETECTED [facility] Comment:Cutoff: 300 ng/mL URINE PHENCYCLIDINE NONE DETECTED NONE DETECTED [facility] Comment:Cutoff: 25 ng/mL URINE OXYCODONE NONE DETECTED NONE DETECTED [facility] Comment:Cutoff: 300 ng/ml URINE BARBITURATES NONE DETECTED NONE DETECTED [facility] Comment:Cutoff: 200 ng/mL URINE BENZODIAZEPINE NONE DETECTED NONE DETECTED [facility] Comment: Cutoff: 200 ng/mL INTERPRETATION FOR TOXICOLOGY PANEL: These results are unconfirmed and should be used for Medical Treatment purposes only. Urine (Urine) 03/01/2018 9:3 2 AM EDT 03/01/2018 9:39 AM EDT Shannen Franklin NP LAB URINE ORDERABLES Final Result Performing Organization Address City/[facility] Co de Phone Number [address] [place] [address] * (ABNORMAL) Lipid panel (03/01/2018 9:32 AM EDT) HDL 72 mg/dL [facility] Comment: Interpretation: Risk Level Females Decreased >55mg/dL Average 50-55 mg/dL Increased <50 mg/dL CHOLESTEROL 157 0 - 240 mg/dL [facility] TRIGLYCERIDES 130 30 - 160 mg/dL [facility] LDL 59 50 - 129 mg/dL [facility] Comment: LDL levels in terms of risk for coronary heart disease: <100 mg/dL: Optimal 100-129 mg/dL: Near or above optimal 130-159 mg/dL: Borderline high 160-189 mg/dL: High >190 mg/dL: Very High CARDIAC RISK RATIO 2.2(L) 3.3 - 4.4 C [facility] Blood 03/01/2018 9:32 AM EDT 03/01/2018 9:38 AM EDT us Shannen Franklin NP LAB BLOOD BKR ORDERAB LES Final Result [address] [address] * Lipase (03/01/2018 9:32 AM EDT) LIPASE 22 16 - 63 U/L [facility] Blood 03/01/2018 9:32 AM EDT 03/01/2018 9:38 AM EDT us Shannen Franklin NP LAB BLOOD BKR ORDERAB LES Final Result [address] [address] * HCG (quantitative blood), (03/01/2018 9:32 AM EDT) HCG BETA <0.1 mIU/mL [facility] Comment: Interpretation: FEMALE: Negative Result: Less than 5 mIU/ml. 1 Week Post Conception: 0 - 50 mIU/ml. 4 Weeks Post Conception: 3,000 - 19,000 mIU/ml. 12 Weeks Post Conception: 16,000 - 160,000 mIU/ml. Blood 03/01/2018 9:32 AM EDT 03/01/2018 9:38 AM EDT us Shannen rFanklin REHABILITATION CASEWORKER LAB BLOOD BKR ORDERAB LES Final Result [address] [address] * Folate (03/01/2018 9:32 AM EDT) FOLIC ACID 18.8 4.2 - 19.9 ng/mL [facility] Blood 03/01/2018 9:32 AM EDT 03/01/2018 9:38 AM EDT us Shannen Franklin REHABILITATION CASEWORKER LAB BLOOD BKR ORDERAB LES Final Result Performing Organization Address [facility] Co de Phone Number [address] [address] * Ferritin (03/01/2018 9:32 AM EDT) FERRITIN 91 13 - 150 ug/L [facility] Blood 03/01/2018 9:32 AM EDT 03/01/2018 9:38 AM EDT us Shannen Franklin REHABILITATION CASEWORKER LAB BLOOD BKR ORDERAB LES Final Result Performing Organization Address City/[facility] Co de Phone Number [address] [address] * Amylase (03/01/2018 9:32 AM EDT) AMYLASE 35 28 - 100 U/L [facility] Blood 03/01/2018 9:32 AM EDT 03/01/2018 9:38 AM EDT us Shannen Franklin REHABILITATION CASEWORKER LAB BLOOD BKR ORDERAB LES Final Result [facility] [address] [place] [address] * (ABNORMAL) CBC and differential (03/01/2018 9:32 AM EDT) WBC 5.84 3.40 - 11.20 K/uL [facility] RBC 4.82(H) 3.80 - 4.80 M/uL [facility] HGB 13.9 12.0 - 15.0 g/dL [facility] HCT 42.7 36.0 - 46.0 % [facility] PLT 296 130 - 400 K/uL [facility] MCV 88.6 79.0 - 98.0 fL [facility] MCH 28.8 27.0 - 34.8 pg [facility] MCHC 32.6 31.5 - 36.0 g/dL [facility] RDW 12.2 10.8 - 14.6 % [facility] MPV 10.1 9.4 - 12.4 fl [facility] NRBC 0.00 /100 WBCs [facility] ABSOLUTE NRBC 0.00 K/uL [facility] DIFF METHOD Auto [facility] NEUTS 54.2 45.30 - 77.70 % [facility] LYMPHS 29.3 12.30 - 39.70 % [facility] MONOS 12.7 4.10 - 12.80 % [facility] EOS 2.6 0 - 7.2 % [facility] BASOS 1.0 0 - 2.80 % [facility] Granulocytes, immature (%) 0.2 0.0 - 0.9 % [facility] ABSOLUTE NEUTS 3.17 1.40 - 7.70 K/uL [facility] ABSOLUTE LYMPHS 1.71 0.60 - 3.20 K/uL [facility] ABSOLUTE MONOS 0.74(H) 0.11 - 0.59 K/uL [facility] ABSOLUTE EOS 0.15 0.01 - 0.50 K/uL [facility] ABSOLUTE BASOS 0.06 0.00 - 0.08 K/uL [facility] Granulocytes, immature 0.01 0.00 - 0.05 K/uL [facility] Blood 03/01/2018 9:32 AM EDT 03/01/2018 9:38 AM EDT us Shannen Franklin REHABILITATION CASEWORKER LAB BLOOD BKR ORDERAB LES Final Result [address] [address] * Potassium (03/01/2018 9:32 AM EDT) POTASSIUM 4.6 3.3 - 5.1 mmol/L [facility] Blood 03/01/2018 9:32 AM EDT 03/01/2018 9:38 AM EDT us Shannen Franklin REHABILITATION CASEWORKER LAB BLOOD BKR ORDERAB LES Final Result Performing Organization Address [facility]/ZIP Co de Phone Number [address] [address] * Sodium (03/01/2018 9:32 AM EDT) SODIUM 137 133 - 146 mmol/L [facility] Blood 03/01/2018 9:32 AM EDT 03/01/2018 9:38 AM EDT us Shannen Franklin REHABILITATION CASEWORKER LAB BLOOD BKR ORDERAB LES Final Result Performing Organization Address City/[facility]/ZIP Co de Phone Number [address] [address] * Glucose (03/01/2018 9:32 AM EDT) GLUCOSE 96 70 - 99 mg/dL [facility] Blood 03/01/2018 9:32 AM EDT 03/01/2018 9:38 AM EDT us Shannen Franklin REHABILITATION CASEWORKER LAB BLOOD BKR ORDERAB LES Final Result Performing Organization Address City/[facility]/ZIP Co de Phone Number [address] [address] * TSH (03/01/2018 9:32 AM EDT) TSH 1.98 0.27 - 4.20 uIU/mL [facility] Blood 03/01/2018 9:32 AM EDT 03/01/2018 9:38 AM EDT us Shannen Franklin REHABILITATION CASEWORKER LAB BLOOD BKR ORDERAB LES Final Result Performing Organization Address [facility] Co de Phone Number [address] [address] * Magnesium (03/01/2018 9:32 AM EDT) MAGNESIUM 1.8 1.6 - 2.6 mg/dL [facility] Blood 03/01/2018 9:32 AM EDT 03/01/2018 9:38 AM EDT us Shannen Franklin REHABILITATION CASEWORKER LAB BLOOD BKR ORDERAB LES Final Result Performing Organization Address [facility]/ZIP Co de Phone Number [address] [address] * Phosphorus (03/01/2018 9:32 AM EDT) PHOSPHORUS 3.5 2.7 - 4.5 mg/dL [facility] Blood 03/01/2018 9:32 AM EDT 03/01/2018 9:38 AM EDT us Shannen Franklin REHABILITATION CASEWORKER LAB BLOOD BKR ORDERAB LES Final Result Performing Organization Address City/[facility]/ZIP Co de Phone Number [address] [address] * Calcium (03/01/2018 9:32 AM EDT) Pathologist [facility] CALCIUM 9.2 8.4 - 10.3 mg/dL [facility] Blood 03/01/2018 9:32 AM EDT 03/01/2018 9:38 AM EDT us Shannen Franklin REHABILITATION CASEWORKER LAB BLOOD BKR ORDERAB LES Final Result [address] [address] * (ABNORMAL) LFTs (hepatic panel) (03/01/2018 9:32 AM EDT) [facility] ALKALINE PHOSPHATASE 115 39 - 117 U/L [facility] TOTAL BILIRUBIN 0.3 0.0 - 1.2 mg/dL [facility] DIRECT BILIRUBIN <0.2 0 - 0.3 mg/dL [facility] Bilirubin (Indirect) NOT CALCULATED 0 - 1.5 mg/dL [facility] AST 277(H) 0 - 37 U/L [facility] ALT 278(H) 0 - 40 U/L [facility] TOTAL PROTEIN 7.1 6.5 - 8.0 g/dL [facility] ALBUMIN 3.5(L) 3.9 - 4.8 g/dL [facility] GLOBULIN 3.6 1 - 4.8 g/dL [facility] A/G Ratio 0.97(L) 1.00 - 4.80 RATIO [facility] Blood 03/01/2018 9:32 AM EDT 03/01/2018 9:38 AM EDT us Shannen Franklin REHABILITATION CASEWORKER LAB BLOOD BKR ORDERAB LES Final Result [address] [address] * Creatinine/eGFR (03/01/2018 9:32 AM EDT) Pathologist [facility] CREATININE 0.90 0.5 - 1.5 mg/dL [facility] EGFR 91 >59 mL/min/1.7 3m2 [facility] Comment:If patient is black, multiply result by 1.159. Estimated glomerular filtration rate calculated using the CKD-EPI equation. Blood 03/01/2018 9:32 AM EDT 03/01/2018 9:38 AM EDT us Shannen Franklin NP LAB BLOOD BKR ORDERAB LES Final Result Performing Organization Address City/[facility]/ZIP Co de Phone Number [address] [address] * BUN (03/01/2018 9:32 AM EDT) BUN 7 6 - 19 mg/dL [facility] Blood 03/01/2018 9:32 AM EDT 03/01/2018 9:38 AM EDT us Shannen Franklin REHABILITATION CASEWORKER LAB BLOOD BKR ORDERAB LES Final Result Performing Organization Address City/[facility] Co de Phone Number [address] [address] documented in this encounter Visit Diagnoses Diagnosis Eating disorder, unspecified- Primary documented in this encounter Additional Health Concerns Assessment Noted Time PHQ-2 Depression Total Score: 0 08/10/19 18 2:20 PM EST documented as of this encounter Care Teams Bread Wrapper Operator Relationship Specialty Start Date End Date Imelda Santiago NP [address] [place] [id number] [email or web address] PCP - General Family Medicine 09/20/17 03/28/22 Pcp, Unknown PCP - General 03/29/22 Leanne Gu CNM [address] [place] [address] Historical LMR Provider 05/10/17 2 Echo Payton REHABILITATION CASEWORKER [address] [place] [address] Historical LMR Provider 05/10/17 07/31/21 Gil Coffman MD [address] [place] [address] [email or web address] Historical LMR Provider 05/10/17 07/31/21 Loretta Qureshi, REHABILITATION CASEWORKER [address] [place] [address] Historical LMR Provider 05/10/17 2 Imelda Santiago NP [address] [place] [address] Historical LMR Provider 05/10/17 03/28/22 Gil Coffman MD [address] [place] [address] Insurance Assigned Provider 11/25/17 02/23/19 Nati Arguello, DARREN [address] [place] [id number] [email or web address] [facility] Launderer Hand 11/23/18 01/03/19 Susan Haas MD [address] [place] [id number] [email or web address] Insurance Assigned Provider 11/27/19 02/27/20 documented as of this encounter Additional Source Comments The information contained in this document represents components of the legal health record. It is not the complete legal health record.[facility]
--- OUTSIDE RECORDS SUMMARY | 2025-05-26 08:01 | XMS_ITS | Patient Health Record ---
Author Organization [facility] Address [address] [place] [phone] Care Team Providers Care Environmental Sampling Technician Name Role Phone Gil Coffman MD Primary Care Provider Kyle Mendez Jr Unavailable Allergies Allergen (clinical drug ingredient) Drug/Non Drug Allergy documented on EMR Reaction Allergy Type Onset Date Status quetiapine Seroquel Unknown Drug Allergy Active Robitussin DM Unknown Drug Allergy Act joanne prazosin Prazosin HCl Unknown Drug Allergy Acti ve methylprednisolone Medrol Unknown Drug Allergy Active Cogentin Unknown Drug Allergy Active aripiprazole Abilify Unknown Drug Allergy Acti ve sertraline Zoloft Unknown Drug Allergy Active Reason For Referral No Information Medications Medication SIG (Take, Route, Frequency, Duration) Notes Start Date End Date Status Omeprazole 20 MG 1 capsule Orally Onc e a day; Duration: 30 day(s) 01/15/2020 Active ARIPiprazole 2 MG 1 tablet Orally Once a day Active Wellbutrin SR 150 MG 1 tablet Orally Twi ce a day Active MiraLax (colon prep) 8.3 ounce ((238) grams mixed with Gatorade or Crystal Light orally begin at 5:00 p.m. the day before the procedure; Duration: 1 day 01/15/2020 Active PROzac 50 1 capsule in the mor arnie Orally Once a day Active traZODone HCl 50 MG 1 tablet at bedtime as needed Orally Once a day Active Problems Problem Type SNOMED Code ICD Code Onset Dates Problem Status W/U Status Risk Notes Problem Rectal bleeding (07412328) Rectal bleeding (K62.5) Active confirmed Problem Gastroesophageal reflux disease without esophagitis (185299506) Gastroesophageal reflux disease without esophagitis (K21.9) Active confirmed Problem Constipation (82733757) Constipation, unspecified constipation type (K59.00) Active confirmed Plan Of Treatment Future Test Test Name Order Date UPPER GI ENDOSCOPY 01/15/2020 COLONOSCOPY 01/15/2020 Insurance Providers Payer Name Payer Address Payer Phone Subscriber Number Group Number Insured Name Patient Relationship to Insured Coverage Start Date Coverage End Date [facility] [address] [place] [phone] [id number] KLAUDIA BRANHAM Self - patient is the insured Medical (General) History Medical History History ICD Code SVT status post ablation anxiety/depression substance abuse currently in remission hepatitis C treated with Mavyret PTSD hypertension Surgical History Surgery Date(Month/Year) MYRINGOTOMY 1997 CARDIAC ABLATION 2016 2019
== END 2025-05-26 09:23 | disposition home or self-care (01) ==
LOC: HO.HMCC 07:59
PROVIDERS: PCP Nurse Practitioner Family; Visit Provider Nurse Practitioner Family
DX: Z00.00 Encounter for general adult medical examination without abnormal findings (principal); R23.8 Other skin changes; Z23 Encounter for immunization

== ENCOUNTER → 2025-05-26 07:58 | Outpatient (BNVA) | payer OTHER, SELFPAY | PROVIDERS: PCP Nurse Practitioner Family; Visit Provider Nurse Practitioner Family | DX: Z00.00 Encounter for general adult medical examination without abnormal findings (principal); J45.909 Unspecified asthma, uncomplicated; R23.8 Other skin changes; Z23 Encounter for immunization | CPT/HCPCS: 90471; 90656; 96127; 99395 ==

== ENCOUNTER 2025-06-04 08:44 | Emergency (ER) | payer OTHER, SELFPAY ==
--- OUTSIDE RECORDS SUMMARY | 2023-12-08 05:40 | XMS_ITS ---
Author Organization [facility] Address [address] [place] [phone] Care Team Providers Care Social Media Project Manager Name Role Phone Gil Coffman MD Primary Care Provider Kyle Mendez Jr REASON FOR VISIT Patient presents today for abdominal pain,rectal bleeding Encounters Encounter Location Date Provider Diagnosis [facility] [address] [facility] [address] [place] [phone] 12/08/2023 Kyle Hernandez Jr Plan Of Treatment No Information Progress Notes * YONASTAHMINA MartinezINA ADOB:1995 (29 yo F)Acc No.[id number]:12/08/2023 Progress Notes Patient: KLAUDIA GUAJARDO Provider: Benito Hernandez MD :1995 A ge:27 Y S ex:Female Date:12/08/2023 [address] [facility] Pcp:Gil Coffman MD Subjective: * Chief Complaints: [...] 12/08/2023 Generated for Printi ng/Famarijag/eTransmitting on: 1 08/04/2024 10:58 AM EST
--- NOTE | ~2025-06-04 | XR_ITS ---
EXAMINATION: XR CHEST CLINICAL INFORMATION: coug, SOB COMPARISON: X-ray 01/20/2024 TECHNIQUE: Frontal view of the chest was obtained. FINDINGS: The cardiomediastinal silhouette is within normal limits. The lungs are well expanded. There is no focal consolidation, edema, or effusion. No pneumothorax. No acute osseous abnormality. XR/XR chest 1V IMPRESSION: No acute findings Electronically signed by: Semaj Hernandez MD 06/04/2025 09:13 AM [email or web address]
[2025-06-04 08:59] VITALS: BP 131/94; BP 138/80; PULSE 109; RESP 26; TEMP 36.8; O2SAT 95; O2SAT 99; BMI 36.2
[2025-06-04 09:05] VITALS: BP 131/94; PULSE 109; RESP 26; TEMP 36.8; O2SAT 95
--- NOTE | 2025-06-04 09:10 | PC.NURSE ---
Pt comes to ED today via EMS from her car. EMS reports Pt was having a panic attack. Pt reports cleaning her basement all day on Monday. There was noted mold on the joya and her and attempted to scrape it off, no masks. She reports feeling ill the next day: cough/SOB, phlegm, PATEL, diarrhea and sinus pressure; she denies n/v. She states she has been feeling very overwhelmed by the exposure and is a newer mom. She reports her anxiety is significantly heightened today and she was unable to calm herself down via breathing techniques. She reports using Ativan at home PRN for anxiety but did not take any today--just her Rx Varylar, Wellbutrin, and Prozac. Pt is very tearful and significantly anxious on arrival. A&Ox3 Denies SI/HI VSS, afebrile. CXR and nasal swabs ordered. Pt given verbal reassurance and calming environment. Awaiting ED provider vadim.
--- NOTE | 2025-06-04 09:28 | ED.URI ---
HPI - URI/Sore Throat General Chief Complaint: Anxiety Stated Complaint: ANXIETY PER EMS Time Seen by Provider: 06/04/25 08:52 Source: patient Mode of arrival: ambulatory Limitations: no limitations History of Present Illness ED Provider: Meera Rodriguez PA-C HPI Narrative: Patient here for evaluation of URI sxs. On Monday, 4 days ago, patient spent the entire day cleaning a basement with visible mold, without a mask or respirator. ? Whiting well earlier in the day, then began ?feeling off? toward the evening with sore throat (painful to swallow) and cough. ? Since Monday evening she reports: ??? Sore throat. ??? Productive cough with sputum and shortness of breath. ??? Body aches. ??? Diarrhea. Loose brown x 2 not associated with abd pain or sxs. Tolerating PO fluids and voiding regularly. ??? Poor appetite. ? Denies fever and vomiting. ? Tried acetaminophen (1 g ?arthritis strength?) this morning with little relief. She didn't think to take motrin, but does not it has worked better for her. Was told in past not to take but has tolerated it since that time. ? Asthma history: owns nebulizer and rescue inhaler; used nebulizer (albuterol only) four times between yesterday and today, PRN. ? Similar mold exposure for padmini?, but he is asymptomatic. ? Last asthma-related hospitalizations: last winter and the winter before. ? Reports history of seasonal affective disorder and anxiety/depression, which may worsen with steroid use. We discussed risk vs benefit of this. She reports the increase in these sxs is tolerable to her as taking PO steroids has helped to keep her out of the hospital. She has never needed to be hospitalized in the past. Related Data Home Medications ?Medication ?Instructions ?Recorded ?Confirmed nebulizers 09/18/23 05/26/25 bupropion HCl 150 mg 24 hr tablet, 150 mg PO DAILY 01/20/24 05/26/25 extended release bupropion HCl 300 mg 24 hr tablet, 300 mg PO DAILY 01/20/24 05/26/25 extended release cariprazine 3 mg capsule (Vraylar) 3 mg PO DAILY 01/20/24 05/26/25 fluoxetine 20 mg capsule 40 mg PO DAILY 06/29/24 11/03/25 lorazepam 0.5 mg tablet 0.25 mg PO DAILY PRN Anxiety 01/20/24 05/26/25 acetaminophen 325 mg tablet 650 mg PO Q6H PRN Pain 01/21/24 05/26/25 (Tylenol) Previous Rx's ?Medication ?Instructions ?Recorded montelukast 10 mg tablet 10 mg PO DAILY #90 tabs 01/31/24 budesonide-formoterol HFA 160 2 puff inhalation BID 30 days 05/24/24 mcg-4.5 mcg/actuation aerosol #10.2 grams inhaler tiotropium bromide 1.25 2 puff inhalation DAILY #4 grams 06/17/24 mcg/actuation mist for inhalation (Spiriva Respimat) albuterol sulfate 2.5 mg/3 mL 2.5 mg (3 mL) inhalation Q6H PRN 11/29/24 (0.083 %) solution for nebulization wheezing #180 mL albuterol sulfate 90 mcg/actuation 2 puff inhalation Q4-6H PRN 11/29/24 aerosol inhaler wheezing #1 ea budesonide 0.5 mg/2 mL suspension 0.5 mg (2 mL) inhalation BID 30 11/29/24 for nebulization days #120 mL budesonide 160 mcg-glycopyr 9 2 inh inhalation BID 30 days #10.7 01/28/25 mcg-formot 4.8 mcg/actuation HFA grams inhaler (Breztri Aerosphere) acetaminophen 500 mg tablet 500 mg PO Q6H PRN pain #30 tabs 03/01/25 (Tylenol Extra Strength) ibuprofen 600 mg tablet 600 mg PO Q6H PRN pain #30 tabs 03/01/25 Magic Mouthwash 5 ml PO Q8H PRN mouth pain 30 days 03/27/25 Diphen/Lido/Antacid 1:1:1 240 mL #240 mL suspension prednisone 10 mg tablet See Rx Instructions PO DAILY 18 03/27/25 days #63 tabs valacyclovir 1 gram tablet 1,000 mg PO BID 7 days #14 tabs 04/07/25 (Valtrex) ondansetron 4 mg disintegrating 4 mg PO Q8H PRN nausea and 04/09/25 tablet vomiting #10 tabs dexamethasone 6 mg tablet 12 mg (2 x 6 mg) PO DAILY #2 tabs 06/04/25 Allergies Allergy/AdvReac Type Severity Reaction Status Date / Time guaifenesin (From ROBITUSSIN Allergy Intermediate RASH Verified 06/04/25 09:03 A-C) benztropine (Cogentin) AdvReac Intermediate extrapyramidal Verified 06/04/25 09:03 symptoms lorazepam (From ATIVAN) AdvReac Intermediate AGITATION Verified 06/04/25 09:03 methylprednisolone (From AdvReac Intermediate tctile and Verified 06/04/25 09:03 MEDROL) visual hallucinations prazosin (PRAZOSIN) AdvReac Intermediate DEPRESSION, Verified 06/04/25 09:03 hypotension From SEROQUEL AdvReac Intermediate PARANOIA Uncoded 06/04/25 09:03 From ZOLOFT AdvReac Intermediate HALLUCINATI Uncoded 06/04/25 09:03 ONS Review of Systems Review of Systems: Yes all other systems are reviewed and are negative [facility] Past Medical History Attestation statement: The following information was validated with the patient. Source: old records reviewed and nursing notes reviewed Medical History Rash Axillary lymphadenopathy Pharyngitis Bilateral otitis media Missed period Breast abscess Vaginal candidiasis Otitis media Sinusitis STD exposure Cystitis Yeast infection Vaginal discharge Sprain of left knee Dysuria Elevated fasting blood sugar Puncture wound of foot Eosinophilia Asthma Anxiety disorder Supraventricular tachycardia Purulent drainage of both ears through ear tube PMDD (premenstrual dysphoric disorder) Surgical History Mass of right breast History of placement of ear tubes Philipp teeth extracted Hx of prior ablation treatment History of Family History Family History Mother Hypertension Diabetes Maternal Grandfather Colon cancer Maternal Grandmother Spinal stenosis Diabetes Hypertension Other Mental health disorder Substance use disorder Social History Social History Household Members: Significant Other and Children Housing: House Do you presently have visiting nurse or other home services: No Alcohol intake: current Alcohol intake frequency: holidays/special occasions only Patient Tobacco Use Status: Former Tobacco user Smoked in Last 30 Days: No e-Cigarette/Vaping Use: Former Use Second Hand Smoke Exposure: Yes Use of substances other than those prescribed or required for medical reasons: Yes Substance Use Type: Marijuana Substance Use Frequency: Occasionally Advance Directives: No Advance Directives Information Provided: No Do you have a plan to hurt others: No Plan Patient : No service: No Current occupational status: disabled Physical Exam Exam: Exam: General: Appears in no acute distress, appears well nourished body habitus is obese, appears stated age. No septic or ill-appearing. Vitals reviewed normal, PMH/Social and Surgical hx reviewed including allergies and current medications. - reviewed for prior visits here, patient appears slightly overwhelmed during the beginning of my history and physical but was smiling and calm by the end of it Head: Normocephalic, no obvious trauma or skin lesions noted. Eyes: EOMI, conjunctiva and sclera clear PERRLA ENMT: moist oral mucosa, tonsils present no edema erythema uvula is midline no trismus Neck: trachea midline, no lymphadenopathy Cardiovascular: peripheral perfusion normal, Regular heart rate regular rhythm, cap refill less than 3 seconds distal pulses 2+ Respiratory: no respiratory distress or use of accessory muscles however and expiratory wheezing noted diffusely no stridor Abdomen: obese and nontender Extremities: warm and moving without difficulty Psych: Cooperative Neuro: Alert and oriented. Vital Signs: Vital Signs: Last Vital Signs Temp 98.3 F 06/04/25 11:04 Pulse 73 06/04/25 11:04 Resp 16 06/04/25 11:04 BP 131/94 H 06/04/25 11:04 Pulse Ox 95 06/04/25 11:04 O2 Del Method Room Air 06/04/25 11:04 BMI result Body Mass Index 36.2 Medications Administered Discontinued Medications Generic Name Dose Route Start Last Admin Trade Name Freq PRN Reason Stop Dose Admin Albuterol Sulfate 2.5 mg/ 0 mg 06/04/25 09:41 06/04/25 09:45 Albuterol/Ipratropium 3 ml INHALE 06/04/25 09:42 1 dose ONCE ONE Administration Dexamethasone 10 mg 06/04/25 09:31 06/04/25 10:10 Dexamethasone 2 Mg Tablet PO 06/04/25 09:32 10 mg ONCE ONE Administration Ibuprofen 600 mg 06/04/25 09:28 06/04/25 10:10 Ibuprofen 600 Mg Tablet PO 06/04/25 09:29 600 mg ONCE ONE Administration Medical Decision Making Medical Decision Making [facility] Narrative: Patient with history of asthma presents with acute sore throat, productive cough, and wheezing after significant mold exposure, likely complicated by viral URI. Upon arrival to ED, she is tearful and anxious in a panic like attack subjectively reporting this as well but abated in room. When calm, she is not tachycardic or tachypneic with no medical intervention. Afebrile saturating 95 % on RA. Problem #1: Asthma exacerbation Assessment: [id number] exacerbation triggered by mold exposure and probable viral infection; faint expiratory wheeze on exam; O2 sat 97-98 %. Plan: Administer albuterol nebulizer treatment (DuoNeb)- will reassess lungs after treatment. Give single dose of Decadron today; prescription for one repeat dose in 3 days PRN ongoing symptoms (risks/benefits discussed). Continue home nebulizer and rescue inhaler as needed. Increase daily allergy medication to BID during illness. Monitor response post-treatment before discharge; return if worsening shortness of breath or hypoxia. Problem #2: Viral upper respiratory infection / pharyngitis Assessment: Sore throat, productive cough, body aches, diarrhea; no fever; exam shows no bacterial pharyngitis signs. ML viral, but will screen for COVID, FLU, RSV and obtain CXR to rule out potential pna. Plan: Supportive care: hydration, rest. Ibuprofen in clinic for body aches; may use OTC NSAIDs as needed. Await COVID-19/Flu/RSV results; chest X-ray ordered to rule out lower respiratory involvement. Return for worsening symptoms, fever, or difficulty swallowing. 1007: CXR is clear, Negative to COVID, FLU and RSV. 1050: Re-evaluated patient at bedside she is clinically feeling much better like she can breathe easier. Her lungs are now clear to auscultation bilaterally I did not feel any further workup was indicated today or intervention. She demonstrated verbal understanding of her most likely viral syndrome with supportive care she will return to the ED for any worsening symptoms. Discharged home stable Differential Diagnosis Differential Diagnoses: The differential diagnosis associated with the presentation includes asthma exacerbation Pneumonia/bronchitis viral syndrome (COVID/FLU/ RSV) panic attack Admission/Observation Consideration of admission/observation: Escalation of care including admission/observation considered Patient would have been admitted to the hospital had her work up had any findings where hospital admission was appropriate and her clinical presentation warranted hospital admission. Lab Data MDM Lab Attestation statement: I reviewed the patient's lab results. Labs: Lab Results 06/04/25 Range/Units 09:10 Influenza Type A (PCR) NEGATIVE (Negative) Influenza Type B (PCR) NEGATIVE (Negative) RSV RNA Qual (PCR) NEGATIVE (Negative) SARS-CoV-2 RNA (RT-PCR) NEGATIVE (Negative) Independent Interpretation I performed an independent interpretation of an: Plain X-Ray Interpretation: No acute process Radiology Impression Discussion of test interpretation with radiology: I have reviewed the radiologist's reading. Radiologist Impression: he cardiomediastinal silhouette is within normal limits. The lungs are well expanded. There is no focal consolidation, edema, or effusion. No pneumothorax. No acute osseous abnormality. Tests considered The following testing was considered but not selected: WOuld have considered labs including D dimer had asthma or other viral sydrome not been the most likely DX. Prescription Management I considered prescription management with: Other Chronic Conditions Patient?s care impacted by: Other (asthma, depression, anxiety) Social Determinants Patient?s care significantly limited by Social Determinants of Health including: Other Social Determinant of Health Discharge Plan Discharge Clinical Impression: Asthma exacerbation, Acute viral syndrome Patient Disposition: Home, Self-Care Additional Instructions: You were seen in ER today for viral like syndrome. On physical exam you were mildly wheezy with end expiratory wheezing. Given your recent mold exposure this is likely an exacerbation of her asthma you received a dual nebulization and Decadron while here. He reportedly felt better after this and your lungs are now clear to auscultation bilaterally. You are not exhibiting any signs of respiratory distress now. Your chest x-ray was unremarkable no evidence of pneumonia or bronchitis. CHest xray results: The cardiomediastinal silhouette is within normal limits. The lungs are well expanded. There is no focal consolidation, edema, or effusion. No pneumothorax. No acute osseous abnormality. You have tested negative for COVID flu and RSV.. You had a soft nontender abdomen. We discussed the risk versus benefit of taking Decadron again in 3 days if you feel like your wheezing is getting worse again please do this. If you also feel like it is unrelieved by your inhaler and nebulizer please return to the emergency department. The develop any severe shortness of breath or worsening abdominal pain please also return to the emergency department he will be continued to feel well and WEAR A RESPIRATORY MASK IF YOU WORK IN YOUR BASEMENT AGAIN :) DONT FORGET TO TAKE YOUR ALLERGY MEDICINE 2X A DAY UNTIL YOU FEEL BETTER. STAY HYDRATED :) Prescriptions: New dexamethasone 6 mg tablet 12 mg PO DAILY Qty: 2 0RF Rx Instructions: Take on 06/08/2025 if wheezing not improved. No Action Spiriva Respimat 1.25 mcg/actuation mist 2 puff inhalation DAILY Qty: 4 11RF Breztri Aerosphere 160-9-4.8 mcg/actuation HFA aerosol inhaler 2 inh inhalation BID 30 Days Qty: 10.7 0RF ibuprofen 600 mg tablet 600 mg PO Q6H PRN (Reason: pain) Qty: 30 0RF acetaminophen [Tylenol Extra Strength] 500 mg tablet 500 mg PO Q6H PRN (Reason: pain) Qty: 30 0RF fluoxetine 20 mg capsule 40 mg PO DAILY bupropion HCl 300 mg tablet extended release 24 hr 300 mg PO DAILY Rx Instructions: with 150 mg bupropion HCl 150 mg tablet extended release 24 hr 150 mg PO DAILY Rx Instructions: with 300 mg Vraylar 3 mg capsule 3 mg PO DAILY lorazepam 0.5 mg tablet 0.25 mg PO DAILY PRN (Reason: Anxiety) acetaminophen [Tylenol] 325 mg Tablet 650 mg PO Q6H PRN (Reason: Pain) prednisone 10 mg tablet See Rx Instructions PO DAILY 18 Days Qty: 63 0RF Rx Instructions: PO daily; Take 6 tabs daily x 3 days, then 5 tabs x 3 days, then 4 tabs x 3 days, then 3 tabs x 3 days, then 2 tabs daily x 3 days, then 1 tab x 3 days to complete. Magic Mouthwash Diphen/Lido/Antacid 1:1:1 240 mL suspension 5 ml PO Q8H PRN (Reason: mouth pain) 30 Days Qty: 240 0RF Rx Instructions: Lidocaine Viscous 2 % 80mL; diphenhydramine 12.5 mg/5 mL 80mL; aluminum-mag hydrox-simeth [id number]-[id number]-35ly/5mL 80mL valacyclovir [Valtrex] 1 gram tablet 1,000 mg PO BID 7 Days Qty: 14 0RF ondansetron 4 mg tablet,disintegrating 4 mg PO Q8H PRN (Reason: nausea and vomiting) Qty: 10 0RF (DME) nebulizers Misc See Rx Instructions .Route Rx Instructions: As directed montelukast 10 mg tablet 10 mg PO DAILY Qty: 90 3RF budesonide-formoterol 160-4.5 mcg/actuation HFA aerosol inhaler 2 puff inhalation BID 30 Days Qty: 10.2 11RF budesonide 0.5 mg/2 mL suspension for nebulization 0.5 mg inhalation BID 30 Days Qty: 120 1RF albuterol sulfate 2.5 mg /3 mL (0.083 %) solution for nebulization 2.5 mg inhalation Q6H PRN (Reason: wheezing) Qty: 180 11RF albuterol sulfate 90 mcg/actuation HFA aerosol inhaler 2 puff INHALATION Q4-6H PRN (Reason: wheezing) Qty: 1 11RF Referrals: Israel Antony, [facility] [Primary Care Provider, Internal Medicine] Clinical Impression: Asthma exacerbation Interventions: ED Discharge Assessment Last Done: 06/04/25 11:04 Discharge Date/Time: 06/04/25 11:05 Print Language: Estonian
[2025-06-04] MEDS: Albuterol Sulfate 2.5 MG, Albuterol/Iprat 2.5/0.5MG 3 ML 3 ML INHALE (09:45)
[2025-06-04 09:47] VITALS: PULSE 73; RESP 16; O2SAT 98
[2025-06-04 09:51] LABS: Resp Syncy Virus RNA Qual PCR NEGATIVE (Negative); SARS COV2 PCR INHOUSE NEGATIVE (Negative)
--- OUTSIDE RECORDS SUMMARY | 2025-06-04 10:58 | XMS_ITS | Patient Health Record ---
Author Organization [facility] Address [address] [place] [address] Care Team Providers [employer] Name Role Phone Imelda Santiago NP Primary Care Provider Jennifer Jj Unavailable [phone] Allergies Allergen (clinical drug ingredient) Drug/Non Drug [...] Treatment Pending Test Test Name Order Date 85888-[id number] Plate 05/16/2017 [id number] Plate Each Additional Medical (General) History Medical History History ICD Code Anxiety Depression Headaches ptsd eating disorder Surgical History Surgery Date(Month/Year) cardiac ablasion myomectomy wisdom teeth extraction Ingrown Toe Nails - PRADEEP 05/16/17
--- OUTSIDE RECORDS SUMMARY | 2025-06-04 10:58 | XMS_ITS | Encounter Summary ---
Author Organization [facility] Address [address] [facility] [address] [place] [address] Phone Care Team Providers Care Saw Maker Name Role Phone RiccardoLeanne Sheng CNM Unavailable Echo Payton MARKET RESEARCH SENIOR PROJECT MANAGER Unavailable [phone] Gil Coffman MD Unavailable Loretta Qureshi MARKET RESEARCH SENIOR PROJECT MANAGER Unavailable Imelda Santiago MARKET RESEARCH SENIOR PROJECT MANAGER Unavailable [phone] Imelda Santiago MARKET RESEARCH SENIOR PROJECT MANAGER Primary Care Provider Gil Coffman MD Unavailable [phone] Nati Arguello RN Unavailable [phone] Susan Haas MD Unavailable Pcp, Unknown Primary Care Provider Unavailabl e Encounter Details Date Type Department Care Team (Latest Contact Info) Description 03/01/2018 Transcribe Orders [address] [place] [address] Shannen Franklin, MARKET RESEARCH SENIOR PROJECT MANAGER [address] [place] [address] Eating disorder, unspecified (Primary Dx) Social [...] EDT) IRON 95 30 - 160 ug/dL [facility] Blood 03/01/2018 9:32 AM EDT 03/01/2018 9:38 AM EDT Shannen Franklin NP LAB BLOOD ORDERABLES Final Result [address] [address] * (ABNORMAL) Carbon dioxide (Bicarbonate) (03/01/2018 9:32 AM EDT) CO2 20(L) 21 - 35 mmol/L [facility] Blood 03/01/2018 9:32 AM EDT 03/01/2018 9:38 AM EDT Shannen Franklin NP LAB BLOOD ORDERABLES Final Result Performing Organization Address City/[facility]/ZIP Co de Phone Number [address] [address] * Chloride (03/01/2018 9:32 AM EDT) CHLORIDE 104 96 - 108 mmol/L [facility] Blood 03/01/2018 9:32 AM EDT 03/01/2018 9:38 AM EDT Shannen Franklin NP LAB BLOOD ORDERABLES Final Result Performing Organization Address City/[facility]/ZIP Co de Phone Number [address] [address] * 25-OH vitamin D (03/01/2018 9:32 AM EDT) 25 OH VIT D (TOTAL) 34 30 - 60 ng/mL [facility] Blood 03/01/2018 9:32 AM EDT 03/01/2018 9:38 AM EDT Shannen Franklin MARKET RESEARCH SENIOR PROJECT MANAGER LAB BLOOD BKR ORDERAB LES Final Result Performing Organization Address [facility] Co de Phone Number [address] [address] * (ABNORMAL) Zinc (03/01/2018 9:32 AM EDT) ZINC 0.59(L) 0.66 - 1.10 mcg/mL [facility] Comment: (NOTE) ADDITIONAL INFORMATION This test was developed and its performance characteristics determined by [facility] in a manner consistent with CLIA requirements. This test has not been cleared or approved by the U.S. Food and Drug Administration. Blood 03/01/2018 9:32 AM EDT 03/01/2018 9:39 AM EDT Shannen Franklin NP LAB BLOOD ORDERABLES Final Result Performing Organization Address [facility] Co de Phone Number [facility] [address] [place] [address] * Vitamin B12 (03/01/2018 9:32 AM EDT) VITAMIN B12 982 232 - 1,245 pg/mL [facility] Blood 03/01/2018 9:32 AM EDT 03/01/2018 9:38 AM EDT Shannen Franklin MARKET RESEARCH SENIOR PROJECT MANAGER LAB BLOOD BKR ORDERAB LES Final Result Performing Organization Address [facility] Co de Phone Number [address] [address] * Urine culture (03/01/2018 9:32 AM EDT) Specimen Source/ Description URINE CLEAN CATCH URINE [facility] Special Requests None [facility] GRAM STAIN Rare GRAM POSITIVE RODS , Rare GRAM NEGATIVE RODS [facility] Culture/Test >100,000 colony forming units per ml PROBABLE CORYNEBACTERIUM SPECIES [facility] Report Status 03/03/2018 FINAL [facility] Urine (Urine) 03/01/2018 9:3 2 AM EDT 03/01/2018 9:39 AM EDT Shannen Franklin NP LAB MICROBIOLOGY CULT URE ORDERABLES Final Result Performing Organization Address [facility] Co de Phone Number [address] [address] * Toxicology screen, urine (03/01/2018 9:32 AM EDT) URINE CANNABINOIDS NONE DETECTED NONE DETECTED [facility] Comment:Cutoff: 50 ng/mL URINE COCAINE METAB NONE DETECTED NONE DETECTED [facility] Comment:Cutoff: 300 ng/mL URINE AMPHETAMINES NONE DETECTED NONE DETECTED [facility] Comment:Cutoff: 1000 ng/mL URINE METHADONE NONE DETECTED NONE DETECTED [facility] Comment:Cutoff: 300 ng/mL URINE OPIATES NONE DETECTED NONE DETECTED [facility] Comment:Cutoff: 300 ng/mL URINE PHENCYCLIDINE NONE DETECTED NONE DETECTED [facility] Comment:Cutoff: 25 ng/mL URINE OXYCODONE NONE DETECTED NONE DETECTED [facility] Comment:Cutoff: 300 ng/ml URINE BARBITURATES NONE DETECTED NONE DETECTED [facility] Comment:Cutoff: 200 ng/mL URINE BENZODIAZEPINE NONE DETECTED NONE DETECTED [facility] Comment: Cutoff: 200 ng/mL INTERPRETATION FOR TOXICOLOGY PANEL: These results are unconfirmed and should be used for Medical Treatment purposes only. Urine (Urine) 03/01/2018 9:3 2 AM EDT 03/01/2018 9:39 AM EDT Shannen Franklin NP LAB URINE ORDERABLES Final Result Performing Organization Address City/[facility] Co de Phone Number [address] [place] [address] * (ABNORMAL) Lipid panel (03/01/2018 9:32 AM EDT) HDL 72 mg/dL [facility] Comment: Interpretation: Risk Level Females Decreased >55mg/dL Average 50-55 mg/dL Increased <50 mg/dL CHOLESTEROL 157 0 - 240 mg/dL [facility] TRIGLYCERIDES 130 30 - 160 mg/dL [facility] LDL 59 50 - 129 mg/dL [facility] Comment: LDL levels in terms of risk for coronary heart disease: <100 mg/dL: Optimal 100-129 mg/dL: Near or above optimal 130-159 mg/dL: Borderline high 160-189 mg/dL: High >190 mg/dL: Very High CARDIAC RISK RATIO 2.2(L) 3.3 - 4.4 [facility] Blood 03/01/2018 9:32 AM EDT 03/01/2018 9:38 AM EDT us Shannen Franklin NP LAB BLOOD BKR ORDERAB LES Final Result [address] [address] * Lipase (03/01/2018 9:32 AM EDT) LIPASE 22 16 - 63 U/L [facility] Blood 03/01/2018 9:32 AM EDT 03/01/2018 9:38 AM EDT us Shannen Franklin NP LAB BLOOD BKR ORDERAB LES Final Result [address] [address] * HCG (quantitative blood), (03/01/2018 9:32 AM EDT) HCG BETA <0.1 mIU/mL [facility] Comment: Interpretation: FEMALE: Negative Result: Less than 5 mIU/ml. 1 Week Post Conception: 0 - 50 mIU/ml. 4 Weeks Post Conception: 3,000 - 19,000 mIU/ml. 12 Weeks Post Conception: 16,000 - 160,000 mIU/ml. Blood 03/01/2018 9:32 AM EDT 03/01/2018 9:38 AM EDT us Shannen Franklin MARKET RESEARCH SENIOR PROJECT MANAGER LAB BLOOD BKR ORDERAB LES Final Result [address] [address] * Folate (03/01/2018 9:32 AM EDT) FOLIC ACID 18.8 4.2 - 19.9 ng/mL [facility] Blood 03/01/2018 9:32 AM EDT 03/01/2018 9:38 AM EDT us Shannen Franklin MARKET RESEARCH SENIOR PROJECT MANAGER LAB BLOOD BKR ORDERAB LES Final Result Performing Organization Address [facility] Co de Phone Number [address] [address] * Ferritin (03/01/2018 9:32 AM EDT) FERRITIN 91 13 - 150 ug/L [facility] Blood 03/01/2018 9:32 AM EDT 03/01/2018 9:38 AM EDT us Shannen Franklin MARKET RESEARCH SENIOR PROJECT MANAGER LAB BLOOD BKR ORDERAB LES Final Result Performing Organization Address City/[facility] Co de Phone Number [address] [address] * Amylase (03/01/2018 9:32 AM EDT) AMYLASE 35 28 - 100 U/L [facility] Blood 03/01/2018 9:32 AM EDT 03/01/2018 9:38 AM EDT us Shannen Franklin MARKET RESEARCH SENIOR PROJECT MANAGER LAB BLOOD BKR ORDERAB LES Final Result [facility] [address] [place] [address] * (ABNORMAL) CBC and differential (03/01/2018 9:32 AM EDT) WBC 5.84 3.40 - 11.20 K/uL [facility] RBC 4.82(H) 3.80 - 4.80 M/uL [facility] HGB 13.9 12.0 - 15.0 g/dL [facility] HCT 42.7 36.0 - 46.0 % [facility] PLT 296 130 - 400 K/uL [facility] MCV 88.6 79.0 - 98.0 fL [facility] MCH 28.8 27.0 - 34.8 pg [facility] MCHC 32.6 31.5 - 36.0 g/dL [facility] RDW 12.2 10.8 - 14.6 % [facility] MPV 10.1 9.4 - 12.4 fl [facility] NRBC 0.00 /100 WBCs [facility] ABSOLUTE NRBC 0.00 K/uL [facility] DIFF METHOD Auto [facility] NEUTS 54.2 45.30 - 77.70 % [facility] LYMPHS 29.3 12.30 - 39.70 % [facility] MONOS 12.7 4.10 - 12.80 % [facility] EOS 2.6 0 - 7.2 % [facility] BASOS 1.0 0 - 2.80 % [facility] Granulocytes, immature (%) 0.2 0.0 - 0.9 % [facility] ABSOLUTE NEUTS 3.17 1.40 - 7.70 K/uL [facility] ABSOLUTE LYMPHS 1.71 0.60 - 3.20 K/uL [facility] ABSOLUTE MONOS 0.74(H) 0.11 - 0.59 K/uL [facility] ABSOLUTE EOS 0.15 0.01 - 0.50 K/uL [facility] ABSOLUTE BASOS 0.06 0.00 - 0.08 K/uL [facility] Granulocytes, immature 0.01 0.00 - 0.05 K/uL [facility] Blood 03/01/2018 9:32 AM EDT 03/01/2018 9:38 AM EDT us Shannen Franklin MARKET RESEARCH SENIOR PROJECT MANAGER LAB BLOOD BKR ORDERAB LES Final Result [address] [address] * Potassium (03/01/2018 9:32 AM EDT) POTASSIUM 4.6 3.3 - 5.1 mmol/L [facility] Blood 03/01/2018 9:32 AM EDT 03/01/2018 9:38 AM EDT us Shannen Franklin MARKET RESEARCH SENIOR PROJECT MANAGER LAB BLOOD BKR ORDERAB LES Final Result Performing Organization Address [facility]/ZIP Co de Phone Number [address] [address] * Sodium (03/01/2018 9:32 AM EDT) SODIUM 137 133 - 146 mmol/L [facility] Blood 03/01/2018 9:32 AM EDT 03/01/2018 9:38 AM EDT us Shannen Franklin MARKET RESEARCH SENIOR PROJECT MANAGER LAB BLOOD BKR ORDERAB LES Final Result Performing Organization Address City/[facility]/ZIP Co de Phone Number [address] [address] * Glucose (03/01/2018 9:32 AM EDT) GLUCOSE 96 70 - 99 mg/dL [facility] Blood 03/01/2018 9:32 AM EDT 03/01/2018 9:38 AM EDT us Shannen Franklin MARKET RESEARCH SENIOR PROJECT MANAGER LAB BLOOD BKR ORDERAB LES Final Result Performing Organization Address City/[facility]/ZIP Co de Phone Number [address] [address] * TSH (03/01/2018 9:32 AM EDT) TSH 1.98 0.27 - 4.20 uIU/mL [facility] Blood 03/01/2018 9:32 AM EDT 03/01/2018 9:38 AM EDT us Shannen Franklin MARKET RESEARCH SENIOR PROJECT MANAGER LAB BLOOD BKR ORDERAB LES Final Result Performing Organization Address [facility] Co de Phone Number [address] [address] * Magnesium (03/01/2018 9:32 AM EDT) MAGNESIUM 1.8 1.6 - 2.6 mg/dL [facility] Blood 03/01/2018 9:32 AM EDT 03/01/2018 9:38 AM EDT us Shannen Franklin MARKET RESEARCH SENIOR PROJECT MANAGER LAB BLOOD BKR ORDERAB LES Final Result Performing Organization Address [facility]/ZIP Co de Phone Number [address] [address] * Phosphorus (03/01/2018 9:32 AM EDT) PHOSPHORUS 3.5 2.7 - 4.5 mg/dL [facility] Blood 03/01/2018 9:32 AM EDT 03/01/2018 9:38 AM EDT us Shannen Franklin MARKET RESEARCH SENIOR PROJECT MANAGER LAB BLOOD BKR ORDERAB LES Final Result Performing Organization Address City/[facility]/ZIP Co de Phone Number [address] [address] * Calcium (03/01/2018 9:32 AM EDT) Pathologist [facility] CALCIUM 9.2 8.4 - 10.3 mg/dL [facility] Blood 03/01/2018 9:32 AM EDT 03/01/2018 9:38 AM EDT us Shannen Franklin MARKET RESEARCH SENIOR PROJECT MANAGER LAB BLOOD BKR ORDERAB LES Final Result [address] [address] * (ABNORMAL) LFTs (hepatic panel) (03/01/2018 9:32 AM EDT) [facility] ALKALINE PHOSPHATASE 115 39 - 117 U/L [facility] TOTAL BILIRUBIN 0.3 0.0 - 1.2 mg/dL [facility] DIRECT BILIRUBIN <0.2 0 - 0.3 mg/dL [facility] Bilirubin (Indirect) NOT CALCULATED 0 - 1.5 mg/dL [facility] AST 277(H) 0 - 37 U/L [facility] ALT 278(H) 0 - 40 U/L [facility] TOTAL PROTEIN 7.1 6.5 - 8.0 g/dL [facility] ALBUMIN 3.5(L) 3.9 - 4.8 g/dL [facility] GLOBULIN 3.6 1 - 4.8 g/dL [facility] A/G Ratio 0.97(L) 1.00 - 4.80 RATIO [facility] Blood 03/01/2018 9:32 AM EDT 03/01/2018 9:38 AM EDT us Shannen Franklin MARKET RESEARCH SENIOR PROJECT MANAGER LAB BLOOD BKR ORDERAB LES Final Result [address] [address] * Creatinine/eGFR (03/01/2018 9:32 AM EDT) Pathologist [facility] CREATININE 0.90 0.5 - 1.5 mg/dL [facility] EGFR 91 >59 mL/min/1.7 3m2 [facility] Comment:If patient is black, multiply result by 1.159. Estimated glomerular filtration rate calculated using the CKD-EPI equation. Blood 03/01/2018 9:32 AM EDT 03/01/2018 9:38 AM EDT us Shannen Franklin NP LAB BLOOD BKR ORDERAB LES Final Result Performing Organization Address City/[facility]/ZIP Co de Phone Number [address] [address] * BUN (03/01/2018 9:32 AM EDT) BUN 7 6 - 19 mg/dL [facility] Blood 03/01/2018 9:32 AM EDT 03/01/2018 9:38 AM EDT us Shannen Franklin MARKET RESEARCH SENIOR PROJECT MANAGER LAB BLOOD BKR ORDERAB LES Final Result Performing Organization Address City/[facility] Co de Phone Number [address] [address] documented in this encounter Visit Diagnoses Diagnosis Eating disorder, unspecified- Primary documented in this encounter Additional Health Concerns Assessment Noted Time PHQ-2 Depression Total Score: 0 08/10/19 18 2:20 PM EST documented as of this encounter Care Teams Saw Maker Relationship Specialty Start Date End Date Imelda Santiago NP [address] [place] [id number] [email or web address] PCP - General Family Medicine 09/20/17 03/28/22 Pcp, Unknown PCP - General 03/29/22 Leanne Gu CNM [address] [place] [address] Historical LMR Provider 05/10/17 2 Echo Payton MARKET RESEARCH SENIOR PROJECT MANAGER [address] [place] [address] Historical LMR Provider 05/10/17 07/31/21 Gil Coffman MD [address] [place] [address] [email or web address] Historical LMR Provider 05/10/17 07/31/21 Loretta Qureshi, MARKET RESEARCH SENIOR PROJECT MANAGER [address] [place] [address] Historical LMR Provider 05/10/17 2 Imelda Santiago NP [address] [place] [address] Historical LMR Provider 05/10/17 03/28/22 Gil Coffman MD [address] [place] [address] Insurance Assigned Provider 11/25/17 02/23/19 Nati Arguello, DARREN [address] [place] [address] [email or web address] [facility] Real Estate Associate 11/23/18 01/03/19 Susan Haas MD [address] [place] [address] [email or web address] Insurance Assigned Provider 11/27/19 02/27/20 documented as of this encounter Additional Source Comments The information contained in this document represents components of the legal health record. It is not the complete legal health record.[facility]
--- OUTSIDE RECORDS SUMMARY | 2025-06-04 10:58 | XMS_ITS | Clinical Summary ---
Author Organization [facility] Address [address] [address] Phone Care Team Providers Care Railroad Brake Operator Name Role Phone Pcp, Unknown Primary Care [...] Completed 01/04/1997, 05/25, 04/13/1996, Additional history exists IPV VACCINES Completed 11/22/2000, 05/25, 04/13/1996, Additional history exists MENINGOCOCCAL VACCINES [...] Most Recently Relevant to Health Maintenance Insurance [facility] ONE CARE MEDICARE REPLACEMENT [facility] ONE CARE MEDICARE REPLACEMENT [facility] CARE MEDICARE REPLACEMENT Care Teams Railroad Brake Operator Relationship Specialty Start Date End Date Pcp, Unknown PCP - General 03/29/22 Additional Source Comments The information contained in this document represents components of the legal health record. It is not the complete legal health record.[facility]
--- OUTSIDE RECORDS SUMMARY | 2025-06-04 10:58 | XMS_ITS | Patient Health Record ---
Author Organization [facility] Address [address] [place] [id number] Care Team Providers Care Bass Fisher Name Role Phone Gil Coffman MD Primary [...] W/U Status Risk Notes Problem Rectal bleeding (43268253) Rectal bleeding (K62.5) Active confirmed Problem Gastroesophageal reflux disease without esophagitis (458260998) Gastroesophageal reflux disease without esophagitis (K21.9) Active confirmed Problem Constipation (51301015) Constipation, unspecified constipation type (K59.00) Active confirmed Plan Of Treatment Future Test Test Name Order Date UPPER GI ENDOSCOPY 01/15/2020 COLONOSCOPY 01/15/2020 Insurance Providers Payer Name Payer Address Payer Phone Subscriber Number Group Number Insured Name Patient Relationship to Insured Coverage Start Date Coverage End Date [facility] [address] [place] [address] [id number] KLAUDIA BRANHAM Self - patient is the insured Medical (General) History Medical History History ICD Code SVT status post ablation anxiety/depression substance abuse currently in remission hepatitis C treated with Mavyret PTSD hypertension Surgical History Surgery Date(Month/Year) MYRINGOTOMY 1997 CARDIAC ABLATION 2016 2019
--- OUTSIDE RECORDS SUMMARY | 2025-06-04 10:59 | XMS_ITS | Clinical Summary ---
Author Organization [facility] ity Address [address] [place] [address] Care Team Providers Care Marble Setter Helper Name Role Phone Unavailable Primary Care Provider [...] Depression Screening 07/24/2024 COVID-19 Vaccine ( - 2024-2 6 season) 2025 Influenza Vaccine (#1) 2025 RSV [...]
--- OUTSIDE RECORDS SUMMARY | 2025-06-04 10:59 | XMS_ITS | Encounter Summary ---
Author Organization [facility] Address [address] [facility] [address] [place] [address] Phone Care Team Providers Care Combination Technician Name Role Phone Leanne Gu CNM Unavailable Echo Payton ANESTHESIOLOGY PHYSICIAN ASSISTANT Unavailable [phone] Gil Coffman MD Unavailable Loretta Qureshi ANESTHESIOLOGY PHYSICIAN ASSISTANT Unavailable Imelda Santiago ANESTHESIOLOGY PHYSICIAN ASSISTANT Unavailable [phone] Imelda Santiago ANESTHESIOLOGY PHYSICIAN ASSISTANT Primary Care Provider Gil Coffman MD Unavailable Nati Arguello RN Unavailable [phone] Susan Haas MD Unavailable Pcp, Unknown Primary Care Provider Unavailabl e Reason for Visit * Reason Onset Date Comments Post Discharge Follow Up Call 10/24/2018 ED visit at [facility] on 10.22.18 for Headache Encounter Details Date Type Department Care Team (Late st Contact Info) Description 10/24/2018 Telephone [facility] [address] [place] [address] Imelda Santiago, ANESTHESIOLOGY PHYSICIAN ASSISTANT [address] [facility] [address] [place] [address] [email or web address] Post Discharge Follow Up Call (ED visit at [facility] on 10.22.18 for Headache) Social History [...] documented as of this encounter Care Teams Combination Technician Relationship Specialty Start Date End Date Imelda Santiago, ANESTHESIOLOGY PHYSICIAN ASSISTANT [address] [place] [phone] [email or web address] PCP - General Family Medicine 09/20/17 03/28/22 Pcp, Unknown PCP - General 03/29/22 Leanne Gu CNM [address] [place] [address] Historical LMR Provider 05/10/17 2 Echo Payton NP [address] [place] [address] [email or web address] Historical LMR Provider 05/10/17 07/31/21 Gil Coffman MD [address] [place] [address] Historical LMR Provider 05/10/17 07/31/21 Loretta Qureshi, DEVIN [address] [place] [address] Historical LMR Provider 05/10/17 2 Imelda Santiago, ANESTHESIOLOGY PHYSICIAN ASSISTANT [address] [facility] [address] [place] [address] [email or web address] Historical LMR Provider 05/10/17 03/28/22 Gil Coffman MD [address] [place] [address] Insurance Assigned Provider 11/25/17 02/23/19 Nati Arguello RN [address] [place] [address] [email or web address] [facility] Ampoule Filler And Sealer 11/23/18 01/03/19 Susan Haas MD [address] [place] [address] [email or web address] Insurance Assigned Provider 11/27/19 02/27/20 documented as of this encounter Additional Source Comments The information contained in this document represents components of the legal health record. It is not the complete legal health record.[facility]
[2025-06-04 11:04] VITALS: BP 131/94; PULSE 73; RESP 16; TEMP 36.8; O2SAT 95
== END 2025-06-04 11:05 | disposition home or self-care (01) ==
PROVIDERS: Emergency Provider Emergency Medicine; PCP Nurse Practitioner Family
DX: J45.901 Unspecified asthma with (acute) exacerbation (principal); B34.9 Viral infection, unspecified
CPT/HCPCS: 71045; 87637; 94640; 99284; 99285; J8540

== ENCOUNTER → 2025-06-04 09:05 | Outpatient (BNV) | payer OTHER, SELFPAY | PROVIDERS: Emergency Provider Emergency Medicine; PCP Nurse Practitioner Family; Visit Provider Radiology Diagnostic Ultrasound | DX: R05.9 Cough, unspecified (principal); R06.02 Shortness of breath | CPT/HCPCS: 71045 ==